=== PATIENT | male | born 1985 | race African-American/Black ===

== ENCOUNTER 2017-04-10 13:44 | Inpatient (IN) ==
[2017-04-10] MEDS ORDERED: amLODIPine 5 MG TABLET PO STA (15:01)
[2017-04-10] MEDS ORDERED: METOPROLOL TARTRATE 5 MG/5 ML VIAL IV ONE (15:12)
[2017-04-10] MEDS ORDERED: amLODIPine 5 MG TABLET ONE ×2 (15:13→15:31)
--- NOTE | 2017-04-10 15:15 | CT Report ---
Referring physician: Liban Pa Exam: CT brain without contrast Date: 04/10/2017 Comparison: None Reason: Right arm numbness Technique: Axial images of the head were obtained without the use of contrast. Total DLP was 1103.60 mGy*cm. Findings: No hydrocephalus or midline shift is present. There is no evidence of an acute infarction, recent intracranial hemorrhage or abnormal mass effect. The osseous structures appear intact. The mastoid air cells and visualized paranasal sinuses are clear. Impression: No acute intracranial abnormality is identified. The CT exam was performed using one or more of the following dose reduction techniques: Automated exposure control and adjustment of the mA and/or kV according to patient size. PROCEDURE INTERPRETED AT [facility] DEPARTMENT OF RADIOLOGY Final Report Signed by: Dr. Angeline Reid
--- NOTE | 2017-04-10 15:16 | Emergency Department Note ---
Roxana Abad Hilary, am scribing for, and in the presence of, Liban Pa MD 15: 08. Ember Abad James D, MD, personally performed the services described in this documentation, ascribed by Bita Schmidt in my presence, and it is both accurate and complete 516 . Arrival - Arrival Chief Complaint: Neuro Stated Complaint: thinks he had a stroke ED Nursing Triage Note: numbness in right arm since yesterday morning. denies injury. moves extremity without difficulty Mode of Arrival: Ambulatory Limitations: No Limitations Source: Patient, RN Notes Reviewed Time Seen by Provider: 04/10/17 14:56 - History of Present Illness HPI Narrative: Pt is 31 y/o black male presenting to the ED with c/o HTN and right arm numbness which onset this AM. Pt denies headache or injury to the arm. No other complaints or problems stated in the ED. Onset (ago): hour(s) Consistency: constant Severity: mild Severity scale (1-10): 1 Quality: other (numb) Allergies/Adverse Reactions: Allergies Allergy/AdvReac Type Severity Reaction Status Date / Time No Known Allergies Allergy Unverified 04/10/17 14:17 Home Medications: Home Medications Medication Instructions Recorded Confirmed Type Insulin NPH Hum/Reg Insulin Hm 32 unit SUBCUT QPM 04/10/17 04/10/17 History [NovoLIN 70/30] Insulin NPH Hum/Reg Insulin Hm 60 unit SUBCUT QAM 04/10/17 04/10/17 History [NovoLIN 70/30] Review of System - Review of System 12 point system: reviewed and no additional remarkable complaints except as stated - Review of System Constitutional: Present: other (high blood pressure). Absent: fever Musculoskeletal: Present: arm pain (right arm pain) Medical,Surgical,& Family Hx - Medical History Endocrine: History of: Diabetes Mellitus (NIDDM) - Social History Smoking Status: Never smoker Exam Physical Examination: GENERAL: This is a well-nourished, well-developed in no apparent distress. VITAL SIGNS: Temperature: 98.4 Pulse: 112L Respiratory: 18 Blood Pressure: 227/134 O2 Sat: 99 HEENT: Head is normocephalic and atraumatic. Pupils are equally round and reactive to light. Extraocular movement are intact. Oropharynx is benign with moist mucous membranes. NECK: Neck is soft and supple without tenderness. There are no masses. There is no lymphadenopathy. LUNGS: Lungs are clear to auscultation bilaterally. Chest rises symmetrically. There is no chest wall tenderness. CV: Heart is regular rate and rhythm without murmurs, rubs, or gallops. ABDOMEN: Abdomen is soft, non-tender to palpation. There are no abnormal masses palpated. There is no organomegaly. Bowel sounds are present and active. SKIN: Skin is warm and dry. No rash. EXTREMITIES: Patient has full range of motion without tenderness. There is no pedal edema. NEUROLOGIC: Awake, alert, and oriented x4. Cranial nerves II through XII are grossly intact. There are no motorsensory deficits. PSYCHIATRIC: Normal affect. Normal mood. Vital Signs: Vital Signs Temperature 98.4 F 04/10/17 14:13 Pulse Rate 112 H 04/10/17 14:13 Respiratory Rate 18 04/10/17 14:13 Blood Pressure 227/134 04/10/17 14:13 O2 Sat by Pulse Oximetry 99 04/10/17 14:13 Course Course Narrative: Patient started on Cardene infusion due to his hypertension. - Consultations Consultation #1: Discussed with hospitalist. Patient will be admitted to their service. Time: 16:58 Results - Labs CBC & BMP: 04/10/17 15:18 04/10/17 15:18 Lab Results: I have reviewed the patients labs Labs: Laboratory Tests 04/10/17 04/10/17 15:18 15:18 WBC 8.1 RBC 5.33 Hgb 16.8 Hct 48.5 Neut % (Auto) 75.3 H Lymph % (Auto) 15.7 L Lymph # (Auto) 1.3 L Urine Color Straw Urine Appearance Clear Urine Urobilinogen < 2.0 H - EKG EKG results: interpreted by ERMD - Impressions EKG: Normal sinus rhythm with a rate of 86, left axis deviation, nonspecific ST- T wave changes. - Diagnostic Findings Procedure: Chest x-ray: image reviewed by me (No acute cardiopulmonary pathology identified), CT Abdomen and Pelvis: image reviewed by me (CT head: No acute intracranial lesion or hemorrhage.) Disposition Clinical Impression: Right arm numbness, Essential hypertension, Diabetes mellitus Case discussed with: patient, patient's family Disposition: Still a Patient Time of Disposition: 16:58
[2017-04-10] MEDS: METOPROLOL TARTRATE 5 MG/5 ML VIAL IV SCH ×3 (15:27→15:40)
[2017-04-10] MEDS ORDERED: METOPROLOL TARTRATE 5 MG/5 ML VIAL IV SCH (15:30)
[2017-04-10 15:39] LABS: Basophils # 0.1 10*3/uL (0.0-0.2); Basophils % 0.6 % (0.0-0.8); Eosinophils # 0.1 10*3/uL (0.0-0.87); Eosinophils % 0.9 % (0.00-10.9); Hematocrit 48.5 VOL% (42.0-52.0); Hemoglobin 16.8 GM/DL (14.0-18.0); Immature Granulocytes % 0.4 %; Immature Granulocytes Absolute 0.03 #; Lymphocytes # 1.3 10*3/uL (1.4-4.0); Lymphocytes % 15.7 % (21.2-54.2); Mean Corpuscular HGB Conc 34.6 GM/DL (32-36); Mean Corpuscular Hemoglobin 32 PG (27-34); Mean Platelet Volume 10.9 FL (9.6-12.0); Monocytes # 0.6 10*3/uL (0.11-0.8); Monocytes % 7.1 % (1.7-12.7); Neutrophils # 6.1 10*3/uL (1.4-7.4); Neutrophils % 75.3 % (38.7-73.9); Platelet Count 303 T/CUMM (130-400); Red Blood Count 5.33 MC/CUMM (3.8-5.5); White Blood Count 8.1 T/CUMM (4-12)
[2017-04-10 15:46] LABS: Apearance,Urine CLEAR (Clear); Bilirubin,Urine Negative (Negative); Blood, Urine Small mg/dL (Negative); Glucose,Urine (UA) >=500 mg/dL (Negative); Ketones,Urine Negative (Negative); Nitrite,Urine Negative (Negative); Protein,Urine >=500 MG/DL; RBC,Urine 2 /HPF (0-4); Urine Color Straw (Yellow); Urine Specific Gravity 1.015 (1.001-1.035); Urine Urobilinogen < 2.0 EU/DL (0.2-1.0); WBC,Urine <1 /HPF (0-6)
[2017-04-10 16:02] LABS: Calcium 9.5 MG/DL (8.5-10.1); Osmolality,Calculated 291.8 MOS/KG (273-304); Potassium 4.6 MMOL/L (3.5-5.1)
[2017-04-10 16:15] LABS: Barbiturates Screen,Urine Negative (Negative); Benzodiazepines Screen,Urine Negative (Negative); Cannabinoid Screen,Urine Negative (Negative); Opiate Screen,Urine Negative (Negative); Phencyclidine Screen,Urine Negative (Negative)
[2017-04-10] MEDS ORDERED: niCARdipine 25 MG/10 ML VIAL IV ONE (16:23)
[2017-04-10] MEDS ORDERED: niCARdipine INJ 25 MG in SODIUM CHLORIDE 0.9% 240 ML IV SCH (16:30)
[2017-04-10] MEDS ORDERED: ASPIRIN 325 MG TABLET ONE (17:15)
[2017-04-10] MEDS ORDERED: ASPIRIN 325 MG TABLET PO STA (17:20)
--- NOTE | 2017-04-10 17:32 | Hospitalist History & Physical ---
<Yang Ambrosio - Last Filed: 04/10/17 17:43> History of Present Illness History of present illness: Mr. Yang is a 31 year old male with a past medical history significant for IDDM and HTN, however he sees no doctor, who presents to the ED with complaints of right arm numbness and elevated blood pressure. The patient reports he knows that he has DM and he buys his insulin at [facility] without a prescription. He noted that began to feel his mouth "slide" and have slurred speech at work over the past few days and, most recently, noticed that his right arm felt like " weight". On admission, the patient's blood pressure was noted to be 227/134. The patient admits that he has felt symptoms similar to this in the past, but has never had it checked out due to a lack of insurance. He states that he does snore at night and often wakes up feeling tired, but denies an associated headache. He further denies current headache, chest pain, SOB, nausea/vomiting, change in bowel habits, palpitations or syncopal episodes. Lab work on admission is remarkable for BUN 32, Creatinine 3.30, glucose 310 and Hgb A1c 8.5. Urinalysis is significant for protein and glucose. Case has been discussed with Dr. Preciado, admitting physician, and the patient will be admitted to the ICU for further evaluation and treatment. The patient is a full code. Medications have been reviewed and reconciled. Home Medications Medication Instructions Recorded Confirmed Type Insulin NPH Hum/Reg Insulin Hm 32 unit SUBCUT QPM 04/10/17 04/10/17 History [NovoLIN 70/30] Insulin NPH Hum/Reg Insulin Hm 60 unit SUBCUT QAM 04/10/17 04/10/17 History [NovoLIN 70/30] Allergies Allergy/AdvReac Type Severity Reaction Status Date / Time No Known Allergies Allergy Verified 04/10/17 18:31 - Constitutional Constitutional: Present: headache(s). Absent: fatigue, weakness - EENT Eyes: Absent: blurry vision, loss of vision Nose, mouth and throat: Absent: hoarseness, neck pain, sore throat, vertigo - Cardiovascular Cardiovascular: Absent: chest pain at rest, chest pain with activity, diaphoresis, dyspnea, edema, radiating jaw, neck or arm pain, lightheadedness, palpitations - Respiratory Respiratory: Present: snoring. Absent: cough, dyspnea, wheezing, pain on inspiration - Gastrointestinal Gastrointestinal: Absent: abdominal pain, constipation, diarrhea, nausea, vomiting - Genitourinary Genitourinary: Absent: difficulty urinating, dysuria - Musculoskeletal Musculoskeletal: Absent: back pain, limited range of motion, muscle weakness - Neurological Neurological: Present: abnormal speech (slurred speech), numbness (right arm numbness). Absent: abnormal gait, syncope - Psychiatric Psychiatric: Absent: anxiety, depression - Endocrine Endocrine: Absent: cold intolerance, fatigue, heat intolerance - Hematologic/Lymphatic Hematologic/Lymphatic: Absent: easy bleeding, easy bruising Exam - Constitutional Vitals: Period Temp Pulse Resp BP Sys/Mckeon Pulse Ox Last 24 Hr 98.4 F-98.4 F 84-112 18-18 158-227/109-140 97-100 Results - Labs CBC & BMP: 04/10/17 15:18 04/10/17 15:18 Lab Results: I have reviewed the past 24 hour labs <Maddie Preciado - Last Filed: 04/10/17 19:46> Assessment and Plan (1) Malignant hypertension Status: Acute Assessment and plan: cont cardene keep systolic 160 to 180, coreg 12.5 mg po bid norvasc given in er Current Visit: Yes (2) IDDM (insulin dependent diabetes mellitus) Status: Acute Assessment and plan: 70/30 twice a day, hgb a1c 8.5 Current Visit: Yes (3) Acute renal failure Status: Acute Assessment and plan: renal us and Dr. Tay consulted Current Visit: Yes (4) MERLY (obstructive sleep apnea) Status: Acute Assessment and plan: Dr. Altman to see Current Visit: Yes History of Present Illness Chief complaint: right arm numbness History of present illness: Mr. Yang is a 31 year old male with history IDDM who does not see a doctor but gets his insulin 70/30 without a prescription. Developed numbness, right arm numbness and came to Er for evaluation. Blood pressure on admission was 227/ 134. he was given norvasc 10 mg and placed on cardene drip Medical,Surgical,& Family Hx - Medical History Endocrine: History of: Diabetes Mellitus (NIDDM) - Surgical History Additional Surgical History: none - Family History Family History: Reports;: Family Diabetes, Family Hypertension Denies;: Family Heart Disease - Social History Smoking Status: Never smoker Frequency of Alcohol Use: None Type of Drug Use: None Marital Status: Single Lives With:: Significant Other Functional capacity: independent ambulation Exam - Constitutional Vitals: Period Temp Pulse Resp BP Sys/Mckeon Pulse Ox Last 24 Hr 98.4 F-98.4 F 84-112 18-18 158-227/109-140 97-100 General appearance: normal weight, no acute distress - Head Head exam: Present: normal inspection, normocephalic - Eye Eye exam: Present: EOMI. Absent: scleral icterus Pupils: Present: SIMONE, normal accommodation - ENT ENT exam: Present: normal exam, normal external ear exam - Neck Neck exam: Present: thyromegaly. Absent: lymphadenopathy - Respiratory Respiratory exam: Present: clear to auscultation bilaterally. Absent: rhonchi, wheezes - Cardiovascular Cardiovascular exam: Present: regular rate and rhythm. Absent: systolic murmur - GI/Abdominal GI/Abdominal exam: Present: normal bowel sounds, soft. Absent: tenderness - Extremities Exam Extremities exam: Present: normal inspection, normal capillary refill. Absent: edema - Neurological Exam Neurological exam: Present: alert, oriented X3, CN II-XII intact, reflexes normal. Absent: motor sensory deficit - Psychiatric Psychiatric exam: Present: normal affect, normal mood - Skin Skin exam: Present: normal color, warm Results - Labs CBC & BMP: 04/10/17 15:18 04/10/17 15:18 - EKG EKG shows: sinus rhythm - Diagnostic Findings Procedure: CT: report reviewed by me (head negative )
[2017-04-10] MEDS ORDERED: GLUCAGON 1 MG VIAL IM PRN (18:20)
[2017-04-10] MEDS ORDERED: ZALEPLON 5 MG CAPSULE PO PRN (18:20)
[2017-04-10] MEDS ORDERED: ACETAMINOPHEN 325 MG TABLET PO PRN (18:20)
[2017-04-10] MEDS ORDERED: DEXTROSE 50% 25 GM/50 ML VIAL IV PRN (18:20)
[2017-04-10] MEDS ORDERED: ONDANSETRON 4 MG/2 ML VIAL IV PRN (18:20)
[2017-04-10] MEDS: ENOXAPARIN 40 MG/0.4 ML SYRINGE SUBCUT SCH (18:51)
[2017-04-10] MEDS: CARVEDILOL 12.5 MG TABLET PO SCH ×2 (18:51→20:50)
[2017-04-10] MEDS: INSULIN NPH/REGULAR 70/30 100 UNIT/ML SUBCUT SCH (18:51)
[2017-04-10 19:22] LABS: Thyroid Stimulating Hormone 3.2 uIU/ml (0.358-3.74)
--- NOTE | 2017-04-10 20:13 | Nephrology Consult Note ---
History of Present Illness Chief complaint: Renal impairment, Hypertensive urgency History of present illness: Mr. Yang is a 31 year old male whom we are asked to see with a greater than 20 year history of diabetes mellitus and presentation to the emergency room because of neurologic symptoms of late with numbness in his arms and face and questionable slurred speech. He was found to be quite hypertensive at approximately 220/130. He says that hypertension is new. He does not see physicians regularly and buys his insulin at [facility]. He takes 7030 insulin and takes 60 units in the morning and 30 in the evening. He denies any swelling or shortness of breath. On physical exam he appears in no distress blood pressure currently is 140/106. Neck without jugular venous distention heart without rub or gallop chest is clear. Abdomen is soft nontender extremities are without peripheral edema. Impression hypertensive urgency #2 creatinine of 3 which may be chronic or may reflect vasospasm related to the hypertensive urgency. #3 proteinuria by urinalysis likely reflecting diabetic nephropathy. Plan: We will quantitate urine protein, control blood pressure and I agree with the Coreg and amlodipine is being used. He understands good blood pressure pressure and blood sugar control or crucial to slowing the progression of renal impairment. There may be worsening of his creatinine as blood pressure is controlled but we should continue to control it and he will settle back down to whatever his previous baseline was. Home Medications Medication Instructions Recorded Confirmed Type Insulin NPH Hum/Reg Insulin Hm 32 unit SUBCUT QPM 04/10/17 04/10/17 History [NovoLIN 70/30] Insulin NPH Hum/Reg Insulin Hm 60 unit SUBCUT QAM 04/10/17 04/10/17 History [NovoLIN 70/30] Allergies Allergy/AdvReac Type Severity Reaction Status Date / Time No Known Allergies Allergy Verified 04/10/17 18:31 Medical,Surgical,& Family Hx - Medical History Endocrine: History of: Diabetes Mellitus (NIDDM) - Family History Family History: Reports;: Family Diabetes, Family Hypertension, Family Stroke ( dad) Denies;: Family Heart Disease - Social History Smoking Status: Never smoker Frequency of Alcohol Use: None Type of Drug Use: None Review of Systems 12 point system: reviewed and no additional remarkable complaints except as stated Exam - Vital Signs Vital signs: Period Temp Pulse Resp BP Sys/Mckeon Pulse Ox Last 24 Hr 97.9 F-98.4 F 84-112 16-20 131-227/86-140 97-100 - General Appearance General appearance: well-developed, well-nourished, appears started age EENT: ATNC Neck: no JVD, no thyromegaly, no carotid bruit, supple Respiratory: no kyphosis, no scoliosis Cardiology: no murmurs, no rub, no gallops, no edema, regular rate, regular rhythm, normal S1, normal S2 Gastrointestinal: normoactive bowel sounds Integumentary: no rash, warm and dry Neurologic: no focal deficit, no asterixis, alert and oriented x3, reflexes 2+ and symmetric, gait normal, strength 5/5 Musculoskeletal: no deformities, no erythema, no cyanosis, no clubbing Psychiatric: mood/affect appropriate, cooperative Results - Labs CBC & BMP: 04/10/17 15:18 04/10/17 15:18 Assessment and Plan (1) Renal function impairment Status: Acute Assessment and plan: Control bp and glucose. Quantitate proteinuria. Current Visit: Yes (2) Hypertensive urgency Status: Acute Assessment and plan: BP control as is being done Current Visit: Yes
--- NOTE | 2017-04-10 20:46 | Ultrasound Report ---
US renal Bilateral Indication: Acute renal failure. RENAL ULTRASOUND: Grayscale and color Doppler imaging the kidneys performed. Right kidney measures 105 x 40 x 47 mm. Left kidney measures 97 x 47 x 51 mm. No hydronephrosis, mass, cyst or calcification identified on either side. Color Doppler flow at both renal arsalan documented. Impression: Negative ultrasound the kidneys. PROCEDURE INTERPRETED AT [facility] DEPARTMENT OF RADIOLOGY Final Report Signed by: Chuck Luis M.D.
[2017-04-10] MEDS: INSULIN LISPRO 100 UNIT/ML SUBCUT SCH (21:31)
[2017-04-11 05:24] LABS: Calcium 8.9 MG/DL (8.5-10.1); Potassium 4.7 MMOL/L (3.5-5.1)
[2017-04-11 05:25] LABS: Risk Ratio 9.33; VLDL CHOLESTEROL 38.8 MG/DL
--- NOTE | 2017-04-11 07:49 | EKG Report ---
Stationary ECG Study [facility] ER Test Date: 04/10/2017 3:45:38 PM Pat Name: SHONNA JOHNSTON Department: Room: 124 Gender: M Pharmacy Technician Assistant: : [id number] Requested by: Liban Segundo Order Number: [id number] Franklin MD: NELIA SILVA Intervals [place] Rate: 86 P: 28 MD: 154 QRS: -37 QRSD: 83 T: 21 QT: 351 QTc: 394 Interpretive Statements SINUS RHYTHM POOR R-WAVE PROGRESSION MARKED LEFT AXIS DEVIATION PATTERN CONSISTENT WITH PULMONARY DISEASE Electronically Signed On 04-12-17 16:06:36 CDT by NELIA SILVA [email or web address]
--- NOTE | 2017-04-11 08:33 | Nephrology Progress Note ---
Nephrology - PN: Subj Interval history: Mr. Yang is seen in follow-up of his chronic renal failure and hypertension. His blood pressure is much better controlled at 140/90 and creatinine is stable at 3.4. Potassium 4.7. We encouraged him regarding the necessity of taking good care of his diabetes and compliance with his hypertensive medicines. He understands that he will slow the progression of his renal impairment if he controls his blood pressure and blood sugar. Exam (PN)-Nephrology - Vital Signs Vital signs: Period Temp Pulse Resp BP Sys/Mckeon Pulse Ox Last 24 Hr 97.1 F-98.4 F 78-112 13-26 107-227/62-140 96-100 - Lab 04/10/17 15:18 04/11/17 04:14 Most recent lab results Calcium 8.9 MG/DL (8.5-10.1) 04/11/17 04:14 Magnesium 2.0 MG/DL (1.8-2.4) 04/10/17 18:37 Assessment and Plan (1) Renal function impairment Status: Acute Assessment and plan: Control bp and glucose. Quantitate proteinuria. Current Visit: Yes (2) Hypertensive urgency Status: Acute Assessment and plan: BP control as is being done Current Visit: Yes
[2017-04-11] MEDS: INSULIN NPH/REGULAR 70/30 100 UNIT/ML SUBCUT SCH ×3 (08:41→18:10)
[2017-04-11] MEDS: CARVEDILOL 12.5 MG TABLET PO SCH ×2 (08:42→21:28)
[2017-04-11] MEDS: amLODIPine 10 MG TABLET PO SCH (08:42)
[2017-04-11] MEDS: INSULIN LISPRO 100 UNIT/ML SUBCUT SCH ×4 (08:42→21:27)
[2017-04-11] MEDS: ASPIRIN 325 MG TABLET PO SCH (08:42)
--- NOTE | 2017-04-11 11:39 | ECHO Report ---
Steven Yang Exam Date: 04/11/2017 07:54 Referring Physician: Technologist: joe Caraballo ARDMS, RVT Age: 31 Ht (in): 65 Wt (lb): 225 Gender: M Exam Location: [facility] Echo Indications: Essential (primary) hypertension, Weakness, IDDM, Hypertensive crisis, SOB BP: 110 / 65 HR: 81 Rhythm: Sinus Technical Quality: good IMPRESSIONS The EF is 60% with no regional wall motion abnormalities. Diastolic parameters are normal and there is no RWMA. There is mild concentric left ventricular hypertrophy. MEASUREMENTS (Male / Female) Normal Values 2D ECHO LV Diastolic Diameter PLAX 3.8 cm 4.2 - 5.9 / 3.9 - 5.3 cm LV Systolic Diameter PLAX 2.3 cm LV Fractional Shortening PLAX 38.5 % IVS Diastolic Thickness 1.5 cm 0.6 - 1.0 / 0.6 - 0.9 cm LVPW Diastolic Thickness 1.3 cm 0.6 - 1.0 / 0.6 - 0.9 cm RV Internal Dim ED PLAX 2.0 cm Aortic Root Diameter 2.6 cm LA Systolic Diameter LX 3.3 cm 3.0 - 4.0 / 2.7 - 3.8 cm FINDINGS Left Ventricle The EF is 60% with no regional wall motion abnormalities. Diastolic parameters are normal and there is no RWMA. There is mild concentric left ventricular hypertrophy. Right Ventricle The right ventricle is normal in size and function. Right Atrium The right atrium is normal in size. Left Atrium The left atrium is normal in size. Mitral Valve Morphologically normal mitral valve without significant stenosis or prolapse. There is no mitral regurgitation. Aortic Valve Aortic valve sclerosis without stenosis or regurgitation. Tricuspid Valve Morphologically normal tricuspid valve without significant stenosis or regurgitation. Pulmonary artery systolic pressure is normal. Pulmonic Valve Morphologically normal pulmonic valve without significant stenosis. There is no pulmonic regurgitation. Pericardium Normal pericardium without effusion. Aorta Normal ascending aorta dimension. Nely Pham (Electronically Signed) Final Date: 11 April 2017 11:38
--- NOTE | 2017-04-11 12:02 | Sleep Medicine Consult ---
Assessment and Plan (1) MERLY (obstructive sleep apnea) Status: Acute Assessment and plan: This patient certainly does have clinical features that would be concerning for sleep apnea with this history of snoring, sleepiness, abnormal breathing during sleep, and medical comorbidities. We will proceed with home sleep testing evaluation tonight and follow-up on these results. Current Visit: Yes (2) Essential hypertension Status: Acute Assessment and plan: The prevalence for obstructive sleep apnea patients with hypertension is about 35%. In those to require up to 4 medications for blood pressure control, that prevalence can be as high as 80%. Current Visit: Yes (3) Diabetes mellitus Status: Acute Assessment and plan: Uncontrolled obstructive sleep apnea certainly can contribute to the exacerbation of diabetes. Type II diabetic patients who have moderate to severe sleep apnea are at greater risk for complications of renal failure and diabetic neuropathy. Current Visit: Yes History of Present Illness Chief complaint: Sleep apnea History of present illness: Mr. Yang is a 31 year old male admitted with right arm numbness and difficult to control hypertension. Sleep medicine was consulted for concern that sleep apnea is a factor. He does have a history of loud snoring and will awaken from sleep short of breath. He denies any history of being told that he stops breathing during his sleep. He does have symptoms of sleepiness during the day but no history of significant nocturia. He has never had previous sleep evaluation in the past. 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 He does not have a regular doctor but when he does go, he goes to the [facility]. He states that he gets his insulin from [employer]. He does have a stop bang score of 5 and a [place] sleepiness score of 14. Home Medications Medication Instructions Recorded Confirmed Type Insulin NPH Hum/Reg Insulin Hm 32 unit SUBCUT QPM 04/10/17 04/10/17 History [NovoLIN 70/30] Insulin NPH Hum/Reg Insulin Hm 60 unit SUBCUT QAM 04/10/17 04/10/17 History [NovoLIN 70/30] Allergies Allergy/AdvReac Type Severity Reaction Status Date / Time No Known Allergies Allergy Verified 04/10/17 18:31 Review of systems: Otherwise unremarkable from a sleep medicine standpoint. Exam (Pulmonay) H&P - Constitutional Vitals: Period Temp Pulse Resp BP Sys/Mckeon Pulse Ox Last 24 Hr 97.1 F-98.4 F 76-112 13-26 107-227/62-140 96-100 Exam: He is alert and responsive in no acute distress. Pupils equal round reactive to light and accommodation. Extraocular movements intact. Oropharynx with a class IV Mallampati exam. Neck supple without adenopathy or thyromegaly. No supraclavicular adenopathy is noted. Chest with symmetrical breath sounds without focal wheeze, rhonchi, or rales. Cardiac exam reveals a regular rhythm without murmur or gallop. Abdomen soft nontender extremities without increased edema. Neurologically, he is grossly intact. Medical,Surgical,& Family Hx - Medical History Endocrine: History of: Diabetes Mellitus (NIDDM) - Family History Family History: Reports;: Family Diabetes, Family Hypertension, Family Stroke ( dad) Denies;: Family Heart Disease - Social History Smoking Status: Never smoker Frequency of Alcohol Use: None Type of Drug Use: None Results - Labs CBC & BMP: 04/10/17 15:18 04/11/17 04:14 Lab Results: I have reviewed the past 24 hour labs Quality Measures - Stroke Onset of Symptoms Date: 04/09/17
--- NOTE | 2017-04-11 13:04 | Hospitalist Progress Note ---
Assessment and Plan (1) Malignant hypertension Status: Acute Assessment and plan: cont coreg 12.5 mg po bid, norvasc 10 mg, off cardene Current Visit: Yes (2) IDDM (insulin dependent diabetes mellitus) Status: Acute Assessment and plan: 70/30 twice a day, hgb a1c 8.5 Current Visit: Yes (3) Acute renal failure Status: Acute Assessment and plan: Thanks for help from Dr. Tay Current Visit: Yes (4) MERLY (obstructive sleep apnea) Status: Acute Assessment and plan: Dr. Altman thanks for help Current Visit: Yes Hospitalist: Subjective Interval history: blood pressure better today. Exam - Constitutional Vitals: Period Temp Pulse Resp BP Sys/Mckeon Pulse Ox Last 24 Hr 97.1 F-98.4 F 76-112 13-26 107-227/62-140 96-100 Exam: Heart Rate-[RRR] Lungs-[CTAB] GI-[+bs soft, NT] Ext-[no edema] Neuro [Motor 5/5], [alert and oriented times 3] psych [normal mood and affect] General [no acute distress] Results - Labs CBC & BMP: 04/10/17 15:18 04/11/17 04:14 Lab Results: I have reviewed the past 24 hour labs - Diagnostic Findings Procedure: Ultrasound: report reviewed by me (echo ef 60%) Quality Measures - Stroke Onset of Symptoms Date: 04/09/17
[2017-04-11] MEDS: ENOXAPARIN 40 MG/0.4 ML SYRINGE SUBCUT SCH (17:36)
[2017-04-12 07:12] LABS: Calcium 9.2 MG/DL (8.5-10.1); Osmolality,Calculated 287.1 MOS/KG (273-304); Potassium 4.2 MMOL/L (3.5-5.1)
[2017-04-12] MEDS: ASPIRIN 325 MG TABLET PO SCH (09:35)
[2017-04-12] MEDS: CARVEDILOL 12.5 MG TABLET PO SCH (09:35)
[2017-04-12] MEDS: amLODIPine 10 MG TABLET PO SCH (09:35)
[2017-04-12] MEDS: INSULIN LISPRO 100 UNIT/ML SUBCUT SCH ×4 (09:36→20:12)
[2017-04-12] MEDS: INSULIN NPH/REGULAR 70/30 100 UNIT/ML SUBCUT SCH (09:36)
--- NOTE | 2017-04-12 12:48 | Hospitalist Progress Note ---
Assessment and Plan (1) Malignant hypertension Status: Acute Assessment and plan: Will increase Coreg to 25mg bid, follow response, Echo-EF-60% with no regional wall motion abnormalities. Current Visit: Yes (2) IDDM (insulin dependent diabetes mellitus) Status: Acute Assessment and plan: A1c-8.5.Patient had some episodes of hypoglycemia requiring D50 so we will keep him on SSC for now and hold his routine Insulin. DM teaching Current Visit: Yes (3) Dyslipidemia Status: Acute Assessment and plan: will start Lipitor Current Visit: Yes (4) MERLY (obstructive sleep apnea) Status: Acute Assessment and plan: Follow sleep clinic's recommendations. Current Visit: Yes (5) Renal function impairment Status: Acute Assessment and plan: I suspect this has been ongoing for a while. Follow Nephrology's recommendations. Renal USS- unremarkable. Current Visit: Yes Hospitalist: Subjective Interval history: Patient was admitted initially to the unit for hypertensive crisis.He also has a history of DM and RF. He has not been seeing any PCP as outpt, he gets his insulin from [facility] and pretty much handles his own dose unsupervised. Exam - Constitutional Vitals: Period Temp Pulse Resp BP Sys/Mckeon Pulse Ox Last 24 Hr 97.3 F-98.6 F 18-83 16-20 130-158/73-96 95-98 General appearance: no acute distress - Head Head exam: Present: normal inspection - Respiratory Respiratory exam: Present: clear to auscultation bilaterally - Cardiovascular Cardiovascular exam: Present: regular rate and rhythm - Extremities Exam Extremities exam: Present: normal inspection - Neurological Exam Neurological exam: Present: alert, oriented X3 Results - Labs CBC & BMP: 04/10/17 15:18 04/12/17 05:16 Lab Results: I have reviewed the past 24 hour labs Quality Measures - Stroke Onset of Symptoms Date: 04/09/17
--- NOTE | 2017-04-12 14:14 | Nephrology Progress Note ---
Nephrology - PN: Subj Interval history: Mr. Yang is seen in follow-up of his chronic renal impairment. His creatinine stable at 3.2. His blood pressures improved and fairly stable. He has had an episode of hypoglycemia but he said he is eating far less in the hospital and he does as an outpatient and thinks that that is what led to his hypoglycemia. He said he rarely has that as an outpatient unless he misses a meal. He understands that he is going to need to continue blood pressure control and continue to try to keep a close eye on his blood sugars once he is discharged. Exam (PN)-Nephrology - Vital Signs Vital signs: Period Temp Pulse Resp BP Sys/Mckeon Pulse Ox Last 24 Hr 97.3 F-98.6 F 76-83 16-20 133-158/73-96 95-98 - Lab 04/10/17 15:18 04/12/17 05:16 Most recent lab results Calcium 9.2 MG/DL (8.5-10.1) 04/12/17 05:16 Magnesium 2.0 MG/DL (1.8-2.4) 04/10/17 18:37 Assessment and Plan (1) Renal function impairment Status: Acute Assessment and plan: Control bp and glucose. Quantitate proteinuria. Current Visit: Yes (2) Hypertensive urgency Status: Acute Assessment and plan: BP control as is being done Current Visit: Yes
[2017-04-12] MEDS: ENOXAPARIN 40 MG/0.4 ML SYRINGE SUBCUT SCH ×2 (16:57→18:33)
--- NOTE | 2017-04-12 17:36 | Sleep Medicine Progress Note ---
Assessment and Plan (1) MERLY (obstructive sleep apnea) Status: Acute Assessment and plan: Patient will be placed on auto titration CPAP tonight. We will follow-up results with downloaded. He does not have insurance and I have recommended that he see if he can get qualified for Medicaid. If not, we can contact [employer] companies to see if there is a used machine that would be available for him. He would likely have to pay for supplies with mask, tubing, and filters. Current Visit: Yes (2) Essential hypertension Status: Acute Current Visit: Yes (3) Diabetes mellitus Status: Acute Current Visit: Yes Sleep Medicine Subjective Interval history: Patient did undergo HST evaluation last night. He did have evidence of moderate obstructive sleep apnea with respiratory event index of 18.9 and O2 desaturation to lows of 75%. We will set him up on CPAP titration tonight with auto titration device and follow up his response. I reviewed his findings with him to his understanding. Exam (Progress Note) - Constitutional Vitals: Period Temp Pulse Resp BP Sys/Mckeon Pulse Ox Last 24 Hr 97.3 F-98.6 F 76-83 16-20 133-165/70-96 95-98 Exam: He is alert and oriented and in no acute distress. Oropharynx with class III Mallampati exam. Neck supple without adenopathy. Chest with good air movement and no focal wheeze or rhonchi. Cardiac exam reveals a regular rhythm without murmur or gallop. Abdomen soft nontender extremities without increased edema. Results - Labs CBC & BMP: 04/10/17 15:18 04/12/17 05:16 Lab Results: I have reviewed the past 24 hour labs
[2017-04-12] MEDS: ATORVASTATIN 40 MG TABLET PO SCH (20:10)
[2017-04-12] MEDS: CARVEDILOL 25 MG TABLET PO SCH (20:10)
[2017-04-13 07:09] LABS: Osmolality,Calculated 296.3 MOS/KG (273-304); Potassium 4.7 MMOL/L (3.5-5.1)
[2017-04-13] MEDS: INSULIN LISPRO 100 UNIT/ML SUBCUT SCH ×4 (08:19→21:07)
--- NOTE | 2017-04-13 08:37 | Nephrology Progress Note ---
Nephrology - PN: Subj Interval history: Ms. Yang is seen in follow-up of his renal impairment and hypertension. He is much improved overall with better blood pressure control and her creatinine now down to 2.9. I do not think he will ever return to a creatinine much below 2-1/ 2 but continued blood pressure control and blood sugar control have been emphasized as the best way to protect and preserve kidney function his chest is clear and he is without complaint. Exam (PN)-Nephrology - Vital Signs Vital signs: Period Temp Pulse Resp BP Sys/Mckeon Pulse Ox Last 24 Hr 96.9 F-98.6 F 71-85 15-22 133-198/67-104 96-100 - Lab 04/10/17 15:18 04/13/17 05:22 Most recent lab results Calcium 9.0 MG/DL (8.5-10.1) 04/13/17 05:22 Magnesium 2.0 MG/DL (1.8-2.4) 04/10/17 18:37 Assessment and Plan (1) Renal function impairment Status: Acute Assessment and plan: Control bp and glucose. Quantitate proteinuria. Current Visit: Yes (2) Hypertensive urgency Status: Acute Assessment and plan: BP control as is being done Current Visit: Yes
[2017-04-13] MEDS: CARVEDILOL 25 MG TABLET PO SCH ×2 (09:49→21:07)
[2017-04-13] MEDS: amLODIPine 10 MG TABLET PO SCH (09:49)
[2017-04-13] MEDS: ASPIRIN 325 MG TABLET PO SCH (09:49)
--- NOTE | 2017-04-13 12:08 | Magnetic Resonance Report ---
Exam: MR head/brain wo con Date: 04/13/2017 10:00 AM Comparison: CT brain 04/10/2017 Indication: Right side weakness, slurred speech Technique:[Multiple acquisitions were obtained including sagittal T1, coronal T2, and axial ADC, diffusion, FLAIR, T2, GRE, and T1 scans without contrast only. Scans were obtained on an open 1.2 Paige magnet.] Findings: The ventricles are normal in size with no midline displacement. The pituitary has a normal appearance and the cerebellar tonsils are normal in their location. 16 mm area of restricted diffusion in the left midbrain/cerebral peduncle. Minimal extension into the upper left patricia. No evidence of hemorrhage, mass, or extracerebral collection. No acute findings are identified in the paranasal sinuses, orbits, temporal bones, or la posta of Parikh. Impression: 16 mm acute ischemic infarction in the left midbrain/cerebral peduncle. There is minimal extension into the upper left patricia. This report to nurse, Naye Ramesh at 12:05 PM on 04/13/2017. Critical test results PROCEDURE INTERPRETED AT [facility] DEPARTMENT OF RADIOLOGY Final Report Signed by: Dr. Angeline Reid
--- NOTE | 2017-04-13 12:58 | Sleep Medicine Progress Note ---
Assessment and Plan (1) MERLY (obstructive sleep apnea) Status: Acute Assessment and plan: His obstructive sleep apnea seems well controlled with CPAP at 13 cm. CPAP will be prescribed at that level and follow-up will be scheduled in the sleep clinic. Current Visit: Yes (2) Essential hypertension Status: Acute Current Visit: Yes (3) Diabetes mellitus Status: Acute Current Visit: Yes Sleep Medicine Subjective Interval history: Patient did do well with CPAP last night. He was on auto titration CPAP and slept with it for over 9 hours. His best pressure was about 13 cm and he had good control with an AHI of 3. He felt better this morning and noted improvement. [facility] has committed to giving him a used machine. We will set him up for follow-up in the sleep clinic after discharge. Exam (Progress Note) - Constitutional Vitals: Period Temp Pulse Resp BP Sys/Mckeon Pulse Ox Last 24 Hr 96.9 F-98.6 F 71-86 15-22 120-198/67-104 96-100 Exam: He is alert and oriented and in no acute distress. Oropharynx with class III Mallampati exam. Neck supple without adenopathy. Chest with good air movement and no focal wheeze or rhonchi. Cardiac exam reveals a regular rhythm without murmur or gallop. Abdomen soft nontender extremities without increased edema. Results - Labs CBC & BMP: 04/10/17 15:18 04/13/17 05:22 Lab Results: I have reviewed the past 24 hour labs
--- NOTE | 2017-04-13 13:21 | Ultrasound Report ---
Exam: Carotid ultrasound Date: 04/13/2017 Comparison: None Technique: Duplex scans of the carotid and vertebral arteries using B-mode/Karimi scale imaging and Doppler spectral analysis and color flow. Reason: Acute infarct Findings: The right ICA measures 3.4 mm in diameter and the left ICA measures 5.3 mm in diameter. Color-flow documented in the visualized arteries. The peak systolic velocities are as follows: Right CCA: 63.3 cm/s Right ICA: 0.0 cm/s Right ECA: 97.1 cm/s Left CCA: 95.3 cm/s Left ICA: 70.1 cm/s Left ECA: 115.6 cm/s The peak systolic ICA/CCA velocity ratios are as follows: 0.0 on the right and 0.7 on the left. Antegrade flow is present in both vertebral arteries. Impression:[Occlusion of the right ICA with less than 50% stenosis in the left ICA. Antegrade flow in both vertebral arteries. CTA recommended for further evaluation as discussed with the patient's nurse, Yulissa at 1:15 PM on 04/13/2017. Critical test results The Society of Radiologists in Ultrasound consensus conference criteria was used. The Ultrasound images were captured and stored. PROCEDURE INTERPRETED AT [facility] DEPARTMENT OF RADIOLOGY Final Report Signed by: Dr. Angeline Reid
--- NOTE | 2017-04-13 14:19 | Neurology Consult Note ---
History of Present Illness History of present illness: Mr. Yang is a 31 year old -[place] gentleman with past medical history significant for diabetes, hypertension admitted to the hospital with acute onset of right and leg numbness and weakness. He is dragging his leg and is extremely weak. No speech difficulties or swallowing difficulties reported. No vision problems. He is able to get up and walk. MRI of the brain reveals acute left cerebral peduncle midbrain and upper pontine infarct. Carotid ultrasound reveals complete occlusion of the right ICA which is asymptomatic side. Echocardiogram is unremarkable. Cholesterol is 392 and triglycerides are 192. Home Medications Medication Instructions Recorded Confirmed Type Insulin NPH Hum/Reg Insulin Hm 32 unit SUBCUT QPM 04/10/17 04/10/17 History [NovoLIN 70/30] Insulin NPH Hum/Reg Insulin Hm 60 unit SUBCUT QAM 04/10/17 04/10/17 History [NovoLIN 70/30] Allergies Allergy/AdvReac Type Severity Reaction Status Date / Time No Known Allergies Allergy Verified 04/10/17 18:31 Medical,Surgical,& Family Hx - Medical History Endocrine: History of: Diabetes Mellitus (NIDDM) - Family History Family History: Reports;: Family Diabetes, Family Hypertension, Family Stroke ( dad) Denies;: Family Heart Disease - Social History Smoking Status: Never smoker Frequency of Alcohol Use: None Type of Drug Use: None Exam - Constitutional Vitals: Period Temp Pulse Resp BP Sys/Mckeon Pulse Ox Last 24 Hr 96.9 F-98.6 F 71-86 15-22 120-198/67-104 96-100 Exam: GENERAL: Patient is in no acute distress. NECK: Neck is supple. There is no JVD. No carotid bruits present. No thyroid masses. CVS: First and second heart sounds are normal. There is no S3 present. Regular rate and rhythm. RESPIRATORY: Lungs are clear to auscultation without any rales or rhonchi. ABDOMEN: Soft and non-tender. Bowel sounds are present. There is no hepatosplenomegaly. EXT: There is no palpable edema. Peripheral pulses are present. Skin: No rashes Central Nervous system: General: Alert, awake and Oriented x 3 Speech: Fluent Comprehension: Intact and normal Facial expressions: Normal Cranial Nerves: CN1/Olfactory: Normal CN II/ Optic: Normal, Visual Hendrickson unreliable CN III, and : SIMONE & EOMI CN V: Normal & intact CN VII: face is symmetric CNVIII: Normal CN XI/X/XI/XII: Intact and Normal Motor: Bulk and Tone is normal. Strength in the right 4/5 Strength in the left 5/5 Sensory: Decreased for all the modalities of PP, LT and temp sense in the right Reflexes: 1+ and symmetrical Cerebellar function: Normal finger to nose and heel to gross testing. Toes: Equivocal Gait: Able to get up and walk without assistance. Results - Labs CBC & BMP: 04/10/17 15:18 04/13/17 05:22 Assessment and Plan (1) Acute CVA (cerebrovascular accident) Status: Acute Assessment and plan: Continue aspirin a day Recommend outpatient PT and OT Current Visit: Yes (2) Carotid artery disease Status: Acute Assessment and plan: Agree with MR angiogram of carotid arteries Current Visit: Yes Specialty Discharge - Follow Up or Referrals Follow up with: Delfina Altman MD [Physician] - 05/15/17 1:15 pm
--- NOTE | 2017-04-13 16:00 | Hospitalist Progress Note ---
Assessment and Plan (1) Essential hypertension Status: Acute Assessment and plan: Blood pressure much better improved. Current Visit: Yes (2) IDDM (insulin dependent diabetes mellitus) Status: Acute Assessment and plan: Continue NPH/Reg SSI Current Visit: Yes (3) MERLY (obstructive sleep apnea) Status: Acute Assessment and plan: Sleep medicine following On cpap right now Current Visit: Yes (4) Renal function impairment Status: Acute Assessment and plan: Creatinine slightly improving Nephrology improving Current Visit: Yes (5) Hypertensive urgency Status: Acute Assessment and plan: Improved Current Visit: Yes (6) Dyslipidemia Status: Acute Assessment and plan: Started on statin Current Visit: Yes (7) Acute CVA (cerebrovascular accident) Status: Acute Assessment and plan: MRI brain with acute left cerebral midbrain and upper pontine infarct Carotid ultrasound with occlusion of right ICA echo without acute process Current Visit: Yes Hospitalist: Subjective Interval history: No acute events overnight. Patient's fiance reports that patient continues to have right sided weakness and gait difficulty. MRI brain ordered. Exam - Constitutional Vitals: Period Temp Pulse Resp BP Sys/Mckeon Pulse Ox Last 24 Hr 96.9 F-98.6 F 71-86 15-22 120-198/67-104 96-100 General appearance: over weight - Head Head exam: Present: normocephalic, atraumatic - Eye Eye exam: Present: EOMI Pupils: Present: SIMONE - ENT ENT exam: Present: normal exam - Neck Neck exam: Present: normal inspection - Respiratory Respiratory exam: Present: clear to auscultation bilaterally. Absent: rhonchi, wheezes - Cardiovascular Cardiovascular exam: Present: regular rate and rhythm - GI/Abdominal GI/Abdominal exam: Present: normal bowel sounds, soft. Absent: tenderness - Extremities Exam Extremities exam: Present: normal inspection - Back Exam Back exam: Present: normal inspection - Neurological Exam Neurological exam: Present: alert, oriented X3, motor sensory deficit - Psychiatric Psychiatric exam: Present: normal affect, normal mood - Skin Skin exam: Present: warm, intact Results - Labs CBC & BMP: 04/10/17 15:18 04/13/17 05:22 Quality Measures - Stroke Onset of Symptoms Date: 04/09/17 Specialty Discharge - Follow Up or Referrals Follow up with: Delfina Altman MD [Physician] - 05/15/17 1:15 pm
--- NOTE | 2017-04-13 16:06 | Magnetic Resonance Report ---
Exam: MR angio neck wo con Date: 04/13/2017 1:55 PM Comparison: Carotid ultrasound 04/13/2017 Indication: Carotid artery occlusion, CVA Technique:[Utilizing 3-D time of flight imaging, MR a carotids obtained without contrast. 3-D volume rendered scans were obtained. Degree of stenosis based on NASCET criteria.] Scans were obtained on a 1.2 Paige magnet. Findings: Occlusion of the right ICA just above the origin. In the upper carotid bulb location, the left ICA measures 5.4 mm. The vertebral arteries are symmetric in size. Impression: Occlusion of the proximal right ICA. MRA ambler of Parikh would be beneficial for further evaluation of the intracranial circulation as previously suggested. The patient has significantly elevated renal function tests and cannot have CTA. PROCEDURE INTERPRETED AT [facility] DEPARTMENT OF RADIOLOGY Final Report Signed by: Dr. Angeline Reid
[2017-04-13] MEDS: ENOXAPARIN 40 MG/0.4 ML SYRINGE SUBCUT SCH ×2 (16:18→18:50)
[2017-04-13] MEDS: ATORVASTATIN 40 MG TABLET PO SCH (21:06)
[2017-04-14 06:01] LABS: Calcium 9.1 MG/DL (8.5-10.1); Osmolality,Calculated 297.1 MOS/KG (273-304); Potassium 5.8 MMOL/L (3.5-5.1)
[2017-04-14] MEDS: amLODIPine 10 MG TABLET PO SCH (08:09)
[2017-04-14] MEDS: ASPIRIN 325 MG TABLET PO SCH (08:09)
[2017-04-14] MEDS: CARVEDILOL 25 MG TABLET PO SCH ×2 (08:09→20:10)
[2017-04-14] MEDS: INSULIN LISPRO 100 UNIT/ML SUBCUT SCH ×4 (08:09→20:10)
[2017-04-14] MEDS ORDERED: INSULIN NPH/REGULAR 70/30 100 UNIT/ML SUBCUT SCH ×2 (08:16→09:28)
--- NOTE | 2017-04-14 09:54 | Nephrology Progress Note ---
Nephrology - PN: Subj Interval history: Mr. Yang is seen in follow-up of his renal impairment and hypertension. He has well-controlled blood pressure and as glucoses have been poorly controlled so will resume his home insulin at about two thirds of its home dose and that can be increased as needed. He has had a stroke confirmed by MRI and has some weakness on the right side. He is working with physical therapy. And he is noticing significant improvement in his sleep using the CPAP. We will continue to follow and for now efforts are not controlling blood pressure and blood sugar to slow the deterioration in his chronic renal impairment. Today's creatinine is 3.2 which is essentially the level at which he was admitted. Exam (PN)-Nephrology - Vital Signs Vital signs: Period Temp Pulse Resp BP Sys/Mckeon Pulse Ox Last 24 Hr 96.8 F-98.2 F 73-86 16-20 122-156/68-100 96-100 - Lab 04/10/17 15:18 04/14/17 04:58 Most recent lab results Calcium 9.1 MG/DL (8.5-10.1) 04/14/17 04:58 Magnesium 2.0 MG/DL (1.8-2.4) 04/14/17 04:58 Assessment and Plan (1) Renal function impairment Status: Acute Assessment and plan: Control bp and glucose. Quantitate proteinuria. Current Visit: Yes (2) Hypertensive urgency Status: Acute Assessment and plan: BP control as is being done Current Visit: Yes Specialty Discharge - Follow Up or Referrals Follow up with: Delfina Altman MD [Physician] - 05/15/17 1:15 pm
--- NOTE | 2017-04-14 11:40 | Neurology Progress Note ---
Neurology - PN : Subjective Interval history: Patient seems to be doing and feeling much better. He is getting some physical therapy. MRA carotid arteries report noted. He has high ICA occlusion and I would recommend him to go to [facility] (Dr. Regina Martinez, neuro quality assurance intern) for further evaluation and intervention. Exam (Progress Note) - Constitutional Vitals: Period Temp Pulse Resp BP Sys/Mckeon Pulse Ox Last 24 Hr 96.8 F-98.2 F 73-86 16-20 122-156/68-100 96-100 Exam: GENERAL: Patient is in no acute distress. NECK: Neck is supple. There is no JVD. No carotid bruits present. No thyroid masses. CVS: First and second heart sounds are normal. There is no S3 present. Regular rate and rhythm. RESPIRATORY: Lungs are clear to auscultation without any rales or rhonchi. ABDOMEN: Soft and non-tender. Bowel sounds are present. There is no hepatosplenomegaly. EXT: There is no palpable edema. Peripheral pulses are present. Skin: No rashes Central Nervous system: General: Alert, awake and Oriented x 3 Speech: Fluent Comprehension: Intact and normal Facial expressions: Normal Cranial Nerves: CN1/Olfactory: Normal CN II/ Optic: Normal, Visual Hendrickson unreliable CN III, and : SIMONE & EOMI CN V: Normal & intact CN VII: face is symmetric CNVIII: Normal CN XI/X/XI/XII: Intact and Normal Motor: Bulk and Tone is normal. Strength in the right 4/5 Strength in the left 5/5 Sensory: Decreased for all the modalities of PP, LT and temp sense in the right Reflexes: 1+ and symmetrical Cerebellar function: Normal finger to nose and heel to gross testing. Toes: Equivocal Gait: Able to get up and walk without assistance. Results - Labs CBC & BMP: 04/10/17 15:18 04/14/17 04:58 Assessment and Plan (1) Acute CVA (cerebrovascular accident) Status: Acute Assessment and plan: Continue aspirin a day Recommend outpatient PT and OT Current Visit: Yes (2) Carotid artery disease Status: Acute Assessment and plan: Recommend evaluation at [facility] Sign off please call as needed Current Visit: Yes Quality Measures - Stroke Onset of Symptoms Date: 04/09/17 Specialty Discharge - Follow Up or Referrals Follow up with: Delfina Altman MD [Physician] - 05/15/17 1:15 pm
--- NOTE | 2017-04-14 16:24 | Hospitalist Progress Note ---
Assessment and Plan (1) Essential hypertension Status: Acute Assessment and plan: Blood pressure much better now Current Visit: Yes (2) IDDM (insulin dependent diabetes mellitus) Status: Acute Assessment and plan: NPH/Reg was apparently on hold, restarted today SSI Current Visit: Yes (3) MERLY (obstructive sleep apnea) Status: Acute Assessment and plan: Sleep medicine following On cpap right now Current Visit: Yes (4) Renal function impairment Status: Acute Assessment and plan: Creatinine back up today Nephrology following Current Visit: Yes (5) Hypertensive urgency Status: Acute Assessment and plan: Improved Current Visit: Yes (6) Dyslipidemia Status: Acute Assessment and plan: Started on statin Current Visit: Yes (7) Acute CVA (cerebrovascular accident) Status: Acute Assessment and plan: MRI brain with acute left cerebral midbrain and upper pontine infarct Carotid ultrasound with occlusion of right ICA, MRA with same echo without acute process Neurology consulted Current Visit: Yes Hospitalist: Subjective Interval history: No acute events overnight. FSG elevated. His insulin has actually been on hold. Exam - Constitutional Vitals: Period Temp Pulse Resp BP Sys/Mckeon Pulse Ox Last 24 Hr 96.8 F-97.8 F 73-89 16-20 113-156/55-86 96-100 General appearance: over weight - Head Head exam: Present: normocephalic, atraumatic - Eye Eye exam: Present: EOMI Pupils: Present: SIMONE - ENT ENT exam: Present: normal exam - Neck Neck exam: Present: normal inspection - Respiratory Respiratory exam: Present: clear to auscultation bilaterally. Absent: rhonchi, wheezes - Cardiovascular Cardiovascular exam: Present: regular rate and rhythm - GI/Abdominal GI/Abdominal exam: Present: normal bowel sounds, soft. Absent: tenderness, rebound - Extremities Exam Extremities exam: Present: normal inspection - Back Exam Back exam: Present: normal inspection - Neurological Exam Neurological exam: Present: alert, oriented X3 - Psychiatric Psychiatric exam: Present: normal affect, normal mood - Skin Skin exam: Present: warm, intact Results - Labs CBC & BMP: 04/10/17 15:18 04/14/17 04:58 Quality Measures - Stroke Onset of Symptoms Date: 04/09/17 Specialty Discharge - Follow Up or Referrals Follow up with: Delfina Altman MD [Physician] - 05/15/17 1:15 pm
[2017-04-14] MEDS: INSULIN NPH/REGULAR 70/30 100 UNIT/ML SUBCUT SCH (17:25)
[2017-04-14] MEDS: ENOXAPARIN 40 MG/0.4 ML SYRINGE SUBCUT SCH (18:14)
[2017-04-14] MEDS: ATORVASTATIN 40 MG TABLET PO SCH (20:10)
[2017-04-15 07:48] LABS: Calcium 8.7 MG/DL (8.5-10.1); Magnesium 1.9 MG/DL (1.8-2.4); Osmolality,Calculated 298.4 MOS/KG (273-304)
[2017-04-15 07:49] LABS: Potassium 6.4 MMOL/L (3.5-5.1)
[2017-04-15] MEDS ORDERED: SODIUM POLYSTYRENE SULFATE 15 GM/60 ML BOTTLE PO STA (07:52)
[2017-04-15] MEDS: amLODIPine 10 MG TABLET PO SCH (08:19)
[2017-04-15] MEDS: INSULIN NPH/REGULAR 70/30 100 UNIT/ML SUBCUT SCH ×2 (08:19→17:25)
[2017-04-15] MEDS: INSULIN LISPRO 100 UNIT/ML SUBCUT SCH ×4 (08:19→20:25)
[2017-04-15] MEDS: ASPIRIN 325 MG TABLET PO SCH (08:19)
[2017-04-15] MEDS: CARVEDILOL 25 MG TABLET PO SCH ×2 (08:19→20:26)
--- NOTE | 2017-04-15 11:02 | Hospitalist Progress Note ---
Assessment and Plan (1) Essential hypertension Status: Acute Assessment and plan: Blood pressure much better now Current Visit: Yes (2) IDDM (insulin dependent diabetes mellitus) Status: Acute Assessment and plan: NPH/Reg was apparently on hold, restarted today, refused his evening dose yesterday, encourage to take his insulin SSI Current Visit: Yes (3) MERLY (obstructive sleep apnea) Status: Acute Assessment and plan: Sleep medicine following On cpap right now Current Visit: Yes (4) Renal function impairment Status: Acute Assessment and plan: Creatinine a little better today Nephrology following Worsening hyperkalemia, giving dose of kayexelate, will recheck, renal to see Current Visit: Yes (5) Hypertensive urgency Status: Acute Assessment and plan: Improved Current Visit: Yes (6) Dyslipidemia Status: Acute Assessment and plan: Started on statin Current Visit: Yes (7) Acute CVA (cerebrovascular accident) Status: Acute Assessment and plan: MRI brain with acute left cerebral midbrain and upper pontine infarct Carotid ultrasound with occlusion of right ICA, MRA with same echo without acute process Neurology consulted Current Visit: Yes (8) Hyperkalemia Status: Acute Current Visit: Yes Hospitalist: Subjective Interval history: No acute events overnight. Patient refused his evening dose of insulin yesterday. He is very eager for discharge. Creatinine a little better today but potassium is more elevated today. Exam - Constitutional Vitals: Period Temp Pulse Resp BP Sys/Mckeon Pulse Ox Last 24 Hr 96.9 F-98.4 F 73-89 18-19 113-143/55-88 98-100 General appearance: over weight - Head Head exam: Present: normocephalic, atraumatic - Eye Eye exam: Present: EOMI Pupils: Present: SIMONE - ENT ENT exam: Present: normal exam - Neck Neck exam: Present: normal inspection - Respiratory Respiratory exam: Present: clear to auscultation bilaterally. Absent: rhonchi, wheezes - Cardiovascular Cardiovascular exam: Present: regular rate and rhythm - GI/Abdominal GI/Abdominal exam: Present: normal bowel sounds, soft. Absent: tenderness, rebound - Extremities Exam Extremities exam: Present: normal inspection - Back Exam Back exam: Present: normal inspection - Neurological Exam Neurological exam: Present: alert, oriented X3 - Psychiatric Psychiatric exam: Present: normal affect, normal mood - Skin Skin exam: Present: warm, intact Results - Labs CBC & BMP: 06/19/17 15:18 04/15/17 06:36 Quality Measures - Stroke Onset of Symptoms Date: 04/09/17 Specialty Discharge - Follow Up or Referrals Follow up with: Delfina Altman MD [Physician] - 05/15/17 1:15 pm
--- NOTE | 2017-04-15 12:22 | Nephrology Progress Note ---
Nephrology - PN: Subj Interval history: He is asymptomatic today Exam (PN)-Nephrology - Vital Signs Vital signs: Period Temp Pulse Resp BP Sys/Mckeon Pulse Ox Last 24 Hr 97 F-98.4 F 73-81 18-19 115-143/71-88 98-100 Exam: ENT: Normal Cardiovascular: Regular rate and rhythm. No murmur rub or gallop Lungs: Clear Extremities: No edema - Lab 04/10/17 15:18 04/15/17 06:36 Most recent lab results Calcium 8.7 MG/DL (8.5-10.1) 04/15/17 06:36 Magnesium 1.9 MG/DL (1.8-2.4) 04/15/17 06:36 Assessment and Plan (1) CRF (chronic renal failure) Status: Acute Assessment and plan: 31-year-old man with: * CRF. Late stage III * Hyperkalemia. Kayexalate has been given. Restrict potassium * Hypertension. Controlled * Diabetes mellitus Current Visit: Yes (2) Acute CVA (cerebrovascular accident) Status: Acute Current Visit: Yes (3) Diabetes mellitus Status: Acute Current Visit: Yes (4) Hypertensive urgency Status: Acute Current Visit: Yes Specialty Discharge - Follow Up or Referrals Follow up with: Delfina Altman MD [Physician] - 05/15/17 1:15 pm
[2017-04-15] MEDS ORDERED: SODIUM POLYSTYRENE SULFATE 15 GM/60 ML BOTTLE PO ONE (13:32)
[2017-04-15] MEDS: ENOXAPARIN 40 MG/0.4 ML SYRINGE SUBCUT SCH (17:41)
[2017-04-15] MEDS: ATORVASTATIN 40 MG TABLET PO SCH (20:26)
[2017-04-16 06:08] LABS: Calcium 8.7 MG/DL (8.5-10.1); Magnesium 1.8 MG/DL (1.8-2.4); Osmolality,Calculated 283.4 MOS/KG (273-304)
[2017-04-16 07:24] VITALS: BP 141/93
[2017-04-16] MEDS: ASPIRIN 325 MG TABLET PO SCH (08:26)
[2017-04-16] MEDS: CARVEDILOL 25 MG TABLET PO SCH (08:26)
[2017-04-16] MEDS: amLODIPine 10 MG TABLET PO SCH (08:26)
[2017-04-16] MEDS: INSULIN NPH/REGULAR 70/30 100 UNIT/ML SUBCUT SCH (08:26)
[2017-04-16] MEDS: INSULIN LISPRO 100 UNIT/ML SUBCUT SCH ×2 (08:26→11:57)
--- NOTE | 2017-04-16 10:26 | Discharge Summary ---
<Yang Ambrosio - Last Filed: 04/16/17 09:54> Hospital Course - Hospital Course Hospital Course: Mr. Yang is a 31-year-old -[place] male with a past medical history significant for insulin-dependent diabetes mellitus and hypertension (he sees no doctor) who was admitted through the [facility] on 04/10/2017 with complaints of right arm numbness and elevated blood pressure. On admission, the patient had a blood pressure documented to be 227/134 and admitted to having slurred speech and right arm weakness. He was admitted to the ICU with malignant hypertension and acute renal failure on Cardene drip and carvedilol 12.5 mg p.o. twice daily. Head CT on admission showed no evidence of acute hemorrhage or infarction. BUN/creatinine on admission were 32 and 3.30. Nephrology was consulted and counseled the patient on the importance of blood pressure and diabetic control for slowing the progression of renal impairment. Patient's blood pressure normalized to around 140/90 and he was transferred to the [facility] floor. Sleep medicine was consulted and the patient underwent a home sleep testing evaluation overnight which revealed evidence of moderate obstructive sleep apnea with respiratory event index of 18.9 and O2 desaturation to levels of 75% he was set up on CPAP titration with auto titration device. It is been noted that the patient does not have insurance and sleep medicine is recommending the patient attempt to get qualified for Medicaid so that his CPAP machine and supplies will be made available to him. The patient's MERLY screen is to be well controlled with CPAP at 13 cm. He will be prescribed at that level follow-up will be scheduled with sleep clinic upon discharge. On further evaluation with MRI of the brain, the patient was found to have sustained an acute left cerebral midbrain and upper pontine infarct. Carotid ultrasound revealed complete occlusion of the right ICA, however echo did not reveal any acute process. Neurology was consulted and recommended continue aspirin and physical therapy. Neurology recommends patient go to [facility] and see Dr. Regina Martinez, neurological lab support tech, for further evaluation and intervention. The remainder of this patient's hospitalization was highlighted by management of his diabetes. The patient often refused his insulin and would consume candy on a regular basis while here. Once the patient stopped eating the candy and starting taking his insulin as prescribed, his blood sugars stabilized. At the time of discharge, his POC glucose was 104 (down from 310 on admission). At this time the patient has reached maximum benefit from hospitalization and is stable for discharge. He has been counseled to follow up with the [facility] and establish care there for management of his hypertension and diabetes. He should follow up with neurology and sleep medicine as prescribed. We have provided the patient with a [employer] prescription discount card to assist in the cost of his medications and counseled the patient on the importance of continuing to take the medications as prescribed. Specialty Discharge - Follow Up or Referrals Follow up with: Delfina Altman MD [Physician] - 05/15/17 1:15 pm Say Nichols MD [Physician] - 1 Month Discharge Plan - Discharge Data Disposition: Disch To Home/Self Care - Discharge Medications New Aspirin Tab 325 mg PO DAILY #0 tablet Atorvastatin [Lipitor] 40 mg PO BEDTIME #30 tablet amLODIPine [Norvasc] 10 mg PO DAILY #30 tablet Carvedilol [Coreg] 25 mg PO BID #60 tablet Changed Insulin NPH Hum/Reg Insulin Hm [NovoLIN 70/30] 40 unit SUBCUT QAM #900 units Insulin NPH Hum/Reg Insulin Hm [NovoLIN 70/30] 20 unit SUBCUT QPM #600 unit - Follow Up or Referral Follow Up: Delfina Altman MD [Physician] - 05/15/17 1:15 pm Say Nichols MD [Physician] - 1 Month Regina Crowe MD [Physician] - 2 Weeks - Forms/Instructions Exam - Constitutional Vitals: Period Temp Pulse Resp BP Sys/Mckeon Pulse Ox Last 24 Hr 97.5 F-99.9 F 84-98 18-20 133-162/73-98 97-99 Discharge Results Labs on day of discharge: Labs from last 24 hours 04/16/17 04/16/17 04/15/17 06:58 05:12 19:45 Sodium 140 Potassium 4.0 Chloride 105 Carbon Dioxide 26 Anion Gap 13.0 BUN 33 H D Creatinine 2.80 H GFR Calculation 40 BUN/Creatinine Ratio 11.00 Glucose 60 L POC Glucose 78 95 Calculated Osmolality 283.4 Calcium 8.7 Magnesium 1.8 04/15/17 04/15/17 04/15/17 15:40 15:21 11:39 Sodium Potassium 3.9 Chloride Carbon Dioxide Anion Gap BUN Creatinine GFR Calculation BUN/Creatinine Ratio Glucose POC Glucose 105 272 H Calculated Osmolality Calcium Magnesium DS: Provider Date of admission: 04/10/17 17:02 Primary care physician: . No PCP Attending physician on admission: Maddie Preciado MD Consults: 04/10/17 18:20 Consult to Physician [CONS] Routine Comment: merly severe Consulting Provider: Delfina Altman Person Notified: Deepthi - Sleep Lab Date Notified: 04/11/17 Time Notified: 09:00 Consult to Physician [CONS] Routine Comment: renal failure Consulting Provider: Jose Manuel Tay Consulting Provider Notified: Yes Person Notified: Dr. Tay Date Notified: 04/10/17 Time Notified: 18:40 04/12/17 10:00 OT [Consult to Occupational Therapy] [CONS] Routine Reason for Occupational Therapy: Other Evaluate and Treat Consult Comment: hard time using right hand 04/12/17 10:13 Consult to [facility], Educator [CONS] Routine Reason for Office Chair Assembler: Re-education 04/13/17 09:52 Consult to Case Mgmt/Social Srvs [CONS] Routine Reason for Case Mgmt/Social Srvs: Discharge Planning Consult Comment: NEEDS HELP WITH GETTING CPAP AT HOME. 04/13/17 10:01 Consult to Occupational Therapy [CONS] Routine Reason for Occupational Therapy: Evaluate and Treat Consult to Physical Therapy [CONS] Routine Reason for Physical Therapy: Evaluate and Treat 04/13/17 12:06 Consult to Physician [CONS] Routine Comment: acute infarct Consulting Provider: Say Nichols Person Notified: Gisela Date Notified: 04/13/17 Time Notified: 12:18 Consult Notification Comment: Discharging clinician: Yang TOPETE Expected date of discharge: 04/16/17 <Robb Baldwin - Last Filed: 04/16/17 11:19> Hospital Course - Time spent with patient Time with patient DS: Greater than 30 minutes (45) Diagnosis - Discharge Diagnosis (1) Essential hypertension Status: Chronic (2) IDDM (insulin dependent diabetes mellitus) Status: Chronic (3) MERLY (obstructive sleep apnea) Status: Chronic (4) Renal function impairment Status: Chronic (5) Hypertensive urgency Status: Resolved (6) Dyslipidemia Status: Chronic (7) Acute CVA (cerebrovascular accident) Status: Chronic (8) Hyperkalemia Status: Resolved Discharge Plan - Discharge Data Condition at Discharge: Stable Discharge Diet: diabetic diet, low salt diet Activity: increase activity as tolerated Hygiene: no restrictions Weight Bearing at Discharge: weight bear as tolerated Contact your physician if you experience:: Shortness of breath Exam - Constitutional General appearance: over weight - Head Head exam: Present: normocephalic, atraumatic - Eye Eye exam: Present: EOMI Pupils: Present: SIMONE - ENT ENT exam: Present: normal exam - Neck Neck exam: Present: normal inspection - Respiratory Respiratory exam: Present: clear to auscultation bilaterally. Absent: wheezes - Cardiovascular Cardiovascular exam: Present: regular rate and rhythm - GI/Abdominal GI/Abdominal exam: Present: normal bowel sounds, soft. Absent: tenderness, rebound - Extremities Exam Extremities exam: Present: normal inspection - Back Exam Back exam: Present: normal inspection - Neurological Exam Neurological exam: Present: alert, oriented X3 - Psychiatric Psychiatric exam: Present: normal affect, normal mood - Skin Skin exam: Present: warm, intact
--- NOTE | 2017-04-16 13:44 | Nephrology Progress Note ---
Nephrology - PN: Subj Interval history: He is asymptomatic today Exam (PN)-Nephrology - Vital Signs Vital signs: Period Temp Pulse Resp BP Sys/Mckeon Pulse Ox Last 24 Hr 97.5 F-99.9 F 84-98 18-20 138-162/73-98 97-99 Exam: ENT: Normal Cardiovascular: Regular rate and rhythm. No murmur rub or gallop Lungs: Clear Extremities: No edema - Lab 04/10/17 15:18 04/16/17 05:12 Most recent lab results Calcium 8.7 MG/DL (8.5-10.1) 04/16/17 05:12 Magnesium 1.8 MG/DL (1.8-2.4) 04/16/17 05:12 Assessment and Plan (1) CRF (chronic renal failure) Status: Acute Assessment and plan: 31-year-old man with: * CRF. Late stage III * Hyperkalemia. Resolved * Hypertension. Controlled * Diabetes mellitus (2) Acute CVA (cerebrovascular accident) Status: Chronic (3) Diabetes mellitus Status: Acute Specialty Discharge - Follow Up or Referrals Follow up with: Say Nichols MD [Physician] - 1 Month Delfina Altman MD [Physician] - 05/15/17 1:15 pm Regina Crowe MD [Physician] - 2 Weeks
== END 2017-04-16 12:10 | disposition home or self-care (01) | DRG 65 ==
LOC: N.ED 13:44 → N.EDINP 17:02 → SUATTDRO 17:02 → N.CC 18:02 → N.5E 04-11 13:00
PROVIDERS: ADMIT Internal Medicine; ATTEND Internal Medicine

== ENCOUNTER 2019-07-21 22:08 | Inpatient (IN) ==
[2019-07-21] MEDS ORDERED: KETAMINE 500 MG/10 ML VIAL ONE (22:15)
[2019-07-21] MEDS ORDERED: hydrALAZINE 20 MG/1 ML VIAL ONE (22:20)
[2019-07-21] MEDS ORDERED: hydrALAZINE 20 MG/1 ML VIAL IV STA ×2 (22:27→22:42)
[2019-07-21] MEDS ORDERED: niCARdipine INJ 25 MG in SODIUM CHLORIDE 0.9% 240 ML IV PRN (22:27)
[2019-07-21] MEDS ORDERED: ROCURONIUM 100 MG/10 ML VIAL IV STA (22:27)
[2019-07-21] MEDS ORDERED: FUROSEMIDE 100 MG/10 ML VIAL IV STA (22:28)
[2019-07-21] MEDS ORDERED: ETOMIDATE 20 MG/10 ML VIAL IV STA (22:28)
[2019-07-21 22:35] LABS: Basophils # 0.1 10*3/uL (0.0-0.2); Basophils % 1.2 % (0.0-0.8); Eosinophils # 0.4 10*3/uL (0.0-0.87); Eosinophils % 3.3 % (0.00-10.9); Hematocrit 42.9 VOL% (42.0-52.0); Hemoglobin 13.3 GM/DL (14.0-18.0); Immature Granulocytes % 0.6 %; Immature Granulocytes Absolute 0.06 #; Lymphocytes # 4.1 10*3/uL (1.4-4.0); Lymphocytes % 39.2 % (21.2-54.2); Mean Corpuscular Volume 93.5 FL (87-102); Mean Platelet Volume 10.6 FL (9.6-12.0); Monocytes % 6.9 % (1.7-12.7); NRBC # 0.03 10*3/uL; Neutrophils % 48.8 % (38.7-73.9); Platelet Count 363 T/CUMM (130-400); Red Blood Count 4.59 MC/CUMM (3.8-5.5); Red Cell Distribution Width 13.6 % (9.3-17.3); White Blood Count 10.5 T/CUMM (4-12)
[2019-07-21] MEDS ORDERED: LABETALOL 20 MG/4 ML SYRINGE IV STA (22:42)
[2019-07-21 22:47] LABS: Albumin 2.8 G/DL (3.4-5.0); Bilirubin,Total 0.6 MG/DL (0.2-1.0); Calcium 8.8 MG/DL (8.5-10.1); Osmolality,Calculated 302.5 MOS/KG (273-304); Total Protein 7.5 G/DL (6.4-8.3)
[2019-07-21 23:24] LABS: Apearance,Urine CLEAR (Clear); Bacteria,Urine Occasional /HPF (Few); Bilirubin,Urine Negative (Negative); Blood, Urine Negative (Negative); Glucose,Urine (UA) 150 mg/dL (Negative); Ketones,Urine Negative (Negative); Nitrite,Urine Negative (Negative); Protein,Urine 100 MG/DL; RBC,Urine 2 /HPF (0-4); Urine Color Straw (Yellow); Urine Specific Gravity 1.011 (1.001-1.035); Urine Urobilinogen < 2.0 EU/DL (0.2-1.0); WBC,Urine 1 /HPF (0-6)
[2019-07-21 23:52] LABS: ABG Base Excess -9.1 MMOL/L (-2.5-2.5); ABG HCO3 17.2 MMOL/L (20-26); ABG Oxygen Saturation 97.1 % (95-100); ABG PCO2 56.4 MM HG (35-48); ABG TCO2 18.6 MMOL/L (23-27); Pt O2 Delivery Device Ventilator
[2019-07-21] MEDS ORDERED: FUROSEMIDE 40 MG/4 ML VIAL ONE (23:53)
[2019-07-21 23:57] LABS: ABG PH 7.168 (7.35-7.45)
[2019-07-21] MEDS ORDERED: FUROSEMIDE 40 MG/4 ML VIAL IV STA (23:58)
[2019-07-22] MEDS ORDERED: PROPOFOL 1,000 MG/100 ML BOTTLE IV ONE (00:12)
[2019-07-22] MEDS ORDERED: DEXTROSE 50% 25 GM/50 ML VIAL IV PRN ×2 (00:23→11:43)
[2019-07-22] MEDS ORDERED: GLUCAGON 1 MG VIAL IM PRN (00:23)
[2019-07-22] MEDS: PROPOFOL 1,000 MG/100 ML BOTTLE IV SCH ×6 (00:28→21:49)
[2019-07-22] MEDS ORDERED: ENOXAPARIN 30 MG/0.3 ML SYRINGE SUBCUT SCH (00:30)
[2019-07-22] MEDS ORDERED: INSULIN REGULAR 100 UNIT/ML SUBCUT SCH ×3 (00:30→14:00)
[2019-07-22] MEDS: SODIUM BICARB INJ 100 MEQ in SODIUM CHLORIDE 0.45% 1,000 ML IV SCH (01:41)
[2019-07-22 02:27] LABS: Basophils % 0.3 % (0.0-0.8); Eosinophils % 0.1 % (0.00-10.9); Hematocrit 38.3 VOL% (42.0-52.0); Hemoglobin 12.2 GM/DL (14.0-18.0); Immature Granulocytes % 0.7 %; Immature Granulocytes Absolute 0.11 #; Lymphocytes # 0.7 10*3/uL (1.4-4.0); Lymphocytes % 4.8 % (21.2-54.2); Mean Corpuscular HGB Conc 31.9 GM/DL (32-36); Mean Corpuscular Volume 91.6 FL (87-102); Mean Platelet Volume 10.7 FL (9.6-12.0); Monocytes % 7.2 % (1.7-12.7); NRBC # 0.04 10*3/uL; Neutrophils % 86.9 % (38.7-73.9); Platelet Count 381 T/CUMM (130-400); Red Blood Count 4.18 MC/CUMM (3.8-5.5); Red Cell Distribution Width 13.5 % (9.3-17.3); White Blood Count 14.9 T/CUMM (4-12)
[2019-07-22 03:00] LABS: Calcium 8.3 MG/DL (8.5-10.1); Osmolality,Calculated 299.1 MOS/KG (273-304)
[2019-07-22 03:06] LABS: Anisocytosis 1+; Eosinophils 3 % (0-10); Hypochromasia 1+; Lymphocytes 10 % (20-55); Platelet Estimate Adequate; Segmented Neutrophils 82 % (50-85); Total Cells Counted 100
[2019-07-22] MEDS ORDERED: CALCIUM GLUCONATE 1,000 MG in SODIUM CHLORIDE 0.9% 100 ML IV ONE (03:26)
[2019-07-22] MEDS ORDERED: SODIUM BICARBONATE 50 MEQ/50 ML VIAL IV ONE (03:30)
[2019-07-22] MEDS ORDERED: INSULIN REGULAR 100 UNIT/ML IV ONE (03:35)
[2019-07-22] MEDS: DEXTROSE 10% 250 ML BAG IV PRN (04:00)
[2019-07-22 04:07] LABS: ABG HCO3 15.1 MMOL/L (20-26); ABG PH 7.305 (7.35-7.45); ABG PO2 233.6 MM HG (80-95); Allen Test Positive; Pt O2 Delivery Device Ventilator
[2019-07-22 05:48] LABS: Apearance,Urine CLOUDY (Clear); Bilirubin,Urine Negative (Negative); Blood, Urine Small mg/dL (Negative); Glucose,Urine (UA) >=500 mg/dL (Negative); Ketones,Urine Negative (Negative); Mucus,Urine Occasional /LPF (Occasional); Nitrite,Urine Negative (Negative); Protein,Urine >=500 MG/DL; RBC,Urine 3 /HPF (0-4); Squamous Epithelial Cell,Urine Occasional /HPF (0-10); Urine Color Yellow (Yellow); Urine Specific Gravity 1.013 (1.001-1.035); Urine Urobilinogen < 2.0 EU/DL (0.2-1.0); WBC,Urine 13 /HPF (0-6)
[2019-07-22] MEDS: FUROSEMIDE 100 MG/10 ML VIAL IV SCH ×2 (08:25→17:40)
[2019-07-22] MEDS: INSULIN GLARGINE 100 UNIT/ML SUBCUT SCH (08:55)
[2019-07-22 10:14] LABS: Barbiturates Screen,Urine Negative (Negative); Benzodiazepines Screen,Urine Negative (Negative); Cannabinoid Screen,Urine Negative (Negative); Opiate Screen,Urine Negative (Negative); Phencyclidine Screen,Urine Negative (Negative)
[2019-07-22] MEDS ORDERED: INSULIN REGULAR 100 UNIT/ML ONE (12:00)
[2019-07-22] MEDS: INSULIN REGULAR 100 UNIT/ML SUBCUT SCH ×3 (12:05→20:12)
[2019-07-22] MEDS: carvediloL 6.25 MG TABLET PO SCH ×2 (12:05→20:18)
[2019-07-22] MEDS: amLODIPine 5 MG TABLET PO SCH (12:05)
[2019-07-22] MEDS: ASPIRIN CHEW 81 MG TABLET PO SCH (12:05)
[2019-07-22] MEDS ORDERED: INFLUENZA VIRUS VACCINE 0.5 ML SYRINGE IM ONE (12:49)
[2019-07-22 13:38] LABS: Albumin 2.3 G/DL (3.4-5.0); Bilirubin,Total 0.6 MG/DL (0.2-1.0); Calcium 8.3 MG/DL (8.5-10.1); Osmolality,Calculated 308.1 MOS/KG (273-304); Total Protein 6.1 G/DL (6.4-8.3)
[2019-07-22 14:18] LABS: Hepatitis B Core IgM Quant 0.13 Index; Hepatitis B Surface Ag Quant < 0.10 Index; Hepatitis B Surface Ag Result Negative (Negative); Hepatitis C Virus Ab Quant 0.04 Index; Hepatitis C Virus Ab Result Negative (Negative)
[2019-07-22] MEDS ORDERED: HEPARIN 10,000 UNIT/10 ML VIAL IV SCH (19:30)
[2019-07-22] MEDS: ATORVASTATIN 40 MG TABLET PO SCH (20:19)
[2019-07-23] MEDS: INSULIN REGULAR 100 UNIT/ML SUBCUT SCH ×4 (00:11→18:09)
[2019-07-23] MEDS: SODIUM BICARB INJ 100 MEQ in SODIUM CHLORIDE 0.45% 1,000 ML IV SCH (01:03)
[2019-07-23] MEDS: PROPOFOL 1,000 MG/100 ML BOTTLE IV SCH ×7 (01:04→18:25)
[2019-07-23] MEDS: ENOXAPARIN 100 MG/ML SYRINGE SUBCUT SCH (01:19)
[2019-07-23 04:13] LABS: ABG Base Excess 1.1 MMOL/L (-2.5-2.5); ABG HCO3 25.4 MMOL/L (20-26); ABG Oxygen Saturation 98.5 % (95-100); ABG PCO2 30.4 MM HG (35-48); ABG PH 7.498 (7.35-7.45); Allen Test Positive; Pt O2 Delivery Device Ventilator
[2019-07-23 05:25] LABS: Basophils # 0.1 10*3/uL (0.0-0.2); Basophils % 0.7 % (0.0-0.8); Eosinophils # 0.4 10*3/uL (0.0-0.87); Hematocrit 31.2 VOL% (42.0-52.0); Hemoglobin 10.4 GM/DL (14.0-18.0); Immature Granulocytes % 0.5 %; Immature Granulocytes Absolute 0.04 #; Lymphocytes # 1.5 10*3/uL (1.4-4.0); Lymphocytes % 17.6 % (21.2-54.2); Mean Corpuscular HGB Conc 33.3 GM/DL (32-36); Mean Corpuscular Volume 89.9 FL (87-102); Mean Platelet Volume 11.2 FL (9.6-12.0); Monocytes % 6.4 % (1.7-12.7); NRBC # 0.03 10*3/uL; Neutrophils % 70.8 % (38.7-73.9); Platelet Count 274 T/CUMM (130-400); Red Blood Count 3.47 MC/CUMM (3.8-5.5); Red Cell Distribution Width 13.7 % (9.3-17.3); White Blood Count 8.7 T/CUMM (4-12)
[2019-07-23 05:39] LABS: Calcium 8.4 MG/DL (8.5-10.1); Osmolality,Calculated 301.1 MOS/KG (273-304)
[2019-07-23] MEDS: FUROSEMIDE 100 MG/10 ML VIAL IV SCH ×2 (09:25→15:50)
[2019-07-23] MEDS: amLODIPine 5 MG TABLET PO SCH (09:30)
[2019-07-23] MEDS: INSULIN GLARGINE 100 UNIT/ML SUBCUT SCH (09:30)
[2019-07-23] MEDS: carvediloL 25 MG TABLET PO SCH ×2 (09:30→21:26)
[2019-07-23] MEDS: ASPIRIN CHEW 81 MG TABLET PO SCH (09:30)
[2019-07-23] MEDS: DEXTROSE 10% 250 ML BAG IV PRN (18:25)
[2019-07-23] MEDS: ATORVASTATIN 40 MG TABLET PO SCH (21:26)
[2019-07-24] MEDS: INSULIN REGULAR 100 UNIT/ML SUBCUT SCH ×4 (00:42→17:46)
[2019-07-24] MEDS: ENOXAPARIN 100 MG/ML SYRINGE SUBCUT SCH (00:47)
[2019-07-24] MEDS: PROPOFOL 1,000 MG/100 ML BOTTLE IV SCH (03:01)
[2019-07-24 03:40] LABS: ABG Base Excess 0.6 MMOL/L (-2.5-2.5); ABG Oxygen Saturation 98.1 % (95-100); ABG PCO2 25.8 MM HG (35-48); ABG PH 7.548 (7.35-7.45); ABG PO2 138.2 MM HG (80-95); ABG TCO2 22.8 MMOL/L (23-27); Allen Test Positive; Pt O2 Delivery Device Ventilator
[2019-07-24 05:22] LABS: Basophils % 0.2 % (0.0-0.8); Eosinophils # 0.2 10*3/uL (0.0-0.87); Eosinophils % 1.5 % (0.00-10.9); Hematocrit 33.9 VOL% (42.0-52.0); Immature Granulocytes % 0.5 %; Immature Granulocytes Absolute 0.07 #; Lymphocytes # 0.9 10*3/uL (1.4-4.0); Lymphocytes % 6.9 % (21.2-54.2); Mean Corpuscular HGB Conc 32.4 GM/DL (32-36); Mean Corpuscular Volume 91.6 FL (87-102); Mean Platelet Volume 11.2 FL (9.6-12.0); Monocytes % 9.2 % (1.7-12.7); NRBC # 0.03 10*3/uL; Neutrophils % 81.7 % (38.7-73.9); Platelet Count 275 T/CUMM (130-400); Red Cell Distribution Width 13.9 % (9.3-17.3); White Blood Count 13.4 T/CUMM (4-12)
[2019-07-24 05:48] LABS: Calcium 8.7 MG/DL (8.5-10.1); Osmolality,Calculated 293.3 MOS/KG (273-304)
[2019-07-24] MEDS: FUROSEMIDE 100 MG/10 ML VIAL IV SCH (08:54)
[2019-07-24] MEDS: INSULIN GLARGINE 100 UNIT/ML SUBCUT SCH (09:26)
[2019-07-24] MEDS: ASPIRIN CHEW 81 MG TABLET PO SCH (09:27)
[2019-07-24] MEDS: amLODIPine 10 MG TABLET PO SCH (09:27)
[2019-07-24] MEDS: carvediloL 25 MG TABLET PO SCH ×2 (09:27→20:00)
[2019-07-24] MEDS: amLODIPine 5 MG TABLET PO SCH (09:40)
[2019-07-24] MEDS ORDERED: FUROSEMIDE 40 MG/4 ML VIAL ONE (13:21)
[2019-07-24] MEDS ORDERED: LORazepam 2 MG/1 ML VIAL ONE (16:12)
[2019-07-24] MEDS: FUROSEMIDE 40 MG/4 ML VIAL IV SCH (17:02)
[2019-07-24] MEDS: hydrALAZINE 20 MG/1 ML VIAL IV PRN (18:06)
[2019-07-24] MEDS: ATORVASTATIN 40 MG TABLET PO SCH (20:00)
[2019-07-25] MEDS: INSULIN REGULAR 100 UNIT/ML SUBCUT SCH ×4 (00:13→17:22)
[2019-07-25] MEDS: ENOXAPARIN 100 MG/ML SYRINGE SUBCUT SCH (00:13)
[2019-07-25 05:13] LABS: Basophils # 0.1 10*3/uL (0.0-0.2); Basophils % 0.7 % (0.0-0.8); Eosinophils # 0.3 10*3/uL (0.0-0.87); Eosinophils % 2.7 % (0.00-10.9); Hematocrit 36.1 VOL% (42.0-52.0); Hemoglobin 11.2 GM/DL (14.0-18.0); Immature Granulocytes % 0.7 %; Immature Granulocytes Absolute 0.08 #; Lymphocytes # 1.1 10*3/uL (1.4-4.0); Mean Platelet Volume 11.3 FL (9.6-12.0); Monocytes % 11.3 % (1.7-12.7); NRBC # 0.02 10*3/uL; Neutrophils % 74.6 % (38.7-73.9); Platelet Count 248 T/CUMM (130-400); Red Blood Count 3.88 MC/CUMM (3.8-5.5); Red Cell Distribution Width 13.8 % (9.3-17.3); White Blood Count 11.1 T/CUMM (4-12)
[2019-07-25 05:53] LABS: Calcium 9.9 MG/DL (8.5-10.1); Osmolality,Calculated 295.4 MOS/KG (273-304)
[2019-07-25] MEDS: FUROSEMIDE 40 MG/4 ML VIAL IV SCH ×2 (07:40→16:34)
[2019-07-25] MEDS: carvediloL 25 MG TABLET PO SCH ×2 (08:44→21:43)
[2019-07-25] MEDS: amLODIPine 10 MG TABLET PO SCH (08:44)
[2019-07-25] MEDS: INSULIN GLARGINE 100 UNIT/ML SUBCUT SCH (08:44)
[2019-07-25] MEDS: ASPIRIN CHEW 81 MG TABLET PO SCH (08:44)
[2019-07-25] MEDS: PHENOL 1.4% THROAT SPRAY 177 ML BOTTLE PO PRN ×2 (08:45→12:14)
[2019-07-25] MEDS: PANTOPRAZOLE 40 MG TABLET PO SCH (12:12)
[2019-07-25] MEDS: hydrALAZINE 25 MG TABLET PO SCH ×3 (12:12→21:42)
[2019-07-25] MEDS ORDERED: POLYETHYLENE GLYCOL POWDER 17 GM PACK PO PRN (13:33)
[2019-07-25] MEDS: hydrALAZINE 20 MG/1 ML VIAL IV PRN (20:16)
[2019-07-25] MEDS: ONDANSETRON 4 MG/2 ML VIAL IV PRN (20:52)
[2019-07-25] MEDS: ATORVASTATIN 40 MG TABLET PO SCH (21:43)
[2019-07-26] MEDS: INSULIN REGULAR 100 UNIT/ML SUBCUT SCH ×5 (00:41→17:26)
[2019-07-26] MEDS: ENOXAPARIN 100 MG/ML SYRINGE SUBCUT SCH (00:41)
[2019-07-26 04:54] LABS: Basophils # 0.1 10*3/uL (0.0-0.2); Basophils % 0.6 % (0.0-0.8); Eosinophils # 0.3 10*3/uL (0.0-0.87); Eosinophils % 3.4 % (0.00-10.9); Hematocrit 36.7 VOL% (42.0-52.0); Hemoglobin 11.7 GM/DL (14.0-18.0); Immature Granulocytes % 0.8 %; Immature Granulocytes Absolute 0.08 #; Lymphocytes # 0.9 10*3/uL (1.4-4.0); Lymphocytes % 9.4 % (21.2-54.2); Mean Corpuscular HGB Conc 31.9 GM/DL (32-36); Mean Corpuscular Volume 91.8 FL (87-102); Mean Platelet Volume 10.8 FL (9.6-12.0); Monocytes % 11.4 % (1.7-12.7); Neutrophils % 74.4 % (38.7-73.9); Platelet Count 283 T/CUMM (130-400); Red Cell Distribution Width 13.3 % (9.3-17.3)
[2019-07-26 05:22] LABS: Calcium 9.6 MG/DL (8.5-10.1); Osmolality,Calculated 306.4 MOS/KG (273-304)
[2019-07-26] MEDS ORDERED: INSULIN REGULAR 100 UNIT/ML ONE (09:46)
[2019-07-26] MEDS: FUROSEMIDE 40 MG/4 ML VIAL IV SCH ×2 (09:48→16:53)
[2019-07-26] MEDS: hydrALAZINE 25 MG TABLET PO SCH (09:50)
[2019-07-26] MEDS: glipiZIDE 5 MG TABLET PO SCH (09:50)
[2019-07-26] MEDS: carvediloL 25 MG TABLET PO SCH ×2 (09:50→22:23)
[2019-07-26] MEDS: amLODIPine 10 MG TABLET PO SCH (09:50)
[2019-07-26] MEDS: ISOSORBIDE MONONITRATE 30 MG TABLET PO SCH (09:50)
[2019-07-26] MEDS: PANTOPRAZOLE 40 MG TABLET PO SCH (09:51)
[2019-07-26] MEDS: ASPIRIN CHEW 81 MG TABLET PO SCH (09:52)
[2019-07-26] MEDS: INSULIN GLARGINE 100 UNIT/ML SUBCUT SCH (09:52)
[2019-07-26] MEDS: ATORVASTATIN 40 MG TABLET PO SCH (22:23)
[2019-07-27] MEDS: INSULIN REGULAR 100 UNIT/ML SUBCUT SCH ×5 (00:36→21:13)
[2019-07-27 06:41] LABS: Basophils # 0.1 10*3/uL (0.0-0.2); Basophils % 0.8 % (0.0-0.8); Eosinophils # 0.4 10*3/uL (0.0-0.87); Eosinophils % 4.2 % (0.00-10.9); Hematocrit 36.4 VOL% (42.0-52.0); Hemoglobin 11.6 GM/DL (14.0-18.0); Immature Granulocytes % 0.6 %; Immature Granulocytes Absolute 0.06 #; Lymphocytes % 10.2 % (21.2-54.2); Mean Corpuscular HGB Conc 31.9 GM/DL (32-36); Mean Corpuscular Volume 90.8 FL (87-102); Mean Platelet Volume 10.7 FL (9.6-12.0); Neutrophils % 70.2 % (38.7-73.9); Platelet Count 297 T/CUMM (130-400); Red Blood Count 4.01 MC/CUMM (3.8-5.5); Red Cell Distribution Width 13.1 % (9.3-17.3); White Blood Count 9.5 T/CUMM (4-12)
[2019-07-27 07:02] LABS: Osmolality,Calculated 291.7 MOS/KG (273-304)
[2019-07-27] MEDS: ASPIRIN CHEW 81 MG TABLET PO SCH (09:35)
[2019-07-27] MEDS: amLODIPine 10 MG TABLET PO SCH (09:35)
[2019-07-27] MEDS: PANTOPRAZOLE 40 MG TABLET PO SCH (09:36)
[2019-07-27] MEDS: carvediloL 25 MG TABLET PO SCH ×2 (09:36→21:12)
[2019-07-27] MEDS: FUROSEMIDE 40 MG/4 ML VIAL IV SCH ×2 (09:36→16:40)
[2019-07-27] MEDS: ISOSORBIDE MONONITRATE 30 MG TABLET PO SCH (09:36)
[2019-07-27] MEDS: INSULIN GLARGINE 100 UNIT/ML SUBCUT SCH (09:37)
[2019-07-27] MEDS: glipiZIDE 5 MG TABLET PO SCH (12:19)
[2019-07-27] MEDS: ATORVASTATIN 40 MG TABLET PO SCH (21:13)
[2019-07-28 05:39] LABS: Basophils # 0.1 10*3/uL (0.0-0.2); Basophils % 0.7 % (0.0-0.8); Eosinophils # 0.4 10*3/uL (0.0-0.87); Eosinophils % 4.4 % (0.00-10.9); Hematocrit 35.4 VOL% (42.0-52.0); Hemoglobin 11.5 GM/DL (14.0-18.0); Immature Granulocytes % 1.1 %; Lymphocytes % 11.5 % (21.2-54.2); Mean Corpuscular HGB Conc 32.5 GM/DL (32-36); Mean Corpuscular Volume 89.8 FL (87-102); Mean Platelet Volume 10.6 FL (9.6-12.0); Monocytes % 14.6 % (1.7-12.7); Neutrophils % 67.7 % (38.7-73.9); Platelet Count 279 T/CUMM (130-400); Red Blood Count 3.94 MC/CUMM (3.8-5.5); Red Cell Distribution Width 12.9 % (9.3-17.3); White Blood Count 8.8 T/CUMM (4-12)
[2019-07-28 06:05] LABS: Calcium 8.8 MG/DL (8.5-10.1); Osmolality,Calculated 291.1 MOS/KG (273-304)
[2019-07-28] MEDS: INSULIN REGULAR 100 UNIT/ML SUBCUT SCH ×4 (07:58→21:56)
[2019-07-28] MEDS: glipiZIDE 5 MG TABLET PO SCH ×2 (08:00→09:42)
[2019-07-28] MEDS: carvediloL 25 MG TABLET PO SCH ×2 (09:41→20:54)
[2019-07-28] MEDS: PANTOPRAZOLE 40 MG TABLET PO SCH (09:41)
[2019-07-28] MEDS: amLODIPine 10 MG TABLET PO SCH (09:41)
[2019-07-28] MEDS: ISOSORBIDE MONONITRATE 30 MG TABLET PO SCH (09:42)
[2019-07-28] MEDS: ASPIRIN CHEW 81 MG TABLET PO SCH (09:42)
[2019-07-28] MEDS: INSULIN GLARGINE 100 UNIT/ML SUBCUT SCH (09:42)
[2019-07-28] MEDS: FUROSEMIDE 40 MG/4 ML VIAL IV SCH (09:43)
[2019-07-28] MEDS ORDERED: LIDOCAINE 2% VISCOUS 100 ML BOTTLE SWISH/SWAL ONE (11:20)
[2019-07-28] MEDS: ATORVASTATIN 40 MG TABLET PO SCH (20:54)
[2019-07-29 05:29] LABS: Basophils # 0.1 10*3/uL (0.0-0.2); Basophils % 0.6 % (0.0-0.8); Eosinophils # 0.3 10*3/uL (0.0-0.87); Eosinophils % 3.1 % (0.00-10.9); Hematocrit 35.9 VOL% (42.0-52.0); Hemoglobin 11.5 GM/DL (14.0-18.0); Immature Granulocytes % 1.2 %; Immature Granulocytes Absolute 0.13 #; Lymphocytes % 9.3 % (21.2-54.2); Mean Corpuscular Volume 90.2 FL (87-102); Mean Platelet Volume 11.2 FL (9.6-12.0); Monocytes % 14.5 % (1.7-12.7); Neutrophils % 71.3 % (38.7-73.9); Platelet Count 327 T/CUMM (130-400); Red Blood Count 3.98 MC/CUMM (3.8-5.5); White Blood Count 10.7 T/CUMM (4-12)
[2019-07-29 06:02] LABS: Calcium 9.4 MG/DL (8.5-10.1); Osmolality,Calculated 305.4 MOS/KG (273-304)
[2019-07-29] MEDS: DEXTROSE 10% 250 ML BAG IV PRN (07:12)
[2019-07-29] MEDS: INSULIN GLARGINE 100 UNIT/ML SUBCUT SCH (07:15)
[2019-07-29] MEDS: INSULIN REGULAR 100 UNIT/ML SUBCUT SCH ×4 (08:16→21:52)
[2019-07-29] MEDS ORDERED: MAGNESIUM SULF RIDER 2 GM in PREMIX 1 EACH IV PRN (12:05)
[2019-07-29] MEDS ORDERED: POTASSIUM CHLORIDE RIDER 10 MEQ in PREMIX 1 EACH IV PRN (12:05)
[2019-07-29] MEDS: carvediloL 25 MG TABLET PO SCH ×2 (12:24→21:52)
[2019-07-29] MEDS: ISOSORBIDE MONONITRATE 30 MG TABLET PO SCH (12:24)
[2019-07-29] MEDS: ASPIRIN CHEW 81 MG TABLET PO SCH (12:24)
[2019-07-29] MEDS: PANTOPRAZOLE 40 MG TABLET PO SCH (12:24)
[2019-07-29] MEDS: amLODIPine 10 MG TABLET PO SCH (12:24)
[2019-07-29] MEDS: ATORVASTATIN 40 MG TABLET PO SCH (21:52)
[2019-07-30 05:44] LABS: Basophils # 0.1 10*3/uL (0.0-0.2); Basophils % 0.7 % (0.0-0.8); Eosinophils # 0.2 10*3/uL (0.0-0.87); Hematocrit 32.8 VOL% (42.0-52.0); Hemoglobin 10.5 GM/DL (14.0-18.0); Immature Granulocytes % 0.9 %; Immature Granulocytes Absolute 0.09 #; Lymphocytes % 10.6 % (21.2-54.2); Mean Corpuscular Volume 90.9 FL (87-102); Mean Platelet Volume 10.6 FL (9.6-12.0); Monocytes % 16.2 % (1.7-12.7); Neutrophils % 69.6 % (38.7-73.9); Platelet Count 302 T/CUMM (130-400); Red Blood Count 3.61 MC/CUMM (3.8-5.5); White Blood Count 9.6 T/CUMM (4-12)
[2019-07-30 05:54] LABS: Calcium 8.8 MG/DL (8.5-10.1); Osmolality,Calculated 300.1 MOS/KG (273-304)
[2019-07-30 06:27] LABS: Atypical Lymphocytes Few; Eosinophils 4 % (0-10); Hypochromasia 1+; Lymphocytes 10 % (20-55); Microcytosis 1+; Segmented Neutrophils 67 % (50-85); Total Cells Counted 100
[2019-07-30 06:28] LABS: Platelet Estimate Normal
[2019-07-30] MEDS: INSULIN REGULAR 100 UNIT/ML SUBCUT SCH ×4 (09:12→22:15)
[2019-07-30] MEDS: amLODIPine 10 MG TABLET PO SCH (09:16)
[2019-07-30] MEDS: ISOSORBIDE MONONITRATE 30 MG TABLET PO SCH (09:16)
[2019-07-30] MEDS: carvediloL 25 MG TABLET PO SCH ×2 (09:16→22:14)
[2019-07-30] MEDS: PANTOPRAZOLE 40 MG TABLET PO SCH (09:16)
[2019-07-30] MEDS: ASPIRIN CHEW 81 MG TABLET PO SCH (09:17)
[2019-07-30] MEDS: INSULIN GLARGINE 100 UNIT/ML SUBCUT SCH (09:17)
[2019-07-30] MEDS ORDERED: diphenhydrAMINE CAP 25 MG CAPSULE PO ONE (09:30)
[2019-07-30] MEDS ORDERED: DIAZEPAM 5 MG TABLET PO ONE (09:30)
[2019-07-30] MEDS ORDERED: HEPARIN/NACL 0.9% 2 UNITS/ML 1,000 ML IV ONE (09:33)
[2019-07-30] MEDS ORDERED: LIDOCAINE 1%/EPI INJ 20 ML VIAL ONE (09:44)
[2019-07-30] MEDS ORDERED: MIDAZOLAM 2 MG/2 ML VIAL ONE (09:49)
[2019-07-30] MEDS ORDERED: fentaNYL 100 MCG/2 ML VIAL ONE (09:49)
[2019-07-30] MEDS: TICAGRELOR 90 MG TABLET PO SCH (22:14)
[2019-07-31 04:18] LABS: Basophils # 0.1 10*3/uL (0.0-0.2); Basophils % 0.5 % (0.0-0.8); Eosinophils # 0.2 10*3/uL (0.0-0.87); Eosinophils % 2.2 % (0.00-10.9); Hematocrit 32.4 VOL% (42.0-52.0); Hemoglobin 10.3 GM/DL (14.0-18.0); Immature Granulocytes % 0.5 %; Immature Granulocytes Absolute 0.05 #; Lymphocytes # 1.1 10*3/uL (1.4-4.0); Lymphocytes % 9.8 % (21.2-54.2); Mean Corpuscular HGB Conc 31.8 GM/DL (32-36); Mean Corpuscular Volume 89.5 FL (87-102); Mean Platelet Volume 10.9 FL (9.6-12.0); Monocytes % 10.5 % (1.7-12.7); Neutrophils % 76.5 % (38.7-73.9); Platelet Count 367 T/CUMM (130-400); Red Blood Count 3.62 MC/CUMM (3.8-5.5); Red Cell Distribution Width 13.2 % (9.3-17.3); White Blood Count 10.7 T/CUMM (4-12)
[2019-07-31 04:39] LABS: Calcium 8.7 MG/DL (8.5-10.1); Osmolality,Calculated 305.2 MOS/KG (273-304)
[2019-07-31 05:03] LABS: Calcium 8.4 MG/DL (8.5-10.1); Osmolality,Calculated 305.2 MOS/KG (273-304)
[2019-07-31] MEDS ORDERED: DIAZEPAM 5 MG TABLET PO ONE (07:53)
[2019-07-31] MEDS ORDERED: diphenhydrAMINE CAP 25 MG CAPSULE PO ONE (07:53)
[2019-07-31] MEDS ORDERED: LIDOCAINE 1% 20 ML VIAL ONE (12:30)
[2019-07-31] MEDS ORDERED: HEPARIN/NACL 0.9% 2 UNITS/ML 1,000 ML IV ONE (12:30)
[2019-07-31] MEDS ORDERED: MIDAZOLAM 2 MG/2 ML VIAL ONE (12:50)
[2019-07-31] MEDS ORDERED: fentaNYL 100 MCG/2 ML VIAL ONE (12:51)
[2019-07-31] MEDS ORDERED: LIDOCAINE 1%/EPI INJ 20 ML VIAL ONE (13:00)
[2019-07-31] MEDS ORDERED: TICAGRELOR 90 MG TABLET ONE (13:20)
[2019-07-31] MEDS ORDERED: LABETALOL 20 MG/4 ML SYRINGE IV ONE (13:32)
[2019-07-31] MEDS ORDERED: ENOXAPARIN 60 MG/0.6 ML SYRINGE ONE (13:37)
[2019-07-31] MEDS ORDERED: TIROFIBAN 5,000 MCG/100 ML PREMIX IV ONE (13:43)
[2019-07-31] MEDS ORDERED: HEPARIN/NACL 0.9% 2 UNITS/ML 500 ML IV ONE (13:57)
[2019-07-31] MEDS ORDERED: ceFAZolin 1,000 MG VIAL ONE (14:07)
[2019-07-31] MEDS: INSULIN REGULAR 100 UNIT/ML SUBCUT SCH ×3 (15:28→20:29)
[2019-07-31] MEDS: ASPIRIN CHEW 81 MG TABLET PO SCH (15:30)
[2019-07-31] MEDS: carvediloL 25 MG TABLET PO SCH ×2 (15:31→20:29)
[2019-07-31] MEDS: ATORVASTATIN 80 MG TABLET PO SCH (15:31)
[2019-07-31] MEDS: amLODIPine 10 MG TABLET PO SCH (15:31)
[2019-07-31] MEDS: TICAGRELOR 90 MG TABLET PO SCH ×2 (15:31→20:29)
[2019-07-31] MEDS: ISOSORBIDE MONONITRATE 30 MG TABLET PO SCH (15:31)
[2019-07-31] MEDS: PANTOPRAZOLE 40 MG TABLET PO SCH (15:32)
[2019-07-31] MEDS: cefTRIAXone 1,000 MG in SYRINGE 1 EACH IV SCH (16:04)
[2019-07-31] MEDS: INSULIN GLARGINE 100 UNIT/ML SUBCUT SCH (16:04)
[2019-07-31] MEDS: HYDROmorphone 2 MG/1 ML VIAL IV PRN (18:22)
[2019-07-31] MEDS ORDERED: INSULIN NPH/REGULAR 70/30 100 UNIT/ML SUBCUT SCH (19:00)
[2019-07-31] MEDS: PHENOL 1.4% THROAT SPRAY 177 ML BOTTLE PO PRN (19:36)
[2019-07-31] MEDS ORDERED: ALUM/MAG/SIMETH/LIDO VISC 1:1 30 ML BOTTLE PO ONE (19:48)
[2019-07-31] MEDS ORDERED: carvediloL 25 MG TABLET PO SCH (21:00)
[2019-08-01] MEDS: HYDROmorphone 2 MG/1 ML VIAL IV PRN (03:42)
[2019-08-01 04:12] LABS: Basophils # 0.1 10*3/uL (0.0-0.2); Basophils % 0.5 % (0.0-0.8); Eosinophils # 0.3 10*3/uL (0.0-0.87); Eosinophils % 2.4 % (0.00-10.9); Hematocrit 30.6 VOL% (42.0-52.0); Hemoglobin 9.9 GM/DL (14.0-18.0); Immature Granulocytes % 0.4 %; Immature Granulocytes Absolute 0.05 #; Lymphocytes # 0.8 10*3/uL (1.4-4.0); Lymphocytes % 7.3 % (21.2-54.2); Mean Corpuscular HGB Conc 32.4 GM/DL (32-36); Mean Corpuscular Volume 89.2 FL (87-102); Mean Platelet Volume 10.6 FL (9.6-12.0); Monocytes % 11.8 % (1.7-12.7); Neutrophils % 77.6 % (38.7-73.9); Platelet Count 386 T/CUMM (130-400); Red Blood Count 3.43 MC/CUMM (3.8-5.5); Red Cell Distribution Width 13.4 % (9.3-17.3); White Blood Count 11.3 T/CUMM (4-12)
[2019-08-01 04:22] LABS: Calcium 8.5 MG/DL (8.5-10.1); Osmolality,Calculated 284.7 MOS/KG (273-304)
[2019-08-01] MEDS: ONDANSETRON 4 MG/2 ML VIAL IV PRN (07:57)
[2019-08-01] MEDS ORDERED: amLODIPine 10 MG TABLET PO SCH (09:00)
[2019-08-01] MEDS ORDERED: INSULIN NPH/REGULAR 70/30 100 UNIT/ML SUBCUT SCH (09:00)
[2019-08-01] MEDS: INSULIN REGULAR 100 UNIT/ML SUBCUT SCH ×4 (09:06→20:03)
[2019-08-01] MEDS: carvediloL 25 MG TABLET PO SCH ×2 (09:23→20:47)
[2019-08-01] MEDS: TICAGRELOR 90 MG TABLET PO SCH ×2 (09:23→20:47)
[2019-08-01] MEDS: PANTOPRAZOLE 40 MG TABLET PO SCH (09:23)
[2019-08-01] MEDS: ATORVASTATIN 80 MG TABLET PO SCH (09:23)
[2019-08-01] MEDS: amLODIPine 10 MG TABLET PO SCH (09:23)
[2019-08-01] MEDS: ASPIRIN CHEW 81 MG TABLET PO SCH (09:24)
[2019-08-01] MEDS: ISOSORBIDE MONONITRATE 30 MG TABLET PO SCH (09:24)
[2019-08-01] MEDS: INSULIN GLARGINE 100 UNIT/ML SUBCUT SCH (09:30)
[2019-08-01] MEDS: cefTRIAXone 1,000 MG in SYRINGE 1 EACH IV SCH (15:56)
[2019-08-02 05:32] LABS: Basophils # 0.1 10*3/uL (0.0-0.2); Basophils % 0.4 % (0.0-0.8); Eosinophils # 0.2 10*3/uL (0.0-0.87); Eosinophils % 1.2 % (0.00-10.9); Hematocrit 29.8 VOL% (42.0-52.0); Hemoglobin 9.5 GM/DL (14.0-18.0); Immature Granulocytes % 0.7 %; Immature Granulocytes Absolute 0.09 #; Lymphocytes # 0.7 10*3/uL (1.4-4.0); Lymphocytes % 4.8 % (21.2-54.2); Mean Corpuscular HGB Conc 31.9 GM/DL (32-36); Mean Corpuscular Volume 91.7 FL (87-102); Mean Platelet Volume 10.3 FL (9.6-12.0); Monocytes % 6.9 % (1.7-12.7); Platelet Count 402 T/CUMM (130-400); Red Blood Count 3.25 MC/CUMM (3.8-5.5); Red Cell Distribution Width 13.3 % (9.3-17.3); White Blood Count 13.6 T/CUMM (4-12)
[2019-08-02 05:52] LABS: Eosinophils 1 % (0-10); Hypochromasia 1+; Lymphocytes 6 % (20-55); Platelet Estimate Adequate; Segmented Neutrophils 89 % (50-85); Total Cells Counted 100
[2019-08-02 06:05] LABS: Osmolality,Calculated 289.9 MOS/KG (273-304)
[2019-08-02] MEDS: INSULIN GLARGINE 100 UNIT/ML SUBCUT SCH (08:30)
[2019-08-02] MEDS: INSULIN REGULAR 100 UNIT/ML SUBCUT SCH ×4 (08:30→20:44)
[2019-08-02] MEDS: ATORVASTATIN 80 MG TABLET PO SCH (13:06)
[2019-08-02] MEDS: ASPIRIN CHEW 81 MG TABLET PO SCH (13:07)
[2019-08-02] MEDS: TICAGRELOR 90 MG TABLET PO SCH ×2 (13:07→20:43)
[2019-08-02] MEDS: carvediloL 25 MG TABLET PO SCH ×2 (13:07→20:43)
[2019-08-02] MEDS: ISOSORBIDE MONONITRATE 30 MG TABLET PO SCH (13:07)
[2019-08-02] MEDS: amLODIPine 10 MG TABLET PO SCH (13:07)
[2019-08-02] MEDS: PANTOPRAZOLE 40 MG TABLET PO SCH (13:07)
[2019-08-02] MEDS: cefTRIAXone 1,000 MG in SYRINGE 1 EACH IV SCH (13:35)
[2019-08-03 05:02] LABS: Basophils # 0.1 10*3/uL (0.0-0.2); Basophils % 0.7 % (0.0-0.8); Eosinophils # 0.4 10*3/uL (0.0-0.87); Eosinophils % 3.4 % (0.00-10.9); Hematocrit 29.4 VOL% (42.0-52.0); Hemoglobin 9.4 GM/DL (14.0-18.0); Immature Granulocytes % 0.8 %; Immature Granulocytes Absolute 0.09 #; Lymphocytes # 0.8 10*3/uL (1.4-4.0); Lymphocytes % 7.5 % (21.2-54.2); Mean Corpuscular Volume 91.3 FL (87-102); Mean Platelet Volume 10.2 FL (9.6-12.0); Monocytes % 12.1 % (1.7-12.7); Neutrophils % 75.5 % (38.7-73.9); Platelet Count 438 T/CUMM (130-400); Red Blood Count 3.22 MC/CUMM (3.8-5.5); Red Cell Distribution Width 13.4 % (9.3-17.3)
[2019-08-03 05:23] LABS: Calcium 8.6 MG/DL (8.5-10.1); Osmolality,Calculated 282.4 MOS/KG (273-304)
[2019-08-03] MEDS: INSULIN REGULAR 100 UNIT/ML SUBCUT SCH ×3 (07:55→16:42)
[2019-08-03] MEDS: carvediloL 25 MG TABLET PO SCH (09:40)
[2019-08-03] MEDS: amLODIPine 10 MG TABLET PO SCH (09:40)
[2019-08-03] MEDS: PANTOPRAZOLE 40 MG TABLET PO SCH (09:40)
[2019-08-03] MEDS: ISOSORBIDE MONONITRATE 30 MG TABLET PO SCH (09:40)
[2019-08-03] MEDS: INSULIN GLARGINE 100 UNIT/ML SUBCUT SCH (09:41)
[2019-08-03] MEDS ORDERED: CLINDAMYCIN INJ 900 MG in PREMIX 1 EACH IV ONE (09:46)
[2019-08-03] MEDS ORDERED: BUPIVACAINE MPF 0.25% 30 ML VIAL ONE (10:12)
[2019-08-03] MEDS ORDERED: HEPARIN 5,000 UNIT/1 ML VIAL ONE (10:12)
[2019-08-03] MEDS ORDERED: LIDOCAINE 1%/EPI INJ 20 ML VIAL ONE (10:12)
[2019-08-03] MEDS ORDERED: PROPOFOL 200 MG/20 ML VIAL IV ONE (11:47)
[2019-08-03] MEDS ORDERED: SEVOFLURANE 1 UNIT/15 MINUTE INH ONE (11:48)
[2019-08-03] MEDS ORDERED: PHENYLEPHRINE 1 MG/10 ML SYRINGE IV ONE (11:48)
[2019-08-03] MEDS ORDERED: SODIUM CHLORIDE 0.9% 250 ML IV ONE (11:48)
[2019-08-03] MEDS ORDERED: EPINEPHrine 1 MG/ML VIAL ONE (11:48)
[2019-08-03] MEDS ORDERED: fentaNYL 100 MCG/2 ML VIAL ONE (11:48)
[2019-08-03] MEDS ORDERED: ALBUMIN 5% 12.5 GM/250 ML VIAL IV ONE (11:48)
[2019-08-03] MEDS ORDERED: LIDOCAINE 2% 5 ML VIAL ONE (11:48)
[2019-08-03] MEDS ORDERED: ALBUTEROL/IPRATROPIUM 3 ML NEB RESP TX ONE ×2 (12:37→12:45)
[2019-08-03] MEDS: ASPIRIN CHEW 81 MG TABLET PO SCH (14:55)
[2019-08-03] MEDS: ATORVASTATIN 80 MG TABLET PO SCH (14:55)
[2019-08-03] MEDS: cefTRIAXone 1,000 MG in SYRINGE 1 EACH IV SCH (14:55)
[2019-08-03] MEDS: TICAGRELOR 90 MG TABLET PO SCH (14:55)
[2019-08-03 16:34] VITALS: BP 102/58
== END 2019-08-03 18:05 | disposition home or self-care (01) | DRG 981 ==
LOC: EDUNIT# → N.ED 22:08 → SUATTDRO 07-22 00:15 → N.EDINP 07-22 00:15 → N.ICU 07-22 00:48 → N.TELEN 07-26 12:33 → N.CC 07-31 14:49 → N.TELEN 08-01 18:56
PROVIDERS: ADMIT Internal Medicine; ATTEND Internal Medicine
PROC: CLCCHCL (ICD-10-PCS; 2019-07-30 10:45)

== ENCOUNTER 2019-08-09 12:54 | Inpatient (IN) ==
[2019-08-09 17:39] LABS: Basophils # 0.1 10*3/uL (0.0-0.2); Basophils % 0.6 % (0.0-0.8); Eosinophils # 0.1 10*3/uL (0.0-0.87); Eosinophils % 0.3 % (0.00-10.9); Hematocrit 29.5 VOL% (42.0-52.0); Immature Granulocytes % 1.7 %; Immature Granulocytes Absolute 0.28 #; Lymphocytes % 6.4 % (21.2-54.2); Mean Corpuscular HGB Conc 30.5 GM/DL (32-36); Mean Corpuscular Volume 93.9 FL (87-102); Mean Platelet Volume 10.1 FL (9.6-12.0); Monocytes % 11.4 % (1.7-12.7); NRBC # 0.02 10*3/uL; Neutrophils % 79.6 % (38.7-73.9); Platelet Count 685 T/CUMM (130-400); Red Blood Count 3.14 MC/CUMM (3.8-5.5); Red Cell Distribution Width 13.8 % (9.3-17.3); White Blood Count 16.1 T/CUMM (4-12)
[2019-08-09 19:18] LABS: Calcium 9.6 MG/DL (8.5-10.1); Osmolality,Calculated 277.9 MOS/KG (273-304)
[2019-08-09] MEDS ORDERED: ASPIRIN EC 325 MG TABLET PO STA (22:24)
[2019-08-09] MEDS ORDERED: SODIUM POLYSTYRENE SULFATE 15 GM/60 ML BOTTLE PO STA (22:25)
[2019-08-09] MEDS ORDERED: DEXTROSE 50% 25 GM/50 ML VIAL IV PRN (23:14)
[2019-08-10 01:12] LABS: Calcium 9.7 MG/DL (8.5-10.1); Osmolality,Calculated 287.8 MOS/KG (273-304)
[2019-08-10] MEDS: INSULIN REGULAR 100 UNIT/ML SUBCUT SCH ×4 (01:52→12:19)
[2019-08-10 05:27] LABS: Albumin 2.9 G/DL (3.4-5.0); Bilirubin,Total 0.5 MG/DL (0.2-1.0); Calcium 9.8 MG/DL (8.5-10.1); Osmolality,Calculated 290.7 MOS/KG (273-304); Total Protein 8.5 G/DL (6.4-8.3)
[2019-08-10] MEDS ORDERED: VANCOMYCIN INJ 500 MG in SODIUM CHLORIDE 0.9% 250 ML IV PRN (06:24)
[2019-08-10] MEDS ORDERED: SODIUM POLYSTYRENE SULFATE 15 GM/60 ML BOTTLE PO ONE (08:28)
[2019-08-10] MEDS: carvediloL 25 MG TABLET PO SCH ×2 (08:35→17:00)
[2019-08-10] MEDS: ASPIRIN CHEW 81 MG TABLET PO SCH (08:35)
[2019-08-10] MEDS: TICAGRELOR 90 MG TABLET PO SCH ×2 (08:35→22:39)
[2019-08-10] MEDS ORDERED: ISOSORBIDE MONONITRATE 30 MG TABLET PO SCH (09:00)
[2019-08-10] MEDS ORDERED: amLODIPine 10 MG TABLET PO SCH (09:00)
[2019-08-10] MEDS ORDERED: INSULIN NPH/REGULAR 70/30 100 UNIT/ML SUBCUT SCH ×2 (09:00→19:00)
[2019-08-10] MEDS ORDERED: VANCOMYCIN INJ 2,000 MG in SODIUM CHLORIDE 0.9% 500 ML IV ONE (09:00)
[2019-08-10] MEDS: DEXTROSE 10% 250 ML BAG IV PRN ×2 (11:46→12:18)
[2019-08-10] MEDS: GLUCAGON 1 MG VIAL IM PRN (11:49)
[2019-08-10 12:58] LABS: Basophils # 0.1 10*3/uL (0.0-0.2); Basophils % 1.2 % (0.0-0.8); Eosinophils # 0.3 10*3/uL (0.0-0.87); Eosinophils % 3.3 % (0.00-10.9); Hematocrit 24.1 VOL% (42.0-52.0); Hemoglobin 7.3 GM/DL (14.0-18.0); Immature Granulocytes % 1.6 %; Immature Granulocytes Absolute 0.13 #; Lymphocytes # 0.7 10*3/uL (1.4-4.0); Lymphocytes % 8.5 % (21.2-54.2); Mean Corpuscular HGB Conc 30.3 GM/DL (32-36); Mean Corpuscular Volume 94.1 FL (87-102); Mean Platelet Volume 10.2 FL (9.6-12.0); Monocytes % 15.4 % (1.7-12.7); NRBC # 0.02 10*3/uL; Platelet Count 554 T/CUMM (130-400); Red Blood Count 2.56 MC/CUMM (3.8-5.5); Red Cell Distribution Width 13.7 % (9.3-17.3); White Blood Count 8.1 T/CUMM (4-12)
[2019-08-10] MEDS ORDERED: DEXTROSE 5% NACL 0.9% 1,000 ML IV SCH (13:00)
[2019-08-10 13:12] LABS: Calcium 8.9 MG/DL (8.5-10.1); Osmolality,Calculated 294.2 MOS/KG (273-304)
[2019-08-10] MEDS ORDERED: HEPARIN 10,000 UNIT/10 ML VIAL IV SCH (14:00)
[2019-08-10 22:11] LABS: Apearance,Urine Slightly Hazy (Clear); Bilirubin,Urine Negative (Negative); Blood, Urine Small mg/dL (Negative); Glucose,Urine (UA) 150 mg/dL (Negative); Ketones,Urine Negative (Negative); Nitrite,Urine Negative (Negative); Protein,Urine >=500 MG/DL; RBC,Urine 1 /HPF (0-4); Urine Color Yellow (Yellow); Urine Specific Gravity 1.017 (1.001-1.035); Urine Urobilinogen < 2.0 EU/DL (0.2-1.0); WBC,Urine 3 /HPF (0-6)
[2019-08-10] MEDS: ATORVASTATIN 80 MG TABLET PO SCH (22:39)
[2019-08-11 00:40] LABS: Barbiturates Screen,Urine Negative (Negative); Benzodiazepines Screen,Urine Positive (Negative); Cannabinoid Screen,Urine Negative (Negative); Opiate Screen,Urine Negative (Negative); Phencyclidine Screen,Urine Negative (Negative)
[2019-08-11] MEDS ORDERED: DEXTROSE 50% 25 GM/50 ML VIAL IV PRN (07:57)
[2019-08-11] MEDS ORDERED: GLUCAGON 1 MG VIAL IM PRN (07:57)
[2019-08-11] MEDS ORDERED: INSULIN NPH/REGULAR 70/30 100 UNIT/ML SUBCUT SCH (08:00)
[2019-08-11] MEDS: amLODIPine 5 MG TABLET PO SCH (09:59)
[2019-08-11] MEDS: TICAGRELOR 90 MG TABLET PO SCH ×2 (10:02→22:22)
[2019-08-11] MEDS: carvediloL 25 MG TABLET PO SCH ×2 (10:03→17:05)
[2019-08-11] MEDS: ASPIRIN CHEW 81 MG TABLET PO SCH (10:03)
[2019-08-11] MEDS ORDERED: flumazeniL 0.5 MG/5 ML VIAL IV ONE ×2 (10:21→10:23)
[2019-08-11] MEDS: INSULIN REGULAR 100 UNIT/ML SUBCUT SCH ×3 (15:26→22:22)
[2019-08-11] MEDS: HEPARIN DRIP 25,000 UNITS/500 ML PREMIX IV SCH (16:05)
[2019-08-11] MEDS: INSULIN NPH/REGULAR 70/30 100 UNIT/ML SUBCUT SCH (17:03)
[2019-08-11] MEDS: ATORVASTATIN 80 MG TABLET PO SCH (22:22)
[2019-08-12] MEDS: INSULIN NPH/REGULAR 70/30 100 UNIT/ML SUBCUT SCH ×2 (09:50→17:17)
[2019-08-12] MEDS: amLODIPine 5 MG TABLET PO SCH (09:50)
[2019-08-12] MEDS: carvediloL 3.125 MG TABLET PO SCH ×2 (09:50→17:18)
[2019-08-12] MEDS: INSULIN REGULAR 100 UNIT/ML SUBCUT SCH ×4 (09:50→21:06)
[2019-08-12] MEDS: TICAGRELOR 90 MG TABLET PO SCH ×2 (09:50→21:24)
[2019-08-12] MEDS: carvediloL 25 MG TABLET PO SCH (11:19)
[2019-08-12 11:58] LABS: Basophils # 0.1 10*3/uL (0.0-0.2); Basophils % 1.3 % (0.0-0.8); Eosinophils # 0.5 10*3/uL (0.0-0.87); Eosinophils % 4.8 % (0.00-10.9); Hematocrit 24.9 VOL% (42.0-52.0); Hemoglobin 7.8 GM/DL (14.0-18.0); Immature Granulocytes % 1.2 %; Immature Granulocytes Absolute 0.12 #; Lymphocytes # 1.1 10*3/uL (1.4-4.0); Lymphocytes % 10.9 % (21.2-54.2); Mean Corpuscular HGB Conc 31.3 GM/DL (32-36); Mean Corpuscular Volume 93.3 FL (87-102); Mean Platelet Volume 10.8 FL (9.6-12.0); Monocytes % 13.2 % (1.7-12.7); Neutrophils % 68.6 % (38.7-73.9); Platelet Count 539 T/CUMM (130-400); Red Blood Count 2.67 MC/CUMM (3.8-5.5); Red Cell Distribution Width 13.6 % (9.3-17.3)
[2019-08-12] MEDS: HEPARIN DRIP 25,000 UNITS/500 ML PREMIX IV SCH ×2 (13:12→15:37)
[2019-08-12] MEDS: DEXTROSE 10% 250 ML BAG IV PRN (20:53)
[2019-08-12] MEDS: ATORVASTATIN 80 MG TABLET PO SCH (21:24)
[2019-08-13 04:37] LABS: Calcium 9.2 MG/DL (8.5-10.1); Osmolality,Calculated 294.7 MOS/KG (273-304)
[2019-08-13] MEDS: INSULIN NPH/REGULAR 70/30 100 UNIT/ML SUBCUT SCH (08:15)
[2019-08-13] MEDS: carvediloL 3.125 MG TABLET PO SCH ×2 (08:23→17:49)
[2019-08-13] MEDS: amLODIPine 5 MG TABLET PO SCH (08:23)
[2019-08-13] MEDS: TICAGRELOR 90 MG TABLET PO SCH ×2 (08:23→21:59)
[2019-08-13] MEDS: HEPARIN DRIP 25,000 UNITS/500 ML PREMIX IV SCH (09:30)
[2019-08-13] MEDS: INSULIN REGULAR 100 UNIT/ML SUBCUT SCH ×4 (11:00→21:58)
[2019-08-13 12:52] LABS: PT Patient Result 11.3 SECS (9.6-12.2)
[2019-08-13 13:03] LABS: Partial Thromboplastin Time 51.4 SECS (20.8-36.0)
[2019-08-13 18:50] LABS: INR 1.1; PT Patient Result 11.5 SECS (9.6-12.2)
[2019-08-13] MEDS: ATORVASTATIN 80 MG TABLET PO SCH (21:59)
[2019-08-14 00:54] LABS: Basophils # 0.1 10*3/uL (0.0-0.2); Basophils % 0.8 % (0.0-0.8); Eosinophils # 0.4 10*3/uL (0.0-0.87); Eosinophils % 3.6 % (0.00-10.9); Hematocrit 24.8 VOL% (42.0-52.0); Hemoglobin 7.8 GM/DL (14.0-18.0); Immature Granulocytes % 1.5 %; Immature Granulocytes Absolute 0.15 #; Lymphocytes # 1.5 10*3/uL (1.4-4.0); Lymphocytes % 14.9 % (21.2-54.2); Mean Corpuscular HGB Conc 31.5 GM/DL (32-36); Mean Corpuscular Volume 92.2 FL (87-102); Mean Platelet Volume 10.6 FL (9.6-12.0); Monocytes % 10.6 % (1.7-12.7); Neutrophils % 68.6 % (38.7-73.9); Platelet Count 520 T/CUMM (130-400); Red Blood Count 2.69 MC/CUMM (3.8-5.5); Red Cell Distribution Width 14.1 % (9.3-17.3); White Blood Count 9.7 T/CUMM (4-12)
[2019-08-14 01:08] LABS: Osmolality,Calculated 287.2 MOS/KG (273-304)
[2019-08-14] MEDS: HEPARIN DRIP 25,000 UNITS/500 ML PREMIX IV SCH ×2 (05:29→18:01)
[2019-08-14] MEDS: carvediloL 3.125 MG TABLET PO SCH ×2 (09:18→17:51)
[2019-08-14] MEDS: TICAGRELOR 90 MG TABLET PO SCH ×2 (09:18→21:23)
[2019-08-14] MEDS: PANTOPRAZOLE 40 MG TABLET PO SCH (09:18)
[2019-08-14] MEDS: INSULIN REGULAR 100 UNIT/ML SUBCUT SCH ×4 (09:18→21:23)
[2019-08-14] MEDS: amLODIPine 5 MG TABLET PO SCH (09:18)
[2019-08-14] MEDS: INSULIN NPH/REGULAR 70/30 100 UNIT/ML SUBCUT SCH (17:50)
[2019-08-14] MEDS: APIXABAN 2.5 MG TABLET PO SCH (21:23)
[2019-08-14] MEDS: ATORVASTATIN 80 MG TABLET PO SCH (21:23)
[2019-08-15] MEDS: INSULIN NPH/REGULAR 70/30 100 UNIT/ML SUBCUT SCH ×2 (08:32→16:46)
[2019-08-15] MEDS: INSULIN REGULAR 100 UNIT/ML SUBCUT SCH ×4 (08:32→22:28)
[2019-08-15] MEDS: APIXABAN 2.5 MG TABLET PO SCH ×2 (08:33→23:12)
[2019-08-15] MEDS: TICAGRELOR 90 MG TABLET PO SCH ×2 (08:33→23:12)
[2019-08-15] MEDS: PANTOPRAZOLE 40 MG TABLET PO SCH (08:33)
[2019-08-15] MEDS: amLODIPine 5 MG TABLET PO SCH (08:33)
[2019-08-15] MEDS: carvediloL 3.125 MG TABLET PO SCH ×2 (08:33→16:27)
[2019-08-15] MEDS: ACETAMINOPHEN 325 MG TABLET PO PRN (09:06)
[2019-08-15] MEDS ORDERED: BENZONATATE 100 MG CAPSULE PO PRN (09:39)
[2019-08-15] MEDS ORDERED: ALBUTEROL/IPRATROPIUM 3 ML NEB RESP TX PRN (09:39)
[2019-08-15 11:18] LABS: Basophils % 0.4 % (0.0-0.8); Eosinophils # 0.2 10*3/uL (0.0-0.87); Eosinophils % 1.8 % (0.00-10.9); Hematocrit 27.3 VOL% (42.0-52.0); Hemoglobin 8.5 GM/DL (14.0-18.0); Immature Granulocytes % 1.2 %; Immature Granulocytes Absolute 0.11 #; Lymphocytes # 0.4 10*3/uL (1.4-4.0); Lymphocytes % 4.3 % (21.2-54.2); Mean Corpuscular HGB Conc 31.1 GM/DL (32-36); Mean Corpuscular Volume 93.8 FL (87-102); Mean Platelet Volume 10.5 FL (9.6-12.0); Monocytes % 0.6 % (1.7-12.7); NRBC # 0.03 10*3/uL; Neutrophils % 91.7 % (38.7-73.9); Platelet Count 462 T/CUMM (130-400); Red Blood Count 2.91 MC/CUMM (3.8-5.5); White Blood Count 9.5 T/CUMM (4-12)
[2019-08-15 11:37] LABS: Anisocytosis 1+; Band Neutrophils 3 % (0-10); Eosinophils 1 % (0-10); Hypochromasia 1+; Lymphocytes 3 % (20-55); Microcytosis 1+; Segmented Neutrophils 92 % (50-85); Total Cells Counted 100
[2019-08-15 11:38] LABS: Ovalocytes Slight
[2019-08-15 11:46] LABS: Calcium 9.1 MG/DL (8.5-10.1); Osmolality,Calculated 291.1 MOS/KG (273-304)
[2019-08-15] MEDS: ATORVASTATIN 80 MG TABLET PO SCH (23:12)
[2019-08-15] MEDS ORDERED: HEPARIN DRIP 25,000 UNITS/500 ML PREMIX IV SCH (23:45)
[2019-08-16 04:03] LABS: Calcium 8.8 MG/DL (8.5-10.1); Osmolality,Calculated 285.2 MOS/KG (273-304)
[2019-08-16 04:12] LABS: Basophils # 0.1 10*3/uL (0.0-0.2); Basophils % 0.4 % (0.0-0.8); Eosinophils # 0.2 10*3/uL (0.0-0.87); Eosinophils % 1.1 % (0.00-10.9); Hematocrit 26.5 VOL% (42.0-52.0); Immature Granulocytes % 1.3 %; Immature Granulocytes Absolute 0.23 #; Lymphocytes # 0.6 10*3/uL (1.4-4.0); Lymphocytes % 3.5 % (21.2-54.2); Mean Corpuscular HGB Conc 30.2 GM/DL (32-36); Mean Corpuscular Volume 95.3 FL (87-102); Mean Platelet Volume 11.4 FL (9.6-12.0); Monocytes % 4.2 % (1.7-12.7); NRBC # 0.05 10*3/uL; Neutrophils % 89.5 % (38.7-73.9); Platelet Count 467 T/CUMM (130-400); Red Blood Count 2.78 MC/CUMM (3.8-5.5); Red Cell Distribution Width 14.4 % (9.3-17.3); White Blood Count 18.1 T/CUMM (4-12)
[2019-08-16 04:35] LABS: Anisocytosis Slight; Band Neutrophils 1 % (0-10); Eosinophils 1 % (0-10); Lymphocytes 3 % (20-55); Platelet Estimate Increased; Segmented Neutrophils 95 % (50-85); Total Cells Counted 100
[2019-08-16 04:36] LABS: Hypochromasia Slight; Microcytosis Slight
[2019-08-16 04:38] LABS: Polychromasia Few
[2019-08-16] MEDS ORDERED: ACETAMINOPHEN 650 MG SUPP RECTAL PRN (04:38)
[2019-08-16 05:31] LABS: Apearance,Urine Slightly Hazy (Clear); Bacteria,Urine Occasional /HPF (Few); Bilirubin,Urine Negative (Negative); Blood, Urine Small mg/dL (Negative); Glucose,Urine (UA) >=500 mg/dL (Negative); Ketones,Urine Negative (Negative); Mucus,Urine Occasional /LPF (Occasional); Nitrite,Urine Negative (Negative); Protein,Urine 100 MG/DL; RBC,Urine 6 /HPF (0-4); Squamous Epithelial Cell,Urine Occasional /HPF (0-10); Urine Color Yellow (Yellow); Urine Specific Gravity 1.008 (1.001-1.035); Urine Urobilinogen < 2.0 EU/DL (0.2-1.0); WBC,Urine 12 /HPF (0-6)
[2019-08-16] MEDS ORDERED: VANCOMYCIN INJ 750 MG in SODIUM CHLORIDE 0.9% 250 ML IV PRN (09:00)
[2019-08-16] MEDS: TICAGRELOR 90 MG TABLET PO SCH ×2 (09:53→20:01)
[2019-08-16] MEDS: INSULIN NPH/REGULAR 70/30 100 UNIT/ML SUBCUT SCH ×2 (09:53→17:32)
[2019-08-16] MEDS: PANTOPRAZOLE 40 MG TABLET PO SCH (09:53)
[2019-08-16] MEDS: INSULIN REGULAR 100 UNIT/ML SUBCUT SCH ×4 (09:53→20:47)
[2019-08-16] MEDS: carvediloL 3.125 MG TABLET PO SCH ×2 (09:53→17:33)
[2019-08-16] MEDS: PIPERACILLIN/TAZOBACTAM 3,375 MG in SODIUM CHLORIDE 0.9% 100 ML IV SCH ×2 (09:54→20:48)
[2019-08-16] MEDS: APIXABAN 2.5 MG TABLET PO SCH (11:54)
[2019-08-16] MEDS: HEPARIN DRIP 25,000 UNITS/500 ML PREMIX IV SCH (17:30)
[2019-08-16] MEDS: ATORVASTATIN 80 MG TABLET PO SCH (20:01)
[2019-08-16 23:42] LABS: CDT Result Negative (Negative); CDT Specimen Source STOOL
[2019-08-17 05:33] LABS: Basophils # 0.1 10*3/uL (0.0-0.2); Basophils % 0.6 % (0.0-0.8); Eosinophils # 0.5 10*3/uL (0.0-0.87); Hemoglobin 7.5 GM/DL (14.0-18.0); Immature Granulocytes Absolute 0.13 #; Lymphocytes # 1.3 10*3/uL (1.4-4.0); Lymphocytes % 10.2 % (21.2-54.2); Mean Corpuscular Volume 96.2 FL (87-102); Mean Platelet Volume 11.1 FL (9.6-12.0); Monocytes % 12.3 % (1.7-12.7); NRBC # 0.03 10*3/uL; Neutrophils % 71.9 % (38.7-73.9); Platelet Count 353 T/CUMM (130-400); Red Cell Distribution Width 14.5 % (9.3-17.3); White Blood Count 12.9 T/CUMM (4-12)
[2019-08-17] MEDS: HEPARIN DRIP 25,000 UNITS/500 ML PREMIX IV SCH ×2 (05:35→21:09)
[2019-08-17 05:54] LABS: Calcium 9.8 MG/DL (8.5-10.1)
[2019-08-17] MEDS: INSULIN NPH/REGULAR 70/30 100 UNIT/ML SUBCUT SCH ×2 (08:53→17:52)
[2019-08-17] MEDS: INSULIN REGULAR 100 UNIT/ML SUBCUT SCH ×4 (08:54→20:08)
[2019-08-17] MEDS: carvediloL 3.125 MG TABLET PO SCH ×2 (08:55→17:53)
[2019-08-17] MEDS: TICAGRELOR 90 MG TABLET PO SCH ×2 (09:10→20:08)
[2019-08-17] MEDS: PANTOPRAZOLE 40 MG TABLET PO SCH (09:11)
[2019-08-17] MEDS: PIPERACILLIN/TAZOBACTAM 3,375 MG in SODIUM CHLORIDE 0.9% 100 ML IV SCH ×2 (10:13→20:08)
[2019-08-17] MEDS ORDERED: VANCOMYCIN INJ 750 MG in SODIUM CHLORIDE 0.9% 250 ML IV ONE (17:00)
[2019-08-17] MEDS: ATORVASTATIN 80 MG TABLET PO SCH (20:08)
[2019-08-18 06:04] LABS: Basophils # 0.1 10*3/uL (0.0-0.2); Eosinophils # 0.4 10*3/uL (0.0-0.87); Eosinophils % 3.7 % (0.00-10.9); Hemoglobin 7.2 GM/DL (14.0-18.0); Immature Granulocytes % 1.1 %; Immature Granulocytes Absolute 0.12 #; Lymphocytes # 1.3 10*3/uL (1.4-4.0); Lymphocytes % 11.4 % (21.2-54.2); Mean Platelet Volume 11.6 FL (9.6-12.0); Monocytes % 16.6 % (1.7-12.7); NRBC # 0.04 10*3/uL; Neutrophils % 66.2 % (38.7-73.9); Platelet Count 319 T/CUMM (130-400); Red Blood Count 2.45 MC/CUMM (3.8-5.5); Red Cell Distribution Width 14.6 % (9.3-17.3); White Blood Count 11.3 T/CUMM (4-12)
[2019-08-18 06:33] LABS: Calcium 9.2 MG/DL (8.5-10.1); Osmolality,Calculated 297.2 MOS/KG (273-304)
[2019-08-18 06:38] LABS: Band Neutrophils 1 % (0-10); Eosinophils 5 % (0-10); Lymphocytes 8 % (20-55); Metamyelocytes 2 %; Segmented Neutrophils 68 % (50-85); Total Cells Counted 100
[2019-08-18 06:39] LABS: Anisocytosis 3+; Platelet Estimate Normal; Polychromasia Slight
[2019-08-18 06:40] LABS: Smudge Cells Few
[2019-08-18] MEDS ORDERED: EPOETIN ALFA 2,000 UNIT/1 ML VIAL IV PRN (07:53)
[2019-08-18] MEDS: INSULIN REGULAR 100 UNIT/ML SUBCUT SCH ×4 (08:48→20:18)
[2019-08-18] MEDS: INSULIN NPH/REGULAR 70/30 100 UNIT/ML SUBCUT SCH ×2 (08:48→16:54)
[2019-08-18] MEDS: PANTOPRAZOLE 40 MG TABLET PO SCH (08:50)
[2019-08-18] MEDS: carvediloL 3.125 MG TABLET PO SCH ×2 (08:50→16:42)
[2019-08-18] MEDS: PIPERACILLIN/TAZOBACTAM 3,375 MG in SODIUM CHLORIDE 0.9% 100 ML IV SCH (08:50)
[2019-08-18] MEDS: TICAGRELOR 90 MG TABLET PO SCH ×2 (08:50→20:18)
[2019-08-18] MEDS: PANTOPRAZOLE 40 MG VIAL IV SCH (09:58)
[2019-08-18] MEDS ORDERED: METOPROLOL TARTRATE 5 MG/5 ML VIAL IV ONE (11:05)
[2019-08-18] MEDS: METOPROLOL TARTRATE 5 MG/5 ML VIAL IV PRN (11:08)
[2019-08-18] MEDS: HEPARIN DRIP 25,000 UNITS/500 ML PREMIX IV SCH (15:48)
[2019-08-18] MEDS: MEROPENEM 500 MG in SODIUM CHLORIDE 0.9% 100 ML IV SCH (16:55)
[2019-08-18] MEDS: ATORVASTATIN 80 MG TABLET PO SCH (20:18)
[2019-08-19 01:07] LABS: Calcium 9.2 MG/DL (8.5-10.1); Osmolality,Calculated 299.4 MOS/KG (273-304)
[2019-08-19 01:29] LABS: Basophils # 0.1 10*3/uL (0.0-0.2); Basophils % 0.9 % (0.0-0.8); Eosinophils # 0.7 10*3/uL (0.0-0.87); Eosinophils % 5.2 % (0.00-10.9); Hematocrit 24.7 VOL% (42.0-52.0); Hemoglobin 7.6 GM/DL (14.0-18.0); Immature Granulocytes % 1.1 %; Immature Granulocytes Absolute 0.14 #; Lymphocytes # 1.8 10*3/uL (1.4-4.0); Lymphocytes % 14.3 % (21.2-54.2); Mean Corpuscular HGB Conc 30.8 GM/DL (32-36); Mean Corpuscular Volume 94.6 FL (87-102); Mean Platelet Volume 11.5 FL (9.6-12.0); Monocytes % 18.4 % (1.7-12.7); NRBC # 0.02 10*3/uL; Neutrophils % 60.1 % (38.7-73.9); Platelet Count 330 T/CUMM (130-400); Red Blood Count 2.61 MC/CUMM (3.8-5.5); Red Cell Distribution Width 14.3 % (9.3-17.3); White Blood Count 12.6 T/CUMM (4-12)
[2019-08-19 02:24] LABS: Anisocytosis 2+; Eosinophils 3 % (0-10); Hypochromasia 1+; Lymphocytes 10 % (20-55); Microcytosis 1+; Ovalocytes 1+; Platelet Estimate Adequate; Polychromasia 1+; Segmented Neutrophils 72 % (50-85); Total Cells Counted 100
[2019-08-19] MEDS: HEPARIN DRIP 25,000 UNITS/500 ML PREMIX IV SCH ×2 (07:05→23:20)
[2019-08-19] MEDS: INSULIN NPH/REGULAR 70/30 100 UNIT/ML SUBCUT SCH ×3 (07:42→17:24)
[2019-08-19] MEDS: INSULIN REGULAR 100 UNIT/ML SUBCUT SCH ×4 (07:44→20:58)
[2019-08-19] MEDS: PANTOPRAZOLE 40 MG VIAL IV SCH (09:36)
[2019-08-19] MEDS ORDERED: GENTAMICIN INJ 120 MG in PREMIX 1 EACH IV ONE (10:00)
[2019-08-19] MEDS: TICAGRELOR 90 MG TABLET PO SCH ×2 (10:43→20:57)
[2019-08-19] MEDS: carvediloL 3.125 MG TABLET PO SCH ×2 (10:43→17:02)
[2019-08-19] MEDS: MEROPENEM 500 MG in SODIUM CHLORIDE 0.9% 100 ML IV SCH (17:22)
[2019-08-19] MEDS: ATORVASTATIN 80 MG TABLET PO SCH (20:58)
[2019-08-20 01:30] LABS: Basophils # 0.1 10*3/uL (0.0-0.2); Eosinophils # 0.5 10*3/uL (0.0-0.87); Eosinophils % 4.9 % (0.00-10.9); Hematocrit 26.8 VOL% (42.0-52.0); Hemoglobin 8.3 GM/DL (14.0-18.0); Lymphocytes # 1.2 10*3/uL (1.4-4.0); Lymphocytes % 12.1 % (21.2-54.2); Mean Corpuscular Volume 94.4 FL (87-102); Mean Platelet Volume 10.9 FL (9.6-12.0); NRBC # 0.03 10*3/uL; Platelet Count 355 T/CUMM (130-400); Red Blood Count 2.84 MC/CUMM (3.8-5.5); Red Cell Distribution Width 14.2 % (9.3-17.3); White Blood Count 10.1 T/CUMM (4-12)
[2019-08-20 01:49] LABS: Calcium 9.7 MG/DL (8.5-10.1); Osmolality,Calculated 300.5 MOS/KG (273-304)
[2019-08-20] MEDS: METOPROLOL TARTRATE 5 MG/5 ML VIAL IV PRN (05:50)
[2019-08-20] MEDS: INSULIN REGULAR 100 UNIT/ML SUBCUT SCH ×4 (07:54→21:13)
[2019-08-20] MEDS: INSULIN NPH/REGULAR 70/30 100 UNIT/ML SUBCUT SCH ×2 (07:55→18:26)
[2019-08-20] MEDS: carvediloL 3.125 MG TABLET PO SCH ×2 (08:04→18:28)
[2019-08-20] MEDS: TICAGRELOR 90 MG TABLET PO SCH ×2 (08:04→21:13)
[2019-08-20] MEDS: cloNIDine 0.3 MG/24 HR PATCH TRANSDERM SCH (09:22)
[2019-08-20] MEDS: PANTOPRAZOLE 40 MG VIAL IV SCH (09:24)
[2019-08-20] MEDS: HEPARIN DRIP 25,000 UNITS/500 ML PREMIX IV SCH (13:31)
[2019-08-20] MEDS ORDERED: GENTAMICIN INJ 120 MG in PREMIX 1 EACH IV PRN (13:52)
[2019-08-20] MEDS ORDERED: GENTAMICIN INJ 180 MG in SODIUM CHLORIDE 0.9% 100 ML IV ONE (17:00)
[2019-08-20] MEDS: MEROPENEM 500 MG in SODIUM CHLORIDE 0.9% 100 ML IV SCH (18:30)
[2019-08-20] MEDS: ATORVASTATIN 80 MG TABLET PO SCH (21:13)
[2019-08-21 01:33] LABS: Basophils # 0.1 10*3/uL (0.0-0.2); Basophils % 1.1 % (0.0-0.8); Eosinophils # 0.3 10*3/uL (0.0-0.87); Eosinophils % 2.8 % (0.00-10.9); Hematocrit 28.4 VOL% (42.0-52.0); Hemoglobin 8.7 GM/DL (14.0-18.0); Immature Granulocytes % 1.9 %; Immature Granulocytes Absolute 0.19 #; Lymphocytes # 1.3 10*3/uL (1.4-4.0); Lymphocytes % 13.2 % (21.2-54.2); Mean Corpuscular HGB Conc 30.6 GM/DL (32-36); Mean Corpuscular Volume 94.7 FL (87-102); Mean Platelet Volume 10.8 FL (9.6-12.0); NRBC # 0.09 10*3/uL; Platelet Count 312 T/CUMM (130-400); Red Cell Distribution Width 14.6 % (9.3-17.3); White Blood Count 10.1 T/CUMM (4-12)
[2019-08-21 01:52] LABS: Calcium 9.4 MG/DL (8.5-10.1); Osmolality,Calculated 287.1 MOS/KG (273-304)
[2019-08-21] MEDS: HEPARIN DRIP 25,000 UNITS/500 ML PREMIX IV SCH ×2 (05:30→21:42)
[2019-08-21] MEDS ORDERED: INSULIN NPH/REGULAR 70/30 100 UNIT/ML SUBCUT SCH (08:23)
[2019-08-21] MEDS: INSULIN NPH/REGULAR 70/30 100 UNIT/ML SUBCUT SCH ×3 (08:35→17:01)
[2019-08-21] MEDS: TICAGRELOR 90 MG TABLET PO SCH ×2 (08:39→20:59)
[2019-08-21] MEDS: carvediloL 3.125 MG TABLET PO SCH ×2 (08:39→17:31)
[2019-08-21] MEDS: INSULIN REGULAR 100 UNIT/ML SUBCUT SCH ×4 (08:49→21:40)
[2019-08-21] MEDS: PANTOPRAZOLE 40 MG VIAL IV SCH (08:49)
[2019-08-21] MEDS: MEROPENEM 500 MG in SODIUM CHLORIDE 0.9% 100 ML IV SCH (17:31)
[2019-08-21] MEDS: ACETAMINOPHEN 325 MG TABLET PO PRN (20:58)
[2019-08-21] MEDS: ATORVASTATIN 80 MG TABLET PO SCH (20:59)
[2019-08-22 04:57] LABS: Basophils # 0.1 10*3/uL (0.0-0.2); Basophils % 0.8 % (0.0-0.8); Eosinophils # 0.5 10*3/uL (0.0-0.87); Eosinophils % 2.9 % (0.00-10.9); Hematocrit 25.3 VOL% (42.0-52.0); Hemoglobin 7.7 GM/DL (14.0-18.0); Immature Granulocytes % 2.3 %; Immature Granulocytes Absolute 0.36 #; Lymphocytes # 1.6 10*3/uL (1.4-4.0); Lymphocytes % 10.4 % (21.2-54.2); Mean Corpuscular HGB Conc 30.4 GM/DL (32-36); Mean Corpuscular Volume 95.8 FL (87-102); Mean Platelet Volume 11.7 FL (9.6-12.0); Monocytes % 14.6 % (1.7-12.7); NRBC # 0.13 10*3/uL; Platelet Count 313 T/CUMM (130-400); Red Blood Count 2.64 MC/CUMM (3.8-5.5); Red Cell Distribution Width 14.8 % (9.3-17.3); White Blood Count 15.6 T/CUMM (4-12)
[2019-08-22] MEDS: ACETAMINOPHEN 325 MG TABLET PO PRN ×3 (05:10→23:14)
[2019-08-22 05:14] LABS: Calcium 9.2 MG/DL (8.5-10.1); Osmolality,Calculated 292.5 MOS/KG (273-304)
[2019-08-22] MEDS: INSULIN NPH/REGULAR 70/30 100 UNIT/ML SUBCUT SCH ×2 (08:25→17:21)
[2019-08-22] MEDS: INSULIN REGULAR 100 UNIT/ML SUBCUT SCH ×6 (08:25→23:58)
[2019-08-22] MEDS: PANTOPRAZOLE 40 MG VIAL IV SCH (08:27)
[2019-08-22] MEDS: carvediloL 3.125 MG TABLET PO SCH ×2 (08:29→17:35)
[2019-08-22] MEDS: TICAGRELOR 90 MG TABLET PO SCH ×2 (08:29→20:56)
[2019-08-22 12:18] LABS: Hepatitis B Surface Ag Quant < 0.10 Index; Hepatitis B Surface Ag Result Negative (Negative); Hepatitis C Virus Ab Quant 0.63 Index; Hepatitis C Virus Ab Result Negative (Negative)
[2019-08-22] MEDS ORDERED: GENTAMICIN INJ 120 MG in PREMIX 1 EACH IV ONE (17:00)
[2019-08-22] MEDS: DEXTROSE 10% 250 ML BAG IV PRN (17:15)
[2019-08-22] MEDS: MEROPENEM 500 MG in SODIUM CHLORIDE 0.9% 100 ML IV SCH (17:35)
[2019-08-22] MEDS: ATORVASTATIN 80 MG TABLET PO SCH (20:56)
[2019-08-22] MEDS: APIXABAN 2.5 MG TABLET PO SCH (20:56)
[2019-08-23 04:30] LABS: Basophils # 0.1 10*3/uL (0.0-0.2); Basophils % 0.8 % (0.0-0.8); Eosinophils # 0.3 10*3/uL (0.0-0.87); Eosinophils % 4.5 % (0.00-10.9); Hematocrit 24.2 VOL% (42.0-52.0); Hemoglobin 7.5 GM/DL (14.0-18.0); Immature Granulocytes % 1.7 %; Immature Granulocytes Absolute 0.13 #; Lymphocytes # 1.6 10*3/uL (1.4-4.0); Lymphocytes % 21.2 % (21.2-54.2); Mean Corpuscular Volume 93.4 FL (87-102); Mean Platelet Volume 11.7 FL (9.6-12.0); Monocytes % 20.1 % (1.7-12.7); NRBC # 0.13 10*3/uL; Neutrophils % 51.7 % (38.7-73.9); Platelet Count 314 T/CUMM (130-400); Red Blood Count 2.59 MC/CUMM (3.8-5.5); Red Cell Distribution Width 14.8 % (9.3-17.3); White Blood Count 7.6 T/CUMM (4-12)
[2019-08-23 04:49] LABS: Calcium 8.7 MG/DL (8.5-10.1); Osmolality,Calculated 285.1 MOS/KG (273-304)
[2019-08-23 05:10] LABS: Eosinophils 5 % (0-10); Hypochromasia Slight; Lymphocytes 14 % (20-55); Nucleated Red Blood Cells 1 (0-5); Platelet Estimate Normal; Polychromasia Few; Segmented Neutrophils 64 % (50-85); Total Cells Counted 100
[2019-08-23 05:27] LABS: Prealbumin 15.1 MG/DL (20-40)
[2019-08-23] MEDS: INSULIN REGULAR 100 UNIT/ML SUBCUT SCH ×4 (06:12→23:46)
[2019-08-23] MEDS: INSULIN NPH/REGULAR 70/30 100 UNIT/ML SUBCUT SCH ×2 (08:05→16:33)
[2019-08-23] MEDS: TICAGRELOR 90 MG TABLET PO SCH ×2 (09:02→22:14)
[2019-08-23] MEDS: PANTOPRAZOLE 40 MG VIAL IV SCH (09:02)
[2019-08-23] MEDS: APIXABAN 2.5 MG TABLET PO SCH (09:02)
[2019-08-23] MEDS: carvediloL 3.125 MG TABLET PO SCH ×2 (09:03→16:36)
[2019-08-23 09:07] LABS: % Iron Saturation 20.8 % (18-50)
[2019-08-23] MEDS: CEFEPIME 1,000 MG in SODIUM CHLORIDE 0.9% 100 ML IV SCH (16:36)
[2019-08-23] MEDS: APIXABAN 5 MG TABLET PO SCH (22:14)
[2019-08-23] MEDS: ATORVASTATIN 80 MG TABLET PO SCH (22:14)
[2019-08-24 03:59] LABS: Basophils # 0.1 10*3/uL (0.0-0.2); Eosinophils # 0.4 10*3/uL (0.0-0.87); Eosinophils % 4.6 % (0.00-10.9); Hemoglobin 7.4 GM/DL (14.0-18.0); Immature Granulocytes Absolute 0.08 #; Lymphocytes # 1.3 10*3/uL (1.4-4.0); Lymphocytes % 15.4 % (21.2-54.2); Mean Corpuscular HGB Conc 30.8 GM/DL (32-36); Mean Corpuscular Volume 93.8 FL (87-102); Mean Platelet Volume 11.2 FL (9.6-12.0); Monocytes % 14.5 % (1.7-12.7); NRBC # 0.04 10*3/uL; Neutrophils % 63.5 % (38.7-73.9); Platelet Count 313 T/CUMM (130-400); Red Blood Count 2.56 MC/CUMM (3.8-5.5); Red Cell Distribution Width 14.9 % (9.3-17.3); White Blood Count 8.3 T/CUMM (4-12)
[2019-08-24 04:23] LABS: Calcium 8.8 MG/DL (8.5-10.1); Osmolality,Calculated 292.2 MOS/KG (273-304)
[2019-08-24] MEDS: INSULIN REGULAR 100 UNIT/ML SUBCUT SCH ×3 (05:43→18:02)
[2019-08-24] MEDS: INSULIN NPH/REGULAR 70/30 100 UNIT/ML SUBCUT SCH ×2 (07:53→17:21)
[2019-08-24] MEDS: PANTOPRAZOLE 40 MG VIAL IV SCH (08:20)
[2019-08-24] MEDS: TICAGRELOR 90 MG TABLET PO SCH ×2 (08:21→21:53)
[2019-08-24] MEDS: APIXABAN 5 MG TABLET PO SCH ×2 (08:21→21:52)
[2019-08-24] MEDS: carvediloL 3.125 MG TABLET PO SCH ×2 (08:21→18:05)
[2019-08-24] MEDS: CEFEPIME 1,000 MG in SODIUM CHLORIDE 0.9% 100 ML IV SCH (17:21)
[2019-08-24] MEDS: ACETAMINOPHEN 325 MG TABLET PO PRN (21:50)
[2019-08-24] MEDS: ATORVASTATIN 80 MG TABLET PO SCH (21:52)
[2019-08-25] MEDS: INSULIN REGULAR 100 UNIT/ML SUBCUT SCH ×4 (00:15→17:56)
[2019-08-25 03:56] LABS: Basophils # 0.1 10*3/uL (0.0-0.2); Basophils % 0.9 % (0.0-0.8); Eosinophils # 0.4 10*3/uL (0.0-0.87); Eosinophils % 4.5 % (0.00-10.9); Hematocrit 26.4 VOL% (42.0-52.0); Hemoglobin 8.1 GM/DL (14.0-18.0); Immature Granulocytes % 0.9 %; Immature Granulocytes Absolute 0.08 #; Lymphocytes # 1.4 10*3/uL (1.4-4.0); Lymphocytes % 16.3 % (21.2-54.2); Mean Corpuscular HGB Conc 30.7 GM/DL (32-36); Mean Platelet Volume 11.3 FL (9.6-12.0); Monocytes % 9.2 % (1.7-12.7); Neutrophils % 68.2 % (38.7-73.9); Platelet Count 376 T/CUMM (130-400); Red Blood Count 2.81 MC/CUMM (3.8-5.5); Red Cell Distribution Width 14.9 % (9.3-17.3); White Blood Count 8.6 T/CUMM (4-12)
[2019-08-25 04:07] LABS: Calcium 8.7 MG/DL (8.5-10.1); Osmolality,Calculated 287.4 MOS/KG (273-304)
[2019-08-25] MEDS: INSULIN NPH/REGULAR 70/30 100 UNIT/ML SUBCUT SCH ×2 (07:20→15:55)
[2019-08-25] MEDS: MICAFUNGIN 150 MG in SODIUM CHLORIDE 0.9% 100 ML IV SCH (09:17)
[2019-08-25] MEDS: PANTOPRAZOLE 40 MG VIAL IV SCH (09:17)
[2019-08-25] MEDS: APIXABAN 5 MG TABLET PO SCH ×2 (09:25→21:20)
[2019-08-25] MEDS: TICAGRELOR 90 MG TABLET PO SCH ×2 (09:25→21:20)
[2019-08-25] MEDS: carvediloL 3.125 MG TABLET PO SCH ×2 (09:25→17:56)
[2019-08-25] MEDS: CEFEPIME 1,000 MG in SODIUM CHLORIDE 0.9% 100 ML IV SCH (17:56)
[2019-08-25] MEDS: ACETAMINOPHEN 325 MG TABLET PO PRN (21:19)
[2019-08-25] MEDS: ATORVASTATIN 80 MG TABLET PO SCH (21:20)
[2019-08-26] MEDS: INSULIN REGULAR 100 UNIT/ML SUBCUT SCH ×4 (01:34→17:57)
[2019-08-26 04:19] LABS: Basophils # 0.1 10*3/uL (0.0-0.2); Basophils % 0.8 % (0.0-0.8); Eosinophils # 0.5 10*3/uL (0.0-0.87); Eosinophils % 5.2 % (0.00-10.9); Hematocrit 24.3 VOL% (42.0-52.0); Hemoglobin 7.5 GM/DL (14.0-18.0); Immature Granulocytes % 1.1 %; Lymphocytes # 1.5 10*3/uL (1.4-4.0); Lymphocytes % 16.6 % (21.2-54.2); Mean Corpuscular HGB Conc 30.9 GM/DL (32-36); Mean Corpuscular Volume 94.2 FL (87-102); Monocytes % 9.4 % (1.7-12.7); Neutrophils % 66.9 % (38.7-73.9); Platelet Count 336 T/CUMM (130-400); Red Blood Count 2.58 MC/CUMM (3.8-5.5); Red Cell Distribution Width 15.1 % (9.3-17.3); White Blood Count 9.3 T/CUMM (4-12)
[2019-08-26 04:40] LABS: Calcium 8.8 MG/DL (8.5-10.1); Osmolality,Calculated 293.1 MOS/KG (273-304)
[2019-08-26 04:45] LABS: Prealbumin 21.6 MG/DL (20-40)
[2019-08-26] MEDS: TICAGRELOR 90 MG TABLET PO SCH ×2 (09:03→21:13)
[2019-08-26] MEDS: APIXABAN 5 MG TABLET PO SCH ×2 (09:04→21:14)
[2019-08-26] MEDS: carvediloL 3.125 MG TABLET PO SCH ×2 (09:04→17:30)
[2019-08-26] MEDS: INSULIN NPH/REGULAR 70/30 100 UNIT/ML SUBCUT SCH ×2 (09:04→17:30)
[2019-08-26] MEDS: PANTOPRAZOLE 40 MG VIAL IV SCH (09:05)
[2019-08-26] MEDS: MICAFUNGIN 150 MG in SODIUM CHLORIDE 0.9% 100 ML IV SCH (10:01)
[2019-08-26] MEDS: FLUCONAZOLE INJ 200 MG in PREMIX 1 EACH IV SCH (17:30)
[2019-08-26] MEDS: ATORVASTATIN 80 MG TABLET PO SCH (21:13)
[2019-08-27] MEDS: INSULIN REGULAR 100 UNIT/ML SUBCUT SCH ×4 (00:47→17:57)
[2019-08-27 06:37] LABS: Basophils # 0.1 10*3/uL (0.0-0.2); Basophils % 0.9 % (0.0-0.8); Eosinophils # 0.5 10*3/uL (0.0-0.87); Eosinophils % 4.7 % (0.00-10.9); Hematocrit 24.2 VOL% (42.0-52.0); Hemoglobin 7.5 GM/DL (14.0-18.0); Immature Granulocytes % 0.7 %; Immature Granulocytes Absolute 0.07 #; Lymphocytes # 1.4 10*3/uL (1.4-4.0); Mean Corpuscular Volume 94.2 FL (87-102); Mean Platelet Volume 11.4 FL (9.6-12.0); Monocytes % 8.3 % (1.7-12.7); Neutrophils % 71.4 % (38.7-73.9); Platelet Count 370 T/CUMM (130-400); Red Blood Count 2.57 MC/CUMM (3.8-5.5); Red Cell Distribution Width 15.4 % (9.3-17.3); White Blood Count 10.2 T/CUMM (4-12)
[2019-08-27 06:57] LABS: Calcium 9.3 MG/DL (8.5-10.1); Osmolality,Calculated 300.7 MOS/KG (273-304)
[2019-08-27] MEDS: INSULIN NPH/REGULAR 70/30 100 UNIT/ML SUBCUT SCH ×2 (08:21→16:24)
[2019-08-27] MEDS: ACETAMINOPHEN 325 MG TABLET PO PRN ×2 (09:35→16:25)
[2019-08-27] MEDS: PANTOPRAZOLE 40 MG VIAL IV SCH (12:34)
[2019-08-27] MEDS: cloNIDine 0.3 MG/24 HR PATCH TRANSDERM SCH (12:35)
[2019-08-27] MEDS: carvediloL 3.125 MG TABLET PO SCH ×2 (12:35→17:57)
[2019-08-27] MEDS: TICAGRELOR 90 MG TABLET PO SCH ×2 (12:35→21:05)
[2019-08-27] MEDS: APIXABAN 5 MG TABLET PO SCH ×2 (12:35→21:05)
[2019-08-27] MEDS ORDERED: GENTAMICIN INJ 120 MG in PREMIX 1 EACH IV ONE (17:00)
[2019-08-27] MEDS: FLUCONAZOLE INJ 200 MG in PREMIX 1 EACH IV SCH (17:17)
[2019-08-27] MEDS: ATORVASTATIN 80 MG TABLET PO SCH (21:05)
[2019-08-28] MEDS: INSULIN REGULAR 100 UNIT/ML SUBCUT SCH ×4 (00:24→17:17)
[2019-08-28] MEDS: PANTOPRAZOLE 40 MG VIAL IV SCH (09:06)
[2019-08-28] MEDS: carvediloL 3.125 MG TABLET PO SCH ×2 (09:07→17:33)
[2019-08-28] MEDS: INSULIN NPH/REGULAR 70/30 100 UNIT/ML SUBCUT SCH ×2 (09:07→17:33)
[2019-08-28] MEDS: CLOPIDOGREL 75 MG TABLET PO SCH (09:07)
[2019-08-28] MEDS: APIXABAN 5 MG TABLET PO SCH ×2 (09:07→20:46)
[2019-08-28] MEDS: FLUCONAZOLE INJ 200 MG in PREMIX 1 EACH IV SCH (17:33)
[2019-08-28] MEDS: ATORVASTATIN 80 MG TABLET PO SCH (20:46)
[2019-08-29] MEDS: INSULIN REGULAR 100 UNIT/ML SUBCUT SCH ×4 (00:13→18:08)
[2019-08-29 06:08] LABS: Prealbumin 25.8 MG/DL (20-40)
[2019-08-29] MEDS: PANTOPRAZOLE 40 MG VIAL IV SCH (07:44)
[2019-08-29] MEDS: ACETAMINOPHEN 325 MG TABLET PO PRN (07:45)
[2019-08-29] MEDS: APIXABAN 5 MG TABLET PO SCH ×2 (07:45→22:54)
[2019-08-29] MEDS: carvediloL 3.125 MG TABLET PO SCH ×2 (07:45→16:36)
[2019-08-29] MEDS: CLOPIDOGREL 75 MG TABLET PO SCH (07:45)
[2019-08-29] MEDS: INSULIN NPH/REGULAR 70/30 100 UNIT/ML SUBCUT SCH (07:46)
[2019-08-29] MEDS: MORPHINE 4 MG/1 ML VIAL IV PRN (16:37)
[2019-08-29] MEDS: FLUCONAZOLE INJ 200 MG in PREMIX 1 EACH IV SCH (16:43)
[2019-08-29] MEDS ORDERED: INSULIN GLARGINE 100 UNIT/ML SUBCUT SCH (17:00)
[2019-08-29] MEDS ORDERED: GENTAMICIN INJ 120 MG in PREMIX 1 EACH IV ONE (17:00)
[2019-08-29] MEDS: ATORVASTATIN 80 MG TABLET PO SCH (22:54)
[2019-08-30] MEDS: INSULIN REGULAR 100 UNIT/ML SUBCUT SCH ×4 (00:43→18:16)
[2019-08-30 05:27] LABS: Basophils # 0.1 10*3/uL (0.0-0.2); Basophils % 0.7 % (0.0-0.8); Eosinophils # 0.3 10*3/uL (0.0-0.87); Eosinophils % 4.1 % (0.00-10.9); Hematocrit 25.2 VOL% (42.0-52.0); Hemoglobin 7.7 GM/DL (14.0-18.0); Immature Granulocytes % 0.5 %; Immature Granulocytes Absolute 0.04 #; Lymphocytes # 1.4 10*3/uL (1.4-4.0); Lymphocytes % 17.1 % (21.2-54.2); Mean Corpuscular HGB Conc 30.6 GM/DL (32-36); Mean Platelet Volume 11.2 FL (9.6-12.0); Monocytes % 8.7 % (1.7-12.7); Neutrophils % 68.9 % (38.7-73.9); Platelet Count 415 T/CUMM (130-400); Red Blood Count 2.68 MC/CUMM (3.8-5.5); Red Cell Distribution Width 15.3 % (9.3-17.3); White Blood Count 8.1 T/CUMM (4-12)
[2019-08-30 06:01] LABS: Calcium 9.4 MG/DL (8.5-10.1); Osmolality,Calculated 289.1 MOS/KG (273-304)
[2019-08-30] MEDS: CLOPIDOGREL 75 MG TABLET PO SCH (09:39)
[2019-08-30] MEDS: carvediloL 3.125 MG TABLET PO SCH ×2 (09:39→17:29)
[2019-08-30] MEDS: APIXABAN 5 MG TABLET PO SCH ×2 (09:40→20:18)
[2019-08-30] MEDS: PANTOPRAZOLE 40 MG VIAL IV SCH (09:45)
[2019-08-30] MEDS: INSULIN GLARGINE 100 UNIT/ML SUBCUT SCH ×2 (12:11→20:16)
[2019-08-30] MEDS: FLUCONAZOLE INJ 200 MG in PREMIX 1 EACH IV SCH (17:29)
[2019-08-30] MEDS: ACETAMINOPHEN 325 MG TABLET PO PRN (20:17)
[2019-08-30] MEDS: ATORVASTATIN 80 MG TABLET PO SCH (20:18)
[2019-08-31] MEDS: INSULIN REGULAR 100 UNIT/ML SUBCUT SCH ×4 (00:29→18:17)
[2019-08-31 09:02] LABS: Basophils # 0.1 10*3/uL (0.0-0.2); Basophils % 0.5 % (0.0-0.8); Eosinophils # 0.4 10*3/uL (0.0-0.87); Eosinophils % 3.7 % (0.00-10.9); Hematocrit 25.2 VOL% (42.0-52.0); Hemoglobin 7.7 GM/DL (14.0-18.0); Immature Granulocytes % 0.4 %; Immature Granulocytes Absolute 0.04 #; Mean Corpuscular HGB Conc 30.6 GM/DL (32-36); Mean Platelet Volume 10.7 FL (9.6-12.0); Monocytes % 6.2 % (1.7-12.7); Neutrophils % 79.2 % (38.7-73.9); Platelet Count 475 T/CUMM (130-400); Red Blood Count 2.71 MC/CUMM (3.8-5.5); Red Cell Distribution Width 15.2 % (9.3-17.3); White Blood Count 9.9 T/CUMM (4-12)
[2019-08-31 09:29] LABS: Calcium 9.5 MG/DL (8.5-10.1); Osmolality,Calculated 295.4 MOS/KG (273-304)
[2019-08-31] MEDS: APIXABAN 5 MG TABLET PO SCH ×2 (10:09→21:05)
[2019-08-31] MEDS: carvediloL 3.125 MG TABLET PO SCH ×2 (10:09→17:04)
[2019-08-31] MEDS: CLOPIDOGREL 75 MG TABLET PO SCH (10:10)
[2019-08-31] MEDS: PANTOPRAZOLE 40 MG VIAL IV SCH (10:10)
[2019-08-31] MEDS: INSULIN GLARGINE 100 UNIT/ML SUBCUT SCH ×2 (10:10→21:05)
[2019-08-31] MEDS: FLUCONAZOLE INJ 200 MG in PREMIX 1 EACH IV SCH (17:00)
[2019-08-31] MEDS: ONDANSETRON 4 MG/2 ML VIAL IV PRN (19:25)
[2019-08-31] MEDS: MORPHINE 4 MG/1 ML VIAL IV PRN (19:25)
[2019-08-31] MEDS: ATORVASTATIN 80 MG TABLET PO SCH (21:06)
[2019-09-01] MEDS: INSULIN REGULAR 100 UNIT/ML SUBCUT SCH ×4 (00:05→18:51)
[2019-09-01 06:02] LABS: Basophils # 0.1 10*3/uL (0.0-0.2); Eosinophils # 0.6 10*3/uL (0.0-0.87); Eosinophils % 5.3 % (0.00-10.9); Hematocrit 27.1 VOL% (42.0-52.0); Hemoglobin 8.4 GM/DL (14.0-18.0); Immature Granulocytes % 1.1 %; Immature Granulocytes Absolute 0.13 #; Lymphocytes # 1.3 10*3/uL (1.4-4.0); Mean Corpuscular Volume 93.1 FL (87-102); Neutrophils % 72.6 % (38.7-73.9); Platelet Count 519 T/CUMM (130-400); Red Blood Count 2.91 MC/CUMM (3.8-5.5); Red Cell Distribution Width 15.4 % (9.3-17.3)
[2019-09-01 06:14] LABS: Calcium 10.1 MG/DL (8.5-10.1); Osmolality,Calculated 296.5 MOS/KG (273-304)
[2019-09-01] MEDS: APIXABAN 5 MG TABLET PO SCH ×2 (08:52→20:15)
[2019-09-01] MEDS: CLOPIDOGREL 75 MG TABLET PO SCH (08:52)
[2019-09-01] MEDS: INSULIN GLARGINE 100 UNIT/ML SUBCUT SCH ×2 (08:52→20:15)
[2019-09-01] MEDS: carvediloL 3.125 MG TABLET PO SCH ×2 (08:52→17:10)
[2019-09-01] MEDS: PANTOPRAZOLE 40 MG VIAL IV SCH (08:57)
[2019-09-01] MEDS: MORPHINE 4 MG/1 ML VIAL IV PRN ×2 (15:42→20:16)
[2019-09-01] MEDS: FLUCONAZOLE INJ 200 MG in PREMIX 1 EACH IV SCH (17:12)
[2019-09-01] MEDS: ATORVASTATIN 80 MG TABLET PO SCH (20:15)
[2019-09-02] MEDS: INSULIN REGULAR 100 UNIT/ML SUBCUT SCH ×4 (00:25→17:41)
[2019-09-02] MEDS: MORPHINE 4 MG/1 ML VIAL IV PRN ×3 (01:58→18:49)
[2019-09-02 05:15] LABS: Basophils # 0.1 10*3/uL (0.0-0.2); Basophils % 1.2 % (0.0-0.8); Eosinophils # 0.7 10*3/uL (0.0-0.87); Eosinophils % 5.8 % (0.00-10.9); Hemoglobin 8.5 GM/DL (14.0-18.0); Immature Granulocytes % 0.6 %; Immature Granulocytes Absolute 0.07 #; Lymphocytes # 1.5 10*3/uL (1.4-4.0); Lymphocytes % 12.6 % (21.2-54.2); Mean Corpuscular HGB Conc 30.4 GM/DL (32-36); Mean Corpuscular Volume 93.6 FL (87-102); Mean Platelet Volume 10.7 FL (9.6-12.0); Monocytes % 10.1 % (1.7-12.7); Neutrophils % 69.7 % (38.7-73.9); Platelet Count 516 T/CUMM (130-400); Red Blood Count 2.99 MC/CUMM (3.8-5.5); Red Cell Distribution Width 15.3 % (9.3-17.3)
[2019-09-02 05:43] LABS: Calcium 10.1 MG/DL (8.5-10.1); Osmolality,Calculated 291.7 MOS/KG (273-304)
[2019-09-02] MEDS: CLOPIDOGREL 75 MG TABLET PO SCH (10:06)
[2019-09-02] MEDS: LANSOPRAZOLE ODT 30 MG TABLET PO SCH (10:07)
[2019-09-02] MEDS: carvediloL 3.125 MG TABLET PO SCH ×2 (10:07→17:17)
[2019-09-02] MEDS: APIXABAN 5 MG TABLET PO SCH ×2 (10:07→23:06)
[2019-09-02] MEDS: INSULIN GLARGINE 100 UNIT/ML SUBCUT SCH ×2 (10:07→23:05)
[2019-09-02] MEDS: FLUCONAZOLE INJ 200 MG in PREMIX 1 EACH IV SCH (17:18)
[2019-09-02] MEDS: ATORVASTATIN 80 MG TABLET PO SCH (23:06)
[2019-09-03] MEDS: INSULIN REGULAR 100 UNIT/ML SUBCUT SCH ×4 (00:54→17:46)
[2019-09-03 06:31] LABS: Calcium 10.1 MG/DL (8.5-10.1); Osmolality,Calculated 302.2 MOS/KG (273-304)
[2019-09-03] MEDS ORDERED: GENTAMICIN INJ 100 MG in PREMIX 1 EACH IV PRN (09:00)
[2019-09-03] MEDS: cloNIDine 0.3 MG/24 HR PATCH TRANSDERM SCH ×2 (11:41→16:01)
[2019-09-03] MEDS: carvediloL 3.125 MG TABLET PO SCH ×2 (12:39→17:46)
[2019-09-03] MEDS: LANSOPRAZOLE ODT 30 MG TABLET PO SCH (12:39)
[2019-09-03] MEDS: APIXABAN 5 MG TABLET PO SCH ×2 (12:39→20:03)
[2019-09-03] MEDS: CLOPIDOGREL 75 MG TABLET PO SCH (12:39)
[2019-09-03] MEDS: INSULIN GLARGINE 100 UNIT/ML SUBCUT SCH ×2 (12:40→21:23)
[2019-09-03] MEDS: MORPHINE 4 MG/1 ML VIAL IV PRN (13:57)
[2019-09-03] MEDS: LABETALOL 20 MG/4 ML SYRINGE IV PRN (15:52)
[2019-09-03] MEDS ORDERED: GENTAMICIN INJ 100 MG in SODIUM CHLORIDE 0.9% 100 ML IV ONE (17:00)
[2019-09-03] MEDS: ACETAMINOPHEN 325 MG TABLET PO PRN (20:03)
[2019-09-03] MEDS: ATORVASTATIN 80 MG TABLET PO SCH (20:03)
[2019-09-04] MEDS: INSULIN REGULAR 100 UNIT/ML SUBCUT SCH ×5 (01:23→19:25)
[2019-09-04 06:35] LABS: Calcium 9.7 MG/DL (8.5-10.1); Osmolality,Calculated 288.8 MOS/KG (273-304)
[2019-09-04] MEDS: ACETAMINOPHEN 325 MG TABLET PO PRN (07:09)
[2019-09-04] MEDS: carvediloL 3.125 MG TABLET PO SCH ×2 (10:03→19:25)
[2019-09-04] MEDS: APIXABAN 5 MG TABLET PO SCH ×2 (10:03→21:28)
[2019-09-04] MEDS: CLOPIDOGREL 75 MG TABLET PO SCH (10:04)
[2019-09-04] MEDS: INSULIN GLARGINE 100 UNIT/ML SUBCUT SCH ×2 (10:06→21:29)
[2019-09-04] MEDS: LANSOPRAZOLE ODT 30 MG TABLET PO SCH (10:27)
[2019-09-04] MEDS ORDERED: NITROGLYCERIN SL 0.4 MG TABLET SL ONE (12:12)
[2019-09-04] MEDS ORDERED: hydrALAZINE 20 MG/1 ML VIAL IV ONE (12:20)
[2019-09-04 13:02] LABS: Basophils # 0.1 10*3/uL (0.0-0.2); Basophils % 1.4 % (0.0-0.8); Eosinophils # 0.5 10*3/uL (0.0-0.87); Eosinophils % 5.2 % (0.00-10.9); Hematocrit 30.8 VOL% (42.0-52.0); Hemoglobin 9.4 GM/DL (14.0-18.0); Immature Granulocytes % 0.5 %; Immature Granulocytes Absolute 0.04 #; Lymphocytes # 1.8 10*3/uL (1.4-4.0); Lymphocytes % 20.3 % (21.2-54.2); Mean Corpuscular HGB Conc 30.5 GM/DL (32-36); Mean Corpuscular Volume 93.9 FL (87-102); Mean Platelet Volume 10.4 FL (9.6-12.0); Monocytes % 12.2 % (1.7-12.7); Neutrophils % 60.4 % (38.7-73.9); Platelet Count 568 T/CUMM (130-400); Red Blood Count 3.28 MC/CUMM (3.8-5.5); Red Cell Distribution Width 15.3 % (9.3-17.3); White Blood Count 8.7 T/CUMM (4-12)
[2019-09-04] MEDS ORDERED: NITROGLYCERIN SL 0.4 MG TABLET SL PRN (13:06)
[2019-09-04 13:19] LABS: Calcium 10.1 MG/DL (8.5-10.1); Osmolality,Calculated 291.9 MOS/KG (273-304)
[2019-09-04] MEDS: ALUMINUM/MAGNES/SIMETH MAX STR 30 ML UDCUP NG PRN (14:09)
[2019-09-04 15:51] LABS: Troponin I 0.048 NG/ML (0.00-0.045)
[2019-09-04] MEDS: FLUCONAZOLE INJ 200 MG in PREMIX 1 EACH IV SCH ×2 (17:06→17:23)
[2019-09-04] MEDS: ATORVASTATIN 80 MG TABLET PO SCH (21:28)
[2019-09-04] MEDS: MORPHINE 4 MG/1 ML VIAL IV PRN (21:29)
[2019-09-05] MEDS: INSULIN REGULAR 100 UNIT/ML SUBCUT SCH ×4 (03:27→18:39)
[2019-09-05] MEDS: APIXABAN 5 MG TABLET PO SCH ×2 (08:37→21:16)
[2019-09-05] MEDS: TICAGRELOR 90 MG TABLET PO SCH ×2 (08:37→21:17)
[2019-09-05] MEDS: INSULIN GLARGINE 100 UNIT/ML SUBCUT SCH ×2 (08:37→21:17)
[2019-09-05] MEDS: carvediloL 3.125 MG TABLET PO SCH ×2 (08:37→16:25)
[2019-09-05] MEDS: ACETAMINOPHEN 325 MG TABLET PO PRN ×2 (08:38→21:16)
[2019-09-05] MEDS: LANSOPRAZOLE ODT 30 MG TABLET PO SCH (08:38)
[2019-09-05] MEDS ORDERED: BISACODYL 10 MG SUPP RECTAL ONE (09:00)
[2019-09-05] MEDS ORDERED: MAGNESIUM HYDROXIDE SUSP 30 ML UDCUP PO ONE (09:00)
[2019-09-05 09:12] LABS: Basophils # 0.1 10*3/uL (0.0-0.2); Basophils % 1.3 % (0.0-0.8); Eosinophils # 0.5 10*3/uL (0.0-0.87); Eosinophils % 4.9 % (0.00-10.9); Hematocrit 27.6 VOL% (42.0-52.0); Hemoglobin 8.5 GM/DL (14.0-18.0); Immature Granulocytes % 0.5 %; Immature Granulocytes Absolute 0.05 #; Lymphocytes # 1.5 10*3/uL (1.4-4.0); Lymphocytes % 16.6 % (21.2-54.2); Mean Corpuscular HGB Conc 30.8 GM/DL (32-36); Mean Corpuscular Volume 92.9 FL (87-102); Mean Platelet Volume 10.1 FL (9.6-12.0); Neutrophils % 65.7 % (38.7-73.9); Platelet Count 487 T/CUMM (130-400); Red Blood Count 2.97 MC/CUMM (3.8-5.5); Red Cell Distribution Width 15.4 % (9.3-17.3); White Blood Count 9.3 T/CUMM (4-12)
[2019-09-05 09:26] LABS: Osmolality,Calculated 299.1 MOS/KG (273-304)
[2019-09-05 09:30] LABS: Prealbumin 32.4 MG/DL (20-40)
[2019-09-05] MEDS: FLUCONAZOLE INJ 200 MG in PREMIX 1 EACH IV SCH (16:25)
[2019-09-05] MEDS ORDERED: GENTAMICIN INJ 100 MG in SODIUM CHLORIDE 0.9% 100 ML IV ONE (17:00)
[2019-09-05] MEDS: ATORVASTATIN 80 MG TABLET PO SCH (21:16)
[2019-09-06] MEDS: INSULIN REGULAR 100 UNIT/ML SUBCUT SCH ×4 (00:49→17:32)
[2019-09-06] MEDS: LANSOPRAZOLE ODT 30 MG TABLET PO SCH (08:26)
[2019-09-06] MEDS: APIXABAN 5 MG TABLET PO SCH ×2 (08:26→20:37)
[2019-09-06] MEDS: TICAGRELOR 90 MG TABLET PO SCH ×2 (08:26→20:37)
[2019-09-06] MEDS: ACETAMINOPHEN 325 MG TABLET PO PRN ×2 (08:26→16:16)
[2019-09-06] MEDS: carvediloL 3.125 MG TABLET PO SCH ×2 (08:27→16:15)
[2019-09-06] MEDS: BISACODYL 10 MG SUPP RECTAL SCH (08:28)
[2019-09-06] MEDS: DOCUSATE SODIUM 100 MG/10 ML UDCUP PEG SCH (08:28)
[2019-09-06] MEDS: INSULIN GLARGINE 100 UNIT/ML SUBCUT SCH ×2 (08:45→20:39)
[2019-09-06] MEDS: LIDOCAINE 5% PATCH TRANSDERM SCH (12:38)
[2019-09-06] MEDS: HYDROcod/ACETAMIN 7.5-325 MG/15 ML UDCUP NG PRN ×2 (12:39→20:37)
[2019-09-06] MEDS: diphenhydrAMINE 25 MG/10 ML UDCUP PO PRN (16:15)
[2019-09-06] MEDS: FLUCONAZOLE INJ 200 MG in PREMIX 1 EACH IV SCH (16:16)
[2019-09-06] MEDS: AMITRIPTYLINE 10 MG TABLET NG SCH (20:37)
[2019-09-06] MEDS: ATORVASTATIN 80 MG TABLET PO SCH (20:37)
[2019-09-07] MEDS: INSULIN REGULAR 100 UNIT/ML SUBCUT SCH ×4 (00:30→18:18)
[2019-09-07] MEDS: HYDROcod/ACETAMIN 7.5-325 MG/15 ML UDCUP NG PRN ×2 (04:53→14:37)
[2019-09-07] MEDS: diphenhydrAMINE 25 MG/10 ML UDCUP PO PRN ×2 (06:26→13:45)
[2019-09-07] MEDS: ACETAMINOPHEN 325 MG TABLET PO PRN ×2 (08:14→18:32)
[2019-09-07] MEDS: carvediloL 3.125 MG TABLET PO SCH ×2 (08:15→16:46)
[2019-09-07] MEDS: LANSOPRAZOLE ODT 30 MG TABLET PO SCH (08:15)
[2019-09-07] MEDS: TICAGRELOR 90 MG TABLET PO SCH ×2 (08:15→22:11)
[2019-09-07] MEDS: APIXABAN 5 MG TABLET PO SCH ×2 (08:15→22:13)
[2019-09-07] MEDS: LIDOCAINE 5% PATCH TRANSDERM SCH (08:16)
[2019-09-07] MEDS: INSULIN GLARGINE 100 UNIT/ML SUBCUT SCH ×2 (08:16→22:12)
[2019-09-07] MEDS: DOCUSATE SODIUM 100 MG/10 ML UDCUP PEG SCH (08:16)
[2019-09-07] MEDS: ALUMINUM/MAGNES/SIMETH MAX STR 30 ML UDCUP NG PRN (10:44)
[2019-09-07] MEDS: FLUCONAZOLE INJ 200 MG in PREMIX 1 EACH IV SCH (16:46)
[2019-09-07] MEDS ORDERED: GENTAMICIN INJ 100 MG in PREMIX 1 EACH IV ONE (18:00)
[2019-09-07] MEDS: hydrOXYzine HCL 2 MG/ML 30 ML/BOTTLE PO PRN (18:24)
[2019-09-07] MEDS: AMITRIPTYLINE 10 MG TABLET NG SCH (22:11)
[2019-09-07] MEDS: ATORVASTATIN 80 MG TABLET PO SCH (22:11)
[2019-09-08] MEDS: INSULIN REGULAR 100 UNIT/ML SUBCUT SCH ×4 (00:13→18:23)
[2019-09-08] MEDS: HYDROcod/ACETAMIN 7.5-325 MG/15 ML UDCUP NG PRN ×3 (03:25→18:24)
[2019-09-08] MEDS: APIXABAN 5 MG TABLET PO SCH ×2 (08:36→21:52)
[2019-09-08] MEDS: DOCUSATE SODIUM 100 MG/10 ML UDCUP PEG SCH (08:36)
[2019-09-08] MEDS: diphenhydrAMINE 25 MG/10 ML UDCUP PO PRN (08:36)
[2019-09-08] MEDS: TICAGRELOR 90 MG TABLET PO SCH ×2 (08:36→21:51)
[2019-09-08] MEDS: LANSOPRAZOLE ODT 30 MG TABLET PO SCH (08:37)
[2019-09-08] MEDS: ACETAMINOPHEN 325 MG TABLET PO PRN (08:37)
[2019-09-08] MEDS: carvediloL 3.125 MG TABLET PO SCH ×2 (08:37→18:24)
[2019-09-08] MEDS: INSULIN GLARGINE 100 UNIT/ML SUBCUT SCH ×2 (08:37→21:55)
[2019-09-08] MEDS: LIDOCAINE 5% PATCH TRANSDERM SCH (08:38)
[2019-09-08] MEDS: ATORVASTATIN 80 MG TABLET PO SCH (21:51)
[2019-09-08] MEDS: AMITRIPTYLINE 10 MG TABLET NG SCH (21:51)
[2019-09-09] MEDS: HYDROcod/ACETAMIN 7.5-325 MG/15 ML UDCUP NG PRN ×2 (00:34→06:05)
[2019-09-09] MEDS: INSULIN REGULAR 100 UNIT/ML SUBCUT SCH ×5 (00:57→19:12)
[2019-09-09] MEDS: ACETAMINOPHEN 325 MG TABLET PO PRN ×2 (03:11→09:48)
[2019-09-09] MEDS: diphenhydrAMINE 25 MG/10 ML UDCUP PO PRN ×2 (04:31→14:08)
[2019-09-09 07:09] LABS: Calcium 9.8 MG/DL (8.5-10.1); Osmolality,Calculated 291.7 MOS/KG (273-304); Prealbumin 27.5 MG/DL (20-40)
[2019-09-09] MEDS: DOCUSATE SODIUM 100 MG/10 ML UDCUP PEG SCH (09:47)
[2019-09-09] MEDS: TICAGRELOR 90 MG TABLET PO SCH ×2 (09:47→21:52)
[2019-09-09] MEDS: BISACODYL 10 MG SUPP RECTAL SCH ×2 (09:47→10:11)
[2019-09-09] MEDS: carvediloL 3.125 MG TABLET PO SCH ×2 (09:48→16:31)
[2019-09-09] MEDS: LANSOPRAZOLE ODT 30 MG TABLET PO SCH (09:48)
[2019-09-09] MEDS: INSULIN GLARGINE 100 UNIT/ML SUBCUT SCH ×2 (09:49→21:47)
[2019-09-09] MEDS: LIDOCAINE 5% PATCH TRANSDERM SCH (09:50)
[2019-09-09] MEDS: APIXABAN 5 MG TABLET PO SCH ×2 (09:58→21:52)
[2019-09-09] MEDS: LABETALOL 20 MG/4 ML SYRINGE IV PRN (16:31)
[2019-09-09] MEDS: AMITRIPTYLINE 10 MG TABLET NG SCH (21:57)
[2019-09-10] MEDS: MORPHINE 4 MG/1 ML VIAL IV PRN ×3 (00:53→17:57)
[2019-09-10] MEDS: OXYMETAZOLINE 0.05% NASAL SPRAY 15 ML BOTTLE BOTH NARES PRN ×3 (00:54→18:02)
[2019-09-10] MEDS: ATORVASTATIN 80 MG TABLET PO SCH (01:08)
[2019-09-10] MEDS: INSULIN REGULAR 100 UNIT/ML SUBCUT SCH ×4 (01:08→22:00)
[2019-09-10] MEDS: DEXTROSE 5% NACL 0.9% 1,000 ML IV SCH ×2 (02:55→19:53)
[2019-09-10] MEDS: hydrALAZINE 20 MG/1 ML VIAL IV PRN (05:12)
[2019-09-10 07:51] LABS: Basophils # 0.1 10*3/uL (0.0-0.2); Basophils % 0.7 % (0.0-0.8); Eosinophils # 0.8 10*3/uL (0.0-0.87); Eosinophils % 9.3 % (0.00-10.9); Hematocrit 26.8 VOL% (42.0-52.0); Hemoglobin 8.3 GM/DL (14.0-18.0); Immature Granulocytes % 0.5 %; Immature Granulocytes Absolute 0.04 #; Lymphocytes # 1.2 10*3/uL (1.4-4.0); Lymphocytes % 13.9 % (21.2-54.2); Mean Corpuscular Volume 91.8 FL (87-102); Mean Platelet Volume 10.4 FL (9.6-12.0); Monocytes % 9.4 % (1.7-12.7); Neutrophils % 66.2 % (38.7-73.9); Platelet Count 476 T/CUMM (130-400); Red Blood Count 2.92 MC/CUMM (3.8-5.5); Red Cell Distribution Width 15.4 % (9.3-17.3); White Blood Count 8.7 T/CUMM (4-12)
[2019-09-10 08:08] LABS: Calcium 9.9 MG/DL (8.5-10.1); Osmolality,Calculated 288.7 MOS/KG (273-304)
[2019-09-10] MEDS: TICAGRELOR 90 MG TABLET PO SCH (10:26)
[2019-09-10] MEDS: carvediloL 3.125 MG TABLET PO SCH (10:26)
[2019-09-10] MEDS: INSULIN GLARGINE 100 UNIT/ML SUBCUT SCH (10:27)
[2019-09-10] MEDS: DOCUSATE SODIUM 100 MG/10 ML UDCUP PEG SCH (10:27)
[2019-09-10] MEDS: APIXABAN 5 MG TABLET PO SCH (10:27)
[2019-09-10] MEDS: LANSOPRAZOLE ODT 30 MG TABLET PO SCH (10:29)
[2019-09-10] MEDS ORDERED: HEPARIN 5,000 UNIT/1 ML VIAL IV ONE (13:00)
[2019-09-10] MEDS: cloNIDine 0.3 MG/24 HR PATCH TRANSDERM SCH (14:26)
[2019-09-10] MEDS: LIDOCAINE 5% PATCH TRANSDERM SCH (14:27)
[2019-09-10] MEDS: HEPARIN DRIP 25,000 UNITS/500 ML PREMIX IV SCH (14:44)
[2019-09-10] MEDS: CLOPIDOGREL 75 MG TABLET PO SCH (15:25)
[2019-09-10] MEDS: METOPROLOL TARTRATE 5 MG/5 ML VIAL IV SCH ×2 (17:08→22:01)
[2019-09-10] MEDS: ASPIRIN 300 MG SUPP RECTAL SCH (17:08)
[2019-09-11] MEDS: MORPHINE 4 MG/1 ML VIAL IV PRN (00:05)
[2019-09-11] MEDS: INSULIN REGULAR 100 UNIT/ML SUBCUT SCH ×4 (00:36→17:37)
[2019-09-11] MEDS ORDERED: MORPHINE 4 MG/1 ML VIAL IM ONE (02:20)
[2019-09-11] MEDS ORDERED: ENOXAPARIN 80 MG/0.8 ML SYRINGE SUBCUT SCH (05:00)
[2019-09-11 06:50] LABS: Basophils # 0.1 10*3/uL (0.0-0.2); Basophils % 0.9 % (0.0-0.8); Eosinophils # 0.5 10*3/uL (0.0-0.87); Eosinophils % 6.2 % (0.00-10.9); Hematocrit 24.6 VOL% (42.0-52.0); Hemoglobin 7.5 GM/DL (14.0-18.0); Immature Granulocytes % 0.6 %; Immature Granulocytes Absolute 0.05 #; Lymphocytes # 1.8 10*3/uL (1.4-4.0); Lymphocytes % 20.4 % (21.2-54.2); Mean Corpuscular HGB Conc 30.5 GM/DL (32-36); Mean Corpuscular Volume 92.5 FL (87-102); Mean Platelet Volume 10.1 FL (9.6-12.0); Monocytes % 14.4 % (1.7-12.7); NRBC # 0.02 10*3/uL; Neutrophils % 57.5 % (38.7-73.9); Platelet Count 446 T/CUMM (130-400); Red Blood Count 2.66 MC/CUMM (3.8-5.5); Red Cell Distribution Width 15.9 % (9.3-17.3); White Blood Count 8.6 T/CUMM (4-12)
[2019-09-11] MEDS: METOPROLOL TARTRATE 5 MG/5 ML VIAL IV SCH ×4 (07:59→21:33)
[2019-09-11] MEDS ORDERED: LIDOCAINE 2% 20 ML VIAL ONE (09:35)
[2019-09-11] MEDS: CLOPIDOGREL 75 MG TABLET PO SCH (10:56)
[2019-09-11] MEDS: LIDOCAINE 5% PATCH TRANSDERM SCH (11:04)
[2019-09-11] MEDS: ASPIRIN 300 MG SUPP RECTAL SCH (11:04)
[2019-09-11] MEDS: BISACODYL 10 MG SUPP RECTAL SCH (11:04)
[2019-09-11] MEDS: HEPARIN DRIP 25,000 UNITS/500 ML PREMIX IV SCH (18:56)
[2019-09-11] MEDS: diphenhydrAMINE 2% CREAM 28 GM TUBE TOP PRN (22:05)
[2019-09-12] MEDS: INSULIN REGULAR 100 UNIT/ML SUBCUT SCH ×4 (01:17→18:52)
[2019-09-12] MEDS: METOPROLOL TARTRATE 5 MG/5 ML VIAL IV SCH ×4 (03:17→21:22)
[2019-09-12 04:05] LABS: Basophils # 0.1 10*3/uL (0.0-0.2); Eosinophils # 0.6 10*3/uL (0.0-0.87); Eosinophils % 7.6 % (0.00-10.9); Hematocrit 24.5 VOL% (42.0-52.0); Hemoglobin 7.5 GM/DL (14.0-18.0); Immature Granulocytes % 0.3 %; Immature Granulocytes Absolute 0.02 #; Lymphocytes # 1.9 10*3/uL (1.4-4.0); Lymphocytes % 24.3 % (21.2-54.2); Mean Corpuscular HGB Conc 30.6 GM/DL (32-36); Mean Corpuscular Volume 93.2 FL (87-102); Mean Platelet Volume 10.3 FL (9.6-12.0); Monocytes % 14.1 % (1.7-12.7); Neutrophils % 52.7 % (38.7-73.9); Platelet Count 457 T/CUMM (130-400); Red Blood Count 2.63 MC/CUMM (3.8-5.5); Red Cell Distribution Width 15.9 % (9.3-17.3); White Blood Count 7.9 T/CUMM (4-12)
[2019-09-12 04:13] LABS: INR 1.1; PT Patient Result 11.6 SECS (9.6-12.2)
[2019-09-12 04:19] LABS: Calcium 9.4 MG/DL (8.5-10.1); Osmolality,Calculated 286.5 MOS/KG (273-304)
[2019-09-12 04:27] LABS: Partial Thromboplastin Time 64.3 SECS (20.8-36.0)
[2019-09-12] MEDS: MORPHINE 4 MG/1 ML VIAL IV PRN (04:52)
[2019-09-12] MEDS: CLOPIDOGREL 75 MG TABLET PO SCH (09:10)
[2019-09-12] MEDS: ASPIRIN 300 MG SUPP RECTAL SCH (09:14)
[2019-09-12] MEDS: LIDOCAINE 5% PATCH TRANSDERM SCH (09:14)
[2019-09-12] MEDS ORDERED: cefOXitin 2,000 MG in SYRINGE 1 EACH IV ONE (13:59)
[2019-09-12] MEDS ORDERED: SODIUM CHLORIDE 0.9% 1,000 ML IV PRN (18:58)
[2019-09-12] MEDS: HEPARIN DRIP 25,000 UNITS/500 ML PREMIX IV SCH (19:33)
[2019-09-13] MEDS: INSULIN REGULAR 100 UNIT/ML SUBCUT SCH ×4 (01:41→18:11)
[2019-09-13] MEDS: MORPHINE 4 MG/1 ML VIAL IV PRN ×2 (03:12→19:43)
[2019-09-13 03:39] LABS: Basophils # 0.1 10*3/uL (0.0-0.2); Basophils % 1.2 % (0.0-0.8); Eosinophils # 0.3 10*3/uL (0.0-0.87); Eosinophils % 4.5 % (0.00-10.9); Hemoglobin 9.1 GM/DL (14.0-18.0); Immature Granulocytes % 0.3 %; Immature Granulocytes Absolute 0.02 #; Lymphocytes # 1.5 10*3/uL (1.4-4.0); Lymphocytes % 20.2 % (21.2-54.2); Mean Corpuscular HGB Conc 28.4 GM/DL (32-36); Mean Corpuscular Volume 99.7 FL (87-102); Mean Platelet Volume 10.1 FL (9.6-12.0); Monocytes % 10.3 % (1.7-12.7); NRBC # 0.06 10*3/uL; Neutrophils % 63.5 % (38.7-73.9); Platelet Count 370 T/CUMM (130-400); Red Blood Count 3.21 MC/CUMM (3.8-5.5); White Blood Count 7.4 T/CUMM (4-12)
[2019-09-13 03:42] LABS: Hematocrit 31.6 VOL% (42.0-52.0)
[2019-09-13 04:18] LABS: Calcium 9.3 MG/DL (8.5-10.1); Osmolality,Calculated 280.4 MOS/KG (273-304)
[2019-09-13] MEDS: METOPROLOL TARTRATE 5 MG/5 ML VIAL IV SCH ×4 (04:30→21:15)
[2019-09-13] MEDS ORDERED: TICAGRELOR 90 MG TABLET PO ONE (10:37)
[2019-09-13] MEDS: BISACODYL 10 MG SUPP RECTAL SCH (11:06)
[2019-09-13] MEDS: LIDOCAINE 5% PATCH TRANSDERM SCH (11:10)
[2019-09-13] MEDS: CLOPIDOGREL 75 MG TABLET PO SCH (11:16)
[2019-09-13] MEDS: HEPARIN DRIP 25,000 UNITS/500 ML PREMIX IV SCH (13:24)
[2019-09-13] MEDS ORDERED: BUPIVACAINE 0.5% 50 ML VIAL ONE (14:10)
[2019-09-13] MEDS ORDERED: LIDOCAINE 1%/EPI INJ 20 ML VIAL ONE (14:10)
[2019-09-13] MEDS ORDERED: fentaNYL 100 MCG/2 ML VIAL ONE (16:59)
[2019-09-13] MEDS ORDERED: propofoL 200 MG/20 ML VIAL IV ONE (16:59)
[2019-09-13] MEDS ORDERED: LIDOCAINE 2% 5 ML VIAL ONE (16:59)
[2019-09-13] MEDS ORDERED: SEVOFLURANE 1 UNIT/15 MINUTE INH ONE (16:59)
[2019-09-13] MEDS ORDERED: NEOSTIGMINE 10 MG/10 ML VIAL ONE (17:00)
[2019-09-13] MEDS ORDERED: ROCURONIUM 100 MG/10 ML VIAL IV ONE (17:00)
[2019-09-13] MEDS ORDERED: GLYCOPYRROLATE 0.4 MG/2 ML VIAL ONE (17:00)
[2019-09-13] MEDS ORDERED: ETOMIDATE 40 MG/20 ML VIAL IV ONE (17:00)
[2019-09-13] MEDS ORDERED: TICAGRELOR 90 MG TABLET PO SCH (21:00)
[2019-09-13] MEDS ORDERED: TICAGRELOR 90 MG TABLET PER TUBE ONE (21:00)
[2019-09-13] MEDS: ATORVASTATIN 80 MG TABLET PO SCH (21:14)
[2019-09-13] MEDS: APIXABAN 5 MG TABLET PO SCH (21:14)
[2019-09-13] MEDS: INSULIN GLARGINE 100 UNIT/ML SUBCUT SCH (21:14)
[2019-09-13] MEDS: AMITRIPTYLINE 10 MG TABLET NG SCH (21:16)
[2019-09-14] MEDS: INSULIN REGULAR 100 UNIT/ML SUBCUT SCH ×4 (00:37→18:34)
[2019-09-14] MEDS ORDERED: SODIUM CHLORIDE 0.9% 1,000 ML IV SCH (01:30)
[2019-09-14] MEDS: MORPHINE 4 MG/1 ML VIAL IV PRN ×3 (02:28→11:02)
[2019-09-14 06:46] LABS: Basophils % 0.4 % (0.0-0.8); Eosinophils # 0.5 10*3/uL (0.0-0.87); Eosinophils % 4.7 % (0.00-10.9); Hematocrit 28.5 VOL% (42.0-52.0); Hemoglobin 8.7 GM/DL (14.0-18.0); Immature Granulocytes % 0.6 %; Immature Granulocytes Absolute 0.06 #; Lymphocytes # 0.9 10*3/uL (1.4-4.0); Lymphocytes % 8.7 % (21.2-54.2); Mean Corpuscular HGB Conc 30.5 GM/DL (32-36); Mean Corpuscular Volume 94.4 FL (87-102); Mean Platelet Volume 9.6 FL (9.6-12.0); Monocytes % 10.3 % (1.7-12.7); NRBC # 0.02 10*3/uL; Neutrophils % 75.3 % (38.7-73.9); Platelet Count 394 T/CUMM (130-400); Red Blood Count 3.02 MC/CUMM (3.8-5.5); Red Cell Distribution Width 16.4 % (9.3-17.3); White Blood Count 10.2 T/CUMM (4-12)
[2019-09-14] MEDS: ASPIRIN CHEW 81 MG TABLET PO SCH (10:44)
[2019-09-14] MEDS: LANSOPRAZOLE ODT 30 MG TABLET PO SCH (10:44)
[2019-09-14] MEDS: carvediloL 3.125 MG TABLET PO SCH ×2 (10:44→16:44)
[2019-09-14] MEDS: TICAGRELOR 90 MG TABLET PER TUBE SCH ×2 (10:44→21:35)
[2019-09-14] MEDS: APIXABAN 5 MG TABLET PO SCH ×2 (10:44→21:35)
[2019-09-14] MEDS: DOCUSATE SODIUM 100 MG/10 ML UDCUP PEG SCH (10:45)
[2019-09-14] MEDS: LIDOCAINE 5% PATCH TRANSDERM SCH (10:45)
[2019-09-14] MEDS: hydrALAZINE 20 MG/1 ML VIAL IV PRN (10:54)
[2019-09-14] MEDS: INSULIN GLARGINE 100 UNIT/ML SUBCUT SCH ×2 (11:03→21:34)
[2019-09-14] MEDS: HYDROcod/ACETAMIN 7.5-325 MG/15 ML UDCUP NG PRN (21:29)
[2019-09-14] MEDS: ATORVASTATIN 80 MG TABLET PO SCH (21:35)
[2019-09-14] MEDS: AMITRIPTYLINE 10 MG TABLET NG SCH (21:35)
[2019-09-15] MEDS: INSULIN REGULAR 100 UNIT/ML SUBCUT SCH ×4 (01:17→17:49)
[2019-09-15] MEDS: DOCUSATE SODIUM 100 MG/10 ML UDCUP PEG SCH (10:25)
[2019-09-15] MEDS: POLYETHYLENE GLYCOL POWDER 17 GM PACK PO SCH ×2 (10:25→21:45)
[2019-09-15] MEDS: INSULIN GLARGINE 100 UNIT/ML SUBCUT SCH ×2 (10:25→21:45)
[2019-09-15] MEDS: TICAGRELOR 90 MG TABLET PER TUBE SCH ×2 (10:26→21:46)
[2019-09-15] MEDS: ASPIRIN CHEW 81 MG TABLET PO SCH (10:26)
[2019-09-15] MEDS: carvediloL 3.125 MG TABLET PO SCH ×2 (10:26→17:49)
[2019-09-15] MEDS: APIXABAN 5 MG TABLET PO SCH ×2 (10:28→21:46)
[2019-09-15] MEDS: LANSOPRAZOLE ODT 30 MG TABLET PO SCH (10:28)
[2019-09-15] MEDS: LIDOCAINE 5% PATCH TRANSDERM SCH (10:28)
[2019-09-15 10:58] LABS: Basophils # 0.1 10*3/uL (0.0-0.2); Basophils % 0.7 % (0.0-0.8); Eosinophils # 0.5 10*3/uL (0.0-0.87); Eosinophils % 5.6 % (0.00-10.9); Hematocrit 30.2 VOL% (42.0-52.0); Hemoglobin 9.1 GM/DL (14.0-18.0); Immature Granulocytes % 0.6 %; Immature Granulocytes Absolute 0.05 #; Lymphocytes % 11.4 % (21.2-54.2); Mean Corpuscular HGB Conc 30.1 GM/DL (32-36); Mean Corpuscular Volume 94.1 FL (87-102); Mean Platelet Volume 9.7 FL (9.6-12.0); Monocytes % 12.5 % (1.7-12.7); NRBC # 0.02 10*3/uL; Neutrophils % 69.2 % (38.7-73.9); Platelet Count 413 T/CUMM (130-400); Red Blood Count 3.21 MC/CUMM (3.8-5.5); Red Cell Distribution Width 16.2 % (9.3-17.3)
[2019-09-15 11:32] LABS: Albumin 2.8 G/DL (3.4-5.0); Bilirubin,Total 0.4 MG/DL (0.2-1.0); Calcium 9.7 MG/DL (8.5-10.1); Osmolality,Calculated 282.2 MOS/KG (273-304); Total Protein 7.9 G/DL (6.4-8.3)
[2019-09-15] MEDS: HYDROcod/ACETAMIN 7.5-325 MG/15 ML UDCUP NG PRN ×2 (13:40→18:40)
[2019-09-15] MEDS ORDERED: POLYETHYLENE GLYCOL POWDER 17 GM PACK PO SCH (17:00)
[2019-09-15] MEDS: AMITRIPTYLINE 10 MG TABLET NG SCH (21:46)
[2019-09-15] MEDS: ATORVASTATIN 80 MG TABLET PO SCH (21:46)
[2019-09-16] MEDS: INSULIN REGULAR 100 UNIT/ML SUBCUT SCH ×4 (02:14→18:01)
[2019-09-16 05:53] LABS: Basophils # 0.1 10*3/uL (0.0-0.2); Basophils % 0.5 % (0.0-0.8); Eosinophils # 0.5 10*3/uL (0.0-0.87); Eosinophils % 5.4 % (0.00-10.9); Hemoglobin 9.1 GM/DL (14.0-18.0); Immature Granulocytes % 0.4 %; Immature Granulocytes Absolute 0.04 #; Lymphocytes % 9.9 % (21.2-54.2); Mean Corpuscular HGB Conc 30.3 GM/DL (32-36); Mean Corpuscular Volume 94.3 FL (87-102); Mean Platelet Volume 10.3 FL (9.6-12.0); Monocytes % 11.3 % (1.7-12.7); Neutrophils % 72.5 % (38.7-73.9); Platelet Count 426 T/CUMM (130-400); Red Blood Count 3.18 MC/CUMM (3.8-5.5); White Blood Count 9.8 T/CUMM (4-12)
[2019-09-16 06:25] LABS: Calcium 9.8 MG/DL (8.5-10.1)
[2019-09-16 06:29] LABS: Prealbumin 21.5 MG/DL (20-40)
[2019-09-16] MEDS: LANSOPRAZOLE ODT 30 MG TABLET PO SCH (08:53)
[2019-09-16] MEDS: LIDOCAINE 5% PATCH TRANSDERM SCH (08:53)
[2019-09-16] MEDS: POLYETHYLENE GLYCOL POWDER 17 GM PACK PO SCH ×2 (08:53→21:20)
[2019-09-16] MEDS: BISACODYL 10 MG SUPP RECTAL SCH (08:53)
[2019-09-16] MEDS: APIXABAN 5 MG TABLET PO SCH ×2 (08:53→21:19)
[2019-09-16] MEDS: TICAGRELOR 90 MG TABLET PER TUBE SCH ×2 (08:53→21:19)
[2019-09-16] MEDS: DOCUSATE SODIUM 100 MG/10 ML UDCUP PEG SCH (08:53)
[2019-09-16] MEDS: ASPIRIN CHEW 81 MG TABLET PO SCH (08:53)
[2019-09-16] MEDS: carvediloL 3.125 MG TABLET PO SCH ×2 (08:53→16:59)
[2019-09-16] MEDS: INSULIN GLARGINE 100 UNIT/ML SUBCUT SCH ×2 (09:02→21:20)
[2019-09-16] MEDS: HYDROcod/ACETAMIN 7.5-325 MG/15 ML UDCUP NG PRN (12:14)
[2019-09-16] MEDS: ALUMINUM/MAGNES/SIMETH MAX STR 30 ML UDCUP NG PRN (12:15)
[2019-09-16] MEDS: AMITRIPTYLINE 10 MG TABLET NG SCH (21:19)
[2019-09-16] MEDS: ATORVASTATIN 80 MG TABLET PO SCH (21:19)
[2019-09-17] MEDS: INSULIN REGULAR 100 UNIT/ML SUBCUT SCH ×4 (00:26→18:42)
[2019-09-17] MEDS: INSULIN GLARGINE 100 UNIT/ML SUBCUT SCH ×2 (08:52→22:11)
[2019-09-17] MEDS: MORPHINE 4 MG/1 ML VIAL IV PRN (09:10)
[2019-09-17 09:15] LABS: Alanine Aminotransferase 50 U/L (16-61); Albumin 2.8 G/DL (3.4-5.0); Alkaline Phosphatase 241 U/L (45-117); Aspartate Amino Transferase 42 U/L (0-37); Bilirubin,Total < 0.39 MG/DL (0.2-1.0); Blood Urea Nitrogen 62 MG/DL (7-18); Calcium 9.2 MG/DL (8.5-10.1); Estimated Glom Filtration Rate 5 ML/MIN; Glucose 202 MG/DL (74-106); Osmolality,Calculated 291.2 MOS/KG (273-304); Total Protein 8.1 G/DL (6.4-8.3)
[2019-09-17] MEDS ORDERED: MAGNESIUM CITRATE 300 ML BOTTLE PEG ONE (10:00)
[2019-09-17 12:10] LABS: Basophils % 0.3 % (0.0-0.8); Eosinophils # 0.6 10*3/uL (0.0-0.87); Eosinophils % 4.4 % (0.00-10.9); Hematocrit 30.6 VOL% (42.0-52.0); Hemoglobin 9.3 GM/DL (14.0-18.0); Immature Granulocytes % 0.4 %; Immature Granulocytes Absolute 0.05 #; Lymphocytes # 0.8 10*3/uL (1.4-4.0); Mean Corpuscular HGB Conc 30.4 GM/DL (32-36); Mean Corpuscular Volume 93.6 FL (87-102); Mean Platelet Volume 10.3 FL (9.6-12.0); Monocytes % 10.5 % (1.7-12.7); Neutrophils % 78.4 % (38.7-73.9); Platelet Count 445 T/CUMM (130-400); Red Blood Count 3.27 MC/CUMM (3.8-5.5); Red Cell Distribution Width 15.9 % (9.3-17.3); White Blood Count 12.6 T/CUMM (4-12)
[2019-09-17] MEDS: DOCUSATE SODIUM 100 MG/10 ML UDCUP PEG SCH (16:20)
[2019-09-17] MEDS: LIDOCAINE 5% PATCH TRANSDERM SCH (16:20)
[2019-09-17] MEDS: LANSOPRAZOLE ODT 30 MG TABLET PO SCH (16:20)
[2019-09-17] MEDS: POLYETHYLENE GLYCOL POWDER 17 GM PACK PO SCH ×2 (16:22→22:07)
[2019-09-17] MEDS: ASPIRIN CHEW 81 MG TABLET PO SCH (16:22)
[2019-09-17] MEDS: carvediloL 3.125 MG TABLET PO SCH ×2 (16:22→17:40)
[2019-09-17] MEDS: cloNIDine 0.3 MG/24 HR PATCH TRANSDERM SCH (16:24)
[2019-09-17] MEDS: TICAGRELOR 90 MG TABLET PER TUBE SCH ×2 (16:28→22:07)
[2019-09-17] MEDS: APIXABAN 5 MG TABLET PO SCH ×2 (16:28→22:07)
[2019-09-17] MEDS: HYDROcod/ACETAMIN 7.5-325 MG/15 ML UDCUP NG PRN (18:00)
[2019-09-17] MEDS: ATORVASTATIN 80 MG TABLET PO SCH (22:07)
[2019-09-17] MEDS: AMITRIPTYLINE 10 MG TABLET NG SCH (22:07)
[2019-09-18] MEDS: INSULIN REGULAR 100 UNIT/ML SUBCUT SCH ×4 (00:53→18:26)
[2019-09-18 05:55] LABS: Basophils # 0.1 10*3/uL (0.0-0.2); Basophils % 0.7 % (0.0-0.8); Eosinophils # 0.4 10*3/uL (0.0-0.87); Eosinophils % 3.2 % (0.00-10.9); Hematocrit 30.4 VOL% (42.0-52.0); Hemoglobin 9.2 GM/DL (14.0-18.0); Immature Granulocytes % 1.5 %; Immature Granulocytes Absolute 0.18 #; Lymphocytes # 1.1 10*3/uL (1.4-4.0); Lymphocytes % 9.8 % (21.2-54.2); Mean Corpuscular HGB Conc 30.3 GM/DL (32-36); Mean Corpuscular Volume 93.3 FL (87-102); Mean Platelet Volume 10.5 FL (9.6-12.0); Monocytes % 10.2 % (1.7-12.7); NRBC # 0.02 10*3/uL; Neutrophils % 74.6 % (38.7-73.9); Platelet Count 449 T/CUMM (130-400); Red Blood Count 3.26 MC/CUMM (3.8-5.5); Red Cell Distribution Width 15.7 % (9.3-17.3); White Blood Count 11.7 T/CUMM (4-12)
[2019-09-18] MEDS: BISACODYL 10 MG SUPP RECTAL SCH (09:35)
[2019-09-18] MEDS: LANSOPRAZOLE ODT 30 MG TABLET PO SCH (09:37)
[2019-09-18] MEDS: POLYETHYLENE GLYCOL POWDER 17 GM PACK PO SCH ×2 (09:37→20:45)
[2019-09-18] MEDS: APIXABAN 5 MG TABLET PO SCH ×2 (09:37→20:44)
[2019-09-18] MEDS: TICAGRELOR 90 MG TABLET PER TUBE SCH ×2 (09:37→20:45)
[2019-09-18] MEDS: DOCUSATE SODIUM 100 MG/10 ML UDCUP PEG SCH (09:38)
[2019-09-18] MEDS: ASPIRIN CHEW 81 MG TABLET PO SCH (09:38)
[2019-09-18] MEDS: LIDOCAINE 5% PATCH TRANSDERM SCH (09:38)
[2019-09-18] MEDS: carvediloL 3.125 MG TABLET PO SCH (09:38)
[2019-09-18] MEDS ORDERED: SODIUM CHLORIDE 0.9% 250 ML IV ONE (11:22)
[2019-09-18] MEDS: INSULIN GLARGINE 100 UNIT/ML SUBCUT SCH ×2 (11:31→20:43)
[2019-09-18 13:30] LABS: Basophils # 0.1 10*3/uL (0.0-0.2); Basophils % 0.6 % (0.0-0.8); Eosinophils # 0.5 10*3/uL (0.0-0.87); Eosinophils % 3.7 % (0.00-10.9); Hematocrit 30.7 VOL% (42.0-52.0); Hemoglobin 9.1 GM/DL (14.0-18.0); Immature Granulocytes % 0.4 %; Immature Granulocytes Absolute 0.05 #; Lymphocytes # 1.4 10*3/uL (1.4-4.0); Lymphocytes % 11.4 % (21.2-54.2); Mean Corpuscular HGB Conc 29.6 GM/DL (32-36); Mean Corpuscular Volume 94.8 FL (87-102); Mean Platelet Volume 9.9 FL (9.6-12.0); Monocytes % 14.4 % (1.7-12.7); NRBC # 0.02 10*3/uL; Neutrophils % 69.5 % (38.7-73.9); Platelet Count 388 T/CUMM (130-400); Red Blood Count 3.24 MC/CUMM (3.8-5.5); Red Cell Distribution Width 15.9 % (9.3-17.3); White Blood Count 12.6 T/CUMM (4-12)
[2019-09-18 13:47] LABS: ABG Base Excess 1.5 MMOL/L (-2.5-2.5); ABG HCO3 25.8 MMOL/L (20-26); ABG PCO2 37.3 MM HG (35-48); ABG PH 7.443 (7.35-7.45); ABG PO2 92.6 MM HG (80-95); ABG TCO2 23.4 MMOL/L (23-27)
[2019-09-18 13:53] LABS: Albumin 2.7 G/DL (3.4-5.0); Bilirubin,Total 0.4 MG/DL (0.2-1.0); Calcium 9.1 MG/DL (8.5-10.1); Osmolality,Calculated 282.2 MOS/KG (273-304); Total Protein 8.3 G/DL (6.4-8.3)
[2019-09-18] MEDS: ATORVASTATIN 80 MG TABLET PO SCH (20:44)
[2019-09-18] MEDS: AMITRIPTYLINE 10 MG TABLET NG SCH (20:44)
[2019-09-18] MEDS: ACETAMINOPHEN 325 MG TABLET PO PRN (20:48)
[2019-09-19] MEDS: INSULIN REGULAR 100 UNIT/ML SUBCUT SCH ×2 (01:37→06:55)
[2019-09-19 05:44] LABS: Basophils # 0.1 10*3/uL (0.0-0.2); Basophils % 0.5 % (0.0-0.8); Eosinophils # 0.3 10*3/uL (0.0-0.87); Eosinophils % 2.7 % (0.00-10.9); Hematocrit 28.7 VOL% (42.0-52.0); Hemoglobin 8.6 GM/DL (14.0-18.0); Immature Granulocytes % 0.5 %; Immature Granulocytes Absolute 0.06 #; Lymphocytes # 1.1 10*3/uL (1.4-4.0); Lymphocytes % 10.1 % (21.2-54.2); Mean Corpuscular Volume 93.8 FL (87-102); Mean Platelet Volume 10.4 FL (9.6-12.0); Monocytes % 12.9 % (1.7-12.7); Neutrophils % 73.3 % (38.7-73.9); Platelet Count 402 T/CUMM (130-400); Red Blood Count 3.06 MC/CUMM (3.8-5.5); Red Cell Distribution Width 15.6 % (9.3-17.3); White Blood Count 11.1 T/CUMM (4-12)
[2019-09-19 06:20] LABS: Calcium 8.9 MG/DL (8.5-10.1); Osmolality,Calculated 283.8 MOS/KG (273-304)
[2019-09-19] MEDS: INSULIN GLARGINE 100 UNIT/ML SUBCUT SCH ×2 (08:46→22:01)
[2019-09-19] MEDS: POLYETHYLENE GLYCOL POWDER 17 GM PACK PO SCH ×2 (08:46→22:00)
[2019-09-19] MEDS: ASPIRIN CHEW 81 MG TABLET PO SCH (08:46)
[2019-09-19] MEDS: APIXABAN 5 MG TABLET PO SCH ×2 (08:46→22:00)
[2019-09-19] MEDS: LIDOCAINE 5% PATCH TRANSDERM SCH (08:46)
[2019-09-19] MEDS: TICAGRELOR 90 MG TABLET PER TUBE SCH ×2 (08:46→22:00)
[2019-09-19] MEDS: DOCUSATE SODIUM 100 MG/10 ML UDCUP PEG SCH (08:46)
[2019-09-19] MEDS: LANSOPRAZOLE ODT 30 MG TABLET PO SCH (08:50)
[2019-09-19] MEDS ORDERED: INSULIN GLARGINE 100 UNIT/ML SUBCUT SCH (11:39)
[2019-09-19] MEDS: INSULIN LISPRO 100 UNIT/ML SUBCUT SCH ×2 (17:49→22:01)
[2019-09-19] MEDS: ATORVASTATIN 80 MG TABLET PO SCH (22:00)
[2019-09-19] MEDS: AMITRIPTYLINE 10 MG TABLET NG SCH (22:00)
[2019-09-20 06:04] LABS: Basophils # 0.1 10*3/uL (0.0-0.2); Basophils % 0.6 % (0.0-0.8); Eosinophils # 0.4 10*3/uL (0.0-0.87); Hematocrit 27.1 VOL% (42.0-52.0); Hemoglobin 8.3 GM/DL (14.0-18.0); Immature Granulocytes % 0.4 %; Immature Granulocytes Absolute 0.05 #; Lymphocytes # 1.2 10*3/uL (1.4-4.0); Lymphocytes % 9.8 % (21.2-54.2); Mean Corpuscular HGB Conc 30.6 GM/DL (32-36); Mean Corpuscular Volume 92.5 FL (87-102); Mean Platelet Volume 10.7 FL (9.6-12.0); Monocytes % 14.2 % (1.7-12.7); NRBC # 0.02 10*3/uL; Platelet Count 440 T/CUMM (130-400); Red Blood Count 2.93 MC/CUMM (3.8-5.5); Red Cell Distribution Width 15.8 % (9.3-17.3); White Blood Count 12.2 T/CUMM (4-12)
[2019-09-20] MEDS: INSULIN LISPRO 100 UNIT/ML SUBCUT SCH ×4 (09:32→20:30)
[2019-09-20] MEDS: DOCUSATE SODIUM 100 MG/10 ML UDCUP PEG SCH (09:33)
[2019-09-20] MEDS: LANSOPRAZOLE ODT 30 MG TABLET PO SCH (09:33)
[2019-09-20] MEDS: POLYETHYLENE GLYCOL POWDER 17 GM PACK PO SCH ×2 (09:33→21:29)
[2019-09-20] MEDS: BISACODYL 10 MG SUPP RECTAL SCH (09:34)
[2019-09-20] MEDS: ASPIRIN CHEW 81 MG TABLET PO SCH (09:34)
[2019-09-20] MEDS: CYCLOBENZAPRINE 10 MG TABLET PO PRN ×2 (09:34→21:32)
[2019-09-20] MEDS: LIDOCAINE 5% PATCH TRANSDERM SCH (09:34)
[2019-09-20] MEDS: APIXABAN 5 MG TABLET PO SCH ×2 (09:34→21:29)
[2019-09-20] MEDS: TICAGRELOR 90 MG TABLET PER TUBE SCH ×2 (09:35→21:29)
[2019-09-20] MEDS: METOPROLOL TARTRATE 25 MG TABLET PO SCH ×2 (12:21→21:29)
[2019-09-20] MEDS: DEXTROSE 10% 250 ML BAG IV PRN (18:40)
[2019-09-20] MEDS ORDERED: INSULIN GLARGINE 100 UNIT/ML SUBCUT SCH (21:00)
[2019-09-20] MEDS: ATORVASTATIN 80 MG TABLET PO SCH (21:29)
[2019-09-20] MEDS: AMITRIPTYLINE 10 MG TABLET NG SCH (21:29)
[2019-09-20] MEDS: ACETAMINOPHEN 325 MG TABLET PO PRN (21:32)
[2019-09-21] MEDS: ACETAMINOPHEN 325 MG TABLET PO PRN (02:56)
[2019-09-21] MEDS: diphenhydrAMINE 25 MG/10 ML UDCUP PO PRN (03:50)
[2019-09-21 05:48] LABS: Basophils # 0.1 10*3/uL (0.0-0.2); Basophils % 0.6 % (0.0-0.8); Eosinophils # 0.5 10*3/uL (0.0-0.87); Eosinophils % 4.5 % (0.00-10.9); Hemoglobin 8.3 GM/DL (14.0-18.0); Immature Granulocytes % 0.4 %; Immature Granulocytes Absolute 0.04 #; Lymphocytes # 1.3 10*3/uL (1.4-4.0); Lymphocytes % 12.6 % (21.2-54.2); Mean Corpuscular HGB Conc 30.7 GM/DL (32-36); Mean Corpuscular Volume 91.8 FL (87-102); Mean Platelet Volume 10.9 FL (9.6-12.0); Monocytes % 15.3 % (1.7-12.7); Neutrophils % 66.6 % (38.7-73.9); Platelet Count 489 T/CUMM (130-400); Red Blood Count 2.94 MC/CUMM (3.8-5.5); Red Cell Distribution Width 15.6 % (9.3-17.3); White Blood Count 10.2 T/CUMM (4-12)
[2019-09-21] MEDS ORDERED: INSULIN GLARGINE 100 UNIT/ML SUBCUT SCH ×3 (09:00→09:30)
[2019-09-21] MEDS: INSULIN LISPRO 100 UNIT/ML SUBCUT SCH ×4 (10:20→22:44)
[2019-09-21] MEDS: APIXABAN 5 MG TABLET PO SCH ×2 (10:22→22:53)
[2019-09-21] MEDS: LANSOPRAZOLE ODT 30 MG TABLET PO SCH (10:22)
[2019-09-21] MEDS: POLYETHYLENE GLYCOL POWDER 17 GM PACK PO SCH ×2 (10:22→22:48)
[2019-09-21] MEDS: DOCUSATE SODIUM 100 MG/10 ML UDCUP PEG SCH (10:22)
[2019-09-21] MEDS: ASPIRIN CHEW 81 MG TABLET PO SCH (10:22)
[2019-09-21] MEDS: TICAGRELOR 90 MG TABLET PER TUBE SCH ×2 (10:22→22:53)
[2019-09-21] MEDS: LIDOCAINE 5% PATCH TRANSDERM SCH (10:23)
[2019-09-21] MEDS: METOPROLOL TARTRATE 25 MG TABLET PO SCH ×2 (10:23→22:53)
[2019-09-21] MEDS: HYDROcod/ACETAMIN 7.5-325 MG/15 ML UDCUP PO PRN (10:32)
[2019-09-21] MEDS: HYDROmorphone 2 MG/1 ML VIAL IV PRN ×2 (14:02→18:08)
[2019-09-21] MEDS: ATORVASTATIN 80 MG TABLET PO SCH (22:53)
[2019-09-21] MEDS: AMITRIPTYLINE 10 MG TABLET NG SCH (22:53)
[2019-09-22] MEDS: HYDROcod/ACETAMIN 7.5-325 MG/15 ML UDCUP PO PRN (00:54)
[2019-09-22] MEDS: CYCLOBENZAPRINE 10 MG TABLET PO PRN ×2 (05:06→22:54)
[2019-09-22 06:05] LABS: Basophils # 0.1 10*3/uL (0.0-0.2); Basophils % 1.3 % (0.0-0.8); Eosinophils # 0.3 10*3/uL (0.0-0.87); Eosinophils % 4.4 % (0.00-10.9); Hematocrit 29.2 VOL% (42.0-52.0); Hemoglobin 8.9 GM/DL (14.0-18.0); Immature Granulocytes % 0.5 %; Immature Granulocytes Absolute 0.04 #; Lymphocytes # 1.2 10*3/uL (1.4-4.0); Lymphocytes % 15.6 % (21.2-54.2); Mean Corpuscular HGB Conc 30.5 GM/DL (32-36); Mean Corpuscular Volume 90.7 FL (87-102); Mean Platelet Volume 10.5 FL (9.6-12.0); Monocytes % 15.6 % (1.7-12.7); Neutrophils % 62.6 % (38.7-73.9); Platelet Count 555 T/CUMM (130-400); Red Blood Count 3.22 MC/CUMM (3.8-5.5); Red Cell Distribution Width 15.6 % (9.3-17.3); White Blood Count 7.8 T/CUMM (4-12)
[2019-09-22 06:55] LABS: Eosinophils 7 % (0-10); Lymphocytes 15 % (20-55); Segmented Neutrophils 76 % (50-85); Total Cells Counted 100
[2019-09-22] MEDS ORDERED: INSULIN LISPRO 100 UNIT/ML SUBCUT ONE ×2 (06:55→12:15)
[2019-09-22 06:56] LABS: Hypochromasia Slight; Platelet Estimate Increased
[2019-09-22] MEDS: INSULIN GLARGINE 100 UNIT/ML SUBCUT SCH ×2 (07:11→08:50)
[2019-09-22] MEDS: ASPIRIN CHEW 81 MG TABLET PO SCH (08:49)
[2019-09-22] MEDS: DOCUSATE SODIUM 100 MG/10 ML UDCUP PEG SCH (08:50)
[2019-09-22] MEDS: APIXABAN 5 MG TABLET PO SCH ×2 (08:50→22:54)
[2019-09-22] MEDS: LIDOCAINE 5% PATCH TRANSDERM SCH (08:50)
[2019-09-22] MEDS: METOPROLOL TARTRATE 25 MG TABLET PO SCH (08:50)
[2019-09-22] MEDS: LANSOPRAZOLE ODT 30 MG TABLET PO SCH (08:50)
[2019-09-22] MEDS: TICAGRELOR 90 MG TABLET PER TUBE SCH ×2 (08:50→22:54)
[2019-09-22] MEDS: POLYETHYLENE GLYCOL POWDER 17 GM PACK PO SCH ×2 (08:55→22:54)
[2019-09-22] MEDS ORDERED: INSULIN REGULAR 100 UNIT/ML SUBCUT SCH (12:00)
[2019-09-22] MEDS: METOPROLOL TARTRATE 50 MG TABLET PO SCH (22:53)
[2019-09-22] MEDS: tiZANidine 4 MG TABLET PO PRN (22:54)
[2019-09-22] MEDS: ATORVASTATIN 80 MG TABLET PO SCH (22:54)
[2019-09-22] MEDS: AMITRIPTYLINE 10 MG TABLET NG SCH (22:54)
[2019-09-22] MEDS: INSULIN REGULAR 100 UNIT/ML SUBCUT SCH (23:03)
[2019-09-23] MEDS: INSULIN REGULAR 100 UNIT/ML SUBCUT SCH ×6 (02:44→22:39)
[2019-09-23] MEDS: DOCUSATE SODIUM 100 MG/10 ML UDCUP PEG SCH (08:16)
[2019-09-23] MEDS: CYCLOBENZAPRINE 10 MG TABLET PO PRN ×2 (08:16→22:38)
[2019-09-23] MEDS: LIDOCAINE 5% PATCH TRANSDERM SCH (08:16)
[2019-09-23] MEDS: APIXABAN 5 MG TABLET PO SCH ×2 (08:16→22:38)
[2019-09-23] MEDS: LANSOPRAZOLE ODT 30 MG TABLET PO SCH (08:16)
[2019-09-23] MEDS: TICAGRELOR 90 MG TABLET PER TUBE SCH ×2 (08:16→22:38)
[2019-09-23] MEDS: METOPROLOL TARTRATE 50 MG TABLET PO SCH ×2 (08:16→22:38)
[2019-09-23] MEDS: BISACODYL 10 MG SUPP RECTAL SCH (08:21)
[2019-09-23] MEDS: POLYETHYLENE GLYCOL POWDER 17 GM PACK PO SCH ×2 (08:21→22:39)
[2019-09-23] MEDS: INSULIN GLARGINE 100 UNIT/ML SUBCUT SCH (08:21)
[2019-09-23 08:35] LABS: Calcium 9.3 MG/DL (8.5-10.1); Osmolality,Calculated 296.2 MOS/KG (273-304)
[2019-09-23] MEDS: ATORVASTATIN 80 MG TABLET PO SCH (22:38)
[2019-09-23] MEDS: AMITRIPTYLINE 10 MG TABLET NG SCH (22:38)
[2019-09-24] MEDS: INSULIN REGULAR 100 UNIT/ML SUBCUT SCH ×5 (00:59→22:58)
[2019-09-24] MEDS: DOCUSATE SODIUM 100 MG/10 ML UDCUP PEG SCH (09:45)
[2019-09-24] MEDS: POLYETHYLENE GLYCOL POWDER 17 GM PACK PO SCH ×2 (09:45→22:32)
[2019-09-24] MEDS: TICAGRELOR 90 MG TABLET PER TUBE SCH ×2 (09:45→22:32)
[2019-09-24] MEDS: LIDOCAINE 5% PATCH TRANSDERM SCH (09:46)
[2019-09-24] MEDS: METOPROLOL TARTRATE 50 MG TABLET PO SCH ×2 (09:46→22:32)
[2019-09-24] MEDS: APIXABAN 5 MG TABLET PO SCH ×2 (09:46→22:32)
[2019-09-24] MEDS: INSULIN GLARGINE 100 UNIT/ML SUBCUT SCH (09:46)
[2019-09-24] MEDS: LANSOPRAZOLE ODT 30 MG TABLET PO SCH (09:46)
[2019-09-24] MEDS: HYDROmorphone 2 MG/1 ML VIAL IV PRN (16:12)
[2019-09-24] MEDS: ONDANSETRON 4 MG/2 ML VIAL IV PRN (16:19)
[2019-09-24 18:08] LABS: Hepatitis B Surface Ag Quant 0.25 Index; Hepatitis B Surface Ag Result Negative (Negative)
[2019-09-24] MEDS: AMITRIPTYLINE 10 MG TABLET NG SCH (22:32)
[2019-09-24] MEDS: HYDROcod/ACETAMIN 7.5-325 MG/15 ML UDCUP PO PRN (22:32)
[2019-09-24] MEDS: ATORVASTATIN 80 MG TABLET PO SCH (22:32)
[2019-09-25] MEDS: TICAGRELOR 90 MG TABLET PER TUBE SCH ×3 (00:08→20:50)
[2019-09-25] MEDS: tiZANidine 4 MG TABLET PO PRN (03:21)
[2019-09-25] MEDS: INSULIN REGULAR 100 UNIT/ML SUBCUT SCH ×6 (04:39→20:49)
[2019-09-25] MEDS: HYDROmorphone 2 MG/1 ML VIAL IV PRN (07:14)
[2019-09-25] MEDS: INSULIN GLARGINE 100 UNIT/ML SUBCUT SCH (09:23)
[2019-09-25] MEDS: DOCUSATE SODIUM 100 MG/10 ML UDCUP PEG SCH (09:23)
[2019-09-25] MEDS: BISACODYL 10 MG SUPP RECTAL SCH (09:23)
[2019-09-25] MEDS: LIDOCAINE 5% PATCH TRANSDERM SCH (09:23)
[2019-09-25] MEDS: POLYETHYLENE GLYCOL POWDER 17 GM PACK PO SCH ×2 (09:24→20:50)
[2019-09-25] MEDS: LANSOPRAZOLE ODT 30 MG TABLET PO SCH (09:24)
[2019-09-25] MEDS: APIXABAN 5 MG TABLET PO SCH ×2 (09:24→20:50)
[2019-09-25] MEDS: METOPROLOL TARTRATE 50 MG TABLET PO SCH ×2 (09:24→20:50)
[2019-09-25] MEDS: amLODIPine 5 MG TABLET PO SCH (12:29)
[2019-09-25] MEDS: AMITRIPTYLINE 10 MG TABLET NG SCH (20:50)
[2019-09-25] MEDS: ATORVASTATIN 80 MG TABLET PO SCH (20:50)
[2019-09-26] MEDS: INSULIN REGULAR 100 UNIT/ML SUBCUT SCH ×6 (00:08→23:18)
[2019-09-26] MEDS: diphenhydrAMINE 25 MG/10 ML UDCUP PO PRN (08:19)
[2019-09-26] MEDS: INSULIN GLARGINE 100 UNIT/ML SUBCUT SCH (08:20)
[2019-09-26] MEDS: DOCUSATE SODIUM 100 MG/10 ML UDCUP PEG SCH (08:20)
[2019-09-26] MEDS: POLYETHYLENE GLYCOL POWDER 17 GM PACK PO SCH ×2 (08:20→23:19)
[2019-09-26] MEDS: TICAGRELOR 90 MG TABLET PER TUBE SCH ×2 (08:21→23:18)
[2019-09-26] MEDS: LIDOCAINE 5% PATCH TRANSDERM SCH (08:22)
[2019-09-26] MEDS: APIXABAN 5 MG TABLET PO SCH ×2 (08:22→23:19)
[2019-09-26] MEDS: amLODIPine 5 MG TABLET PO SCH (08:22)
[2019-09-26] MEDS: LANSOPRAZOLE ODT 30 MG TABLET PO SCH (08:23)
[2019-09-26] MEDS: ACETAMINOPHEN 325 MG TABLET PO PRN (08:26)
[2019-09-26] MEDS: METOPROLOL TARTRATE 50 MG TABLET PO SCH ×2 (08:27→23:17)
[2019-09-26] MEDS: HYDROmorphone 2 MG/1 ML VIAL IV PRN (11:57)
[2019-09-26] MEDS: ONDANSETRON 4 MG/2 ML VIAL IV PRN (19:35)
[2019-09-26] MEDS: HYDROcod/ACETAMIN 7.5-325 MG/15 ML UDCUP PO PRN (23:16)
[2019-09-26] MEDS: tiZANidine 4 MG TABLET PO PRN (23:16)
[2019-09-26] MEDS: AMITRIPTYLINE 10 MG TABLET NG SCH (23:17)
[2019-09-26] MEDS: ATORVASTATIN 80 MG TABLET PO SCH (23:19)
[2019-09-27] MEDS: INSULIN REGULAR 100 UNIT/ML SUBCUT SCH ×6 (02:19→21:22)
[2019-09-27 05:21] LABS: Basophils # 0.1 10*3/uL (0.0-0.2); Basophils % 1.1 % (0.0-0.8); Eosinophils # 0.4 10*3/uL (0.0-0.87); Eosinophils % 4.4 % (0.00-10.9); Hematocrit 32.3 VOL% (42.0-52.0); Immature Granulocytes % 0.9 %; Immature Granulocytes Absolute 0.09 #; Lymphocytes # 1.9 10*3/uL (1.4-4.0); Lymphocytes % 19.5 % (21.2-54.2); Mean Corpuscular Volume 90.2 FL (87-102); Mean Platelet Volume 10.2 FL (9.6-12.0); Monocytes % 11.5 % (1.7-12.7); NRBC # 0.03 10*3/uL; Neutrophils % 62.6 % (38.7-73.9); Platelet Count 676 T/CUMM (130-400); Red Blood Count 3.58 MC/CUMM (3.8-5.5); Red Cell Distribution Width 15.8 % (9.3-17.3); White Blood Count 9.9 T/CUMM (4-12)
[2019-09-27 05:45] LABS: Calcium 10.1 MG/DL (8.5-10.1); Osmolality,Calculated 282.7 MOS/KG (273-304)
[2019-09-27] MEDS: INSULIN GLARGINE 100 UNIT/ML SUBCUT SCH (09:29)
[2019-09-27] MEDS: POLYETHYLENE GLYCOL POWDER 17 GM PACK PO SCH ×2 (09:30→22:58)
[2019-09-27] MEDS: DOCUSATE SODIUM 100 MG/10 ML UDCUP PEG SCH (09:30)
[2019-09-27] MEDS: TICAGRELOR 90 MG TABLET PER TUBE SCH ×2 (09:31→21:24)
[2019-09-27] MEDS: METOPROLOL TARTRATE 50 MG TABLET PO SCH ×2 (09:31→21:24)
[2019-09-27] MEDS: APIXABAN 5 MG TABLET PO SCH ×2 (09:32→21:24)
[2019-09-27] MEDS: LANSOPRAZOLE ODT 30 MG TABLET PO SCH (09:32)
[2019-09-27] MEDS: amLODIPine 5 MG TABLET PO SCH (09:32)
[2019-09-27] MEDS: LIDOCAINE 5% PATCH TRANSDERM SCH (09:32)
[2019-09-27] MEDS: BISACODYL 10 MG SUPP RECTAL SCH (09:32)
[2019-09-27] MEDS: ATORVASTATIN 80 MG TABLET PO SCH (21:24)
[2019-09-27] MEDS: AMITRIPTYLINE 10 MG TABLET NG SCH (21:24)
[2019-09-27] MEDS: ACETAMINOPHEN 325 MG TABLET PO PRN (21:55)
[2019-09-28] MEDS: INSULIN REGULAR 100 UNIT/ML SUBCUT SCH ×7 (01:34→23:02)
[2019-09-28] MEDS: HYDROcod/ACETAMIN 7.5-325 MG/15 ML UDCUP PO PRN (08:59)
[2019-09-28] MEDS: DOCUSATE SODIUM 100 MG/10 ML UDCUP PEG SCH (10:37)
[2019-09-28] MEDS: TICAGRELOR 90 MG TABLET PER TUBE SCH ×2 (10:37→21:55)
[2019-09-28] MEDS: APIXABAN 5 MG TABLET PO SCH ×2 (10:37→21:54)
[2019-09-28] MEDS: amLODIPine 5 MG TABLET PO SCH (10:38)
[2019-09-28] MEDS: METOPROLOL TARTRATE 50 MG TABLET PO SCH ×2 (10:38→21:55)
[2019-09-28] MEDS: INSULIN GLARGINE 100 UNIT/ML SUBCUT SCH (10:38)
[2019-09-28] MEDS: POLYETHYLENE GLYCOL POWDER 17 GM PACK PO SCH ×2 (10:38→22:39)
[2019-09-28] MEDS: LANSOPRAZOLE ODT 30 MG TABLET PO SCH (10:39)
[2019-09-28] MEDS: LIDOCAINE 5% PATCH TRANSDERM SCH (11:08)
[2019-09-28] MEDS: ATORVASTATIN 80 MG TABLET PO SCH (21:55)
[2019-09-28] MEDS: AMITRIPTYLINE 10 MG TABLET NG SCH (21:55)
[2019-09-29] MEDS: INSULIN REGULAR 100 UNIT/ML SUBCUT SCH ×5 (03:59→20:31)
[2019-09-29] MEDS: INSULIN GLARGINE 100 UNIT/ML SUBCUT SCH (10:00)
[2019-09-29] MEDS: APIXABAN 5 MG TABLET PO SCH ×2 (10:20→21:26)
[2019-09-29] MEDS: DOCUSATE SODIUM 100 MG/10 ML UDCUP PEG SCH (10:20)
[2019-09-29] MEDS: METOPROLOL TARTRATE 50 MG TABLET PO SCH ×2 (10:20→21:25)
[2019-09-29] MEDS: LANSOPRAZOLE ODT 30 MG TABLET PO SCH (10:20)
[2019-09-29] MEDS: TICAGRELOR 90 MG TABLET PER TUBE SCH ×2 (10:20→21:26)
[2019-09-29] MEDS: LIDOCAINE 5% PATCH TRANSDERM SCH (10:21)
[2019-09-29] MEDS: POLYETHYLENE GLYCOL POWDER 17 GM PACK PO SCH ×2 (10:24→21:59)
[2019-09-29] MEDS: amLODIPine 5 MG TABLET PO SCH (10:24)
[2019-09-29] MEDS: SKIN HEALING OINT (AQUAPHOR) 50 GM TUBE TOP PRN (10:58)
[2019-09-29] MEDS: AMITRIPTYLINE 10 MG TABLET NG SCH (21:25)
[2019-09-29] MEDS: ATORVASTATIN 80 MG TABLET PO SCH (21:26)
[2019-09-30] MEDS: INSULIN REGULAR 100 UNIT/ML SUBCUT SCH ×6 (00:24→21:35)
[2019-09-30] MEDS: diphenhydrAMINE 25 MG/10 ML UDCUP PO PRN (01:20)
[2019-09-30 06:16] LABS: Basophils # 0.1 10*3/uL (0.0-0.2); Basophils % 0.9 % (0.0-0.8); Eosinophils # 0.7 10*3/uL (0.0-0.87); Eosinophils % 6.4 % (0.00-10.9); Hematocrit 30.3 VOL% (42.0-52.0); Hemoglobin 9.4 GM/DL (14.0-18.0); Immature Granulocytes % 0.6 %; Immature Granulocytes Absolute 0.07 #; Lymphocytes # 1.7 10*3/uL (1.4-4.0); Lymphocytes % 15.3 % (21.2-54.2); Mean Corpuscular Volume 88.1 FL (87-102); Mean Platelet Volume 9.8 FL (9.6-12.0); Neutrophils % 66.8 % (38.7-73.9); Platelet Count 632 T/CUMM (130-400); Red Blood Count 3.44 MC/CUMM (3.8-5.5); Red Cell Distribution Width 15.8 % (9.3-17.3); White Blood Count 10.9 T/CUMM (4-12)
[2019-09-30 06:51] LABS: Calcium 9.7 MG/DL (8.5-10.1); Osmolality,Calculated 284.2 MOS/KG (273-304); Prealbumin 31.3 MG/DL (20-40)
[2019-09-30] MEDS: METOPROLOL TARTRATE 50 MG TABLET PO SCH ×2 (10:35→21:35)
[2019-09-30] MEDS: amLODIPine 5 MG TABLET PO SCH (10:35)
[2019-09-30] MEDS: SODIUM CHLORIDE 1 GM TABLET PO SCH (10:35)
[2019-09-30] MEDS: APIXABAN 5 MG TABLET PO SCH ×2 (10:35→21:36)
[2019-09-30] MEDS: LIDOCAINE 5% PATCH TRANSDERM SCH (10:36)
[2019-09-30] MEDS: TICAGRELOR 90 MG TABLET PER TUBE SCH ×2 (10:36→21:36)
[2019-09-30] MEDS: LANSOPRAZOLE ODT 30 MG TABLET PO SCH (10:36)
[2019-09-30] MEDS: DOCUSATE SODIUM 100 MG/10 ML UDCUP PEG SCH (10:36)
[2019-09-30] MEDS: POLYETHYLENE GLYCOL POWDER 17 GM PACK PO SCH ×2 (10:36→21:37)
[2019-09-30] MEDS: BISACODYL 10 MG SUPP RECTAL SCH (10:37)
[2019-09-30] MEDS: INSULIN GLARGINE 100 UNIT/ML SUBCUT SCH (10:50)
[2019-09-30] MEDS: ATORVASTATIN 80 MG TABLET PO SCH (21:36)
[2019-09-30] MEDS: AMITRIPTYLINE 10 MG TABLET NG SCH (21:36)
[2019-10-01] MEDS: INSULIN REGULAR 100 UNIT/ML SUBCUT SCH ×6 (00:10→21:04)
[2019-10-01] MEDS: diphenhydrAMINE 25 MG/10 ML UDCUP PO PRN ×2 (00:25→11:37)
[2019-10-01] MEDS: tiZANidine 4 MG TABLET PO PRN ×3 (00:25→19:15)
[2019-10-01] MEDS: LIDOCAINE 5% PATCH TRANSDERM SCH (08:40)
[2019-10-01] MEDS: LANSOPRAZOLE ODT 30 MG TABLET PO SCH (08:41)
[2019-10-01] MEDS: TICAGRELOR 90 MG TABLET PER TUBE SCH ×2 (08:41→21:21)
[2019-10-01] MEDS: METOPROLOL TARTRATE 50 MG TABLET PO SCH ×2 (08:41→21:21)
[2019-10-01] MEDS: SODIUM CHLORIDE 1 GM TABLET PO SCH (08:42)
[2019-10-01] MEDS: ACETAMINOPHEN 325 MG TABLET PO PRN ×2 (08:42→19:13)
[2019-10-01] MEDS: amLODIPine 5 MG TABLET PO SCH (08:42)
[2019-10-01] MEDS: INSULIN GLARGINE 100 UNIT/ML SUBCUT SCH (08:43)
[2019-10-01] MEDS: APIXABAN 5 MG TABLET PO SCH ×2 (08:43→21:21)
[2019-10-01] MEDS: POLYETHYLENE GLYCOL POWDER 17 GM PACK PO SCH ×2 (08:43→21:20)
[2019-10-01] MEDS: DOCUSATE SODIUM 100 MG/10 ML UDCUP PEG SCH (08:44)
[2019-10-01] MEDS ORDERED: DEXTROSE 5% 1,000 ML IV SCH (20:00)
[2019-10-01] MEDS: AMITRIPTYLINE 10 MG TABLET NG SCH (21:20)
[2019-10-01] MEDS: ONDANSETRON 4 MG/2 ML VIAL IV PRN (21:20)
[2019-10-01] MEDS: ATORVASTATIN 80 MG TABLET PO SCH (21:21)
[2019-10-02] MEDS: INSULIN REGULAR 100 UNIT/ML SUBCUT SCH ×6 (01:44→21:39)
[2019-10-02] MEDS: TICAGRELOR 90 MG TABLET PER TUBE SCH ×2 (09:26→20:15)
[2019-10-02] MEDS: INSULIN GLARGINE 100 UNIT/ML SUBCUT SCH (09:26)
[2019-10-02] MEDS: APIXABAN 5 MG TABLET PO SCH ×2 (09:26→20:15)
[2019-10-02] MEDS: amLODIPine 5 MG TABLET PO SCH (09:26)
[2019-10-02] MEDS: LANSOPRAZOLE ODT 30 MG TABLET PO SCH (09:26)
[2019-10-02] MEDS: METOPROLOL TARTRATE 50 MG TABLET PO SCH ×2 (09:26→20:15)
[2019-10-02] MEDS: SODIUM CHLORIDE 1 GM TABLET PO SCH (09:26)
[2019-10-02] MEDS: DOCUSATE SODIUM 100 MG/10 ML UDCUP PEG SCH (09:26)
[2019-10-02] MEDS: BISACODYL 10 MG SUPP RECTAL SCH (09:27)
[2019-10-02] MEDS: LIDOCAINE 5% PATCH TRANSDERM SCH (09:27)
[2019-10-02] MEDS: POLYETHYLENE GLYCOL POWDER 17 GM PACK PO SCH ×2 (09:27→20:14)
[2019-10-02] MEDS: AMITRIPTYLINE 10 MG TABLET NG SCH (20:14)
[2019-10-02] MEDS: ATORVASTATIN 80 MG TABLET PO SCH (20:15)
[2019-10-02] MEDS: ACETAMINOPHEN 325 MG TABLET PO PRN (20:15)
[2019-10-02] MEDS: diphenhydrAMINE 25 MG/10 ML UDCUP PO PRN (21:58)
[2019-10-03] MEDS: INSULIN REGULAR 100 UNIT/ML SUBCUT SCH ×6 (00:07→20:28)
[2019-10-03 07:52] LABS: Calcium 9.2 MG/DL (8.5-10.1); Osmolality,Calculated 283.8 MOS/KG (273-304)
[2019-10-03 08:51] LABS: Basophils # 0.1 10*3/uL (0.0-0.2); Eosinophils # 0.4 10*3/uL (0.0-0.87); Eosinophils % 4.8 % (0.00-10.9); Hematocrit 33.7 VOL% (42.0-52.0); Hemoglobin 10.7 GM/DL (14.0-18.0); Immature Granulocytes % 0.5 %; Immature Granulocytes Absolute 0.04 #; Lymphocytes # 0.8 10*3/uL (1.4-4.0); Lymphocytes % 9.8 % (21.2-54.2); Mean Corpuscular HGB Conc 31.8 GM/DL (32-36); Mean Platelet Volume 9.9 FL (9.6-12.0); Monocytes % 9.7 % (1.7-12.7); Neutrophils % 74.2 % (38.7-73.9); Platelet Count 621 T/CUMM (130-400); Red Blood Count 3.92 MC/CUMM (3.8-5.5); Red Cell Distribution Width 15.9 % (9.3-17.3); White Blood Count 8.3 T/CUMM (4-12)
[2019-10-03] MEDS: amLODIPine 5 MG TABLET PO SCH (08:54)
[2019-10-03] MEDS: SODIUM CHLORIDE 1 GM TABLET PO SCH ×2 (08:54→20:29)
[2019-10-03] MEDS: METOPROLOL TARTRATE 50 MG TABLET PO SCH ×2 (08:54→20:30)
[2019-10-03] MEDS: LANSOPRAZOLE ODT 30 MG TABLET PO SCH (08:54)
[2019-10-03] MEDS: LIDOCAINE 5% PATCH TRANSDERM SCH (08:54)
[2019-10-03] MEDS: TICAGRELOR 90 MG TABLET PER TUBE SCH ×2 (08:54→20:30)
[2019-10-03] MEDS: POLYETHYLENE GLYCOL POWDER 17 GM PACK PO SCH ×2 (08:54→20:28)
[2019-10-03] MEDS: APIXABAN 5 MG TABLET PO SCH ×2 (08:54→20:29)
[2019-10-03] MEDS: INSULIN GLARGINE 100 UNIT/ML SUBCUT SCH (08:55)
[2019-10-03] MEDS: DOCUSATE SODIUM 100 MG/10 ML UDCUP PEG SCH (08:55)
[2019-10-03] MEDS: diphenhydrAMINE 25 MG/10 ML UDCUP PO PRN (08:59)
[2019-10-03] MEDS: ACETAMINOPHEN 325 MG TABLET PO PRN ×2 (09:15→16:56)
[2019-10-03] MEDS: AMITRIPTYLINE 10 MG TABLET NG SCH (20:29)
[2019-10-03] MEDS: ATORVASTATIN 80 MG TABLET PO SCH (20:29)
[2019-10-04] MEDS: INSULIN REGULAR 100 UNIT/ML SUBCUT SCH ×6 (00:09→20:28)
[2019-10-04] MEDS: ACETAMINOPHEN 325 MG TABLET PO PRN ×2 (01:37→09:05)
[2019-10-04] MEDS: diphenhydrAMINE 25 MG/10 ML UDCUP PO PRN (01:37)
[2019-10-04] MEDS: LIDOCAINE 5% PATCH TRANSDERM SCH (09:04)
[2019-10-04] MEDS: tiZANidine 4 MG TABLET PO PRN (09:05)
[2019-10-04] MEDS: amLODIPine 5 MG TABLET PO SCH (09:06)
[2019-10-04] MEDS: LANSOPRAZOLE ODT 30 MG TABLET PO SCH (09:06)
[2019-10-04] MEDS: SODIUM CHLORIDE 1 GM TABLET PO SCH ×2 (09:06→20:29)
[2019-10-04] MEDS: APIXABAN 5 MG TABLET PO SCH ×2 (09:07→20:28)
[2019-10-04] MEDS: BISACODYL 10 MG SUPP RECTAL SCH (09:07)
[2019-10-04] MEDS: TICAGRELOR 90 MG TABLET PER TUBE SCH ×2 (09:07→20:29)
[2019-10-04] MEDS: METOPROLOL TARTRATE 50 MG TABLET PO SCH ×2 (09:07→20:29)
[2019-10-04] MEDS: POLYETHYLENE GLYCOL POWDER 17 GM PACK PO SCH ×2 (09:07→20:30)
[2019-10-04] MEDS: INSULIN GLARGINE 100 UNIT/ML SUBCUT SCH (09:07)
[2019-10-04] MEDS: DOCUSATE SODIUM 100 MG/10 ML UDCUP PEG SCH (09:07)
[2019-10-04] MEDS: AMITRIPTYLINE 10 MG TABLET NG SCH (20:29)
[2019-10-04] MEDS: ATORVASTATIN 80 MG TABLET PO SCH (20:29)
[2019-10-05] MEDS: INSULIN REGULAR 100 UNIT/ML SUBCUT SCH ×6 (00:31→21:18)
[2019-10-05] MEDS: INSULIN GLARGINE 100 UNIT/ML SUBCUT SCH (09:53)
[2019-10-05] MEDS: LANSOPRAZOLE ODT 30 MG TABLET PO SCH (11:18)
[2019-10-05] MEDS: TICAGRELOR 90 MG TABLET PER TUBE SCH ×2 (11:18→21:19)
[2019-10-05] MEDS: APIXABAN 5 MG TABLET PO SCH ×2 (11:18→21:19)
[2019-10-05] MEDS: ACETAMINOPHEN 325 MG TABLET PO PRN (11:18)
[2019-10-05] MEDS: SODIUM CHLORIDE 1 GM TABLET PO SCH ×2 (11:18→21:19)
[2019-10-05] MEDS: amLODIPine 5 MG TABLET PO SCH (11:18)
[2019-10-05] MEDS: METOPROLOL TARTRATE 50 MG TABLET PO SCH ×2 (11:18→21:19)
[2019-10-05] MEDS: tiZANidine 4 MG TABLET PO PRN (11:19)
[2019-10-05] MEDS: LIDOCAINE 5% PATCH TRANSDERM SCH (11:20)
[2019-10-05] MEDS: DOCUSATE SODIUM 100 MG/10 ML UDCUP PEG SCH (11:20)
[2019-10-05] MEDS: POLYETHYLENE GLYCOL POWDER 17 GM PACK PO SCH ×2 (11:21→21:20)
[2019-10-05] MEDS: AMITRIPTYLINE 10 MG TABLET NG SCH (21:19)
[2019-10-05] MEDS: ATORVASTATIN 80 MG TABLET PO SCH (21:19)
[2019-10-05] MEDS: CYCLOBENZAPRINE 10 MG TABLET PO PRN (23:46)
[2019-10-06] MEDS: INSULIN REGULAR 100 UNIT/ML SUBCUT SCH ×6 (00:06→22:00)
[2019-10-06 08:18] LABS: Basophils # 0.1 10*3/uL (0.0-0.2); Eosinophils # 0.4 10*3/uL (0.0-0.87); Eosinophils % 4.1 % (0.00-10.9); Hematocrit 34.9 VOL% (42.0-52.0); Hemoglobin 10.8 GM/DL (14.0-18.0); Immature Granulocytes % 0.2 %; Immature Granulocytes Absolute 0.02 #; Lymphocytes # 1.3 10*3/uL (1.4-4.0); Lymphocytes % 13.1 % (21.2-54.2); Mean Corpuscular HGB Conc 30.9 GM/DL (32-36); Mean Corpuscular Volume 87.5 FL (87-102); Mean Platelet Volume 10.1 FL (9.6-12.0); Monocytes % 12.2 % (1.7-12.7); Neutrophils % 69.4 % (38.7-73.9); Platelet Count 668 T/CUMM (130-400); Red Blood Count 3.99 MC/CUMM (3.8-5.5); Red Cell Distribution Width 16.3 % (9.3-17.3)
[2019-10-06 08:41] LABS: Calcium 9.7 MG/DL (8.5-10.1); Osmolality,Calculated 282.2 MOS/KG (273-304)
[2019-10-06] MEDS: DOCUSATE SODIUM 100 MG/10 ML UDCUP PEG SCH (09:45)
[2019-10-06] MEDS: POLYETHYLENE GLYCOL POWDER 17 GM PACK PO SCH ×2 (09:45→22:48)
[2019-10-06] MEDS: INSULIN GLARGINE 100 UNIT/ML SUBCUT SCH (09:45)
[2019-10-06] MEDS: TICAGRELOR 90 MG TABLET PER TUBE SCH ×2 (09:46→22:49)
[2019-10-06] MEDS: LANSOPRAZOLE ODT 30 MG TABLET PO SCH (09:46)
[2019-10-06] MEDS: amLODIPine 5 MG TABLET PO SCH (09:46)
[2019-10-06] MEDS: LIDOCAINE 5% PATCH TRANSDERM SCH (09:46)
[2019-10-06] MEDS: SODIUM CHLORIDE 1 GM TABLET PO SCH ×2 (09:46→22:49)
[2019-10-06] MEDS: APIXABAN 5 MG TABLET PO SCH ×2 (09:46→22:49)
[2019-10-06] MEDS: METOPROLOL TARTRATE 50 MG TABLET PO SCH ×2 (09:46→22:49)
[2019-10-06] MEDS: AMITRIPTYLINE 10 MG TABLET NG SCH (22:49)
[2019-10-06] MEDS: ATORVASTATIN 80 MG TABLET PO SCH (22:49)
[2019-10-07] MEDS: INSULIN REGULAR 100 UNIT/ML SUBCUT SCH ×6 (01:49→21:04)
[2019-10-07] MEDS: INSULIN GLARGINE 100 UNIT/ML SUBCUT SCH (08:30)
[2019-10-07] MEDS: POLYETHYLENE GLYCOL POWDER 17 GM PACK PO SCH ×2 (08:31→21:05)
[2019-10-07] MEDS: amLODIPine 5 MG TABLET PO SCH (08:31)
[2019-10-07] MEDS: METOPROLOL TARTRATE 50 MG TABLET PO SCH ×2 (08:31→21:04)
[2019-10-07] MEDS: APIXABAN 5 MG TABLET PO SCH ×2 (08:31→21:05)
[2019-10-07] MEDS: TICAGRELOR 90 MG TABLET PER TUBE SCH ×2 (08:31→21:04)
[2019-10-07] MEDS: SODIUM CHLORIDE 1 GM TABLET PO SCH ×2 (08:31→21:05)
[2019-10-07] MEDS: DOCUSATE SODIUM 100 MG/10 ML UDCUP PEG SCH (08:31)
[2019-10-07] MEDS: LIDOCAINE 5% PATCH TRANSDERM SCH (08:32)
[2019-10-07] MEDS: LANSOPRAZOLE ODT 30 MG TABLET PO SCH (08:40)
[2019-10-07] MEDS: BISACODYL 10 MG SUPP RECTAL SCH (08:40)
[2019-10-07] MEDS: AMITRIPTYLINE 10 MG TABLET NG SCH (21:04)
[2019-10-07] MEDS: ACETAMINOPHEN 325 MG TABLET PO PRN (21:04)
[2019-10-07] MEDS: ATORVASTATIN 80 MG TABLET PO SCH (21:05)
[2019-10-07] MEDS: diphenhydrAMINE 25 MG/10 ML UDCUP PO PRN (21:10)
[2019-10-08] MEDS: diphenhydrAMINE 2% CREAM 28 GM TUBE TOP PRN ×2 (00:13→20:48)
[2019-10-08] MEDS: INSULIN REGULAR 100 UNIT/ML SUBCUT SCH ×6 (00:13→20:20)
[2019-10-08] MEDS: INSULIN GLARGINE 100 UNIT/ML SUBCUT SCH (08:52)
[2019-10-08] MEDS: POLYETHYLENE GLYCOL POWDER 17 GM PACK PO SCH ×2 (08:53→20:20)
[2019-10-08] MEDS: TICAGRELOR 90 MG TABLET PER TUBE SCH ×2 (08:53→20:18)
[2019-10-08] MEDS: DOCUSATE SODIUM 100 MG/10 ML UDCUP PEG SCH (08:53)
[2019-10-08] MEDS: LANSOPRAZOLE ODT 30 MG TABLET PO SCH (08:53)
[2019-10-08] MEDS: LIDOCAINE 5% PATCH TRANSDERM SCH (08:53)
[2019-10-08] MEDS: SODIUM CHLORIDE 1 GM TABLET PO SCH ×2 (08:53→20:18)
[2019-10-08] MEDS: APIXABAN 5 MG TABLET PO SCH ×2 (08:54→20:18)
[2019-10-08] MEDS: METOPROLOL TARTRATE 50 MG TABLET PO SCH ×2 (08:54→20:18)
[2019-10-08] MEDS: amLODIPine 5 MG TABLET PO SCH (08:55)
[2019-10-08] MEDS: ACETAMINOPHEN 325 MG TABLET PO PRN ×2 (09:30→22:26)
[2019-10-08] MEDS: diphenhydrAMINE 25 MG/10 ML UDCUP PO PRN (11:55)
[2019-10-08] MEDS: AMITRIPTYLINE 10 MG TABLET NG SCH (20:18)
[2019-10-08] MEDS: ATORVASTATIN 80 MG TABLET PO SCH (20:19)
[2019-10-09] MEDS: INSULIN REGULAR 100 UNIT/ML SUBCUT SCH ×6 (00:38→22:08)
[2019-10-09] MEDS: DOCUSATE SODIUM 100 MG/10 ML UDCUP PEG SCH (09:35)
[2019-10-09] MEDS: amLODIPine 5 MG TABLET PO SCH (09:35)
[2019-10-09] MEDS: INSULIN GLARGINE 100 UNIT/ML SUBCUT SCH (09:35)
[2019-10-09] MEDS: METOPROLOL TARTRATE 50 MG TABLET PO SCH ×2 (09:35→21:06)
[2019-10-09] MEDS: BISACODYL 10 MG SUPP RECTAL SCH (09:35)
[2019-10-09] MEDS: APIXABAN 5 MG TABLET PO SCH ×2 (09:35→21:06)
[2019-10-09] MEDS: LIDOCAINE 5% PATCH TRANSDERM SCH (09:35)
[2019-10-09] MEDS: LANSOPRAZOLE ODT 30 MG TABLET PO SCH (09:35)
[2019-10-09] MEDS: SODIUM CHLORIDE 1 GM TABLET PO SCH ×2 (09:35→21:06)
[2019-10-09] MEDS: TICAGRELOR 90 MG TABLET PER TUBE SCH ×2 (09:35→21:06)
[2019-10-09] MEDS: POLYETHYLENE GLYCOL POWDER 17 GM PACK PO SCH ×2 (09:38→21:07)
[2019-10-09] MEDS: diphenhydrAMINE 2% CREAM 28 GM TUBE TOP PRN (21:04)
[2019-10-09] MEDS: ATORVASTATIN 80 MG TABLET PO SCH (21:06)
[2019-10-09] MEDS: diphenhydrAMINE 25 MG/10 ML UDCUP PO PRN (21:06)
[2019-10-09] MEDS: AMITRIPTYLINE 10 MG TABLET NG SCH (21:07)
[2019-10-10] MEDS: INSULIN REGULAR 100 UNIT/ML SUBCUT SCH ×6 (00:11→20:46)
[2019-10-10] MEDS: amLODIPine 5 MG TABLET PO SCH (08:00)
[2019-10-10] MEDS: POLYETHYLENE GLYCOL POWDER 17 GM PACK PO SCH ×2 (08:00→20:31)
[2019-10-10] MEDS: LIDOCAINE 5% PATCH TRANSDERM SCH (08:00)
[2019-10-10] MEDS: SODIUM CHLORIDE 1 GM TABLET PO SCH ×2 (08:01→20:30)
[2019-10-10] MEDS: APIXABAN 5 MG TABLET PO SCH ×2 (08:01→20:30)
[2019-10-10] MEDS: LANSOPRAZOLE ODT 30 MG TABLET PO SCH (08:01)
[2019-10-10] MEDS: INSULIN GLARGINE 100 UNIT/ML SUBCUT SCH (08:01)
[2019-10-10] MEDS: METOPROLOL TARTRATE 50 MG TABLET PO SCH ×2 (08:01→20:30)
[2019-10-10] MEDS: TICAGRELOR 90 MG TABLET PER TUBE SCH ×2 (08:01→20:30)
[2019-10-10] MEDS: ACETAMINOPHEN 325 MG TABLET PO PRN ×2 (11:08→22:11)
[2019-10-10] MEDS: AMITRIPTYLINE 10 MG TABLET NG SCH (20:30)
[2019-10-10] MEDS: CYCLOBENZAPRINE 10 MG TABLET PO PRN (20:30)
[2019-10-10] MEDS: ATORVASTATIN 80 MG TABLET PO SCH (20:30)
[2019-10-11] MEDS: INSULIN REGULAR 100 UNIT/ML SUBCUT SCH ×6 (00:42→21:26)
[2019-10-11] MEDS: CYCLOBENZAPRINE 10 MG TABLET PO PRN (06:12)
[2019-10-11] MEDS: INSULIN GLARGINE 100 UNIT/ML SUBCUT SCH (08:54)
[2019-10-11] MEDS: LIDOCAINE 5% PATCH TRANSDERM SCH (08:55)
[2019-10-11] MEDS: METOPROLOL TARTRATE 50 MG TABLET PO SCH ×2 (08:55→21:27)
[2019-10-11] MEDS: LANSOPRAZOLE ODT 30 MG TABLET PO SCH (08:55)
[2019-10-11] MEDS: tiZANidine 4 MG TABLET PO PRN (08:55)
[2019-10-11] MEDS: SODIUM CHLORIDE 1 GM TABLET PO SCH ×2 (08:55→21:27)
[2019-10-11] MEDS: POLYETHYLENE GLYCOL POWDER 17 GM PACK PO SCH ×2 (08:55→21:29)
[2019-10-11] MEDS: TICAGRELOR 90 MG TABLET PER TUBE SCH ×2 (08:57→21:27)
[2019-10-11] MEDS: APIXABAN 5 MG TABLET PO SCH ×2 (08:57→21:27)
[2019-10-11] MEDS: amLODIPine 5 MG TABLET PO SCH (08:59)
[2019-10-11] MEDS: ATORVASTATIN 80 MG TABLET PO SCH (21:27)
[2019-10-11] MEDS: AMITRIPTYLINE 10 MG TABLET NG SCH (21:27)
[2019-10-11] MEDS: diphenhydrAMINE 25 MG/10 ML UDCUP PO PRN (21:27)
[2019-10-11] MEDS: ACETAMINOPHEN 325 MG TABLET PO PRN (22:33)
[2019-10-12] MEDS: INSULIN REGULAR 100 UNIT/ML SUBCUT SCH ×7 (00:11→23:56)
[2019-10-12 05:07] LABS: Basophils # 0.1 10*3/uL (0.0-0.2); Basophils % 0.5 % (0.0-0.8); Eosinophils # 0.5 10*3/uL (0.0-0.87); Eosinophils % 5.1 % (0.00-10.9); Hematocrit 34.1 VOL% (42.0-52.0); Hemoglobin 10.4 GM/DL (14.0-18.0); Immature Granulocytes % 0.3 %; Immature Granulocytes Absolute 0.03 #; Lymphocytes # 1.2 10*3/uL (1.4-4.0); Lymphocytes % 12.1 % (21.2-54.2); Mean Corpuscular HGB Conc 30.5 GM/DL (32-36); Mean Corpuscular Volume 87.9 FL (87-102); Monocytes % 11.3 % (1.7-12.7); Neutrophils % 70.7 % (38.7-73.9); Platelet Count 416 T/CUMM (130-400); Red Blood Count 3.88 MC/CUMM (3.8-5.5); Red Cell Distribution Width 16.3 % (9.3-17.3); White Blood Count 9.7 T/CUMM (4-12)
[2019-10-12 05:24] LABS: Calcium 9.1 MG/DL (8.5-10.1)
[2019-10-12] MEDS: METOPROLOL TARTRATE 50 MG TABLET PO SCH ×2 (08:32→21:05)
[2019-10-12] MEDS: amLODIPine 5 MG TABLET PO SCH (08:32)
[2019-10-12] MEDS: SODIUM CHLORIDE 1 GM TABLET PO SCH ×2 (08:32→21:05)
[2019-10-12] MEDS: TICAGRELOR 90 MG TABLET PER TUBE SCH ×2 (08:32→21:05)
[2019-10-12] MEDS: LIDOCAINE 5% PATCH TRANSDERM SCH (08:32)
[2019-10-12] MEDS: APIXABAN 5 MG TABLET PO SCH ×2 (08:32→21:05)
[2019-10-12] MEDS: LANSOPRAZOLE ODT 30 MG TABLET PO SCH (08:33)
[2019-10-12] MEDS: POLYETHYLENE GLYCOL POWDER 17 GM PACK PO SCH ×2 (08:33→21:22)
[2019-10-12] MEDS: ACETAMINOPHEN 325 MG TABLET PO PRN ×2 (08:39→21:16)
[2019-10-12] MEDS: INSULIN GLARGINE 100 UNIT/ML SUBCUT SCH (08:41)
[2019-10-12] MEDS: ATORVASTATIN 80 MG TABLET PO SCH (21:05)
[2019-10-12] MEDS: AMITRIPTYLINE 10 MG TABLET NG SCH (21:09)
[2019-10-12] MEDS: CYCLOBENZAPRINE 10 MG TABLET PO PRN (21:17)
[2019-10-12] MEDS: diphenhydrAMINE 25 MG/10 ML UDCUP PO PRN (22:43)
[2019-10-12] MEDS: diphenhydrAMINE 2% CREAM 28 GM TUBE TOP PRN (23:51)
[2019-10-13] MEDS: hydrOXYzine HCL 2 MG/ML 30 ML/BOTTLE PO PRN (01:02)
[2019-10-13] MEDS: INSULIN REGULAR 100 UNIT/ML SUBCUT SCH ×5 (03:41→21:07)
[2019-10-13 06:05] LABS: Basophils % 0.5 % (0.0-0.8); Eosinophils # 0.4 10*3/uL (0.0-0.87); Eosinophils % 4.7 % (0.00-10.9); Hematocrit 34.7 VOL% (42.0-52.0); Hemoglobin 10.7 GM/DL (14.0-18.0); Immature Granulocytes % 0.4 %; Immature Granulocytes Absolute 0.03 #; Lymphocytes # 1.3 10*3/uL (1.4-4.0); Lymphocytes % 17.8 % (21.2-54.2); Mean Corpuscular HGB Conc 30.8 GM/DL (32-36); Mean Corpuscular Volume 88.7 FL (87-102); Mean Platelet Volume 9.8 FL (9.6-12.0); Monocytes % 15.9 % (1.7-12.7); Neutrophils % 60.7 % (38.7-73.9); Platelet Count 369 T/CUMM (130-400); Red Blood Count 3.91 MC/CUMM (3.8-5.5); Red Cell Distribution Width 16.4 % (9.3-17.3); White Blood Count 7.4 T/CUMM (4-12)
[2019-10-13 06:25] LABS: Calcium 9.2 MG/DL (8.5-10.1); Osmolality,Calculated 279.1 MOS/KG (273-304)
[2019-10-13 06:36] LABS: Anisocytosis 2+; Eosinophils 6 % (0-10); Lymphocytes 17 % (20-55); Macrocytosis 1+; Platelet Estimate Normal; Segmented Neutrophils 64 % (50-85); Total Cells Counted 100
[2019-10-13 06:37] LABS: Poikilocytosis Slight
[2019-10-13] MEDS: TICAGRELOR 90 MG TABLET PER TUBE SCH ×2 (08:59→20:51)
[2019-10-13] MEDS: amLODIPine 5 MG TABLET PO SCH (08:59)
[2019-10-13] MEDS: METOPROLOL TARTRATE 50 MG TABLET PO SCH ×2 (08:59→20:51)
[2019-10-13] MEDS: APIXABAN 5 MG TABLET PO SCH ×2 (08:59→20:51)
[2019-10-13] MEDS: LANSOPRAZOLE ODT 30 MG TABLET PO SCH (08:59)
[2019-10-13] MEDS: LIDOCAINE 5% PATCH TRANSDERM SCH (08:59)
[2019-10-13] MEDS: SODIUM CHLORIDE 1 GM TABLET PO SCH ×2 (08:59→20:51)
[2019-10-13] MEDS: INSULIN GLARGINE 100 UNIT/ML SUBCUT SCH (09:00)
[2019-10-13] MEDS: POLYETHYLENE GLYCOL POWDER 17 GM PACK PO SCH ×2 (09:00→20:51)
[2019-10-13] MEDS: ATORVASTATIN 80 MG TABLET PO SCH (20:51)
[2019-10-13] MEDS: AMITRIPTYLINE 10 MG TABLET NG SCH (20:51)
[2019-10-13] MEDS: tiZANidine 4 MG TABLET PO PRN (20:52)
[2019-10-14] MEDS: INSULIN REGULAR 100 UNIT/ML SUBCUT SCH ×6 (01:47→21:17)
[2019-10-14] MEDS: INSULIN GLARGINE 100 UNIT/ML SUBCUT SCH (10:07)
[2019-10-14] MEDS: APIXABAN 5 MG TABLET PO SCH ×2 (10:08→21:18)
[2019-10-14] MEDS: LIDOCAINE 5% PATCH TRANSDERM SCH (10:08)
[2019-10-14] MEDS: TICAGRELOR 90 MG TABLET PER TUBE SCH ×2 (10:08→21:18)
[2019-10-14] MEDS: METOPROLOL TARTRATE 50 MG TABLET PO SCH ×2 (10:08→21:18)
[2019-10-14] MEDS: SODIUM CHLORIDE 1 GM TABLET PO SCH ×2 (10:08→21:18)
[2019-10-14] MEDS: LANSOPRAZOLE ODT 30 MG TABLET PO SCH (10:08)
[2019-10-14] MEDS: amLODIPine 5 MG TABLET PO SCH (10:08)
[2019-10-14] MEDS: POLYETHYLENE GLYCOL POWDER 17 GM PACK PO SCH ×2 (10:09→21:18)
[2019-10-14] MEDS: ATORVASTATIN 80 MG TABLET PO SCH (21:18)
[2019-10-14] MEDS: AMITRIPTYLINE 10 MG TABLET NG SCH (21:18)
[2019-10-15] MEDS: INSULIN REGULAR 100 UNIT/ML SUBCUT SCH ×6 (00:45→23:18)
[2019-10-15] MEDS: diphenhydrAMINE 2% CREAM 28 GM TUBE TOP PRN (06:46)
[2019-10-15] MEDS: diphenhydrAMINE 25 MG/10 ML UDCUP PO PRN ×2 (06:46→21:15)
[2019-10-15] MEDS: METOPROLOL TARTRATE 50 MG TABLET PO SCH ×3 (09:03→21:14)
[2019-10-15] MEDS: INSULIN GLARGINE 100 UNIT/ML SUBCUT SCH (09:03)
[2019-10-15] MEDS: amLODIPine 5 MG TABLET PO SCH ×2 (09:03→09:42)
[2019-10-15] MEDS: LIDOCAINE 5% PATCH TRANSDERM SCH (09:03)
[2019-10-15] MEDS: SODIUM CHLORIDE 1 GM TABLET PO SCH ×3 (09:03→21:14)
[2019-10-15] MEDS: LANSOPRAZOLE ODT 30 MG TABLET PO SCH ×2 (09:03→09:42)
[2019-10-15] MEDS: APIXABAN 5 MG TABLET PO SCH ×3 (09:03→21:15)
[2019-10-15] MEDS: TICAGRELOR 90 MG TABLET PER TUBE SCH ×3 (09:03→21:14)
[2019-10-15] MEDS: POLYETHYLENE GLYCOL POWDER 17 GM PACK PO SCH ×2 (09:03→21:14)
[2019-10-15] MEDS: COENZYME Q10 100 MG CAPSULE PO SCH (09:41)
[2019-10-15] MEDS: CYCLOBENZAPRINE 10 MG TABLET PO PRN ×2 (09:42→21:14)
[2019-10-15] MEDS: tiZANidine 4 MG TABLET PO PRN (18:56)
[2019-10-15] MEDS: ACETAMINOPHEN 325 MG TABLET PO PRN (18:56)
[2019-10-15] MEDS: OMEGA 3 ACID ETHYL ESTERS 1 GM CAPSULE PO SCH (21:13)
[2019-10-15] MEDS: ATORVASTATIN 80 MG TABLET PO SCH (21:14)
[2019-10-15] MEDS: AMITRIPTYLINE 10 MG TABLET NG SCH (21:14)
[2019-10-16] MEDS: INSULIN REGULAR 100 UNIT/ML SUBCUT SCH ×6 (01:52→19:46)
[2019-10-16] MEDS: POLYETHYLENE GLYCOL POWDER 17 GM PACK PO SCH ×2 (09:26→21:05)
[2019-10-16] MEDS: INSULIN GLARGINE 100 UNIT/ML SUBCUT SCH (09:26)
[2019-10-16] MEDS: APIXABAN 5 MG TABLET PO SCH ×2 (09:27→21:05)
[2019-10-16] MEDS: COENZYME Q10 100 MG CAPSULE PO SCH (09:27)
[2019-10-16] MEDS: LANSOPRAZOLE ODT 30 MG TABLET PO SCH (09:27)
[2019-10-16] MEDS: CYCLOBENZAPRINE 10 MG TABLET PO PRN (09:27)
[2019-10-16] MEDS: LIDOCAINE 5% PATCH TRANSDERM SCH (09:27)
[2019-10-16] MEDS: TICAGRELOR 90 MG TABLET PER TUBE SCH ×2 (09:27→21:05)
[2019-10-16] MEDS: amLODIPine 5 MG TABLET PO SCH (09:27)
[2019-10-16] MEDS: SODIUM CHLORIDE 1 GM TABLET PO SCH ×2 (09:27→21:05)
[2019-10-16] MEDS: METOPROLOL TARTRATE 50 MG TABLET PO SCH ×2 (09:27→21:05)
[2019-10-16] MEDS: ATORVASTATIN 80 MG TABLET PO SCH (21:04)
[2019-10-16] MEDS: ACETAMINOPHEN 325 MG TABLET PO PRN (21:04)
[2019-10-16] MEDS: OMEGA 3 ACID ETHYL ESTERS 1 GM CAPSULE PO SCH (21:04)
[2019-10-16] MEDS: AMITRIPTYLINE 10 MG TABLET NG SCH (21:05)
[2019-10-17] MEDS: GLUCAGON 1 MG VIAL IM PRN (00:48)
[2019-10-17] MEDS: INSULIN REGULAR 100 UNIT/ML SUBCUT SCH ×6 (01:17→20:51)
[2019-10-17 05:27] LABS: Basophils # 0.1 10*3/uL (0.0-0.2); Basophils % 0.4 % (0.0-0.8); Eosinophils # 0.5 10*3/uL (0.0-0.87); Eosinophils % 3.9 % (0.00-10.9); Hematocrit 35.5 VOL% (42.0-52.0); Hemoglobin 10.9 GM/DL (14.0-18.0); Immature Granulocytes % 0.3 %; Immature Granulocytes Absolute 0.04 #; Lymphocytes # 1.4 10*3/uL (1.4-4.0); Lymphocytes % 10.8 % (21.2-54.2); Mean Corpuscular HGB Conc 30.7 GM/DL (32-36); Mean Corpuscular Volume 87.2 FL (87-102); Mean Platelet Volume 10.6 FL (9.6-12.0); Monocytes % 8.9 % (1.7-12.7); Neutrophils % 75.7 % (38.7-73.9); Platelet Count 408 T/CUMM (130-400); Red Blood Count 4.07 MC/CUMM (3.8-5.5); Red Cell Distribution Width 16.4 % (9.3-17.3); White Blood Count 12.7 T/CUMM (4-12)
[2019-10-17 05:52] LABS: Calcium 9.5 MG/DL (8.5-10.1); Osmolality,Calculated 293.7 MOS/KG (273-304)
[2019-10-17] MEDS: SODIUM CHLORIDE 1 GM TABLET PO SCH ×2 (08:34→21:08)
[2019-10-17] MEDS: APIXABAN 5 MG TABLET PO SCH ×2 (08:34→21:08)
[2019-10-17] MEDS: COENZYME Q10 100 MG CAPSULE PO SCH ×2 (08:35→10:19)
[2019-10-17] MEDS: METOPROLOL TARTRATE 50 MG TABLET PO SCH ×3 (08:35→21:08)
[2019-10-17] MEDS: INSULIN GLARGINE 100 UNIT/ML SUBCUT SCH (08:35)
[2019-10-17] MEDS: LIDOCAINE 5% PATCH TRANSDERM SCH (08:35)
[2019-10-17] MEDS: TICAGRELOR 90 MG TABLET PER TUBE SCH ×2 (08:35→21:08)
[2019-10-17] MEDS: POLYETHYLENE GLYCOL POWDER 17 GM PACK PO SCH ×2 (08:35→21:09)
[2019-10-17] MEDS: amLODIPine 5 MG TABLET PO SCH ×2 (08:35→08:40)
[2019-10-17] MEDS: LANSOPRAZOLE ODT 30 MG TABLET PO SCH (08:35)
[2019-10-17] MEDS: AMITRIPTYLINE 10 MG TABLET NG SCH (21:08)
[2019-10-17] MEDS: ATORVASTATIN 80 MG TABLET PO SCH (21:08)
[2019-10-17] MEDS: OMEGA 3 ACID ETHYL ESTERS 1 GM CAPSULE PO SCH (21:08)
[2019-10-18] MEDS: INSULIN REGULAR 100 UNIT/ML SUBCUT SCH ×6 (01:59→21:58)
[2019-10-18 05:06] LABS: Basophils # 0.1 10*3/uL (0.0-0.2); Basophils % 0.5 % (0.0-0.8); Eosinophils # 0.4 10*3/uL (0.0-0.87); Hematocrit 36.4 VOL% (42.0-52.0); Hemoglobin 11.2 GM/DL (14.0-18.0); Immature Granulocytes % 0.3 %; Immature Granulocytes Absolute 0.03 #; Lymphocytes # 1.3 10*3/uL (1.4-4.0); Lymphocytes % 13.1 % (21.2-54.2); Mean Corpuscular HGB Conc 30.8 GM/DL (32-36); Mean Corpuscular Volume 87.7 FL (87-102); Monocytes % 14.4 % (1.7-12.7); NRBC # 0.02 10*3/uL; Neutrophils % 67.7 % (38.7-73.9); Platelet Count 403 T/CUMM (130-400); Red Blood Count 4.15 MC/CUMM (3.8-5.5); Red Cell Distribution Width 16.9 % (9.3-17.3); White Blood Count 10.1 T/CUMM (4-12)
[2019-10-18 05:36] LABS: Calcium 9.9 MG/DL (8.5-10.1); Osmolality,Calculated 284.8 MOS/KG (273-304)
[2019-10-18] MEDS: LIDOCAINE 5% PATCH TRANSDERM SCH (08:29)
[2019-10-18] MEDS: INSULIN GLARGINE 100 UNIT/ML SUBCUT SCH (08:30)
[2019-10-18] MEDS: diphenhydrAMINE 25 MG/10 ML UDCUP PO PRN (08:31)
[2019-10-18] MEDS: CYCLOBENZAPRINE 10 MG TABLET PO PRN ×2 (08:31→21:59)
[2019-10-18] MEDS: POLYETHYLENE GLYCOL POWDER 17 GM PACK PO SCH ×2 (08:31→21:58)
[2019-10-18] MEDS: COENZYME Q10 100 MG CAPSULE PO SCH (08:31)
[2019-10-18] MEDS: TICAGRELOR 90 MG TABLET PER TUBE SCH ×2 (08:32→21:59)
[2019-10-18] MEDS: METOPROLOL TARTRATE 50 MG TABLET PO SCH ×2 (08:32→21:59)
[2019-10-18] MEDS: amLODIPine 5 MG TABLET PO SCH (08:32)
[2019-10-18] MEDS: APIXABAN 5 MG TABLET PO SCH ×2 (08:32→21:59)
[2019-10-18] MEDS: SODIUM CHLORIDE 1 GM TABLET PO SCH ×2 (08:32→21:59)
[2019-10-18] MEDS: LANSOPRAZOLE ODT 30 MG TABLET PO SCH (08:33)
[2019-10-18] MEDS: OMEGA 3 ACID ETHYL ESTERS 1 GM CAPSULE PO SCH (21:58)
[2019-10-18] MEDS: AMITRIPTYLINE 10 MG TABLET NG SCH (21:59)
[2019-10-18] MEDS: ATORVASTATIN 80 MG TABLET PO SCH (21:59)
[2019-10-19] MEDS: INSULIN REGULAR 100 UNIT/ML SUBCUT SCH ×6 (00:59→21:38)
[2019-10-19] MEDS: APIXABAN 5 MG TABLET PO SCH ×2 (09:05→22:11)
[2019-10-19] MEDS: INSULIN GLARGINE 100 UNIT/ML SUBCUT SCH (09:05)
[2019-10-19] MEDS: COENZYME Q10 100 MG CAPSULE PO SCH (09:05)
[2019-10-19] MEDS: TICAGRELOR 90 MG TABLET PER TUBE SCH ×2 (09:05→22:12)
[2019-10-19] MEDS: LANSOPRAZOLE ODT 30 MG TABLET PO SCH (09:06)
[2019-10-19] MEDS: METOPROLOL TARTRATE 50 MG TABLET PO SCH ×2 (09:06→22:12)
[2019-10-19] MEDS: amLODIPine 5 MG TABLET PO SCH (09:06)
[2019-10-19] MEDS: POLYETHYLENE GLYCOL POWDER 17 GM PACK PO SCH ×2 (09:06→22:12)
[2019-10-19] MEDS: LIDOCAINE 5% PATCH TRANSDERM SCH (09:06)
[2019-10-19] MEDS: SODIUM CHLORIDE 1 GM TABLET PO SCH ×2 (09:06→22:11)
[2019-10-19] MEDS: CYCLOBENZAPRINE 10 MG TABLET PO PRN ×2 (09:29→17:47)
[2019-10-19] MEDS: PROMETHAZINE 25 MG TABLET PO PRN ×2 (11:02→22:12)
[2019-10-19] MEDS: ACETAMINOPHEN 325 MG TABLET PO PRN (18:11)
[2019-10-19] MEDS: AMITRIPTYLINE 10 MG TABLET NG SCH (22:11)
[2019-10-19] MEDS: ATORVASTATIN 80 MG TABLET PO SCH (22:11)
[2019-10-19] MEDS: OMEGA 3 ACID ETHYL ESTERS 1 GM CAPSULE PO SCH (22:11)
[2019-10-19] MEDS: diphenhydrAMINE 25 MG/10 ML UDCUP PO PRN (22:11)
[2019-10-19] MEDS: tiZANidine 4 MG TABLET PO PRN (22:12)
[2019-10-20] MEDS: INSULIN REGULAR 100 UNIT/ML SUBCUT SCH ×6 (00:13→21:00)
[2019-10-20] MEDS ORDERED: INSULIN REGULAR 100 UNIT/ML SUBCUT ONE (06:46)
[2019-10-20] MEDS: COENZYME Q10 100 MG CAPSULE PO SCH (08:05)
[2019-10-20] MEDS: METOPROLOL TARTRATE 50 MG TABLET PO SCH (08:05)
[2019-10-20] MEDS: LIDOCAINE 5% PATCH TRANSDERM SCH (08:05)
[2019-10-20] MEDS: TICAGRELOR 90 MG TABLET PER TUBE SCH ×2 (08:05→22:02)
[2019-10-20] MEDS: INSULIN GLARGINE 100 UNIT/ML SUBCUT SCH (08:05)
[2019-10-20] MEDS: APIXABAN 5 MG TABLET PO SCH ×2 (08:05→22:02)
[2019-10-20] MEDS: SODIUM CHLORIDE 1 GM TABLET PO SCH ×2 (08:06→22:02)
[2019-10-20] MEDS: amLODIPine 5 MG TABLET PO SCH (08:06)
[2019-10-20] MEDS: POLYETHYLENE GLYCOL POWDER 17 GM PACK PO SCH ×2 (08:06→22:00)
[2019-10-20] MEDS: LANSOPRAZOLE ODT 30 MG TABLET PO SCH (08:06)
[2019-10-20] MEDS: OMEGA 3 ACID ETHYL ESTERS 1 GM CAPSULE PO SCH (22:00)
[2019-10-20] MEDS: diphenhydrAMINE 25 MG/10 ML UDCUP PO PRN (22:00)
[2019-10-20] MEDS: ATORVASTATIN 80 MG TABLET PO SCH (22:02)
[2019-10-20] MEDS: METOPROLOL TARTRATE 100 MG TABLET PO SCH (22:02)
[2019-10-20] MEDS: PROMETHAZINE 25 MG TABLET PO PRN (22:03)
[2019-10-20] MEDS: tiZANidine 4 MG TABLET PO PRN (22:03)
[2019-10-20] MEDS: AMITRIPTYLINE 10 MG TABLET NG SCH (22:03)
[2019-10-20] MEDS: CYCLOBENZAPRINE 10 MG TABLET PO PRN (22:03)
[2019-10-21] MEDS: INSULIN REGULAR 100 UNIT/ML SUBCUT SCH ×6 (00:20→21:02)
[2019-10-21 05:18] LABS: Calcium 9.4 MG/DL (8.5-10.1); Osmolality,Calculated 289.8 MOS/KG (273-304)
[2019-10-21] MEDS: TICAGRELOR 90 MG TABLET PER TUBE SCH ×2 (10:13→20:59)
[2019-10-21] MEDS: amLODIPine 5 MG TABLET PO SCH (10:13)
[2019-10-21] MEDS: COENZYME Q10 100 MG CAPSULE PO SCH (10:13)
[2019-10-21] MEDS: APIXABAN 5 MG TABLET PO SCH ×2 (10:14→20:59)
[2019-10-21] MEDS: LIDOCAINE 5% PATCH TRANSDERM SCH (10:14)
[2019-10-21] MEDS: METOPROLOL TARTRATE 100 MG TABLET PO SCH ×2 (10:14→20:59)
[2019-10-21] MEDS: LANSOPRAZOLE ODT 30 MG TABLET PO SCH (10:14)
[2019-10-21] MEDS: SODIUM CHLORIDE 1 GM TABLET PO SCH ×2 (10:14→20:59)
[2019-10-21] MEDS: POLYETHYLENE GLYCOL POWDER 17 GM PACK PO SCH ×2 (10:15→21:00)
[2019-10-21] MEDS: INSULIN GLARGINE 100 UNIT/ML SUBCUT SCH (10:15)
[2019-10-21] MEDS: AMITRIPTYLINE 10 MG TABLET NG SCH (20:59)
[2019-10-21] MEDS: ATORVASTATIN 80 MG TABLET PO SCH (20:59)
[2019-10-21] MEDS: OMEGA 3 ACID ETHYL ESTERS 1 GM CAPSULE PO SCH (20:59)
[2019-10-21] MEDS: ACETAMINOPHEN 325 MG TABLET PO PRN (22:59)
[2019-10-21] MEDS: PROMETHAZINE 25 MG TABLET PO PRN (23:05)
[2019-10-22] MEDS: INSULIN REGULAR 100 UNIT/ML SUBCUT SCH ×6 (05:00→22:30)
[2019-10-22] MEDS: LIDOCAINE 5% PATCH TRANSDERM SCH (11:41)
[2019-10-22] MEDS: POLYETHYLENE GLYCOL POWDER 17 GM PACK PO SCH ×2 (11:42→20:57)
[2019-10-22] MEDS: amLODIPine 5 MG TABLET PO SCH (11:42)
[2019-10-22] MEDS: TICAGRELOR 90 MG TABLET PER TUBE SCH ×2 (11:42→20:56)
[2019-10-22] MEDS: APIXABAN 5 MG TABLET PO SCH ×2 (11:42→20:56)
[2019-10-22] MEDS: COENZYME Q10 100 MG CAPSULE PO SCH (11:42)
[2019-10-22] MEDS: SODIUM CHLORIDE 1 GM TABLET PO SCH ×2 (11:42→20:56)
[2019-10-22] MEDS: METOPROLOL TARTRATE 100 MG TABLET PO SCH ×2 (11:42→20:56)
[2019-10-22] MEDS: INSULIN GLARGINE 100 UNIT/ML SUBCUT SCH (11:49)
[2019-10-22] MEDS: LANSOPRAZOLE ODT 30 MG TABLET PO SCH (12:03)
[2019-10-22] MEDS: LANSOPRAZOLE 3 MG/ML 90 ML/BOTTLE PO SCH (12:10)
[2019-10-22] MEDS: ACETAMINOPHEN 325 MG TABLET PO PRN (12:10)
[2019-10-22] MEDS: OMEGA 3 ACID ETHYL ESTERS 1 GM CAPSULE PO SCH (20:56)
[2019-10-22] MEDS: ATORVASTATIN 80 MG TABLET PO SCH (20:56)
[2019-10-22] MEDS: AMITRIPTYLINE 10 MG TABLET NG SCH (20:56)
[2019-10-22] MEDS: diphenhydrAMINE 25 MG/10 ML UDCUP PO PRN (20:57)
[2019-10-23] MEDS: INSULIN REGULAR 100 UNIT/ML SUBCUT SCH ×6 (00:55→21:20)
[2019-10-23] MEDS: LIDOCAINE 5% PATCH TRANSDERM SCH (10:39)
[2019-10-23] MEDS: amLODIPine 5 MG TABLET PO SCH (10:40)
[2019-10-23] MEDS: INSULIN GLARGINE 100 UNIT/ML SUBCUT SCH (10:40)
[2019-10-23] MEDS: METOPROLOL TARTRATE 100 MG TABLET PO SCH ×2 (10:41→21:14)
[2019-10-23] MEDS: APIXABAN 5 MG TABLET PO SCH ×2 (10:41→21:15)
[2019-10-23] MEDS: TICAGRELOR 90 MG TABLET PER TUBE SCH ×2 (10:41→21:14)
[2019-10-23] MEDS: POLYETHYLENE GLYCOL POWDER 17 GM PACK PO SCH ×2 (10:41→21:15)
[2019-10-23] MEDS: SODIUM CHLORIDE 1 GM TABLET PO SCH ×2 (10:41→21:14)
[2019-10-23] MEDS: tiZANidine 4 MG TABLET PO PRN (10:41)
[2019-10-23] MEDS: COENZYME Q10 100 MG CAPSULE PO SCH (10:41)
[2019-10-23] MEDS: LANSOPRAZOLE 3 MG/ML 90 ML/BOTTLE PO SCH (10:42)
[2019-10-23] MEDS: OMEGA 3 ACID ETHYL ESTERS 1 GM CAPSULE PO SCH (21:14)
[2019-10-23] MEDS: AMITRIPTYLINE 10 MG TABLET NG SCH (21:15)
[2019-10-23] MEDS: ATORVASTATIN 80 MG TABLET PO SCH (21:15)
[2019-10-24] MEDS: INSULIN REGULAR 100 UNIT/ML SUBCUT SCH ×6 (01:09→21:01)
[2019-10-24 08:22] LABS: Calcium 9.6 MG/DL (8.5-10.1); Osmolality,Calculated 284.7 MOS/KG (273-304)
[2019-10-24] MEDS: INSULIN GLARGINE 100 UNIT/ML SUBCUT SCH (08:54)
[2019-10-24 10:44] LABS: Hepatitis B Core IgM Quant < 0.05 Index; Hepatitis B Surface Ag Quant < 0.10 Index; Hepatitis B Surface Ag Result Negative (Negative); Hepatitis C Virus Ab Quant 0.43 Index; Hepatitis C Virus Ab Result Negative (Negative)
[2019-10-24] MEDS: COENZYME Q10 100 MG CAPSULE PO SCH (14:22)
[2019-10-24] MEDS: SODIUM CHLORIDE 1 GM TABLET PO SCH ×2 (14:22→20:59)
[2019-10-24] MEDS: amLODIPine 5 MG TABLET PO SCH (14:22)
[2019-10-24] MEDS: APIXABAN 5 MG TABLET PO SCH ×2 (14:23→20:59)
[2019-10-24] MEDS: LANSOPRAZOLE 3 MG/ML 90 ML/BOTTLE PO SCH (14:23)
[2019-10-24] MEDS: TICAGRELOR 90 MG TABLET PER TUBE SCH ×2 (14:23→21:00)
[2019-10-24] MEDS: LIDOCAINE 5% PATCH TRANSDERM SCH (14:23)
[2019-10-24] MEDS: POLYETHYLENE GLYCOL POWDER 17 GM PACK PO SCH ×2 (14:23→20:59)
[2019-10-24] MEDS: METOPROLOL TARTRATE 100 MG TABLET PO SCH ×2 (14:23→21:00)
[2019-10-24] MEDS: diphenhydrAMINE 25 MG/10 ML UDCUP PO PRN (20:59)
[2019-10-24] MEDS: AMITRIPTYLINE 10 MG TABLET NG SCH (20:59)
[2019-10-24] MEDS: ATORVASTATIN 80 MG TABLET PO SCH (20:59)
[2019-10-24] MEDS: OMEGA 3 ACID ETHYL ESTERS 1 GM CAPSULE PO SCH (20:59)
[2019-10-24] MEDS: PROMETHAZINE 25 MG TABLET PO PRN (21:00)
[2019-10-24] MEDS: CYCLOBENZAPRINE 10 MG TABLET PO PRN (21:01)
[2019-10-24] MEDS: tiZANidine 4 MG TABLET PO PRN (21:01)
[2019-10-25] MEDS: INSULIN REGULAR 100 UNIT/ML SUBCUT SCH ×6 (01:04→21:30)
[2019-10-25] MEDS: amLODIPine 5 MG TABLET PO SCH (08:59)
[2019-10-25] MEDS: INSULIN GLARGINE 100 UNIT/ML SUBCUT SCH (08:59)
[2019-10-25] MEDS: SODIUM CHLORIDE 1 GM TABLET PO SCH ×2 (08:59→22:45)
[2019-10-25] MEDS: LANSOPRAZOLE 3 MG/ML 90 ML/BOTTLE PO SCH (08:59)
[2019-10-25] MEDS: POLYETHYLENE GLYCOL POWDER 17 GM PACK PO SCH ×2 (08:59→22:44)
[2019-10-25] MEDS: TICAGRELOR 90 MG TABLET PER TUBE SCH ×2 (08:59→22:44)
[2019-10-25] MEDS: METOPROLOL TARTRATE 100 MG TABLET PO SCH ×2 (08:59→22:45)
[2019-10-25] MEDS: COENZYME Q10 100 MG CAPSULE PO SCH (08:59)
[2019-10-25] MEDS: LIDOCAINE 5% PATCH TRANSDERM SCH (08:59)
[2019-10-25] MEDS: APIXABAN 5 MG TABLET PO SCH ×2 (08:59→22:45)
[2019-10-25] MEDS: AMITRIPTYLINE 10 MG TABLET NG SCH (22:44)
[2019-10-25] MEDS: diphenhydrAMINE 25 MG/10 ML UDCUP PO PRN (22:44)
[2019-10-25] MEDS: OMEGA 3 ACID ETHYL ESTERS 1 GM CAPSULE PO SCH (22:44)
[2019-10-25] MEDS: CYCLOBENZAPRINE 10 MG TABLET PO PRN (22:45)
[2019-10-25] MEDS: ATORVASTATIN 80 MG TABLET PO SCH (22:45)
[2019-10-25] MEDS: tiZANidine 4 MG TABLET PO PRN (22:46)
[2019-10-25] MEDS: PROMETHAZINE 25 MG TABLET PO PRN (22:46)
[2019-10-26] MEDS: INSULIN REGULAR 100 UNIT/ML SUBCUT SCH ×6 (01:04→21:25)
[2019-10-26] MEDS: tiZANidine 4 MG TABLET PO PRN (07:19)
[2019-10-26] MEDS: diphenhydrAMINE 25 MG/10 ML UDCUP PO PRN ×2 (07:19→21:25)
[2019-10-26] MEDS: ACETAMINOPHEN 325 MG TABLET PO PRN (12:54)
[2019-10-26] MEDS: PROMETHAZINE 25 MG TABLET PO PRN (12:55)
[2019-10-26] MEDS: LIDOCAINE 5% PATCH TRANSDERM SCH (13:41)
[2019-10-26] MEDS: INSULIN GLARGINE 100 UNIT/ML SUBCUT SCH (13:42)
[2019-10-26] MEDS: POLYETHYLENE GLYCOL POWDER 17 GM PACK PO SCH ×2 (13:43→21:25)
[2019-10-26] MEDS: METOPROLOL TARTRATE 100 MG TABLET PO SCH ×2 (13:43→21:25)
[2019-10-26] MEDS: amLODIPine 5 MG TABLET PO SCH (13:43)
[2019-10-26] MEDS: TICAGRELOR 90 MG TABLET PER TUBE SCH ×2 (13:43→21:25)
[2019-10-26] MEDS: APIXABAN 5 MG TABLET PO SCH ×2 (13:43→21:25)
[2019-10-26] MEDS: COENZYME Q10 100 MG CAPSULE PO SCH (13:43)
[2019-10-26] MEDS: SODIUM CHLORIDE 1 GM TABLET PO SCH ×2 (13:43→21:25)
[2019-10-26] MEDS: LANSOPRAZOLE 3 MG/ML 90 ML/BOTTLE PO SCH (13:44)
[2019-10-26 15:35] LABS: Basophils % 0.4 % (0.0-0.8); Eosinophils # 0.2 10*3/uL (0.0-0.87); Eosinophils % 1.6 % (0.00-10.9); Hematocrit 38.6 VOL% (42.0-52.0); Hemoglobin 11.6 GM/DL (14.0-18.0); Immature Granulocytes % 0.4 %; Immature Granulocytes Absolute 0.04 #; Lymphocytes # 0.9 10*3/uL (1.4-4.0); Mean Corpuscular HGB Conc 30.1 GM/DL (32-36); Mean Corpuscular Volume 87.1 FL (87-102); Mean Platelet Volume 10.2 FL (9.6-12.0); Neutrophils % 74.6 % (38.7-73.9); Platelet Count 361 T/CUMM (130-400); Red Blood Count 4.43 MC/CUMM (3.8-5.5); Red Cell Distribution Width 16.7 % (9.3-17.3); White Blood Count 9.1 T/CUMM (4-12)
[2019-10-26] MEDS: ATORVASTATIN 80 MG TABLET PO SCH (21:25)
[2019-10-26] MEDS: CYCLOBENZAPRINE 10 MG TABLET PO PRN (21:25)
[2019-10-26] MEDS: AMITRIPTYLINE 10 MG TABLET NG SCH (21:25)
[2019-10-26] MEDS: OMEGA 3 ACID ETHYL ESTERS 1 GM CAPSULE PO SCH (21:25)
[2019-10-27] MEDS: INSULIN REGULAR 100 UNIT/ML SUBCUT SCH ×6 (04:24→21:16)
[2019-10-27] MEDS: INSULIN GLARGINE 100 UNIT/ML SUBCUT SCH (09:18)
[2019-10-27] MEDS: SODIUM CHLORIDE 1 GM TABLET PO SCH ×2 (09:19→21:48)
[2019-10-27] MEDS: POLYETHYLENE GLYCOL POWDER 17 GM PACK PO SCH ×2 (09:19→21:48)
[2019-10-27] MEDS: TICAGRELOR 90 MG TABLET PER TUBE SCH ×2 (09:19→21:48)
[2019-10-27] MEDS: LANSOPRAZOLE 3 MG/ML 90 ML/BOTTLE PO SCH (09:19)
[2019-10-27] MEDS: METOPROLOL TARTRATE 100 MG TABLET PO SCH ×2 (09:19→21:48)
[2019-10-27] MEDS: APIXABAN 5 MG TABLET PO SCH ×2 (09:19→21:48)
[2019-10-27] MEDS: LIDOCAINE 5% PATCH TRANSDERM SCH (09:19)
[2019-10-27] MEDS: amLODIPine 5 MG TABLET PO SCH (09:19)
[2019-10-27] MEDS: COENZYME Q10 100 MG CAPSULE PO SCH (09:19)
[2019-10-27] MEDS: ATORVASTATIN 80 MG TABLET PO SCH (21:48)
[2019-10-27] MEDS: OMEGA 3 ACID ETHYL ESTERS 1 GM CAPSULE PO SCH (21:48)
[2019-10-27] MEDS: AMITRIPTYLINE 10 MG TABLET NG SCH (21:48)
[2019-10-28] MEDS: INSULIN REGULAR 100 UNIT/ML SUBCUT SCH ×6 (01:14→21:10)
[2019-10-28 05:10] LABS: Calcium 9.7 MG/DL (8.5-10.1); Osmolality,Calculated 285.1 MOS/KG (273-304)
[2019-10-28] MEDS: TICAGRELOR 90 MG TABLET PER TUBE SCH ×2 (08:56→23:11)
[2019-10-28] MEDS: LIDOCAINE 5% PATCH TRANSDERM SCH (08:56)
[2019-10-28] MEDS: INSULIN GLARGINE 100 UNIT/ML SUBCUT SCH (08:56)
[2019-10-28] MEDS: COENZYME Q10 100 MG CAPSULE PO SCH (08:56)
[2019-10-28] MEDS: APIXABAN 5 MG TABLET PO SCH ×2 (08:56→23:11)
[2019-10-28] MEDS: METOPROLOL TARTRATE 100 MG TABLET PO SCH ×2 (08:57→23:11)
[2019-10-28] MEDS: SODIUM CHLORIDE 1 GM TABLET PO SCH ×2 (08:57→23:10)
[2019-10-28] MEDS: POLYETHYLENE GLYCOL POWDER 17 GM PACK PO SCH ×2 (08:57→23:13)
[2019-10-28] MEDS: amLODIPine 5 MG TABLET PO SCH (08:57)
[2019-10-28] MEDS: LANSOPRAZOLE 3 MG/ML 90 ML/BOTTLE PO SCH (08:57)
[2019-10-28] MEDS: diphenhydrAMINE 25 MG/10 ML UDCUP PO PRN (23:10)
[2019-10-28] MEDS: AMITRIPTYLINE 10 MG TABLET NG SCH (23:11)
[2019-10-28] MEDS: CYCLOBENZAPRINE 10 MG TABLET PO PRN (23:11)
[2019-10-28] MEDS: ATORVASTATIN 80 MG TABLET PO SCH (23:11)
[2019-10-28] MEDS: OMEGA 3 ACID ETHYL ESTERS 1 GM CAPSULE PO SCH (23:11)
[2019-10-28] MEDS: tiZANidine 4 MG TABLET PO PRN (23:12)
[2019-10-28] MEDS: PROMETHAZINE 25 MG TABLET PO PRN (23:12)
[2019-10-29] MEDS: INSULIN REGULAR 100 UNIT/ML SUBCUT SCH ×7 (01:46→20:41)
[2019-10-29] MEDS: COENZYME Q10 100 MG CAPSULE PO SCH (08:33)
[2019-10-29] MEDS: APIXABAN 5 MG TABLET PO SCH ×2 (08:33→20:45)
[2019-10-29] MEDS: INSULIN GLARGINE 100 UNIT/ML SUBCUT SCH (08:33)
[2019-10-29] MEDS: TICAGRELOR 90 MG TABLET PER TUBE SCH ×2 (08:33→20:46)
[2019-10-29] MEDS: LIDOCAINE 5% PATCH TRANSDERM SCH (08:34)
[2019-10-29] MEDS: LANSOPRAZOLE 3 MG/ML 90 ML/BOTTLE PO SCH (08:34)
[2019-10-29] MEDS: POLYETHYLENE GLYCOL POWDER 17 GM PACK PO SCH ×2 (08:34→20:46)
[2019-10-29] MEDS: SODIUM CHLORIDE 1 GM TABLET PO SCH ×2 (08:34→20:45)
[2019-10-29] MEDS: METOPROLOL TARTRATE 100 MG TABLET PO SCH ×2 (08:34→20:46)
[2019-10-29] MEDS: amLODIPine 5 MG TABLET PO SCH (08:34)
[2019-10-29] MEDS: OMEGA 3 ACID ETHYL ESTERS 1 GM CAPSULE PO SCH (20:45)
[2019-10-29] MEDS: ATORVASTATIN 80 MG TABLET PO SCH (20:45)
[2019-10-29] MEDS: diphenhydrAMINE 25 MG/10 ML UDCUP PO PRN (20:45)
[2019-10-29] MEDS: tiZANidine 4 MG TABLET PO PRN (20:46)
[2019-10-29] MEDS: CYCLOBENZAPRINE 10 MG TABLET PO PRN (20:46)
[2019-10-29] MEDS: PROMETHAZINE 25 MG TABLET PO PRN (20:46)
[2019-10-29] MEDS: AMITRIPTYLINE 10 MG TABLET NG SCH (20:46)
[2019-10-30] MEDS: INSULIN REGULAR 100 UNIT/ML SUBCUT SCH ×3 (00:18→09:01)
[2019-10-30] MEDS: GLUCAGON 1 MG VIAL IM PRN (05:35)
[2019-10-30] MEDS: SKIN HEALING OINT (AQUAPHOR) 50 GM TUBE TOP PRN (08:56)
[2019-10-30] MEDS: LIDOCAINE 5% PATCH TRANSDERM SCH (08:56)
[2019-10-30] MEDS: TICAGRELOR 90 MG TABLET PER TUBE SCH ×2 (08:59→22:05)
[2019-10-30] MEDS: COENZYME Q10 100 MG CAPSULE PO SCH (08:59)
[2019-10-30] MEDS: POLYETHYLENE GLYCOL POWDER 17 GM PACK PO SCH ×2 (08:59→22:03)
[2019-10-30] MEDS: SODIUM CHLORIDE 1 GM TABLET PO SCH ×2 (08:59→22:05)
[2019-10-30] MEDS: METOPROLOL TARTRATE 100 MG TABLET PO SCH ×2 (09:00→22:08)
[2019-10-30] MEDS ORDERED: INSULIN GLARGINE 100 UNIT/ML SUBCUT SCH ×2 (09:00)
[2019-10-30] MEDS: LANSOPRAZOLE 3 MG/ML 90 ML/BOTTLE PO SCH (09:00)
[2019-10-30] MEDS: APIXABAN 5 MG TABLET PO SCH ×2 (09:00→22:05)
[2019-10-30] MEDS: amLODIPine 5 MG TABLET PO SCH (09:00)
[2019-10-30] MEDS: INSULIN NPH 100 UNIT/ML SUBCUT SCH ×2 (09:02→16:28)
[2019-10-30] MEDS ORDERED: GLUCAGON 1 MG VIAL IM PRN (10:38)
[2019-10-30] MEDS ORDERED: DEXTROSE 50% 25 GM/50 ML VIAL IV PRN (10:38)
[2019-10-30] MEDS ORDERED: INSULIN REGULAR 100 UNIT/ML SUBCUT SCH (12:00)
[2019-10-30] MEDS: INSULIN LISPRO 100 UNIT/ML SUBCUT SCH ×3 (12:22→23:42)
[2019-10-30] MEDS ORDERED: TUBERCULIN SKIN TEST 0.1 ML SYRINGE INTRADERM ONE (15:26)
[2019-10-30] MEDS: diphenhydrAMINE 25 MG/10 ML UDCUP PO PRN (22:03)
[2019-10-30] MEDS: PROMETHAZINE 25 MG TABLET PO PRN (22:04)
[2019-10-30] MEDS: CYCLOBENZAPRINE 10 MG TABLET PO PRN (22:04)
[2019-10-30] MEDS: OMEGA 3 ACID ETHYL ESTERS 1 GM CAPSULE PO SCH (22:04)
[2019-10-30] MEDS: AMITRIPTYLINE 10 MG TABLET NG SCH (22:05)
[2019-10-30] MEDS: ATORVASTATIN 80 MG TABLET PO SCH (22:06)
[2019-10-31] MEDS: INSULIN LISPRO 100 UNIT/ML SUBCUT SCH ×7 (05:23→21:51)
[2019-10-31] MEDS: INSULIN NPH 100 UNIT/ML SUBCUT SCH ×2 (09:40→16:02)
[2019-10-31] MEDS: diphenhydrAMINE 25 MG/10 ML UDCUP PO PRN ×2 (10:45→21:32)
[2019-10-31] MEDS: LIDOCAINE 5% PATCH TRANSDERM SCH (14:00)
[2019-10-31] MEDS: APIXABAN 5 MG TABLET PO SCH ×2 (14:01→21:33)
[2019-10-31] MEDS: SODIUM CHLORIDE 1 GM TABLET PO SCH ×2 (14:01→21:31)
[2019-10-31] MEDS: METOPROLOL TARTRATE 100 MG TABLET PO SCH ×2 (14:01→21:33)
[2019-10-31] MEDS: amLODIPine 5 MG TABLET PO SCH (14:01)
[2019-10-31] MEDS: COENZYME Q10 100 MG CAPSULE PO SCH (14:01)
[2019-10-31] MEDS: TICAGRELOR 90 MG TABLET PER TUBE SCH ×2 (14:01→21:31)
[2019-10-31] MEDS: tiZANidine 4 MG TABLET PO PRN (14:01)
[2019-10-31] MEDS: LANSOPRAZOLE 3 MG/ML 90 ML/BOTTLE PO SCH (14:02)
[2019-10-31] MEDS: POLYETHYLENE GLYCOL POWDER 17 GM PACK PO SCH ×2 (14:02→21:31)
[2019-10-31] MEDS: PROMETHAZINE 25 MG TABLET PO PRN (21:31)
[2019-10-31] MEDS: AMITRIPTYLINE 10 MG TABLET NG SCH (21:31)
[2019-10-31] MEDS: OMEGA 3 ACID ETHYL ESTERS 1 GM CAPSULE PO SCH (21:32)
[2019-10-31] MEDS: CYCLOBENZAPRINE 10 MG TABLET PO PRN (21:32)
[2019-10-31] MEDS: ATORVASTATIN 80 MG TABLET PO SCH (21:33)
[2019-11-01] MEDS: tiZANidine 4 MG TABLET PO PRN (02:06)
[2019-11-01] MEDS ORDERED: INSULIN LISPRO 100 UNIT/ML SUBCUT ONE (06:05)
[2019-11-01 07:30] LABS: Calcium 9.1 MG/DL (8.5-10.1); Osmolality,Calculated 287.6 MOS/KG (273-304)
[2019-11-01] MEDS ORDERED: SODIUM POLYSTYRENE SULFATE 15 GM/60 ML BOTTLE PO ONE (08:00)
[2019-11-01] MEDS ORDERED: INSULIN REGULAR 100 UNIT/ML IV ONE (09:30)
[2019-11-01] MEDS: TICAGRELOR 90 MG TABLET PER TUBE SCH ×2 (09:43→21:08)
[2019-11-01] MEDS: SODIUM CHLORIDE 1 GM TABLET PO SCH ×2 (09:43→21:08)
[2019-11-01] MEDS: amLODIPine 5 MG TABLET PO SCH (09:43)
[2019-11-01] MEDS: COENZYME Q10 100 MG CAPSULE PO SCH (09:43)
[2019-11-01] MEDS: POLYETHYLENE GLYCOL POWDER 17 GM PACK PO SCH ×2 (09:43→21:08)
[2019-11-01] MEDS: METOPROLOL TARTRATE 100 MG TABLET PO SCH ×2 (09:43→21:08)
[2019-11-01] MEDS: APIXABAN 5 MG TABLET PO SCH ×2 (09:43→21:08)
[2019-11-01] MEDS: LIDOCAINE 5% PATCH TRANSDERM SCH (09:44)
[2019-11-01] MEDS: INSULIN LISPRO 100 UNIT/ML SUBCUT SCH ×8 (09:45→21:52)
[2019-11-01] MEDS: LANSOPRAZOLE 3 MG/ML 90 ML/BOTTLE PO SCH (09:45)
[2019-11-01] MEDS: INSULIN NPH 100 UNIT/ML SUBCUT SCH ×2 (09:46→17:33)
[2019-11-01] MEDS: OMEGA 3 ACID ETHYL ESTERS 1 GM CAPSULE PO SCH (21:07)
[2019-11-01] MEDS: AMITRIPTYLINE 10 MG TABLET NG SCH (21:07)
[2019-11-01] MEDS: ATORVASTATIN 80 MG TABLET PO SCH (21:08)
[2019-11-02] MEDS ORDERED: INSULIN REGULAR 100 UNIT/ML ONE (04:41)
[2019-11-02] MEDS ORDERED: INSULIN REGULAR 100 UNIT/ML IV ONE (04:42)
[2019-11-02] MEDS ORDERED: INSULIN LISPRO 100 UNIT/ML SUBCUT ONE (04:43)
[2019-11-02 05:55] LABS: Osmolality,Calculated 300.1 MOS/KG (273-304)
[2019-11-02 06:06] LABS: Calcium 9.7 MG/DL (8.5-10.1)
[2019-11-02] MEDS: INSULIN NPH 100 UNIT/ML SUBCUT SCH ×2 (08:05→17:51)
[2019-11-02] MEDS: LIDOCAINE 5% PATCH TRANSDERM SCH (08:06)
[2019-11-02] MEDS: APIXABAN 5 MG TABLET PO SCH ×2 (08:06→21:38)
[2019-11-02] MEDS: TICAGRELOR 90 MG TABLET PER TUBE SCH ×2 (08:06→21:37)
[2019-11-02] MEDS: INSULIN LISPRO 100 UNIT/ML SUBCUT SCH ×4 (08:06→21:33)
[2019-11-02] MEDS: COENZYME Q10 100 MG CAPSULE PO SCH (08:06)
[2019-11-02] MEDS: SODIUM CHLORIDE 1 GM TABLET PO SCH ×2 (08:07→21:37)
[2019-11-02] MEDS: LANSOPRAZOLE 3 MG/ML 90 ML/BOTTLE PO SCH (08:07)
[2019-11-02] MEDS: METOPROLOL TARTRATE 100 MG TABLET PO SCH ×2 (08:07→21:38)
[2019-11-02] MEDS: amLODIPine 5 MG TABLET PO SCH (08:07)
[2019-11-02] MEDS: POLYETHYLENE GLYCOL POWDER 17 GM PACK PO SCH ×2 (08:07→21:39)
[2019-11-02] MEDS: CYCLOBENZAPRINE 10 MG TABLET PO PRN ×2 (08:15→21:37)
[2019-11-02] MEDS ORDERED: DEXTROSE 50% 25 GM/50 ML VIAL IV PRN (11:02)
[2019-11-02] MEDS: ACETAMINOPHEN 325 MG TABLET PO PRN (11:37)
[2019-11-02] MEDS: INSULIN GLARGINE 100 UNIT/ML SUBCUT SCH (12:38)
[2019-11-02] MEDS: diphenhydrAMINE 25 MG/10 ML UDCUP PO PRN (21:37)
[2019-11-02] MEDS: PROMETHAZINE 25 MG TABLET PO PRN (21:37)
[2019-11-02] MEDS: tiZANidine 4 MG TABLET PO PRN (21:38)
[2019-11-02] MEDS: ATORVASTATIN 80 MG TABLET PO SCH (21:38)
[2019-11-02] MEDS: AMITRIPTYLINE 10 MG TABLET NG SCH (21:38)
[2019-11-02] MEDS: OMEGA 3 ACID ETHYL ESTERS 1 GM CAPSULE PO SCH (21:38)
[2019-11-02] MEDS ORDERED: INSULIN REGULAR 100 UNIT/ML SUBCUT STA (22:33)
[2019-11-03] MEDS ORDERED: SODIUM CHLORIDE 0.9% 500 ML IV ONE (00:31)
[2019-11-03] MEDS ORDERED: GLUCAGON 1 MG VIAL IM PRN (02:25)
[2019-11-03] MEDS ORDERED: DEXTROSE 50% 25 GM/50 ML VIAL IV PRN (02:25)
[2019-11-03] MEDS: INSULIN LISPRO 100 UNIT/ML SUBCUT SCH ×9 (02:47→22:21)
[2019-11-03 07:08] LABS: Calcium 9.7 MG/DL (8.5-10.1); Osmolality,Calculated 279.1 MOS/KG (273-304)
[2019-11-03] MEDS ORDERED: INSULIN NPH 100 UNIT/ML SUBCUT SCH ×2 (08:19)
[2019-11-03] MEDS: INSULIN NPH 100 UNIT/ML SUBCUT SCH (09:48)
[2019-11-03] MEDS: INSULIN GLARGINE 100 UNIT/ML SUBCUT SCH (09:48)
[2019-11-03] MEDS: POLYETHYLENE GLYCOL POWDER 17 GM PACK PO SCH ×2 (09:48→23:26)
[2019-11-03] MEDS: COENZYME Q10 100 MG CAPSULE PO SCH (09:49)
[2019-11-03] MEDS: amLODIPine 10 MG TABLET PO SCH (09:49)
[2019-11-03] MEDS: METOPROLOL TARTRATE 100 MG TABLET PO SCH ×2 (09:49→22:20)
[2019-11-03] MEDS: LANSOPRAZOLE 3 MG/ML 90 ML/BOTTLE PO SCH (09:49)
[2019-11-03] MEDS: SODIUM CHLORIDE 1 GM TABLET PO SCH ×2 (09:49→22:20)
[2019-11-03] MEDS: APIXABAN 5 MG TABLET PO SCH ×2 (09:49→22:19)
[2019-11-03] MEDS: TICAGRELOR 90 MG TABLET PER TUBE SCH ×2 (09:49→22:20)
[2019-11-03] MEDS: LIDOCAINE 5% PATCH TRANSDERM SCH (09:51)
[2019-11-03] MEDS: hydrALAZINE 25 MG TABLET PO SCH ×2 (12:27→22:20)
[2019-11-03] MEDS: OMEGA 3 ACID ETHYL ESTERS 1 GM CAPSULE PO SCH (22:19)
[2019-11-03] MEDS: ATORVASTATIN 80 MG TABLET PO SCH (22:19)
[2019-11-03] MEDS: tiZANidine 4 MG TABLET PO PRN (22:20)
[2019-11-03] MEDS: diphenhydrAMINE 25 MG/10 ML UDCUP PO PRN (22:20)
[2019-11-03] MEDS: CYCLOBENZAPRINE 10 MG TABLET PO PRN (22:20)
[2019-11-03] MEDS: AMITRIPTYLINE 10 MG TABLET NG SCH (22:20)
[2019-11-03] MEDS: PROMETHAZINE 25 MG TABLET PO PRN (22:21)
[2019-11-04] MEDS: INSULIN LISPRO 100 UNIT/ML SUBCUT SCH ×10 (01:40→21:53)
[2019-11-04 04:57] LABS: Basophils # 0.1 10*3/uL (0.0-0.2); Basophils % 0.7 % (0.0-0.8); Eosinophils # 0.3 10*3/uL (0.0-0.87); Eosinophils % 3.9 % (0.00-10.9); Hematocrit 36.3 VOL% (42.0-52.0); Immature Granulocytes % 0.4 %; Immature Granulocytes Absolute 0.03 #; Lymphocytes # 1.5 10*3/uL (1.4-4.0); Lymphocytes % 20.5 % (21.2-54.2); Mean Corpuscular HGB Conc 30.3 GM/DL (32-36); Mean Corpuscular Volume 85.6 FL (87-102); Mean Platelet Volume 10.2 FL (9.6-12.0); Monocytes % 14.5 % (1.7-12.7); Platelet Count 432 T/CUMM (130-400); Red Blood Count 4.24 MC/CUMM (3.8-5.5); Red Cell Distribution Width 16.2 % (9.3-17.3); White Blood Count 7.5 T/CUMM (4-12)
[2019-11-04 05:24] LABS: Calcium 9.7 MG/DL (8.5-10.1)
[2019-11-04] MEDS: INSULIN GLARGINE 100 UNIT/ML SUBCUT SCH (08:33)
[2019-11-04] MEDS: POLYETHYLENE GLYCOL POWDER 17 GM PACK PO SCH ×2 (08:34→21:55)
[2019-11-04] MEDS: LIDOCAINE 5% PATCH TRANSDERM SCH (08:34)
[2019-11-04] MEDS: LANSOPRAZOLE 3 MG/ML 90 ML/BOTTLE PO SCH (08:35)
[2019-11-04] MEDS: TICAGRELOR 90 MG TABLET PER TUBE SCH ×2 (08:35→21:54)
[2019-11-04] MEDS: APIXABAN 5 MG TABLET PO SCH ×2 (08:35→21:54)
[2019-11-04] MEDS: hydrALAZINE 25 MG TABLET PO SCH ×2 (08:35→21:54)
[2019-11-04] MEDS: amLODIPine 10 MG TABLET PO SCH (08:35)
[2019-11-04] MEDS: METOPROLOL TARTRATE 100 MG TABLET PO SCH ×2 (08:35→21:54)
[2019-11-04] MEDS: SODIUM CHLORIDE 1 GM TABLET PO SCH ×2 (08:35→21:54)
[2019-11-04] MEDS: COENZYME Q10 100 MG CAPSULE PO SCH (08:35)
[2019-11-04] MEDS: OMEGA 3 ACID ETHYL ESTERS 1 GM CAPSULE PO SCH (21:54)
[2019-11-04] MEDS: AMITRIPTYLINE 10 MG TABLET NG SCH (21:54)
[2019-11-04] MEDS: ATORVASTATIN 80 MG TABLET PO SCH (21:54)
[2019-11-05] MEDS: INSULIN LISPRO 100 UNIT/ML SUBCUT SCH ×9 (00:24→22:25)
[2019-11-05 06:17] LABS: Calcium 9.7 MG/DL (8.5-10.1); Osmolality,Calculated 294.5 MOS/KG (273-304)
[2019-11-05] MEDS: TICAGRELOR 90 MG TABLET PER TUBE SCH ×2 (09:26→22:24)
[2019-11-05] MEDS: amLODIPine 10 MG TABLET PO SCH (09:26)
[2019-11-05] MEDS: SODIUM CHLORIDE 1 GM TABLET PO SCH ×2 (09:27→22:23)
[2019-11-05] MEDS: APIXABAN 5 MG TABLET PO SCH ×2 (09:27→22:28)
[2019-11-05] MEDS: COENZYME Q10 100 MG CAPSULE PO SCH (09:27)
[2019-11-05] MEDS: METOPROLOL TARTRATE 100 MG TABLET PO SCH ×2 (09:27→22:22)
[2019-11-05] MEDS: hydrALAZINE 25 MG TABLET PO SCH ×3 (09:27→22:26)
[2019-11-05] MEDS: INSULIN GLARGINE 100 UNIT/ML SUBCUT SCH (09:35)
[2019-11-05] MEDS: LIDOCAINE 5% PATCH TRANSDERM SCH (09:36)
[2019-11-05] MEDS: LANSOPRAZOLE 3 MG/ML 90 ML/BOTTLE PO SCH (09:38)
[2019-11-05] MEDS: POLYETHYLENE GLYCOL POWDER 17 GM PACK PO SCH ×2 (09:42→22:21)
[2019-11-05] MEDS: OMEGA 3 ACID ETHYL ESTERS 1 GM CAPSULE PO SCH (22:22)
[2019-11-05] MEDS: CYCLOBENZAPRINE 10 MG TABLET PO PRN (22:23)
[2019-11-05] MEDS: ATORVASTATIN 80 MG TABLET PO SCH (22:23)
[2019-11-05] MEDS: AMITRIPTYLINE 10 MG TABLET NG SCH (22:23)
[2019-11-05] MEDS: PROMETHAZINE 25 MG TABLET PO PRN (22:23)
[2019-11-06] MEDS: INSULIN GLARGINE 100 UNIT/ML SUBCUT SCH (08:54)
[2019-11-06] MEDS: INSULIN LISPRO 100 UNIT/ML SUBCUT SCH ×4 (08:55→13:01)
[2019-11-06] MEDS: amLODIPine 10 MG TABLET PO SCH (08:56)
[2019-11-06] MEDS: hydrALAZINE 25 MG TABLET PO SCH (08:56)
[2019-11-06] MEDS: COENZYME Q10 100 MG CAPSULE PO SCH (08:56)
[2019-11-06] MEDS: APIXABAN 5 MG TABLET PO SCH (08:57)
[2019-11-06] MEDS: LIDOCAINE 5% PATCH TRANSDERM SCH (08:57)
[2019-11-06] MEDS: SODIUM CHLORIDE 1 GM TABLET PO SCH (08:57)
[2019-11-06] MEDS: TICAGRELOR 90 MG TABLET PER TUBE SCH (08:57)
[2019-11-06] MEDS: POLYETHYLENE GLYCOL POWDER 17 GM PACK PO SCH (08:57)
[2019-11-06] MEDS: LANSOPRAZOLE 3 MG/ML 90 ML/BOTTLE PO SCH (08:57)
[2019-11-06] MEDS: METOPROLOL TARTRATE 100 MG TABLET PO SCH (08:58)
[2019-11-06 13:36] VITALS: BP 148/95
== END 2019-11-06 15:25 | DRG 45 ==
LOC: N.EDINP 12:54 → N.ED 12:54 → N.5E 08-10 00:06 → N.CC 08-10 13:00 → SUATTDRO 08-11 08:21 → N.TELES 08-13 17:20 → N.CC 08-15 16:04 → N.2E 08-26 14:21 → N.5E 09-14 23:35 → N.CC 09-18 14:24 → N.5E 09-19 10:56
PROVIDERS: ADMIT Internal Medicine; ATTEND Internal Medicine

== ENCOUNTER 2019-12-01 14:16 | Inpatient (IN) ==
[2019-12-01] MEDS ORDERED: ALBUTEROL 2.5 MG/3 ML NEB RESP TX PRN (16:45)
[2019-12-01] MEDS ORDERED: ACETAMINOPHEN 325 MG TABLET PO PRN (16:45)
[2019-12-01] MEDS ORDERED: DEXTROSE 50% 25 GM/50 ML VIAL IV PRN ×2 (16:52)
[2019-12-01] MEDS ORDERED: SODIUM BICARB INJ 100 MEQ in STERILE WATER INJ 400 ML IV PRN (16:52)
[2019-12-01] MEDS ORDERED: SODIUM CHLORIDE 0.9% 1,000 ML IV ONE (16:52)
[2019-12-01] MEDS ORDERED: MAGNESIUM SULF RIDER 2 GM in PREMIX 1 EACH IV PRN (16:57)
[2019-12-01] MEDS ORDERED: MAGNESIUM SULF RIDER 4 GM in PREMIX 1 EACH IV PRN (16:57)
[2019-12-01] MEDS ORDERED: INSULIN REGULAR DRIP 100 ML IV SCH (17:00)
[2019-12-01 17:09] LABS: Allen Test Positive
[2019-12-01 17:10] LABS: ABG Base Excess -9.6 MMOL/L (-2.5-2.5); ABG HCO3 16.8 MMOL/L (20-26); ABG PCO2 25.1 MM HG (35-48); ABG PH 7.371 (7.35-7.45); ABG TCO2 13.4 MMOL/L (23-27)
[2019-12-01 17:53] LABS: Basophils % 0.3 % (0.0-0.8); Eosinophils % 0.4 % (0.00-10.9); Hematocrit 29.4 VOL% (42.0-52.0); Hemoglobin 8.7 GM/DL (14.0-18.0); Immature Granulocytes % 0.5 %; Immature Granulocytes Absolute 0.05 #; Lymphocytes # 1.2 10*3/uL (1.4-4.0); Lymphocytes % 12.9 % (21.2-54.2); Mean Corpuscular HGB Conc 29.6 GM/DL (32-36); Monocytes % 9.8 % (1.7-12.7); Neutrophils % 76.1 % (38.7-73.9); Platelet Count 224 T/CUMM (130-400); Red Blood Count 3.34 MC/CUMM (3.8-5.5); Red Cell Distribution Width 18.2 % (9.3-17.3); White Blood Count 9.1 T/CUMM (4-12)
[2019-12-01 18:12] LABS: Alanine Aminotransferase 30 U/L (16-61); Albumin 2.7 G/DL (3.4-5.0); Alkaline Phosphatase 144 U/L (45-117); Aspartate Amino Transferase 389 U/L (0-37); Blood Urea Nitrogen 39 MG/DL (7-18); Calcium 8.6 MG/DL (8.5-10.1); Estimated Glom Filtration Rate 14 ML/MIN; Osmolality,Calculated 313.7 MOS/KG (273-304); Total Protein 6.3 G/DL (6.4-8.3)
[2019-12-01 18:15] LABS: Glucose 636 MG/DL (74-106)
[2019-12-01 18:20] LABS: Albumin 2.8 G/DL (3.4-5.0); Bilirubin,Direct 0.13 MG/DL (0.0-0.20); Bilirubin,Indirect 0.3 MG/DL (0.0-1.0); Bilirubin,Total 0.4 MG/DL (0.2-1.0)
[2019-12-01] MEDS ORDERED: BICILLIN CR 1,200,000 UNIT/2 ML SYRINGE IM ONE (20:00)
[2019-12-01] MEDS ORDERED: POTASSIUM PHOSPHATE 30 MMOL in SODIUM CHLORIDE 0.9% 250 ML IV ONE (20:00)
[2019-12-01] MEDS: SODIUM CHLORIDE 0.9% 1,000 ML IV SCH (20:26)
[2019-12-01] MEDS: ALBUTEROL/IPRATROPIUM 3 ML NEB RESP TX SCH (20:28)
[2019-12-01 20:39] LABS: Apearance,Urine Slightly Hazy (Clear); Bilirubin,Urine Negative (Negative); Blood, Urine Moderate mg/dL (Negative); Glucose,Urine (UA) >=500 mg/dL (Negative); Ketones,Urine 20 mg/dL (Negative); Nitrite,Urine Negative (Negative); Protein,Urine 100 MG/DL; RBC,Urine 27 /HPF (0-4); Squamous Epithelial Cell,Urine Occasional /HPF (0-10); Urine Color Yellow (Yellow); Urine Specific Gravity 1.015 (1.001-1.035); Urine Urobilinogen < 2.0 EU/DL (0.2-1.0); WBC,Urine 326 /HPF (0-6)
[2019-12-01] MEDS: FAMOTIDINE 20 MG/2 ML VIAL IV SCH (20:55)
[2019-12-01] MEDS: POTASSIUM CHLORIDE RIDER 10 MEQ in PREMIX 1 EACH IV PRN ×2 (20:56→22:00)
[2019-12-01] MEDS ORDERED: ENOXAPARIN 30 MG/0.3 ML SYRINGE SUBCUT SCH (21:00)
[2019-12-01 21:45] LABS: Calcium 8.7 MG/DL (8.5-10.1); Osmolality,Calculated 307.3 MOS/KG (273-304)
[2019-12-01] MEDS ORDERED: SODIUM CHLORIDE 0.9% 1,000 ML IV SCH (21:52)
[2019-12-01] MEDS: ONDANSETRON 4 MG/2 ML VIAL IV PRN (22:25)
[2019-12-01] MEDS ORDERED: NITROGLYCERIN SL 0.4 MG TABLET SL ONE (22:36)
[2019-12-01] MEDS ORDERED: NITROGLYCERIN SL 0.4 MG TABLET SL PRN (22:46)
[2019-12-01] MEDS ORDERED: ENOXAPARIN 40 MG/0.4 ML SYRINGE SUBCUT ONE (23:00)
[2019-12-01] MEDS ORDERED: ENOXAPARIN 60 MG/0.6 ML SYRINGE SUBCUT ONE (23:00)
[2019-12-02] MEDS: POTASSIUM CHLORIDE RIDER 10 MEQ in PREMIX 1 EACH IV PRN (01:12)
[2019-12-02 01:39] LABS: Calcium 8.5 MG/DL (8.5-10.1); Osmolality,Calculated 306.8 MOS/KG (273-304)
[2019-12-02] MEDS: ALBUTEROL/IPRATROPIUM 3 ML NEB RESP TX SCH ×4 (01:43→19:29)
[2019-12-02 04:42] LABS: Basophils # 0.1 10*3/uL (0.0-0.2); Basophils % 0.6 % (0.0-0.8); Eosinophils # 0.1 10*3/uL (0.0-0.87); Eosinophils % 1.2 % (0.00-10.9); Hematocrit 28.9 VOL% (42.0-52.0); Hemoglobin 8.8 GM/DL (14.0-18.0); Immature Granulocytes % 0.3 %; Immature Granulocytes Absolute 0.03 #; Lymphocytes # 1.1 10*3/uL (1.4-4.0); Lymphocytes % 10.8 % (21.2-54.2); Mean Corpuscular HGB Conc 30.4 GM/DL (32-36); Mean Platelet Volume 11.1 FL (9.6-12.0); Monocytes % 15.6 % (1.7-12.7); Neutrophils % 71.5 % (38.7-73.9); Platelet Count 234 T/CUMM (130-400); Red Blood Count 3.36 MC/CUMM (3.8-5.5); Red Cell Distribution Width 18.4 % (9.3-17.3); White Blood Count 10.5 T/CUMM (4-12)
[2019-12-02 05:08] LABS: Band Neutrophils 5 % (0-10); Eosinophils 2 % (0-10); Hypochromasia 1+; Lymphocytes 5 % (20-55); Platelet Estimate Adequate; Segmented Neutrophils 76 % (50-85); Total Cells Counted 100
[2019-12-02 05:10] LABS: Calcium 8.5 MG/DL (8.5-10.1); Osmolality,Calculated 305.7 MOS/KG (273-304)
[2019-12-02 05:11] LABS: Albumin 2.6 G/DL (3.4-5.0); Bilirubin,Direct 0.1 MG/DL (0.0-0.20); Bilirubin,Total 1.1 MG/DL (0.2-1.0); Calcium 8.4 MG/DL (8.5-10.1); Osmolality,Calculated 306.7 MOS/KG (273-304); Total Protein 6.3 G/DL (6.4-8.3)
[2019-12-02] MEDS ORDERED: DEXTROSE 10% 250 ML BAG IV PRN (08:03)
[2019-12-02] MEDS ORDERED: GLUCAGON 1 MG VIAL IM PRN (08:03)
[2019-12-02] MEDS: INSULIN REGULAR 100 UNIT/ML SUBCUT SCH ×5 (09:15→23:02)
[2019-12-02] MEDS ORDERED: diphenhydrAMINE 2% CREAM 28 GM TUBE TOP PRN (09:52)
[2019-12-02] MEDS ORDERED: SODIUM CHLORIDE 0.45% 1,000 ML IV SCH (09:52)
[2019-12-02] MEDS: METOPROLOL TARTRATE 100 MG TABLET PO SCH ×2 (10:15→23:19)
[2019-12-02] MEDS: ASPIRIN CHEW 81 MG TABLET PO SCH (10:16)
[2019-12-02] MEDS: TICAGRELOR 90 MG TABLET PO SCH ×2 (10:16→23:22)
[2019-12-02] MEDS: ONDANSETRON 4 MG/2 ML VIAL IV PRN (10:27)
[2019-12-02] MEDS: INSULIN GLARGINE 100 UNIT/ML SUBCUT SCH (10:43)
[2019-12-02] MEDS ORDERED: HEPARIN 10,000 UNIT/10 ML VIAL IV SCH (15:00)
[2019-12-02 15:24] LABS: Calcium 8.6 MG/DL (8.5-10.1); Osmolality,Calculated 301.8 MOS/KG (273-304)
[2019-12-02] MEDS ORDERED: ENOXAPARIN 80 MG/0.8 ML SYRINGE SUBCUT SCH (23:00)
[2019-12-02] MEDS: AMITRIPTYLINE 10 MG TABLET NG SCH (23:19)
[2019-12-02] MEDS: APIXABAN 5 MG TABLET PO SCH (23:22)
[2019-12-02] MEDS: OMEGA 3 ACID ETHYL ESTERS 1 GM CAPSULE PO SCH (23:29)
[2019-12-02] MEDS: FAMOTIDINE 20 MG/2 ML VIAL IV SCH (23:32)
[2019-12-03] MEDS: ALBUTEROL/IPRATROPIUM 3 ML NEB RESP TX SCH ×4 (01:21→21:09)
[2019-12-03] MEDS: INSULIN REGULAR 100 UNIT/ML SUBCUT SCH ×6 (02:04→20:52)
[2019-12-03 08:10] LABS: Basophils % 0.7 % (0.0-0.8); Eosinophils # 0.1 10*3/uL (0.0-0.87); Eosinophils % 1.6 % (0.00-10.9); Hematocrit 29.2 VOL% (42.0-52.0); Hemoglobin 8.9 GM/DL (14.0-18.0); Immature Granulocytes % 0.2 %; Immature Granulocytes Absolute 0.01 #; Lymphocytes % 17.2 % (21.2-54.2); Mean Corpuscular HGB Conc 30.5 GM/DL (32-36); Mean Corpuscular Volume 83.9 FL (87-102); Mean Platelet Volume 10.9 FL (9.6-12.0); Monocytes % 13.3 % (1.7-12.7); Red Blood Count 3.48 MC/CUMM (3.8-5.5); Red Cell Distribution Width 18.6 % (9.3-17.3)
[2019-12-03 08:18] LABS: Platelet Count 186 T/CUMM (130-400); White Blood Count 5.7 T/CUMM (4-12)
[2019-12-03 08:41] LABS: Albumin 2.4 G/DL (3.4-5.0); Bilirubin,Total 0.9 MG/DL (0.2-1.0); Calcium 8.7 MG/DL (8.5-10.1); Osmolality,Calculated 285.5 MOS/KG (273-304); Total Protein 6.5 G/DL (6.4-8.3)
[2019-12-03] MEDS: ASPIRIN CHEW 81 MG TABLET PO SCH (10:29)
[2019-12-03] MEDS: POLYETHYLENE GLYCOL POWDER 17 GM PACK PO SCH (10:29)
[2019-12-03] MEDS: CITALOPRAM 20 MG TABLET PO SCH (10:30)
[2019-12-03] MEDS: TICAGRELOR 90 MG TABLET PO SCH ×2 (10:30→22:31)
[2019-12-03] MEDS: APIXABAN 5 MG TABLET PO SCH ×2 (10:30→22:32)
[2019-12-03] MEDS: COENZYME Q10 100 MG CAPSULE PO SCH (10:30)
[2019-12-03] MEDS: METOPROLOL TARTRATE 100 MG TABLET PO SCH ×2 (10:30→22:31)
[2019-12-03] MEDS: INSULIN GLARGINE 100 UNIT/ML SUBCUT SCH (10:31)
[2019-12-03 15:13] LABS: Albumin 2.4 G/DL (3.4-5.0); Bilirubin,Direct 0.13 MG/DL (0.0-0.20); Bilirubin,Indirect 0.3 MG/DL (0.0-1.0); Bilirubin,Total 0.4 MG/DL (0.2-1.0); Total Protein 6.5 G/DL (6.4-8.3)
[2019-12-03 15:22] LABS: CKMB % 3.3 %
[2019-12-03 15:26] LABS: Troponin I 47.9 NG/ML (0.00-0.045)
[2019-12-03] MEDS: FAMOTIDINE 20 MG/2 ML VIAL IV SCH (22:28)
[2019-12-03] MEDS: AMITRIPTYLINE 10 MG TABLET NG SCH (22:31)
[2019-12-03] MEDS: OMEGA 3 ACID ETHYL ESTERS 1 GM CAPSULE PO SCH (23:00)
[2019-12-04] MEDS: INSULIN REGULAR 100 UNIT/ML SUBCUT SCH ×6 (00:02→21:04)
[2019-12-04] MEDS: ALBUTEROL/IPRATROPIUM 3 ML NEB RESP TX SCH ×4 (01:07→19:39)
[2019-12-04 09:12] LABS: Basophils % 0.5 % (0.0-0.8); Eosinophils # 0.2 10*3/uL (0.0-0.87); Hematocrit 28.4 VOL% (42.0-52.0); Hemoglobin 8.7 GM/DL (14.0-18.0); Immature Granulocytes % 0.3 %; Immature Granulocytes Absolute 0.02 #; Lymphocytes % 18.2 % (21.2-54.2); Mean Corpuscular HGB Conc 30.6 GM/DL (32-36); Mean Corpuscular Volume 83.5 FL (87-102); Mean Platelet Volume 11.7 FL (9.6-12.0); Monocytes % 16.6 % (1.7-12.7); Neutrophils % 61.4 % (38.7-73.9); Platelet Count 212 T/CUMM (130-400); Red Cell Distribution Width 18.6 % (9.3-17.3); White Blood Count 5.7 T/CUMM (4-12)
[2019-12-04 09:46] LABS: Albumin 2.5 G/DL (3.4-5.0); Calcium 8.7 MG/DL (8.5-10.1); Osmolality,Calculated 289.3 MOS/KG (273-304); Total Protein 6.6 G/DL (6.4-8.3)
[2019-12-04] MEDS: TICAGRELOR 90 MG TABLET PO SCH ×2 (09:50→21:04)
[2019-12-04] MEDS: COENZYME Q10 100 MG CAPSULE PO SCH (09:50)
[2019-12-04] MEDS: CITALOPRAM 20 MG TABLET PO SCH (09:50)
[2019-12-04] MEDS: ASPIRIN CHEW 81 MG TABLET PO SCH (09:50)
[2019-12-04] MEDS: APIXABAN 5 MG TABLET PO SCH ×2 (09:50→21:04)
[2019-12-04] MEDS: POLYETHYLENE GLYCOL POWDER 17 GM PACK PO SCH (09:50)
[2019-12-04] MEDS: ATORVASTATIN 80 MG TABLET PO SCH (09:50)
[2019-12-04 10:12] LABS: Anisocytosis 1+; Band Neutrophils 3 % (0-10); Eosinophils 5 % (0-10); Hypochromasia Slight; Lymphocytes 23 % (20-55); Platelet Estimate Normal; Poikilocytosis Slight; Segmented Neutrophils 61 % (50-85); Total Cells Counted 100
[2019-12-04] MEDS: METOPROLOL TARTRATE 100 MG TABLET PO SCH ×2 (10:45→21:04)
[2019-12-04] MEDS: POTASSIUM CHLORIDE 20 MEQ TABLET PO PRN (10:45)
[2019-12-04] MEDS: INSULIN GLARGINE 100 UNIT/ML SUBCUT SCH (10:45)
[2019-12-04] MEDS ORDERED: OXYMETAZOLINE 0.05% NASAL SPRAY 15 ML BOTTLE BOTH NARES PRN (12:48)
[2019-12-04] MEDS ORDERED: POTASSIUM CHLORIDE 20 MEQ/15 ML UDCUP PO ONE (12:49)
[2019-12-04] MEDS: hydrALAZINE 25 MG TABLET PO SCH ×2 (16:48→21:04)
[2019-12-04] MEDS: AMITRIPTYLINE 10 MG TABLET NG SCH (21:04)
[2019-12-04] MEDS: OMEGA 3 ACID ETHYL ESTERS 1 GM CAPSULE PO SCH (21:04)
[2019-12-04] MEDS: FAMOTIDINE 20 MG/2 ML VIAL IV SCH (21:04)
[2019-12-05] MEDS: ALBUTEROL/IPRATROPIUM 3 ML NEB RESP TX SCH ×3 (00:37→21:44)
[2019-12-05] MEDS: INSULIN REGULAR 100 UNIT/ML SUBCUT SCH ×5 (01:06→22:06)
[2019-12-05 01:45] LABS: Basophils % 0.7 % (0.0-0.8); Eosinophils # 0.2 10*3/uL (0.0-0.87); Eosinophils % 4.2 % (0.00-10.9); Hematocrit 29.8 VOL% (42.0-52.0); Hemoglobin 9.2 GM/DL (14.0-18.0); Immature Granulocytes % 0.4 %; Immature Granulocytes Absolute 0.02 #; Lymphocytes # 1.1 10*3/uL (1.4-4.0); Lymphocytes % 18.7 % (21.2-54.2); Mean Corpuscular HGB Conc 30.9 GM/DL (32-36); Mean Platelet Volume 10.8 FL (9.6-12.0); Monocytes % 12.9 % (1.7-12.7); Neutrophils % 63.1 % (38.7-73.9); Platelet Count 213 T/CUMM (130-400); Red Blood Count 3.59 MC/CUMM (3.8-5.5); Red Cell Distribution Width 18.6 % (9.3-17.3); White Blood Count 5.7 T/CUMM (4-12)
[2019-12-05 03:52] LABS: Calcium 8.5 MG/DL (8.5-10.1); Osmolality,Calculated 273.2 MOS/KG (273-304)
[2019-12-05] MEDS: METOPROLOL TARTRATE 100 MG TABLET PO SCH ×2 (09:32→22:09)
[2019-12-05] MEDS: APIXABAN 5 MG TABLET PO SCH ×2 (09:32→22:08)
[2019-12-05] MEDS: CITALOPRAM 20 MG TABLET PO SCH (09:32)
[2019-12-05] MEDS: hydrALAZINE 25 MG TABLET PO SCH ×3 (09:32→22:08)
[2019-12-05] MEDS: ASPIRIN CHEW 81 MG TABLET PO SCH (09:32)
[2019-12-05] MEDS: COENZYME Q10 100 MG CAPSULE PO SCH (09:32)
[2019-12-05] MEDS: TICAGRELOR 90 MG TABLET PO SCH ×2 (09:32→22:09)
[2019-12-05] MEDS: ATORVASTATIN 80 MG TABLET PO SCH (09:32)
[2019-12-05] MEDS: INSULIN GLARGINE 100 UNIT/ML SUBCUT SCH (09:33)
[2019-12-05] MEDS: POLYETHYLENE GLYCOL POWDER 17 GM PACK PO SCH (09:33)
[2019-12-05] MEDS: POTASSIUM CHLORIDE 20 MEQ TABLET PO PRN ×2 (12:17→14:05)
[2019-12-05] MEDS: AMITRIPTYLINE 10 MG TABLET NG SCH (22:08)
[2019-12-05] MEDS: OMEGA 3 ACID ETHYL ESTERS 1 GM CAPSULE PO SCH (22:08)
[2019-12-05] MEDS: FAMOTIDINE 20 MG/2 ML VIAL IV SCH (23:11)
[2019-12-06] MEDS: ALBUTEROL/IPRATROPIUM 3 ML NEB RESP TX SCH ×3 (00:30→07:10)
[2019-12-06] MEDS: INSULIN REGULAR 100 UNIT/ML SUBCUT SCH ×3 (04:09→09:06)
[2019-12-06 08:07] VITALS: BP 142/100
[2019-12-06] MEDS: INSULIN GLARGINE 100 UNIT/ML SUBCUT SCH (09:05)
[2019-12-06] MEDS: ATORVASTATIN 80 MG TABLET PO SCH (09:06)
[2019-12-06] MEDS: CITALOPRAM 20 MG TABLET PO SCH (09:06)
[2019-12-06] MEDS: METOPROLOL TARTRATE 100 MG TABLET PO SCH (09:06)
[2019-12-06] MEDS: ASPIRIN CHEW 81 MG TABLET PO SCH (09:06)
[2019-12-06] MEDS: hydrALAZINE 25 MG TABLET PO SCH (09:07)
[2019-12-06] MEDS: APIXABAN 5 MG TABLET PO SCH (09:07)
[2019-12-06] MEDS: TICAGRELOR 90 MG TABLET PO SCH (09:07)
[2019-12-06] MEDS: COENZYME Q10 100 MG CAPSULE PO SCH (09:33)
[2019-12-06] MEDS: POLYETHYLENE GLYCOL POWDER 17 GM PACK PO SCH (09:33)
== END 2019-12-06 10:50 | DRG 190 ==
LOC: N.CC 16:01 → SUATTDRO 16:01 → N.TELEN 12-02 18:48 → UNDODISIN 12-05 15:50
PROVIDERS: ADMIT Internal Medicine; ATTEND Family Medicine

== ENCOUNTER 2019-12-12 15:54 | Observation (INO) ==
[2019-12-12] MEDS ORDERED: ASPIRIN 325 MG TABLET PO STA (16:41)
[2019-12-12] MEDS ORDERED: MORPHINE 4 MG/1 ML VIAL IV STA (16:41)
[2019-12-12] MEDS ORDERED: NITROGLYCERIN 2% OINT 1 INCH/GM PACK TOP STA (16:41)
[2019-12-12] MEDS ORDERED: ONDANSETRON 4 MG/2 ML VIAL IV STA (16:41)
[2019-12-12 16:49] LABS: Basophils # 0.1 10*3/uL (0.0-0.2); Basophils % 0.8 % (0.0-0.8); Eosinophils # 0.2 10*3/uL (0.0-0.87); Hematocrit 30.2 VOL% (42.0-52.0); Hemoglobin 8.9 GM/DL (14.0-18.0); Immature Granulocytes % 0.6 %; Immature Granulocytes Absolute 0.04 #; Lymphocytes # 1.7 10*3/uL (1.4-4.0); Lymphocytes % 26.9 % (21.2-54.2); Mean Corpuscular HGB Conc 29.5 GM/DL (32-36); Mean Corpuscular Volume 87.5 FL (87-102); Mean Platelet Volume 10.4 FL (9.6-12.0); Monocytes % 9.5 % (1.7-12.7); Neutrophils % 59.2 % (38.7-73.9); Platelet Count 453 T/CUMM (130-400); Red Blood Count 3.45 MC/CUMM (3.8-5.5); Red Cell Distribution Width 19.9 % (9.3-17.3); White Blood Count 6.4 T/CUMM (4-12)
[2019-12-12 16:56] LABS: INR 1.2
[2019-12-12 17:02] LABS: Albumin 2.8 G/DL (3.4-5.0); Bilirubin,Total 0.6 MG/DL (0.2-1.0); Calcium 8.9 MG/DL (8.5-10.1); Osmolality,Calculated 286.8 MOS/KG (273-304); Total Protein 7.1 G/DL (6.4-8.3)
[2019-12-12] MEDS ORDERED: NITROGLYCERIN SL 0.4 MG TABLET SL PRN (17:45)
[2019-12-12] MEDS ORDERED: ALBUTEROL/IPRATROPIUM 3 ML NEB RESP TX PRN (17:45)
[2019-12-12] MEDS ORDERED: ALUMINUM/MAGNES/SIMETH MAX STR 30 ML UDCUP NG PRN (17:45)
[2019-12-12] MEDS ORDERED: SKIN HEALING OINT (AQUAPHOR) 50 GM TUBE TOP PRN (17:45)
[2019-12-12] MEDS ORDERED: diphenhydrAMINE 2% CREAM 28 GM TUBE TOP PRN (17:45)
[2019-12-12] MEDS ORDERED: traMADol 50 MG TABLET PO PRN (17:48)
[2019-12-12] MEDS ORDERED: MORPHINE 4 MG/1 ML VIAL IV PRN (17:48)
[2019-12-12] MEDS ORDERED: traMADol 50 MG TABLET PEG PRN (18:24)
[2019-12-12] MEDS ORDERED: hydrALAZINE 25 MG TABLET PO SCH (21:00)
[2019-12-12] MEDS ORDERED: TICAGRELOR 90 MG TABLET PO SCH (21:00)
[2019-12-12] MEDS ORDERED: AMITRIPTYLINE 10 MG TABLET NG SCH (21:00)
[2019-12-12] MEDS ORDERED: APIXABAN 5 MG TABLET PO SCH (21:00)
[2019-12-12] MEDS ORDERED: OMEGA 3 ACID ETHYL ESTERS 1 GM CAPSULE PO SCH (21:00)
[2019-12-12] MEDS ORDERED: AMITRIPTYLINE 10 MG TABLET PEG SCH (21:00)
[2019-12-12] MEDS ORDERED: METOPROLOL TARTRATE 100 MG TABLET PO SCH (21:00)
[2019-12-12] MEDS: INSULIN LISPRO 100 UNIT/ML SUBCUT SCH (21:15)
[2019-12-12] MEDS: METOPROLOL TARTRATE 100 MG TABLET PEG SCH (21:17)
[2019-12-12] MEDS: hydrALAZINE 25 MG TABLET PEG SCH (21:17)
[2019-12-12] MEDS: APIXABAN 5 MG TABLET PEG SCH (21:17)
[2019-12-12] MEDS: TICAGRELOR 90 MG TABLET PEG SCH (21:17)
[2019-12-12] MEDS: FAMOTIDINE 8 MG/ML 50 ML/BOTTLE PEG SCH (21:52)
[2019-12-12] MEDS: SODIUM CHLORIDE 1 GM TABLET PO SCH (21:52)
[2019-12-13] MEDS: NITROGLYCERIN 2% OINT 1 INCH/GM PACK TOP SCH ×3 (00:09→12:09)
[2019-12-13 03:06] LABS: Basophils # 0.1 10*3/uL (0.0-0.2); Basophils % 0.8 % (0.0-0.8); Eosinophils # 0.2 10*3/uL (0.0-0.87); Eosinophils % 3.9 % (0.00-10.9); Hematocrit 30.2 VOL% (42.0-52.0); Hemoglobin 8.8 GM/DL (14.0-18.0); Immature Granulocytes % 0.3 %; Immature Granulocytes Absolute 0.02 #; Lymphocytes % 31.7 % (21.2-54.2); Mean Corpuscular HGB Conc 29.1 GM/DL (32-36); Mean Corpuscular Volume 89.1 FL (87-102); Monocytes % 8.4 % (1.7-12.7); Neutrophils % 54.9 % (38.7-73.9); Platelet Count 466 T/CUMM (130-400); Red Blood Count 3.39 MC/CUMM (3.8-5.5); Red Cell Distribution Width 21.8 % (9.3-17.3); White Blood Count 6.2 T/CUMM (4-12)
[2019-12-13 03:25] LABS: Albumin 2.9 G/DL (3.4-5.0); Bilirubin,Total 0.7 MG/DL (0.2-1.0); Calcium 9.1 MG/DL (8.5-10.1); Osmolality,Calculated 281.7 MOS/KG (273-304); Total Protein 7.8 G/DL (6.4-8.3)
[2019-12-13] MEDS ORDERED: CITALOPRAM 20 MG TABLET PEG SCH (09:00)
[2019-12-13] MEDS ORDERED: INSULIN GLARGINE 100 UNIT/ML SUBCUT SCH (09:00)
[2019-12-13] MEDS ORDERED: ATORVASTATIN 80 MG TABLET PER TUBE SCH (09:00)
[2019-12-13] MEDS ORDERED: COENZYME Q10 100 MG CAPSULE PEG SCH (09:00)
[2019-12-13] MEDS ORDERED: COENZYME Q10 100 MG CAPSULE PO SCH (09:00)
[2019-12-13] MEDS ORDERED: PANTOPRAZOLE 40 MG TABLET PO SCH (09:00)
[2019-12-13] MEDS ORDERED: ASPIRIN CHEW 81 MG TABLET PO SCH ×2 (09:00)
[2019-12-13] MEDS ORDERED: amLODIPine 10 MG TABLET PO SCH (09:00)
[2019-12-13] MEDS ORDERED: ISOSORBIDE MONONITRATE 30 MG TABLET PO SCH ×2 (09:00)
[2019-12-13] MEDS ORDERED: amLODIPine 10 MG TABLET PEG SCH (09:00)
[2019-12-13] MEDS ORDERED: ATORVASTATIN 80 MG TABLET PO SCH (09:00)
[2019-12-13] MEDS ORDERED: CITALOPRAM 20 MG TABLET PO SCH (09:00)
[2019-12-13] MEDS: SODIUM CHLORIDE 1 GM TABLET PO SCH (10:40)
[2019-12-13] MEDS: METOPROLOL TARTRATE 100 MG TABLET PEG SCH (10:41)
[2019-12-13] MEDS: APIXABAN 5 MG TABLET PEG SCH (10:41)
[2019-12-13] MEDS: TICAGRELOR 90 MG TABLET PEG SCH (10:41)
[2019-12-13] MEDS: hydrALAZINE 25 MG TABLET PEG SCH (10:41)
[2019-12-13] MEDS: FAMOTIDINE 8 MG/ML 50 ML/BOTTLE PEG SCH (10:42)
[2019-12-13 12:00] VITALS: BP 106/65
[2019-12-13] MEDS: INSULIN LISPRO 100 UNIT/ML SUBCUT SCH ×2 (12:08→12:09)
== END 2019-12-13 14:29 ==
LOC: EDBD → EDUNIT# → N.EDINP 15:54 → N.ED 15:54 → N.2E 20:33
PROVIDERS: ADMIT Internal Medicine; ATTEND Internal Medicine

== ENCOUNTER 2020-01-28 18:09 | Inpatient (IN) ==
[2020-01-28] MEDS ORDERED: MAGNESIUM SULF RIDER 2 GM in PREMIX 1 EACH IV PRN (21:26)
[2020-01-28] MEDS ORDERED: MAGNESIUM SULF RIDER 4 GM in PREMIX 1 EACH IV PRN (21:26)
[2020-01-28] MEDS ORDERED: DEXTROSE 50% 25 GM/50 ML SYRINGE IV PRN ×2 (21:26)
[2020-01-28] MEDS ORDERED: SODIUM CHLORIDE 0.9% IV PRN (21:26)
[2020-01-28] MEDS ORDERED: SODIUM PHOSPHATE IV PRN (21:26)
[2020-01-28] MEDS ORDERED: SODIUM BICARB INJ 100 MEQ in STERILE WATER INJ 400 ML IV PRN (21:26)
[2020-01-28] MEDS ORDERED: INSULIN REGULAR DRIP 100 ML IV SCH (21:30)
[2020-01-28] MEDS ORDERED: ENOXAPARIN 30 MG/0.3 ML SYRINGE SUBCUT SCH (21:30)
[2020-01-28 21:43] LABS: Calcium 9.3 MG/DL (8.5-10.1); Osmolality,Calculated 290.1 MOS/KG (273-304)
[2020-01-28 21:53] LABS: Hematocrit 32.4 VOL% (42.0-52.0); Hemoglobin 10.1 GM/DL (14.0-18.0); Immature Granulocytes % 0.3 %; Immature Granulocytes Absolute 0.02 #; Lymphocytes # 0.2 10*3/uL (1.4-4.0); Lymphocytes % 4.1 % (21.2-54.2); Mean Corpuscular HGB Conc 31.2 GM/DL (32-36); Mean Corpuscular Volume 97.6 FL (87-102); Mean Platelet Volume 10.9 FL (9.6-12.0); Monocytes % 10.8 % (1.7-12.7); NRBC # 0.06 10*3/uL; Neutrophils % 84.8 % (38.7-73.9); Platelet Count 336 T/CUMM (130-400); Red Blood Count 3.32 MC/CUMM (3.8-5.5); Red Cell Distribution Width 20.1 % (9.3-17.3); White Blood Count 5.8 T/CUMM (4-12)
[2020-01-28] MEDS ORDERED: VANCOMYCIN INJ 500 MG in SODIUM CHLORIDE 0.9% 100 ML IV PRN (22:41)
[2020-01-28] MEDS: INSULIN REGULAR 100 UNIT/ML SUBCUT SCH (23:30)
[2020-01-28] MEDS: ENOXAPARIN 60 MG/0.6 ML SYRINGE SUBCUT SCH (23:30)
[2020-01-28] MEDS: POTASSIUM CHLORIDE RIDER 10 MEQ in PREMIX 1 EACH IV PRN (23:31)
[2020-01-28] MEDS: PIPERACILLIN/TAZOBACTAM 3,375 MG in SODIUM CHLORIDE 0.9% 100 ML IV SCH (23:31)
[2020-01-28 23:50] LABS: Allen Test Positive
[2020-01-28 23:52] LABS: ABG Base Excess -10.5 MMOL/L (-2.5-2.5); ABG Oxygen Saturation 99.5 % (95-100); ABG PCO2 26.2 MM HG (35-48); ABG PH 7.342 (7.35-7.45); ABG TCO2 13.4 MMOL/L (23-27)
[2020-01-29] MEDS ORDERED: VANCOMYCIN INJ 1,500 MG in SODIUM CHLORIDE 0.9% 500 ML IV ONE
[2020-01-29] MEDS ORDERED: DEXTROSE 5% NACL 0.45% 1,000 ML IV SCH (00:30)
[2020-01-29] MEDS: POTASSIUM CHLORIDE RIDER 10 MEQ in PREMIX 1 EACH IV PRN ×4 (00:45→23:12)
[2020-01-29 01:35] LABS: Eosinophils 1 % (0-10); Lymphocytes 4 % (20-55); Metamyelocytes 1 %; Platelet Estimate Normal; Segmented Neutrophils 87 % (50-85); Total Cells Counted 100
[2020-01-29 01:36] LABS: Polychromasia Slight
[2020-01-29] MEDS: SODIUM BICARB INJ 50 MEQ in DEXTROSE 5% NACL 0.45% 1,000 ML IV SCH ×2 (02:48→15:44)
[2020-01-29] MEDS ORDERED: SODIUM CHLORIDE 0.9% 250 ML IV ONE ×2 (02:52→07:39)
[2020-01-29 02:57] LABS: Basophils % 0.1 % (0.0-0.8); Hematocrit 25.6 VOL% (42.0-52.0); Hemoglobin 8.1 GM/DL (14.0-18.0); Immature Granulocytes % 0.9 %; Immature Granulocytes Absolute 0.06 #; Lymphocytes # 0.4 10*3/uL (1.4-4.0); Lymphocytes % 5.6 % (21.2-54.2); Mean Corpuscular HGB Conc 31.6 GM/DL (32-36); Mean Corpuscular Volume 97.3 FL (87-102); Mean Platelet Volume 11.2 FL (9.6-12.0); Monocytes % 10.4 % (1.7-12.7); NRBC # 0.06 10*3/uL; Platelet Count 245 T/CUMM (130-400); Red Blood Count 2.63 MC/CUMM (3.8-5.5); Red Cell Distribution Width 20.7 % (9.3-17.3); White Blood Count 6.8 T/CUMM (4-12)
[2020-01-29 03:02] LABS: Calcium 8.6 MG/DL (8.5-10.1); Osmolality,Calculated 296.4 MOS/KG (273-304)
[2020-01-29] MEDS: INSULIN REGULAR 100 UNIT/ML SUBCUT SCH (04:15)
[2020-01-29] MEDS: INSULIN REGULAR DRIP 100 ML IV SCH (06:48)
[2020-01-29 08:19] LABS: Calcium 8.3 MG/DL (8.5-10.1); Osmolality,Calculated 298.3 MOS/KG (273-304)
[2020-01-29 08:41] LABS: Hemoglobin 7.7 GM/DL (14.0-18.0)
[2020-01-29] MEDS ORDERED: ASPIRIN 325 MG TABLET PO SCH (10:30)
[2020-01-29] MEDS: PIPERACILLIN/TAZOBACTAM 3,375 MG in SODIUM CHLORIDE 0.9% 100 ML IV SCH ×2 (10:51→22:07)
[2020-01-29] MEDS: ONDANSETRON 4 MG/2 ML VIAL IV PRN (13:28)
[2020-01-29] MEDS ORDERED: SODIUM CHLORIDE 0.45% 1,000 ML IV SCH (14:26)
[2020-01-29 15:28] LABS: Hematocrit 21.5 VOL% (42.0-52.0); Hemoglobin 7.1 GM/DL (14.0-18.0)
[2020-01-29 15:48] LABS: Calcium 8.1 MG/DL (8.5-10.1); Osmolality,Calculated 299.8 MOS/KG (273-304)
[2020-01-29] MEDS: METOPROLOL TARTRATE 25 MG TABLET PO SCH ×2 (16:01→21:34)
[2020-01-29] MEDS: ASPIRIN EC 81 MG TABLET PO SCH (16:01)
[2020-01-29 20:57] LABS: Hematocrit 22.8 VOL% (42.0-52.0); Hemoglobin 7.3 GM/DL (14.0-18.0)
[2020-01-29] MEDS ORDERED: ATORVASTATIN 80 MG TABLET PEG SCH (21:00)
[2020-01-29 21:03] LABS: Calcium 8.2 MG/DL (8.5-10.1); Osmolality,Calculated 292.8 MOS/KG (273-304)
[2020-01-29] MEDS ORDERED: DEXTROSE 10% 250 ML BAG IV ONE (21:15)
[2020-01-29] MEDS: TICAGRELOR 90 MG TABLET PO SCH (21:34)
[2020-01-29] MEDS: ATORVASTATIN 80 MG TABLET PO SCH (21:34)
[2020-01-29] MEDS: ENOXAPARIN 60 MG/0.6 ML SYRINGE SUBCUT SCH (22:06)
[2020-01-30] MEDS: POTASSIUM CHLORIDE RIDER 10 MEQ in PREMIX 1 EACH IV PRN ×5 (00:18→06:25)
[2020-01-30] MEDS ORDERED: DEXTROSE 10% 250 ML BAG IV ONE (03:20)
[2020-01-30 03:50] LABS: Basophils % 0.4 % (0.0-0.8); Eosinophils % 0.2 % (0.00-10.9); Hematocrit 21.7 VOL% (42.0-52.0); Immature Granulocytes % 1.3 %; Immature Granulocytes Absolute 0.07 #; Lymphocytes # 0.6 10*3/uL (1.4-4.0); Lymphocytes % 11.7 % (21.2-54.2); Mean Corpuscular HGB Conc 32.3 GM/DL (32-36); Mean Corpuscular Volume 94.8 FL (87-102); Mean Platelet Volume 10.8 FL (9.6-12.0); Monocytes % 10.6 % (1.7-12.7); NRBC # 0.04 10*3/uL; Neutrophils % 75.8 % (38.7-73.9); Platelet Count 218 T/CUMM (130-400); Red Blood Count 2.29 MC/CUMM (3.8-5.5); Red Cell Distribution Width 20.7 % (9.3-17.3); White Blood Count 5.3 T/CUMM (4-12)
[2020-01-30 04:20] LABS: ABG Base Excess -2.1 MMOL/L (-2.5-2.5); ABG HCO3 22.7 MMOL/L (20-26); ABG Oxygen Saturation 99.6 % (95-100); ABG PH 7.384 (7.35-7.45); ABG TCO2 21.4 MMOL/L (23-27); Allen Test Positive
[2020-01-30 04:40] LABS: Calcium 7.9 MG/DL (8.5-10.1); Osmolality,Calculated 292.7 MOS/KG (273-304)
[2020-01-30] MEDS: SODIUM BICARB INJ 50 MEQ in DEXTROSE 5% NACL 0.45% 1,000 ML IV SCH (05:10)
[2020-01-30] MEDS: ONDANSETRON 4 MG/2 ML VIAL IV PRN (06:30)
[2020-01-30] MEDS: INSULIN REGULAR DRIP 100 ML IV SCH (06:32)
[2020-01-30] MEDS: ASPIRIN EC 81 MG TABLET PO SCH (09:21)
[2020-01-30] MEDS: METOPROLOL TARTRATE 25 MG TABLET PO SCH ×2 (09:22→21:24)
[2020-01-30] MEDS ORDERED: HEPARIN 10,000 UNIT/10 ML VIAL IV PRN (11:45)
[2020-01-30 11:54] LABS: Hepatitis B Core IgM Quant < 0.05 Index; Hepatitis B Surface Ag Quant < 0.10 Index; Hepatitis B Surface Ag Result Negative (Negative); Hepatitis C Virus Ab Quant 0.15 Index; Hepatitis C Virus Ab Result Negative (Negative)
[2020-01-30] MEDS: PIPERACILLIN/TAZOBACTAM 3,375 MG in SODIUM CHLORIDE 0.9% 100 ML IV SCH (12:54)
[2020-01-30] MEDS: HEPARIN 5,000 UNIT/1 ML VIAL SUBCUT SCH (14:26)
[2020-01-30] MEDS: INSULIN GLARGINE 100 UNIT/ML SUBCUT SCH (14:26)
[2020-01-30] MEDS: INSULIN REGULAR 100 UNIT/ML SUBCUT SCH ×2 (17:32→21:29)
[2020-01-30] MEDS: ATORVASTATIN 80 MG TABLET PO SCH (21:23)
[2020-01-30] MEDS: TICAGRELOR 90 MG TABLET PO SCH (21:24)
[2020-01-31] MEDS: HEPARIN 5,000 UNIT/1 ML VIAL SUBCUT SCH ×2 (00:56→13:26)
[2020-01-31] MEDS: INSULIN REGULAR 100 UNIT/ML SUBCUT SCH ×6 (01:15→21:49)
[2020-01-31] MEDS: TICAGRELOR 90 MG TABLET PO SCH ×4 (01:41→22:13)
[2020-01-31] MEDS: METOPROLOL TARTRATE 25 MG TABLET PO SCH ×4 (01:42→22:12)
[2020-01-31] MEDS: ATORVASTATIN 80 MG TABLET PO SCH ×2 (01:43→22:12)
[2020-01-31] MEDS: ONDANSETRON 4 MG/2 ML VIAL IV PRN ×4 (02:31→22:09)
[2020-01-31] MEDS ORDERED: EPOETIN ALFA-EPBX 2,000 UNIT/ML VIAL IV PRN (08:55)
[2020-01-31] MEDS: INSULIN GLARGINE 100 UNIT/ML SUBCUT SCH (09:13)
[2020-01-31] MEDS: ASPIRIN EC 81 MG TABLET PO SCH ×2 (09:15→10:25)
[2020-01-31 11:00] LABS: Basophils # 0.1 10*3/uL (0.0-0.2); Basophils % 1.2 % (0.0-0.8); Eosinophils % 0.5 % (0.00-10.9); NRBC # 0.09 10*3/uL; Red Cell Distribution Width 20.5 % (9.3-17.3)
[2020-01-31 11:07] LABS: Hematocrit 30.6 VOL% (42.0-52.0); Immature Granulocytes % 1.4 %; Immature Granulocytes Absolute 0.06 #; Lymphocytes # 0.7 10*3/uL (1.4-4.0); Lymphocytes % 16.3 % (21.2-54.2); Mean Corpuscular Volume 90.8 FL (87-102); Mean Platelet Volume 10.8 FL (9.6-12.0); Monocytes % 8.9 % (1.7-12.7); Neutrophils % 71.7 % (38.7-73.9); Platelet Count 217 T/CUMM (130-400); White Blood Count 4.2 T/CUMM (4-12)
[2020-01-31 11:08] LABS: Red Blood Count 3.37 MC/CUMM (3.8-5.5)
[2020-01-31 11:09] LABS: Hemoglobin 10.1 GM/DL (14.0-18.0)
[2020-01-31 11:24] LABS: Calcium 8.8 MG/DL (8.5-10.1); Osmolality,Calculated 279.8 MOS/KG (273-304)
[2020-01-31] MEDS: POTASSIUM CHLORIDE RIDER 10 MEQ in PREMIX 1 EACH IV PRN ×6 (13:27→23:40)
[2020-01-31] MEDS: hydrALAZINE 20 MG/1 ML VIAL IV PRN ×2 (15:51→22:11)
[2020-02-01] MEDS: INSULIN REGULAR 100 UNIT/ML SUBCUT SCH ×6 (00:26→22:24)
[2020-02-01] MEDS: HEPARIN 5,000 UNIT/1 ML VIAL SUBCUT SCH ×2 (00:35→16:50)
[2020-02-01] MEDS: ONDANSETRON 4 MG/2 ML VIAL IV PRN ×2 (02:44→21:59)
[2020-02-01] MEDS: hydrALAZINE 20 MG/1 ML VIAL IV PRN ×2 (04:56→16:50)
[2020-02-01] MEDS: ASPIRIN EC 81 MG TABLET PO SCH (08:47)
[2020-02-01] MEDS: TICAGRELOR 90 MG TABLET PO SCH ×2 (08:47→22:24)
[2020-02-01] MEDS: METOPROLOL TARTRATE 25 MG TABLET PO SCH ×2 (08:48→22:25)
[2020-02-01] MEDS: INSULIN GLARGINE 100 UNIT/ML SUBCUT SCH (08:55)
[2020-02-01] MEDS ORDERED: HEPARIN 10,000 UNIT/10 ML VIAL IV SCH (18:30)
[2020-02-01] MEDS: ATORVASTATIN 80 MG TABLET PO SCH (22:25)
[2020-02-02] MEDS: INSULIN REGULAR 100 UNIT/ML SUBCUT SCH ×6 (00:55→20:40)
[2020-02-02] MEDS: ONDANSETRON 4 MG/2 ML VIAL IV PRN ×2 (02:45→23:41)
[2020-02-02] MEDS: HEPARIN 5,000 UNIT/1 ML VIAL SUBCUT SCH ×2 (02:48→12:46)
[2020-02-02 05:25] LABS: Basophils % 0.7 % (0.0-0.8); Eosinophils # 0.1 10*3/uL (0.0-0.87); Eosinophils % 1.6 % (0.00-10.9); Hematocrit 36.3 VOL% (42.0-52.0); Hemoglobin 11.8 GM/DL (14.0-18.0); Immature Granulocytes % 0.7 %; Immature Granulocytes Absolute 0.03 #; Lymphocytes # 0.8 10*3/uL (1.4-4.0); Lymphocytes % 16.7 % (21.2-54.2); Mean Corpuscular HGB Conc 32.5 GM/DL (32-36); Mean Platelet Volume 11.5 FL (9.6-12.0); Monocytes % 18.9 % (1.7-12.7); NRBC # 0.19 10*3/uL; Neutrophils % 61.4 % (38.7-73.9); Platelet Count 223 T/CUMM (130-400); Red Blood Count 3.99 MC/CUMM (3.8-5.5); Red Cell Distribution Width 20.3 % (9.3-17.3); White Blood Count 4.5 T/CUMM (4-12)
[2020-02-02 05:49] LABS: Calcium 8.8 MG/DL (8.5-10.1); Osmolality,Calculated 278.7 MOS/KG (273-304)
[2020-02-02 06:12] LABS: Anisocytosis 1+; Band Neutrophils 2 % (0-10); Lymphocytes 20 % (20-55); Myelocytes 1 %; Nucleated Red Blood Cells 5 (0-5); Platelet Estimate Normal; Segmented Neutrophils 66 % (50-85); Target Cells 1+; Total Cells Counted 100
[2020-02-02] MEDS: INSULIN GLARGINE 100 UNIT/ML SUBCUT SCH (09:18)
[2020-02-02] MEDS: CIPROFLOXACIN INJ 400 MG in PREMIX 1 EACH IV SCH (09:37)
[2020-02-02] MEDS: TICAGRELOR 90 MG TABLET PO SCH ×2 (09:50→20:41)
[2020-02-02] MEDS: ASPIRIN EC 81 MG TABLET PO SCH (09:50)
[2020-02-02] MEDS: METOPROLOL TARTRATE 25 MG TABLET PO SCH ×2 (09:51→20:41)
[2020-02-02] MEDS: ATORVASTATIN 80 MG TABLET PO SCH (20:41)
[2020-02-03] MEDS: INSULIN REGULAR 100 UNIT/ML SUBCUT SCH ×5 (01:41→17:57)
[2020-02-03] MEDS: CIPROFLOXACIN INJ 400 MG in PREMIX 1 EACH IV SCH (01:42)
[2020-02-03] MEDS: HEPARIN 5,000 UNIT/1 ML VIAL SUBCUT SCH ×2 (05:15→17:59)
[2020-02-03] MEDS: INSULIN GLARGINE 100 UNIT/ML SUBCUT SCH (10:02)
[2020-02-03] MEDS: ASPIRIN EC 81 MG TABLET PO SCH (10:03)
[2020-02-03] MEDS: METOPROLOL TARTRATE 25 MG TABLET PO SCH (10:03)
[2020-02-03] MEDS: TICAGRELOR 90 MG TABLET PO SCH (10:04)
[2020-02-03] MEDS: GLUCAGON 1 MG VIAL IM PRN (17:23)
[2020-02-04] MEDS: INSULIN REGULAR 100 UNIT/ML SUBCUT SCH ×7 (00:29→20:14)
[2020-02-04] MEDS: ATORVASTATIN 80 MG TABLET PO SCH ×2 (00:29→20:14)
[2020-02-04] MEDS: TICAGRELOR 90 MG TABLET PO SCH ×2 (00:29→08:45)
[2020-02-04] MEDS: METOPROLOL TARTRATE 25 MG TABLET PO SCH ×3 (00:30→20:14)
[2020-02-04] MEDS: HEPARIN 5,000 UNIT/1 ML VIAL SUBCUT SCH ×2 (04:51→17:24)
[2020-02-04] MEDS: ASPIRIN EC 81 MG TABLET PO SCH (08:44)
[2020-02-04] MEDS: ONDANSETRON 4 MG/2 ML VIAL IV PRN ×2 (09:27→17:16)
[2020-02-04] MEDS: INSULIN GLARGINE 100 UNIT/ML SUBCUT SCH (10:11)
[2020-02-04 10:38] LABS: Basophils # 0.1 10*3/uL (0.0-0.2); Basophils % 1.4 % (0.0-0.8); Eosinophils # 0.1 10*3/uL (0.0-0.87); Hematocrit 39.3 VOL% (42.0-52.0); Hemoglobin 12.3 GM/DL (14.0-18.0); Immature Granulocytes % 1.1 %; Immature Granulocytes Absolute 0.04 #; Lymphocytes # 0.7 10*3/uL (1.4-4.0); Lymphocytes % 19.4 % (21.2-54.2); Mean Corpuscular HGB Conc 31.3 GM/DL (32-36); Mean Corpuscular Volume 95.9 FL (87-102); Mean Platelet Volume 10.1 FL (9.6-12.0); Monocytes % 15.4 % (1.7-12.7); NRBC # 0.33 10*3/uL; Neutrophils % 60.7 % (38.7-73.9); Platelet Count 243 T/CUMM (130-400); Red Cell Distribution Width 20.7 % (9.3-17.3); White Blood Count 3.5 T/CUMM (4-12)
[2020-02-04 10:52] LABS: Calcium 8.8 MG/DL (8.5-10.1); Osmolality,Calculated 281.8 MOS/KG (273-304)
[2020-02-05] MEDS: INSULIN REGULAR 100 UNIT/ML SUBCUT SCH ×6 (00:09→21:31)
[2020-02-05] MEDS: HEPARIN 5,000 UNIT/1 ML VIAL SUBCUT SCH ×2 (04:57→16:48)
[2020-02-05] MEDS: INSULIN GLARGINE 100 UNIT/ML SUBCUT SCH (09:54)
[2020-02-05] MEDS: METOPROLOL TARTRATE 25 MG TABLET PO SCH ×2 (09:54→22:58)
[2020-02-05] MEDS: ASPIRIN EC 81 MG TABLET PO SCH (09:54)
[2020-02-05] MEDS: POTASSIUM CHLORIDE RIDER 10 MEQ in PREMIX 1 EACH IV PRN (09:55)
[2020-02-05] MEDS: ONDANSETRON 4 MG/2 ML VIAL IV PRN (13:45)
[2020-02-05] MEDS ORDERED: DEXTROSE 10% 250 ML IV ONE (20:32)
[2020-02-05] MEDS: GLUCAGON 1 MG VIAL IM PRN (20:42)
[2020-02-05] MEDS: ATORVASTATIN 80 MG TABLET PO SCH (22:59)
[2020-02-06] MEDS: INSULIN REGULAR 100 UNIT/ML SUBCUT SCH ×6 (01:03→20:36)
[2020-02-06 02:50] LABS: Apearance,Urine CLEAR (Clear); Bilirubin,Urine Negative (Negative); Blood, Urine Small mg/dL (Negative); Glucose,Urine (UA) >=500 mg/dL (Negative); Ketones,Urine 5 mg/dL (Negative); Nitrite,Urine Negative (Negative); Protein,Urine 100 MG/DL; RBC,Urine <1 /HPF (0-4); Squamous Epithelial Cell,Urine Occasional /HPF (0-10); Urine Color Yellow (Yellow); Urine Specific Gravity 1.018 (1.001-1.035); Urine Urobilinogen < 2.0 EU/DL (0.2-1.0); WBC,Urine <1 /HPF (0-6)
[2020-02-06 08:18] LABS: PT Patient Result 10.7 SECS (9.8-11.9)
[2020-02-06 08:36] LABS: Calcium 9.3 MG/DL (8.5-10.1); Osmolality,Calculated 283.7 MOS/KG (273-304)
[2020-02-06] MEDS: ceFAZolin 1,000 MG in SYRINGE 1 EACH IV ONE ×2 (13:04→13:30)
[2020-02-06] MEDS: SODIUM CHLORIDE 0.9% 1,000 ML IV SCH ×2 (13:04→14:05)
[2020-02-06] MEDS: METOPROLOL TARTRATE 25 MG TABLET PO SCH ×2 (13:05→20:34)
[2020-02-06] MEDS: ASPIRIN EC 81 MG TABLET PO SCH (13:05)
[2020-02-06] MEDS: INSULIN GLARGINE 100 UNIT/ML SUBCUT SCH (13:05)
[2020-02-06] MEDS: ATORVASTATIN 80 MG TABLET PO SCH (20:35)
[2020-02-06] MEDS: ONDANSETRON 4 MG/2 ML VIAL IV PRN (21:23)
[2020-02-07] MEDS: INSULIN REGULAR 100 UNIT/ML SUBCUT SCH ×3 (00:45→09:09)
[2020-02-07 08:21] LABS: Calcium 8.9 MG/DL (8.5-10.1); Osmolality,Calculated 275.8 MOS/KG (273-304); Prealbumin 15.1 MG/DL (20-40)
[2020-02-07] MEDS ORDERED: LIDOCAINE 2% 5 ML VIAL ONE (09:00)
[2020-02-07] MEDS ORDERED: ETOMIDATE 20 MG/10 ML VIAL IV ONE (09:00)
[2020-02-07] MEDS: INSULIN GLARGINE 100 UNIT/ML SUBCUT SCH (09:07)
[2020-02-07] MEDS: ASPIRIN EC 81 MG TABLET PO SCH (09:08)
[2020-02-07] MEDS: METOPROLOL TARTRATE 25 MG TABLET PO SCH (09:08)
[2020-02-07 12:03] VITALS: BP 99/70
== END 2020-02-07 12:00 | disposition home or self-care (01) | DRG 280 ==
LOC: N.ICU 20:26 → SUATTDRO 20:26 → N.3E 01-30 13:40
PROVIDERS: ADMIT Internal Medicine; ATTEND Internal Medicine
PROC: EGDWPEG (ICD-10-PCS; 2020-02-06 08:35)

== ENCOUNTER 2020-11-11 13:20 | Inpatient (IN) ==
[2020-11-11] MEDS ORDERED: SODIUM CHLORIDE 0.9% 500 ML IV STA ×2 (13:45→21:10)
[2020-11-11] MEDS ORDERED: VANCOMYCIN INJ 1,000 MG in SODIUM CHLORIDE 0.9% 250 ML IV STA (13:45)
[2020-11-11 14:10] LABS: ABG Base Excess 2.3 MMOL/L (-2.5-2.5); ABG HCO3 26.3 MMOL/L (20-26); ABG Oxygen Saturation 88.4 % (95-100); ABG PCO2 32.6 MM HG (35-48); ABG PH 7.495 (7.35-7.45); ABG PO2 53.5 MM HG (80-95); ABG TCO2 22.7 MMOL/L (23-27)
[2020-11-11] MEDS ORDERED: LEVOFLOXACIN INJ 500 MG in PREMIX 1 EACH IV STA (14:12)
[2020-11-11 14:36] LABS: Basophils % 0.5 % (0.0-0.8); Hematocrit 31.1 VOL% (42.0-52.0); Hemoglobin 9.4 GM/DL (14.0-18.0); Immature Granulocytes % 0.8 %; Immature Granulocytes Absolute 0.07 #; Lymphocytes # 0.4 10*3/uL (1.4-4.0); Lymphocytes % 5.2 % (21.2-54.2); Mean Corpuscular HGB Conc 30.2 GM/DL (32-36); Mean Corpuscular Volume 105.1 FL (87-102); Mean Platelet Volume 9.7 FL (9.6-12.0); Monocytes % 6.6 % (1.7-12.7); Neutrophils % 86.9 % (38.7-73.9); Platelet Count 510 T/CUMM (130-400); Red Blood Count 2.96 MC/CUMM (3.8-5.5); Red Cell Distribution Width 17.3 % (9.3-17.3); White Blood Count 8.4 T/CUMM (4-12)
[2020-11-11 14:56] LABS: INR 1.2; PT Patient Result 13.1 SECS (9.8-11.9)
[2020-11-11 14:57] LABS: Partial Thromboplastin Time 41.6 SECS (23.9-33.8)
[2020-11-11 15:00] LABS: Albumin 2.5 G/DL (3.4-5.0); Bilirubin,Total 0.9 MG/DL (0.2-1.0); Calcium 10.2 MG/DL (8.5-10.1); Osmolality,Calculated 276.2 MOS/KG (273-304); Potassium 3.7 MMOL/L (3.5-5.1); Total Protein 8.6 G/DL (6.4-8.3)
[2020-11-11] MEDS ORDERED: ALBUTEROL 2.5 MG/3 ML NEB RESP TX PRN (15:48)
[2020-11-11] MEDS ORDERED: guaiFENesin/DM ER 600-30 MG TABLET PO PRN (15:48)
[2020-11-11] MEDS ORDERED: ONDANSETRON 4 MG/2 ML VIAL IV PRN (15:48)
[2020-11-11] MEDS ORDERED: SODIUM CHLORIDE 0.9% 1,000 ML IV ONE (15:52)
[2020-11-11] MEDS ORDERED: VANCOMYCIN INJ 1,500 MG in SODIUM CHLORIDE 0.9% 500 ML IV SCH (16:00)
[2020-11-11 16:08] LABS: Anisocytosis 3+; Eosinophils 1 % (0-10); Lymphocytes 8 % (20-55); Segmented Neutrophils 86 % (50-85)
[2020-11-11 16:09] LABS: Elliptocytes 1+; Hypochromasia 2+; Microcytosis 2+; Platelet Estimate Normal; Poikilocytosis 2+; Total Cells Counted 100
[2020-11-11] MEDS: PANTOPRAZOLE 40 MG VIAL IV SCH (16:13)
[2020-11-11 16:14] LABS: Risk Ratio 2.35
[2020-11-11] MEDS: methylPREDNISolone SOD SUC 40 MG/1 ML VIAL IV SCH (16:16)
[2020-11-11] MEDS: LEVOFLOXACIN INJ 750 MG in PREMIX 1 EACH IV SCH ×2 (16:16→17:46)
[2020-11-11] MEDS ORDERED: ENOXAPARIN 30 MG/0.3 ML SYRINGE SUBCUT SCH (18:00)
[2020-11-11] MEDS: INSULIN LISPRO 100 UNIT/ML SUBCUT SCH (18:10)
[2020-11-11] MEDS: SODIUM CHLORIDE 0.9% 1,000 ML IV SCH (19:22)
[2020-11-11] MEDS: ALBUTEROL/IPRATROPIUM 3 ML NEB RESP TX SCH (19:33)
[2020-11-11] MEDS ORDERED: INSULIN GLARGINE 100 UNIT/ML SUBCUT SCH (21:00)
[2020-11-12] MEDS: ALBUTEROL/IPRATROPIUM 3 ML NEB RESP TX SCH ×4 (00:29→19:42)
[2020-11-12] MEDS: methylPREDNISolone SOD SUC 40 MG/1 ML VIAL IV SCH ×3 (00:34→17:16)
[2020-11-12 04:10] LABS: ABG Base Excess -5.3 MMOL/L (-2.5-2.5); ABG HCO3 20.5 MMOL/L (20-26); ABG Oxygen Saturation 79.6 % (95-100); ABG PH 7.317 (7.35-7.45); ABG PO2 50.1 MM HG (80-95); ABG TCO2 21.8 MMOL/L (23-27); Allen Test Positive
[2020-11-12 04:52] LABS: Basophils # 0.1 10*3/uL (0.0-0.2); Basophils % 0.3 % (0.0-0.8); Hematocrit 30.7 VOL% (42.0-52.0); Immature Granulocytes % 0.5 %; Immature Granulocytes Absolute 0.07 #; Lymphocytes # 0.3 10*3/uL (1.4-4.0); Lymphocytes % 1.9 % (21.2-54.2); Mean Corpuscular HGB Conc 29.3 GM/DL (32-36); Mean Corpuscular Volume 106.2 FL (87-102); Mean Platelet Volume 9.9 FL (9.6-12.0); Monocytes % 2.8 % (1.7-12.7); NRBC # 0.03 10*3/uL; Neutrophils % 94.5 % (38.7-73.9); Platelet Count 426 T/CUMM (130-400); Red Blood Count 2.89 MC/CUMM (3.8-5.5); Red Cell Distribution Width 17.3 % (9.3-17.3); White Blood Count 15.1 T/CUMM (4-12)
[2020-11-12 05:11] LABS: Bilirubin,Total 0.7 MG/DL (0.2-1.0); Calcium 9.6 MG/DL (8.5-10.1); Osmolality,Calculated 293.8 MOS/KG (273-304); Potassium 4.5 MMOL/L (3.5-5.1); Total Protein 7.3 G/DL (6.4-8.3)
[2020-11-12 05:18] LABS: Band Neutrophils 10 % (0-10); Burr Cells Slight; Hypochromasia 1+; Lymphocytes 4 % (20-55); Microcytosis 1+; Platelet Estimate Adequate; Segmented Neutrophils 85 % (50-85); Total Cells Counted 100
[2020-11-12] MEDS: INSULIN LISPRO 100 UNIT/ML SUBCUT SCH ×4 (06:06→17:16)
[2020-11-12] MEDS: SODIUM CHLORIDE 0.9% 1,000 ML IV SCH ×3 (08:17→22:55)
[2020-11-12] MEDS: INSULIN GLARGINE 100 UNIT/ML SUBCUT SCH (15:00)
[2020-11-12 15:48] LABS: Bilirubin,Urine Negative (Negative); Blood, Urine Moderate mg/dL (Negative); Glucose,Urine (UA) >=500 mg/dL (Negative); Ketones,Urine 5 mg/dL (Negative); Nitrite,Urine Negative (Negative); Protein,Urine 100 MG/DL; RBC,Urine 137 /HPF (0-4); Urine Appearance CLOUDY (Clear); Urine Color Amber (Yellow); Urine Urobilinogen < 2.0 EU/DL (0.2-1.0); WBC,Urine 368 /HPF (0-6)
[2020-11-12] MEDS ORDERED: GLUCAGON 1 MG VIAL IM PRN (16:58)
[2020-11-12] MEDS: PANTOPRAZOLE 40 MG VIAL IV SCH (17:16)
[2020-11-12] MEDS ORDERED: EPOETIN ALFA-EPBX 2,000 UNIT/ML VIAL IV SCH (18:30)
[2020-11-12] MEDS: OMEGA 3 ACID ETHYL ESTERS 1 GM CAPSULE PO SCH (20:51)
[2020-11-12] MEDS: APIXABAN 5 MG TABLET PEG SCH (20:52)
[2020-11-12] MEDS: CITALOPRAM 20 MG TABLET PEG SCH (20:52)
[2020-11-13] MEDS: ALBUTEROL/IPRATROPIUM 3 ML NEB RESP TX SCH ×4 (00:27→18:49)
[2020-11-13] MEDS: INSULIN LISPRO 100 UNIT/ML SUBCUT SCH ×4 (00:50→21:59)
[2020-11-13] MEDS: methylPREDNISolone SOD SUC 40 MG/1 ML VIAL IV SCH ×3 (00:51→22:00)
[2020-11-13 04:18] LABS: Basophils % 0.2 % (0.0-0.8); Eosinophils % 0.1 % (0.00-10.9); Hematocrit 28.1 VOL% (42.0-52.0); Hemoglobin 8.2 GM/DL (14.0-18.0); Immature Granulocytes % 1.4 %; Immature Granulocytes Absolute 0.27 #; Lymphocytes # 0.4 10*3/uL (1.4-4.0); Lymphocytes % 1.8 % (21.2-54.2); Mean Corpuscular HGB Conc 29.2 GM/DL (32-36); Mean Corpuscular Volume 105.6 FL (87-102); Mean Platelet Volume 10.1 FL (9.6-12.0); NRBC # 0.04 10*3/uL; Neutrophils % 91.5 % (38.7-73.9); Platelet Count 455 T/CUMM (130-400); Red Blood Count 2.66 MC/CUMM (3.8-5.5); Red Cell Distribution Width 17.5 % (9.3-17.3); White Blood Count 19.7 T/CUMM (4-12)
[2020-11-13 04:44] LABS: Calcium 9.5 MG/DL (8.5-10.1); Osmolality,Calculated 305.3 MOS/KG (273-304); Potassium 3.1 MMOL/L (3.5-5.1)
[2020-11-13 05:00] LABS: Band Neutrophils 4 % (0-10); Hypochromasia 1+; Lymphocytes 3 % (20-55); Microcytosis 1+; Platelet Estimate Adequate; Segmented Neutrophils 89 % (50-85); Total Cells Counted 100
[2020-11-13 05:12] LABS: Allen Test Positive
[2020-11-13 05:14] LABS: ABG Base Excess -2.8 MMOL/L (-2.5-2.5); ABG HCO3 22.2 MMOL/L (20-26); ABG PCO2 39.5 MM HG (35-48); ABG PH 7.368 (7.35-7.45); ABG PO2 91.9 MM HG (80-95); ABG TCO2 23.4 MMOL/L (23-27)
[2020-11-13 05:15] LABS: ABG Oxygen Saturation 96.8 % (95-100)
[2020-11-13] MEDS: INSULIN GLARGINE 100 UNIT/ML SUBCUT SCH (08:17)
[2020-11-13] MEDS: APIXABAN 5 MG TABLET PEG SCH ×2 (08:18→22:01)
[2020-11-13] MEDS: ASPIRIN CHEW 81 MG TABLET PO SCH (08:18)
[2020-11-13] MEDS: CLOPIDOGREL 75 MG TABLET PEG SCH (08:18)
[2020-11-13] MEDS: ATORVASTATIN 80 MG TABLET PEG SCH (08:18)
[2020-11-13] MEDS ORDERED: HEPARIN 10,000 UNIT/10 ML VIAL IV PRN (10:56)
[2020-11-13] MEDS: SODIUM CHLORIDE 0.9% 1,000 ML IV SCH (13:42)
[2020-11-13] MEDS: SODIUM HYPOCHLORITE 0.25% IRRIG 473 ML BOTTLE TOP SCH (14:51)
[2020-11-13] MEDS: LEVOFLOXACIN INJ 500 MG in PREMIX 1 EACH IV SCH (14:51)
[2020-11-13] MEDS: PANTOPRAZOLE 40 MG VIAL IV SCH (15:01)
[2020-11-13] MEDS: CITALOPRAM 20 MG TABLET PEG SCH (22:01)
[2020-11-13] MEDS: OMEGA 3 ACID ETHYL ESTERS 1 GM CAPSULE PO SCH (22:02)
[2020-11-14] MEDS: INSULIN LISPRO 100 UNIT/ML SUBCUT SCH ×4 (00:37→17:47)
[2020-11-14] MEDS: ALBUTEROL/IPRATROPIUM 3 ML NEB RESP TX SCH ×4 (00:41→19:44)
[2020-11-14 05:21] LABS: Basophils % 0.2 % (0.0-0.8); Hematocrit 27.3 VOL% (42.0-52.0); Hemoglobin 8.5 GM/DL (14.0-18.0); Immature Granulocytes % 0.9 %; Immature Granulocytes Absolute 0.14 #; Lymphocytes # 0.3 10*3/uL (1.4-4.0); Mean Corpuscular HGB Conc 31.1 GM/DL (32-36); Mean Platelet Volume 9.9 FL (9.6-12.0); Monocytes % 4.6 % (1.7-12.7); NRBC # 0.02 10*3/uL; Neutrophils % 92.3 % (38.7-73.9); Platelet Count 404 T/CUMM (130-400); Red Blood Count 2.73 MC/CUMM (3.8-5.5); Red Cell Distribution Width 17.3 % (9.3-17.3); White Blood Count 16.1 T/CUMM (4-12)
[2020-11-14 05:36] LABS: Calcium 9.9 MG/DL (8.5-10.1); Osmolality,Calculated 294.3 MOS/KG (273-304); Potassium 3.2 MMOL/L (3.5-5.1)
[2020-11-14 06:20] LABS: Band Neutrophils 1 % (0-10); Hypochromasia 1+; Lymphocytes 4 % (20-55); Segmented Neutrophils 92 % (50-85); Total Cells Counted 100
[2020-11-14 06:21] LABS: Microcytosis 1+
[2020-11-14] MEDS: SODIUM CHLORIDE 0.9% 1,000 ML IV SCH ×3 (06:43→15:47)
[2020-11-14] MEDS: CLOPIDOGREL 75 MG TABLET PEG SCH (11:44)
[2020-11-14] MEDS: ASPIRIN CHEW 81 MG TABLET PO SCH (11:44)
[2020-11-14] MEDS: APIXABAN 5 MG TABLET PEG SCH ×2 (11:44→21:45)
[2020-11-14] MEDS: ATORVASTATIN 80 MG TABLET PEG SCH (11:44)
[2020-11-14] MEDS: methylPREDNISolone SOD SUC 40 MG/1 ML VIAL IV SCH (12:14)
[2020-11-14] MEDS: INSULIN GLARGINE 100 UNIT/ML SUBCUT SCH (12:15)
[2020-11-14] MEDS: SODIUM HYPOCHLORITE 0.25% IRRIG 473 ML BOTTLE TOP SCH (15:10)
[2020-11-14] MEDS: PANTOPRAZOLE 40 MG VIAL IV SCH (15:49)
[2020-11-14] MEDS: METOPROLOL TARTRATE 100 MG TABLET PEG SCH (21:45)
[2020-11-14] MEDS: OMEGA 3 ACID ETHYL ESTERS 1 GM CAPSULE PO SCH (21:45)
[2020-11-14] MEDS: CITALOPRAM 20 MG TABLET PEG SCH (21:45)
[2020-11-14] MEDS: hydrALAZINE 25 MG TABLET PEG SCH (21:45)
[2020-11-15] MEDS: ALBUTEROL/IPRATROPIUM 3 ML NEB RESP TX SCH ×4 (01:00→19:17)
[2020-11-15] MEDS: INSULIN LISPRO 100 UNIT/ML SUBCUT SCH ×4 (01:42→19:48)
[2020-11-15] MEDS: methylPREDNISolone SOD SUC 40 MG/1 ML VIAL IV SCH ×3 (01:43→21:30)
[2020-11-15 06:35] LABS: Calcium 10.2 MG/DL (8.5-10.1); Osmolality,Calculated 299.1 MOS/KG (273-304); Potassium 2.9 MMOL/L (3.5-5.1)
[2020-11-15 06:43] LABS: Basophils % 0.2 % (0.0-0.8); Eosinophils % 0.1 % (0.00-10.9); Hematocrit 32.9 VOL% (42.0-52.0); Immature Granulocytes % 1.7 %; Immature Granulocytes Absolute 0.31 #; Lymphocytes # 0.6 10*3/uL (1.4-4.0); Lymphocytes % 3.3 % (21.2-54.2); Mean Corpuscular Volume 102.5 FL (87-102); Mean Platelet Volume 10.6 FL (9.6-12.0); Monocytes % 6.7 % (1.7-12.7); NRBC # 0.02 10*3/uL; Platelet Count 451 T/CUMM (130-400); Red Blood Count 3.21 MC/CUMM (3.8-5.5); Red Cell Distribution Width 17.3 % (9.3-17.3)
[2020-11-15 06:47] LABS: Hemoglobin 10.2 GM/DL (14.0-18.0)
[2020-11-15 07:04] LABS: Hypochromasia Slight; Lymphocytes 9 % (20-55); Macrocytosis Slight; Nucleated Red Blood Cells 1 (0-5); Platelet Estimate Normal; Segmented Neutrophils 87 % (50-85); Total Cells Counted 100
[2020-11-15] MEDS: SODIUM CHLORIDE 0.9% 1,000 ML IV SCH ×2 (07:40→19:30)
[2020-11-15] MEDS: hydrALAZINE 25 MG TABLET PEG SCH ×4 (07:48→21:28)
[2020-11-15] MEDS ORDERED: POTASSIUM CHLORIDE 20 MEQ/15 ML UDCUP PER TUBE ONE (09:27)
[2020-11-15] MEDS: ATORVASTATIN 80 MG TABLET PEG SCH (11:18)
[2020-11-15] MEDS: APIXABAN 5 MG TABLET PEG SCH ×2 (11:18→21:36)
[2020-11-15] MEDS: ASPIRIN CHEW 81 MG TABLET PO SCH (11:18)
[2020-11-15] MEDS: amLODIPine 10 MG TABLET PEG SCH (11:19)
[2020-11-15] MEDS: METOPROLOL TARTRATE 100 MG TABLET PEG SCH ×2 (11:19→21:36)
[2020-11-15] MEDS: INSULIN GLARGINE 100 UNIT/ML SUBCUT SCH (12:48)
[2020-11-15] MEDS: CLOPIDOGREL 75 MG TABLET PEG SCH (12:49)
[2020-11-15] MEDS: LEVOFLOXACIN INJ 500 MG in PREMIX 1 EACH IV SCH (19:30)
[2020-11-15] MEDS: SODIUM HYPOCHLORITE 0.25% IRRIG 473 ML BOTTLE TOP SCH (19:30)
[2020-11-15] MEDS: PANTOPRAZOLE 40 MG VIAL IV SCH (19:31)
[2020-11-15] MEDS: CITALOPRAM 20 MG TABLET PEG SCH (21:29)
[2020-11-15] MEDS: OMEGA 3 ACID ETHYL ESTERS 1 GM CAPSULE PO SCH (21:29)
[2020-11-16] MEDS: MORPHINE 4 MG/1 ML VIAL IV PRN ×2 (01:32→08:12)
[2020-11-16] MEDS: INSULIN LISPRO 100 UNIT/ML SUBCUT SCH ×4 (01:46→18:48)
[2020-11-16] MEDS: ALBUTEROL/IPRATROPIUM 3 ML NEB RESP TX SCH ×4 (02:05→19:01)
[2020-11-16] MEDS: SODIUM CHLORIDE 0.9% 1,000 ML IV SCH ×2 (03:54→08:32)
[2020-11-16 07:49] LABS: Basophils % 0.2 % (0.0-0.8); Hemoglobin 10.1 GM/DL (14.0-18.0); Immature Granulocytes Absolute 0.35 #; Lymphocytes # 0.3 10*3/uL (1.4-4.0); Lymphocytes % 1.6 % (21.2-54.2); Mean Corpuscular HGB Conc 31.6 GM/DL (32-36); Mean Corpuscular Volume 100.9 FL (87-102); Mean Platelet Volume 10.6 FL (9.6-12.0); Monocytes % 1.7 % (1.7-12.7); NRBC # 0.03 10*3/uL; Neutrophils % 94.5 % (38.7-73.9); Platelet Count 458 T/CUMM (130-400); Red Blood Count 3.17 MC/CUMM (3.8-5.5); Red Cell Distribution Width 17.5 % (9.3-17.3); White Blood Count 17.7 T/CUMM (4-12)
[2020-11-16 08:06] LABS: Calcium 10.2 MG/DL (8.5-10.1); Osmolality,Calculated 318.7 MOS/KG (273-304); Potassium 4.3 MMOL/L (3.5-5.1)
[2020-11-16 08:21] LABS: Hypochromasia 1+; Lymphocytes 2 % (20-55); Microcytosis 1+; Nucleated Red Blood Cells 1 (0-5); Platelet Estimate Adequate; Segmented Neutrophils 97 % (50-85); Total Cells Counted 100
[2020-11-16] MEDS: hydrALAZINE 25 MG TABLET PEG SCH ×3 (08:32→21:25)
[2020-11-16] MEDS: methylPREDNISolone SOD SUC 40 MG/1 ML VIAL IV SCH (08:32)
[2020-11-16] MEDS: ASPIRIN CHEW 81 MG TABLET PO SCH (08:33)
[2020-11-16] MEDS: CLOPIDOGREL 75 MG TABLET PEG SCH (08:33)
[2020-11-16] MEDS: amLODIPine 10 MG TABLET PEG SCH (08:33)
[2020-11-16] MEDS: INSULIN GLARGINE 100 UNIT/ML SUBCUT SCH (08:33)
[2020-11-16] MEDS: APIXABAN 5 MG TABLET PEG SCH ×2 (08:33→21:25)
[2020-11-16] MEDS: ATORVASTATIN 80 MG TABLET PEG SCH (08:33)
[2020-11-16] MEDS: METOPROLOL TARTRATE 100 MG TABLET PEG SCH ×2 (08:33→21:25)
[2020-11-16] MEDS ORDERED: LIDOCAINE 1% 20 ML VIAL ONE (08:48)
[2020-11-16] MEDS: SODIUM HYPOCHLORITE 0.25% IRRIG 473 ML BOTTLE TOP SCH (15:27)
[2020-11-16] MEDS: PANTOPRAZOLE 40 MG VIAL IV SCH (16:46)
[2020-11-16] MEDS: OMEGA 3 ACID ETHYL ESTERS 1 GM CAPSULE PO SCH (21:23)
[2020-11-16] MEDS: CITALOPRAM 20 MG TABLET PEG SCH (21:23)
[2020-11-17] MEDS: INSULIN LISPRO 100 UNIT/ML SUBCUT SCH ×4 (00:19→18:05)
[2020-11-17] MEDS: ALBUTEROL/IPRATROPIUM 3 ML NEB RESP TX SCH ×4 (00:29→19:40)
[2020-11-17 03:56] LABS: Basophils % 0.1 % (0.0-0.8); Hematocrit 31.7 VOL% (42.0-52.0); Hemoglobin 9.5 GM/DL (14.0-18.0); Immature Granulocytes % 0.6 %; Immature Granulocytes Absolute 0.15 #; Lymphocytes # 0.7 10*3/uL (1.4-4.0); Lymphocytes % 2.4 % (21.2-54.2); Mean Corpuscular Volume 105.7 FL (87-102); Neutrophils % 93.9 % (38.7-73.9); Platelet Count 450 T/CUMM (130-400); Red Cell Distribution Width 17.7 % (9.3-17.3); White Blood Count 26.8 T/CUMM (4-12)
[2020-11-17 04:19] LABS: Calcium 9.9 MG/DL (8.5-10.1); Osmolality,Calculated 300.3 MOS/KG (273-304); Potassium 3.3 MMOL/L (3.5-5.1)
[2020-11-17 04:24] LABS: Band Neutrophils 11 % (0-10); Lymphocytes 6 % (20-55); Nucleated Red Blood Cells 2 (0-5); Platelet Estimate Adequate; Segmented Neutrophils 82 % (50-85); Total Cells Counted 100
[2020-11-17 04:25] LABS: Hypochromasia 1+; Ovalocytes Slight
[2020-11-17] MEDS: APIXABAN 5 MG TABLET PEG SCH ×2 (09:21→21:59)
[2020-11-17] MEDS: METOPROLOL TARTRATE 100 MG TABLET PEG SCH (09:21)
[2020-11-17] MEDS: amLODIPine 10 MG TABLET PEG SCH (09:21)
[2020-11-17] MEDS: hydrALAZINE 25 MG TABLET PEG SCH (09:21)
[2020-11-17] MEDS: CLOPIDOGREL 75 MG TABLET PEG SCH (09:22)
[2020-11-17] MEDS: predniSONE 20 MG TABLET PO SCH (09:25)
[2020-11-17] MEDS: ASPIRIN CHEW 81 MG TABLET PO SCH (09:25)
[2020-11-17] MEDS: SODIUM HYPOCHLORITE 0.25% IRRIG 473 ML BOTTLE TOP SCH (09:25)
[2020-11-17] MEDS: ATORVASTATIN 80 MG TABLET PEG SCH (09:25)
[2020-11-17] MEDS: INSULIN GLARGINE 100 UNIT/ML SUBCUT SCH (09:26)
[2020-11-17] MEDS: LEVOFLOXACIN INJ 500 MG in PREMIX 1 EACH IV SCH (15:55)
[2020-11-17 16:04] LABS: ABG Base Excess -2.1 MMOL/L (-2.5-2.5); ABG HCO3 22.6 MMOL/L (20-26); ABG Oxygen Saturation 90.1 % (95-100); ABG PCO2 34.9 MM HG (35-48); ABG PO2 57.6 MM HG (80-95); ABG TCO2 20.2 MMOL/L (23-27); Allen Test Positive; Pt O2 Delivery Device BIPAP
[2020-11-17] MEDS: PANTOPRAZOLE 40 MG VIAL IV SCH (16:15)
[2020-11-17] MEDS: PIPERACILLIN/TAZOBACTAM 3.375 MG in SODIUM CHLORIDE 0.9% 100 ML IV SCH (16:18)
[2020-11-17] MEDS ORDERED: SODIUM CHLORIDE 0.9% 250 ML IV ONE (18:54)
[2020-11-17] MEDS: OMEGA 3 ACID ETHYL ESTERS 1 GM CAPSULE PO SCH (21:59)
[2020-11-18] MEDS: INSULIN LISPRO 100 UNIT/ML SUBCUT SCH ×4 (00:01→18:22)
[2020-11-18] MEDS: ALBUTEROL/IPRATROPIUM 3 ML NEB RESP TX SCH ×4 (00:23→19:48)
[2020-11-18 05:27] LABS: Hemoglobin 8.7 GM/DL (14.0-18.0); Immature Granulocytes % 1.4 %; Immature Granulocytes Absolute 0.59 #; Lymphocytes # 0.4 10*3/uL (1.4-4.0); Lymphocytes % 0.9 % (21.2-54.2); Mean Corpuscular HGB Conc 31.1 GM/DL (32-36); Mean Corpuscular Volume 101.8 FL (87-102); Mean Platelet Volume 10.7 FL (9.6-12.0); Monocytes % 1.7 % (1.7-12.7); NRBC # 0.05 10*3/uL; Platelet Count 430 T/CUMM (130-400); Red Blood Count 2.75 MC/CUMM (3.8-5.5); Red Cell Distribution Width 17.6 % (9.3-17.3)
[2020-11-18] MEDS: PIPERACILLIN/TAZOBACTAM 3.375 MG in SODIUM CHLORIDE 0.9% 100 ML IV SCH ×2 (05:37→17:26)
[2020-11-18 05:40] LABS: White Blood Count 42.1 T/CUMM (4-12)
[2020-11-18 05:57] LABS: Band Neutrophils 8 % (0-10); Hypochromasia 1+; Lymphocytes 5 % (20-55); Microcytosis 1+; Platelet Estimate Adequate; Segmented Neutrophils 86 % (50-85); Total Cells Counted 100
[2020-11-18 06:08] LABS: Albumin 2.1 G/DL (3.4-5.0); Bilirubin,Total 1.2 MG/DL (0.2-1.0); Calcium 10.3 MG/DL (8.5-10.1); Osmolality,Calculated 314.8 MOS/KG (273-304); Potassium 3.2 MMOL/L (3.5-5.1)
[2020-11-18] MEDS ORDERED: MIDAZOLAM 10 MG/2 ML VIAL ONE (06:54)
[2020-11-18] MEDS ORDERED: MIDAZOLAM 2 MG/2 ML VIAL ONE (06:56)
[2020-11-18] MEDS ORDERED: MIDAZOLAM 2 MG/2 ML VIAL IV ONE (07:00)
[2020-11-18] MEDS: ATORVASTATIN 80 MG TABLET PEG SCH (09:50)
[2020-11-18] MEDS: APIXABAN 5 MG TABLET PEG SCH ×2 (09:50→21:27)
[2020-11-18] MEDS: predniSONE 20 MG TABLET PO SCH (09:50)
[2020-11-18] MEDS: ASPIRIN CHEW 81 MG TABLET PO SCH (09:50)
[2020-11-18] MEDS: CLOPIDOGREL 75 MG TABLET PEG SCH (09:51)
[2020-11-18] MEDS: SODIUM HYPOCHLORITE 0.25% IRRIG 473 ML BOTTLE TOP SCH (09:51)
[2020-11-18] MEDS: COLLAGENASE OINT 30 GM TUBE TOP SCH (09:52)
[2020-11-18] MEDS: INSULIN GLARGINE 100 UNIT/ML SUBCUT SCH (10:04)
[2020-11-18] MEDS: VANCOMYCIN INJ 1,000 MG in SODIUM CHLORIDE 0.9% 250 ML IV ONE ×2 (10:36→14:15)
[2020-11-18] MEDS: SODIUM CHLORIDE 3% 4 ML NEB RESP TX SCH ×2 (17:05→21:08)
[2020-11-18] MEDS: PANTOPRAZOLE 40 MG VIAL IV SCH (17:25)
[2020-11-18] MEDS: OMEGA 3 ACID ETHYL ESTERS 1 GM CAPSULE PO SCH (21:28)
[2020-11-19] MEDS: INSULIN LISPRO 100 UNIT/ML SUBCUT SCH ×4 (00:13→19:27)
[2020-11-19] MEDS: ALBUTEROL/IPRATROPIUM 3 ML NEB RESP TX SCH ×4 (03:20→19:12)
[2020-11-19 04:36] LABS: ABG Base Excess 1.4 MMOL/L (-2.5-2.5); ABG HCO3 25.4 MMOL/L (20-26); ABG Oxygen Saturation 86.2 % (95-100); ABG PCO2 48.7 MM HG (35-48); ABG PO2 57.2 MM HG (80-95); ABG TCO2 24.7 MMOL/L (23-27); Allen Test Positive
[2020-11-19 04:49] LABS: Basophils # 0.1 10*3/uL (0.0-0.2); Basophils % 0.3 % (0.0-0.8); Hematocrit 24.7 VOL% (42.0-52.0); Immature Granulocytes % 1.3 %; Immature Granulocytes Absolute 0.56 #; Lymphocytes # 0.4 10*3/uL (1.4-4.0); Mean Corpuscular HGB Conc 32.4 GM/DL (32-36); Mean Corpuscular Volume 99.6 FL (87-102); Mean Platelet Volume 10.7 FL (9.6-12.0); Monocytes % 1.8 % (1.7-12.7); NRBC # 0.04 10*3/uL; Neutrophils % 95.6 % (38.7-73.9); Platelet Count 364 T/CUMM (130-400); Red Blood Count 2.48 MC/CUMM (3.8-5.5); Red Cell Distribution Width 17.9 % (9.3-17.3)
[2020-11-19 04:55] LABS: White Blood Count 42.2 T/CUMM (4-12)
[2020-11-19 05:09] LABS: Calcium 10.1 MG/DL (8.5-10.1); Osmolality,Calculated 300.4 MOS/KG (273-304); Potassium 3.8 MMOL/L (3.5-5.1)
[2020-11-19 05:10] LABS: Hypochromasia 1+; Lymphocytes 3 % (20-55); Microcytosis 1+; Platelet Estimate Adequate; Segmented Neutrophils 93 % (50-85); Total Cells Counted 100
[2020-11-19] MEDS: PIPERACILLIN/TAZOBACTAM 3.375 MG in SODIUM CHLORIDE 0.9% 100 ML IV SCH ×2 (05:16→16:08)
[2020-11-19] MEDS: SODIUM CHLORIDE 3% 4 ML NEB RESP TX SCH ×2 (08:09→19:12)
[2020-11-19] MEDS: APIXABAN 5 MG TABLET PEG SCH ×2 (09:39→21:11)
[2020-11-19] MEDS: INSULIN GLARGINE 100 UNIT/ML SUBCUT SCH (09:39)
[2020-11-19] MEDS: SODIUM HYPOCHLORITE 0.25% IRRIG 473 ML BOTTLE TOP SCH (09:39)
[2020-11-19] MEDS: ASPIRIN CHEW 81 MG TABLET PO SCH (09:39)
[2020-11-19] MEDS: ATORVASTATIN 80 MG TABLET PEG SCH (09:39)
[2020-11-19] MEDS: predniSONE 20 MG TABLET PO SCH (09:40)
[2020-11-19] MEDS: COLLAGENASE OINT 30 GM TUBE TOP SCH (09:40)
[2020-11-19] MEDS: CLOPIDOGREL 75 MG TABLET PEG SCH (09:40)
[2020-11-19] MEDS: PANTOPRAZOLE 40 MG VIAL IV SCH (16:08)
[2020-11-19] MEDS: MENTHOL/ZINC OXIDE OINT 71 GM JAR TOP SCH ×2 (16:09→21:11)
[2020-11-19] MEDS: OMEGA 3 ACID ETHYL ESTERS 1 GM CAPSULE PO SCH (21:10)
[2020-11-20] MEDS: ALBUTEROL/IPRATROPIUM 3 ML NEB RESP TX SCH ×4 (00:27→19:20)
[2020-11-20] MEDS: INSULIN LISPRO 100 UNIT/ML SUBCUT SCH ×4 (01:58→17:29)
[2020-11-20] MEDS: PIPERACILLIN/TAZOBACTAM 3.375 MG in SODIUM CHLORIDE 0.9% 100 ML IV SCH ×2 (04:23→18:40)
[2020-11-20 05:42] LABS: Basophils # 0.1 10*3/uL (0.0-0.2); Basophils % 0.2 % (0.0-0.8); Hematocrit 26.1 VOL% (42.0-52.0); Hemoglobin 8.2 GM/DL (14.0-18.0); Immature Granulocytes % 0.9 %; Immature Granulocytes Absolute 0.23 #; Lymphocytes # 0.4 10*3/uL (1.4-4.0); Lymphocytes % 1.5 % (21.2-54.2); Mean Corpuscular HGB Conc 31.4 GM/DL (32-36); Mean Corpuscular Volume 101.2 FL (87-102); Mean Platelet Volume 11.7 FL (9.6-12.0); NRBC # 0.04 10*3/uL; Neutrophils % 94.4 % (38.7-73.9); Platelet Count 348 T/CUMM (130-400); Red Blood Count 2.58 MC/CUMM (3.8-5.5); Red Cell Distribution Width 18.3 % (9.3-17.3); White Blood Count 26.8 T/CUMM (4-12)
[2020-11-20 06:06] LABS: Hypochromasia 1+; Lymphocytes 1 % (20-55); Microcytosis 1+; Platelet Estimate Adequate; Segmented Neutrophils 94 % (50-85); Total Cells Counted 100
[2020-11-20 06:21] LABS: Calcium 10.2 MG/DL (8.5-10.1); Osmolality,Calculated 303.3 MOS/KG (273-304); Potassium 4.2 MMOL/L (3.5-5.1)
[2020-11-20] MEDS ORDERED: INSULIN GLARGINE 100 UNIT/ML SUBCUT SCH ×2 (09:00)
[2020-11-20] MEDS ORDERED: predniSONE 10 MG TABLET PO SCH (09:00)
[2020-11-20] MEDS: CLOPIDOGREL 75 MG TABLET PEG SCH (09:02)
[2020-11-20] MEDS: ATORVASTATIN 80 MG TABLET PEG SCH (09:03)
[2020-11-20] MEDS: APIXABAN 5 MG TABLET PEG SCH ×2 (09:03→21:51)
[2020-11-20] MEDS: ASPIRIN CHEW 81 MG TABLET PO SCH (09:03)
[2020-11-20] MEDS: INSULIN GLARGINE 100 UNIT/ML SUBCUT SCH (09:03)
[2020-11-20] MEDS ORDERED: VANCOMYCIN INJ 500 MG in SODIUM CHLORIDE 0.9% 100 ML IV PRN (10:34)
[2020-11-20] MEDS: COLLAGENASE OINT 30 GM TUBE TOP SCH (10:47)
[2020-11-20] MEDS: SODIUM HYPOCHLORITE 0.25% IRRIG 473 ML BOTTLE TOP SCH (10:47)
[2020-11-20] MEDS: MENTHOL/ZINC OXIDE OINT 71 GM JAR TOP SCH ×2 (10:47→21:51)
[2020-11-20] MEDS: SODIUM CHLORIDE 3% 4 ML NEB RESP TX SCH ×2 (14:05→19:20)
[2020-11-20] MEDS ORDERED: VANCOMYCIN INJ 500 MG in SODIUM CHLORIDE 0.9% 100 ML IV ONE (17:00)
[2020-11-20] MEDS ORDERED: METOPROLOL TARTRATE 25 MG TABLET PO SCH (21:00)
[2020-11-20] MEDS: OMEGA 3 ACID ETHYL ESTERS 1 GM CAPSULE PO SCH (21:50)
[2020-11-21] MEDS: ALBUTEROL/IPRATROPIUM 3 ML NEB RESP TX SCH ×4 (00:55→19:00)
[2020-11-21] MEDS: INSULIN LISPRO 100 UNIT/ML SUBCUT SCH ×4 (01:15→17:48)
[2020-11-21] MEDS: PIPERACILLIN/TAZOBACTAM 3.375 MG in SODIUM CHLORIDE 0.9% 100 ML IV SCH ×2 (05:30→15:58)
[2020-11-21 06:05] LABS: Basophils % 0.2 % (0.0-0.8); Eosinophils # 0.1 10*3/uL (0.0-0.87); Eosinophils % 0.8 % (0.00-10.9); Hematocrit 26.4 VOL% (42.0-52.0); Hemoglobin 8.3 GM/DL (14.0-18.0); Immature Granulocytes % 1.6 %; Immature Granulocytes Absolute 0.25 #; Lymphocytes # 0.9 10*3/uL (1.4-4.0); Lymphocytes % 5.8 % (21.2-54.2); Mean Corpuscular HGB Conc 31.4 GM/DL (32-36); Mean Corpuscular Volume 101.1 FL (87-102); Mean Platelet Volume 11.7 FL (9.6-12.0); Monocytes % 6.8 % (1.7-12.7); NRBC # 0.06 10*3/uL; Neutrophils % 84.8 % (38.7-73.9); Platelet Count 347 T/CUMM (130-400); Red Blood Count 2.61 MC/CUMM (3.8-5.5); Red Cell Distribution Width 18.3 % (9.3-17.3); White Blood Count 15.8 T/CUMM (4-12)
[2020-11-21] MEDS: SODIUM CHLORIDE 3% 4 ML NEB RESP TX SCH ×2 (07:43→19:00)
[2020-11-21] MEDS: ASPIRIN CHEW 81 MG TABLET PO SCH (08:54)
[2020-11-21] MEDS: METOPROLOL TARTRATE 25 MG TABLET PO SCH ×2 (08:54→21:25)
[2020-11-21] MEDS: ATORVASTATIN 80 MG TABLET PEG SCH (08:54)
[2020-11-21] MEDS: CLOPIDOGREL 75 MG TABLET PEG SCH (08:54)
[2020-11-21] MEDS: APIXABAN 5 MG TABLET PEG SCH ×2 (08:55→21:25)
[2020-11-21] MEDS: INSULIN GLARGINE 100 UNIT/ML SUBCUT SCH (08:56)
[2020-11-21] MEDS: MENTHOL/ZINC OXIDE OINT 71 GM JAR TOP SCH ×2 (13:08→21:25)
[2020-11-21] MEDS: COLLAGENASE OINT 30 GM TUBE TOP SCH (13:09)
[2020-11-21] MEDS: SODIUM HYPOCHLORITE 0.25% IRRIG 473 ML BOTTLE TOP SCH (13:09)
[2020-11-21] MEDS: OMEGA 3 ACID ETHYL ESTERS 1 GM CAPSULE PO SCH (21:26)
[2020-11-22] MEDS: ALBUTEROL/IPRATROPIUM 3 ML NEB RESP TX SCH ×6 (00:16→23:51)
[2020-11-22] MEDS: INSULIN LISPRO 100 UNIT/ML SUBCUT SCH ×4 (00:54→18:46)
[2020-11-22] MEDS: PIPERACILLIN/TAZOBACTAM 3.375 MG in SODIUM CHLORIDE 0.9% 100 ML IV SCH ×2 (05:23→17:03)
[2020-11-22] MEDS: SODIUM CHLORIDE 3% 4 ML NEB RESP TX SCH ×2 (06:58→18:55)
[2020-11-22] MEDS ORDERED: ALBUTEROL/IPRATROPIUM 3 ML NEB RESP TX ONE (07:44)
[2020-11-22 07:57] LABS: Basophils % 0.1 % (0.0-0.8); Eosinophils # 0.2 10*3/uL (0.0-0.87); Eosinophils % 1.4 % (0.00-10.9); Hematocrit 28.4 VOL% (42.0-52.0); Hemoglobin 8.4 GM/DL (14.0-18.0); Immature Granulocytes % 1.4 %; Immature Granulocytes Absolute 0.21 #; Lymphocytes # 0.8 10*3/uL (1.4-4.0); Lymphocytes % 5.4 % (21.2-54.2); Mean Corpuscular HGB Conc 29.6 GM/DL (32-36); Mean Corpuscular Volume 104.4 FL (87-102); Mean Platelet Volume 10.9 FL (9.6-12.0); Monocytes % 9.1 % (1.7-12.7); NRBC # 0.04 10*3/uL; Neutrophils % 82.6 % (38.7-73.9); Platelet Count 383 T/CUMM (130-400); Red Blood Count 2.72 MC/CUMM (3.8-5.5); Red Cell Distribution Width 18.1 % (9.3-17.3); White Blood Count 15.5 T/CUMM (4-12)
[2020-11-22] MEDS: METOPROLOL TARTRATE 25 MG TABLET PO SCH (08:04)
[2020-11-22] MEDS ORDERED: FUROSEMIDE 40 MG/4 ML VIAL IV ONE (08:09)
[2020-11-22] MEDS ORDERED: FUROSEMIDE 40 MG/4 ML VIAL ONE (08:12)
[2020-11-22 08:22] LABS: Calcium 9.5 MG/DL (8.5-10.1); Osmolality,Calculated 309.1 MOS/KG (273-304); Potassium 4.8 MMOL/L (3.5-5.1)
[2020-11-22] MEDS: ATORVASTATIN 80 MG TABLET PEG SCH (09:57)
[2020-11-22] MEDS: CLOPIDOGREL 75 MG TABLET PEG SCH (09:57)
[2020-11-22] MEDS: ASPIRIN CHEW 81 MG TABLET PO SCH (09:57)
[2020-11-22] MEDS: APIXABAN 5 MG TABLET PEG SCH ×2 (09:57→21:17)
[2020-11-22] MEDS: INSULIN GLARGINE 100 UNIT/ML SUBCUT SCH (09:58)
[2020-11-22] MEDS: SODIUM HYPOCHLORITE 0.25% IRRIG 473 ML BOTTLE TOP SCH (11:45)
[2020-11-22] MEDS: COLLAGENASE OINT 30 GM TUBE TOP SCH (11:45)
[2020-11-22] MEDS: MENTHOL/ZINC OXIDE OINT 71 GM JAR TOP SCH ×2 (11:45→21:17)
[2020-11-22] MEDS ORDERED: methylPREDNISolone SOD SUC 125 MG/2 ML VIAL IV ONE (14:00)
[2020-11-22] MEDS: SCOPOLAMINE 1.5 MG PATCH TRANSDERM SCH (14:18)
[2020-11-22] MEDS: PIPERACILLIN/TAZOBACTAM 3,375 MG in SODIUM CHLORIDE 0.9% 100 ML IV SCH (16:15)
[2020-11-22] MEDS: METOPROLOL TARTRATE 50 MG TABLET PO SCH (22:18)
[2020-11-22] MEDS: OMEGA 3 ACID ETHYL ESTERS 1 GM CAPSULE PO SCH (22:19)
[2020-11-23] MEDS: INSULIN LISPRO 100 UNIT/ML SUBCUT SCH ×6 (00:31→23:51)
[2020-11-23] MEDS: ALBUTEROL/IPRATROPIUM 3 ML NEB RESP TX SCH ×6 (03:12→23:57)
[2020-11-23] MEDS: PIPERACILLIN/TAZOBACTAM 3,375 MG in SODIUM CHLORIDE 0.9% 100 ML IV SCH ×2 (04:53→20:26)
[2020-11-23 05:45] LABS: Basophils % 0.1 % (0.0-0.8); Hematocrit 26.5 VOL% (42.0-52.0); Hemoglobin 7.9 GM/DL (14.0-18.0); Immature Granulocytes % 1.4 %; Lymphocytes # 0.7 10*3/uL (1.4-4.0); Lymphocytes % 5.2 % (21.2-54.2); Mean Corpuscular HGB Conc 29.8 GM/DL (32-36); Mean Corpuscular Volume 104.7 FL (87-102); Mean Platelet Volume 11.8 FL (9.6-12.0); Monocytes % 5.7 % (1.7-12.7); NRBC # 0.03 10*3/uL; Neutrophils % 87.6 % (38.7-73.9); Platelet Count 389 T/CUMM (130-400); Red Blood Count 2.53 MC/CUMM (3.8-5.5); Red Cell Distribution Width 18.2 % (9.3-17.3); White Blood Count 14.2 T/CUMM (4-12)
[2020-11-23 06:05] LABS: Hypochromasia 2+; Lymphocytes 6 % (20-55); Microcytosis 1+; Platelet Estimate Adequate; Segmented Neutrophils 90 % (50-85); Total Cells Counted 100
[2020-11-23 06:22] LABS: Bilirubin,Total 0.4 MG/DL (0.2-1.0); Calcium 9.8 MG/DL (8.5-10.1); Osmolality,Calculated 316.3 MOS/KG (273-304); Potassium 5.7 MMOL/L (3.5-5.1); Total Protein 7.1 G/DL (6.4-8.3)
[2020-11-23 06:26] LABS: Folate 17.2 NG/ML (5.38-24.0)
[2020-11-23 06:47] LABS: Free T4 (Free Thyroxine) 0.99 NG/DL (0.76-1.46); Thyroid Stimulating Hormone 1.1 uIU/ml (0.358-3.74)
[2020-11-23] MEDS: SODIUM CHLORIDE 3% 4 ML NEB RESP TX SCH ×2 (07:30→19:30)
[2020-11-23] MEDS: METOPROLOL TARTRATE 50 MG TABLET PO SCH ×2 (09:27→22:11)
[2020-11-23] MEDS: CLOPIDOGREL 75 MG TABLET PEG SCH (09:27)
[2020-11-23] MEDS: ATORVASTATIN 80 MG TABLET PEG SCH (09:27)
[2020-11-23] MEDS: APIXABAN 5 MG TABLET PEG SCH ×2 (09:27→22:10)
[2020-11-23] MEDS: ASPIRIN CHEW 81 MG TABLET PO SCH (09:27)
[2020-11-23] MEDS: MENTHOL/ZINC OXIDE OINT 71 GM JAR TOP SCH ×2 (09:36→22:11)
[2020-11-23] MEDS: COLLAGENASE OINT 30 GM TUBE TOP SCH (09:36)
[2020-11-23] MEDS: SODIUM HYPOCHLORITE 0.25% IRRIG 473 ML BOTTLE TOP SCH (09:38)
[2020-11-23] MEDS: INSULIN GLARGINE 100 UNIT/ML SUBCUT SCH (09:45)
[2020-11-23] MEDS: VANCOMYCIN 50 MG/ML 60 ML/BOTTLE PO SCH ×3 (13:05→20:27)
[2020-11-23] MEDS ORDERED: EPINEPHrine 1 MG/10 ML SYRINGE ONE ×2 (13:27→13:28)
[2020-11-23] MEDS ORDERED: DOPamine 800 MG/250 ML PREMIX IV PRN (14:10)
[2020-11-23] MEDS ORDERED: ETOMIDATE 20 MG/10 ML VIAL IV ONE ×2 (14:45→14:48)
[2020-11-23] MEDS ORDERED: SUCCINYLCHOLINE 200 MG/10 ML VIAL IV ONE (14:45)
[2020-11-23 14:48] LABS: Basophils # 0.2 10*3/uL (0.0-0.2); Basophils % 0.5 % (0.0-0.8); Eosinophils # 0.2 10*3/uL (0.0-0.87); Eosinophils % 0.6 % (0.00-10.9); Hematocrit 27.9 VOL% (42.0-52.0); Hemoglobin 8.2 GM/DL (14.0-18.0); Immature Granulocytes % 15.3 %; Immature Granulocytes Absolute 5.23 #; Lymphocytes # 3.4 10*3/uL (1.4-4.0); Lymphocytes % 9.9 % (21.2-54.2); Mean Corpuscular HGB Conc 29.4 GM/DL (32-36); Mean Platelet Volume 11.7 FL (9.6-12.0); Monocytes % 1.8 % (1.7-12.7); NRBC # 1.14 10*3/uL; Neutrophils % 71.9 % (38.7-73.9); Platelet Count 397 T/CUMM (130-400); Red Blood Count 2.49 MC/CUMM (3.8-5.5); Red Cell Distribution Width 18.3 % (9.3-17.3); White Blood Count 34.2 T/CUMM (4-12)
[2020-11-23] MEDS ORDERED: SUCCINYLCHOLINE 200 MG/10 ML VIAL ONE (14:48)
[2020-11-23] MEDS ORDERED: NOREPINEPHRINE 4 MG/4 ML VIAL IV ONE (14:56)
[2020-11-23] MEDS ORDERED: LACTATED RINGERS 1,000 ML IV ONE (15:00)
[2020-11-23] MEDS: SODIUM CHLORIDE 0.9% 1,000 ML IV SCH ×3 (15:00→19:58)
[2020-11-23] MEDS: NOREPINEPHRINE 8 MG in SODIUM CHLORIDE 0.9% 242 ML IV PRN ×2 (15:00→19:30)
[2020-11-23 15:36] LABS: Albumin 1.9 G/DL (3.4-5.0); Bilirubin,Total 0.8 MG/DL (0.2-1.0); Calcium 10.6 MG/DL (8.5-10.1); Osmolality,Calculated 296.7 MOS/KG (273-304); Potassium 4.8 MMOL/L (3.5-5.1)
[2020-11-23 15:40] LABS: Troponin I 0.189 NG/ML (0.00-0.045)
[2020-11-23] MEDS ORDERED: PHENYLEPHRINE DRIP 40 MG/250 ML PREMIX IV PRN (16:10)
[2020-11-23] MEDS ORDERED: MIDAZOLAM 10 MG/2 ML VIAL ONE (16:14)
[2020-11-23] MEDS ORDERED: MIDAZOLAM 2 MG/2 ML VIAL IV ONE (16:15)
[2020-11-23] MEDS: MIDAZOLAM 100 MG in SODIUM CHLORIDE 0.9% 80 ML IV PRN (17:00)
[2020-11-23 18:39] LABS: Band Neutrophils 20 % (0-10); Lymphocytes 24 % (20-55); Metamyelocytes 4 %; Myelocytes 1 %; Nucleated Red Blood Cells 3 (0-5); Segmented Neutrophils 49 % (50-85); Total Cells Counted 100
[2020-11-23 18:40] LABS: Platelet Estimate Normal
[2020-11-23 19:53] VITALS: BP 43/27
[2020-11-23 21:11] LABS: ABG Base Excess 0.5 MMOL/L (-2.5-2.5); ABG HCO3 23.8 MMOL/L (20-26); ABG Oxygen Saturation 99.4 % (95-100); ABG PCO2 33.1 MM HG (35-48); ABG PH 7.475 (7.35-7.45); ABG PO2 299.5 MM HG (80-95); ABG TCO2 24.8 MMOL/L (23-27)
[2020-11-23] MEDS: OMEGA 3 ACID ETHYL ESTERS 1 GM CAPSULE PO SCH (22:11)
[2020-11-23] MEDS: NOREPINEPHRINE 16 MG in SODIUM CHLORIDE 0.9% 234 ML IV PRN (22:30)
[2020-11-24] MEDS: ALBUTEROL/IPRATROPIUM 3 ML NEB RESP TX SCH ×6 (03:45→23:10)
[2020-11-24 04:06] LABS: ABG Base Excess 3.3 MMOL/L (-2.5-2.5); ABG HCO3 27.4 MMOL/L (20-26); ABG PCO2 33.4 MM HG (35-48); ABG PH 7.505 (7.35-7.45); ABG TCO2 24.3 MMOL/L (23-27)
[2020-11-24 04:57] LABS: Basophils # 0.1 10*3/uL (0.0-0.2); Basophils % 0.3 % (0.0-0.8); Eosinophils # 0.1 10*3/uL (0.0-0.87); Eosinophils % 0.3 % (0.00-10.9); Hematocrit 27.7 VOL% (42.0-52.0); Hemoglobin 8.2 GM/DL (14.0-18.0); Immature Granulocytes % 3.2 %; Immature Granulocytes Absolute 1.02 #; Lymphocytes # 1.8 10*3/uL (1.4-4.0); Lymphocytes % 5.6 % (21.2-54.2); Mean Corpuscular HGB Conc 29.6 GM/DL (32-36); Mean Corpuscular Volume 107.4 FL (87-102); Mean Platelet Volume 11.4 FL (9.6-12.0); Monocytes % 2.5 % (1.7-12.7); NRBC # 1.93 10*3/uL; Neutrophils % 88.1 % (38.7-73.9); Platelet Count 499 T/CUMM (130-400); Red Blood Count 2.58 MC/CUMM (3.8-5.5); Red Cell Distribution Width 18.6 % (9.3-17.3); White Blood Count 31.8 T/CUMM (4-12)
[2020-11-24 05:21] LABS: Band Neutrophils 1 % (0-10); Eosinophils 1 % (0-10); Hypochromasia 1+; Lymphocytes 3 % (20-55); Nucleated Red Blood Cells 7 (0-5); Platelet Estimate Adequate; Segmented Neutrophils 94 % (50-85); Total Cells Counted 100
[2020-11-24 05:27] LABS: Albumin 1.8 G/DL (3.4-5.0); Bilirubin,Total 0.5 MG/DL (0.2-1.0); CKMB % 19.5 %; Calcium 9.5 MG/DL (8.5-10.1); Osmolality,Calculated 304.7 MOS/KG (273-304); Potassium 4.1 MMOL/L (3.5-5.1); Total Protein 6.7 G/DL (6.4-8.3)
[2020-11-24] MEDS: VANCOMYCIN 50 MG/ML 60 ML/BOTTLE PO SCH ×4 (05:27→18:29)
[2020-11-24 05:31] LABS: Troponin I 9.59 NG/ML (0.00-0.045)
[2020-11-24] MEDS: INSULIN LISPRO 100 UNIT/ML SUBCUT SCH ×3 (05:47→18:29)
[2020-11-24] MEDS: PIPERACILLIN/TAZOBACTAM 3,375 MG in SODIUM CHLORIDE 0.9% 100 ML IV SCH ×2 (05:47→18:10)
[2020-11-24] MEDS: NOREPINEPHRINE 16 MG in SODIUM CHLORIDE 0.9% 234 ML IV PRN ×2 (06:25→15:00)
[2020-11-24] MEDS: SODIUM CHLORIDE 3% 4 ML NEB RESP TX SCH ×2 (07:40→19:40)
[2020-11-24] MEDS: MIDAZOLAM 100 MG in SODIUM CHLORIDE 0.9% 80 ML IV PRN (08:35)
[2020-11-24] MEDS: APIXABAN 5 MG TABLET PEG SCH ×2 (09:12→22:00)
[2020-11-24] MEDS: ASPIRIN CHEW 81 MG TABLET PO SCH (09:12)
[2020-11-24] MEDS: INSULIN GLARGINE 100 UNIT/ML SUBCUT SCH (09:12)
[2020-11-24] MEDS: CLOPIDOGREL 75 MG TABLET PEG SCH (09:13)
[2020-11-24] MEDS: ATORVASTATIN 80 MG TABLET PEG SCH (09:13)
[2020-11-24] MEDS: METOPROLOL TARTRATE 50 MG TABLET PO SCH (09:32)
[2020-11-24] MEDS: OMEGA 3 ACID ETHYL ESTERS 1 GM CAPSULE PO SCH (22:00)
[2020-11-24] MEDS ORDERED: METOPROLOL TARTRATE 5 MG/5 ML VIAL IV ONE (23:26)
[2020-11-25] MEDS: INSULIN LISPRO 100 UNIT/ML SUBCUT SCH ×4 (00:01→17:09)
[2020-11-25] MEDS: VANCOMYCIN 50 MG/ML 60 ML/BOTTLE PO SCH ×4 (00:01→17:43)
[2020-11-25 00:40] LABS: Osmolality,Calculated 310.3 MOS/KG (273-304); Potassium 4.4 MMOL/L (3.5-5.1)
[2020-11-25] MEDS: NOREPINEPHRINE 16 MG in SODIUM CHLORIDE 0.9% 234 ML IV PRN ×3 (00:45→20:18)
[2020-11-25] MEDS: COLLAGENASE OINT 30 GM TUBE TOP SCH ×2 (01:30→10:05)
[2020-11-25] MEDS: SODIUM HYPOCHLORITE 0.25% IRRIG 473 ML BOTTLE TOP SCH ×2 (01:31→10:05)
[2020-11-25] MEDS: MENTHOL/ZINC OXIDE OINT 71 GM JAR TOP SCH ×3 (01:31→10:04)
[2020-11-25] MEDS: ALBUTEROL/IPRATROPIUM 3 ML NEB RESP TX SCH ×6 (03:39→23:34)
[2020-11-25 03:47] LABS: ABG Base Excess -0.3 MMOL/L (-2.5-2.5); ABG HCO3 24.2 MMOL/L (20-26); ABG Oxygen Saturation 99.8 % (95-100); ABG PCO2 34.1 MM HG (35-48); ABG PH 7.446 (7.35-7.45); ABG TCO2 22.1 MMOL/L (23-27); Allen Test Positive; Pt O2 Delivery Device Ventilator
[2020-11-25 04:41] LABS: Basophils # 0.1 10*3/uL (0.0-0.2); Basophils % 0.3 % (0.0-0.8); Eosinophils # 0.1 10*3/uL (0.0-0.87); Eosinophils % 0.5 % (0.00-10.9); Hematocrit 23.1 VOL% (42.0-52.0); Hemoglobin 7.1 GM/DL (14.0-18.0); Immature Granulocytes Absolute 0.85 #; Lymphocytes # 1.4 10*3/uL (1.4-4.0); Lymphocytes % 5.1 % (21.2-54.2); Mean Corpuscular HGB Conc 30.7 GM/DL (32-36); Mean Corpuscular Volume 104.5 FL (87-102); Mean Platelet Volume 11.3 FL (9.6-12.0); Monocytes % 3.4 % (1.7-12.7); NRBC # 0.71 10*3/uL; Neutrophils % 87.7 % (38.7-73.9); Platelet Count 379 T/CUMM (130-400); Red Blood Count 2.21 MC/CUMM (3.8-5.5); Red Cell Distribution Width 18.6 % (9.3-17.3)
[2020-11-25] MEDS: PIPERACILLIN/TAZOBACTAM 3,375 MG in SODIUM CHLORIDE 0.9% 100 ML IV SCH ×2 (04:44→16:43)
[2020-11-25] MEDS: MIDAZOLAM 100 MG in SODIUM CHLORIDE 0.9% 80 ML IV PRN (04:53)
[2020-11-25 05:14] LABS: Calcium 8.9 MG/DL (8.5-10.1); Osmolality,Calculated 308.4 MOS/KG (273-304); Potassium 4.4 MMOL/L (3.5-5.1)
[2020-11-25 05:59] LABS: Eosinophils 5 % (0-10); Total Cells Counted 100
[2020-11-25 06:00] LABS: Band Neutrophils 2 % (0-10); Hypochromasia 2+; Lymphocytes 6 % (20-55); Metamyelocytes 3 %; Platelet Estimate Normal; Segmented Neutrophils 78 % (50-85)
[2020-11-25 06:02] LABS: Anisocytosis 2+; Macrocytosis 2+
[2020-11-25] MEDS: SODIUM CHLORIDE 3% 4 ML NEB RESP TX SCH ×2 (07:18→19:15)
[2020-11-25] MEDS: ASPIRIN CHEW 81 MG TABLET PO SCH (10:04)
[2020-11-25] MEDS: CLOPIDOGREL 75 MG TABLET PEG SCH (10:05)
[2020-11-25] MEDS: APIXABAN 5 MG TABLET PEG SCH ×2 (10:05→21:39)
[2020-11-25] MEDS: SCOPOLAMINE 1.5 MG PATCH TRANSDERM SCH (10:06)
[2020-11-25] MEDS: INSULIN GLARGINE 100 UNIT/ML SUBCUT SCH (12:12)
[2020-11-25] MEDS: DEXTROSE 50% 25 GM/50 ML VIAL IV PRN (17:08)
[2020-11-25] MEDS: OMEGA 3 ACID ETHYL ESTERS 1 GM CAPSULE PO SCH (21:39)
[2020-11-26] MEDS: DEXTROSE 50% 25 GM/50 ML VIAL IV PRN ×2 (00:34→11:44)
[2020-11-26] MEDS: INSULIN LISPRO 100 UNIT/ML SUBCUT SCH ×3 (00:35→11:53)
[2020-11-26] MEDS: VANCOMYCIN 50 MG/ML 60 ML/BOTTLE PO SCH ×3 (00:42→11:38)
[2020-11-26] MEDS: MENTHOL/ZINC OXIDE OINT 71 GM JAR TOP SCH ×2 (00:43→09:42)
[2020-11-26] MEDS: ALBUTEROL/IPRATROPIUM 3 ML NEB RESP TX SCH ×3 (02:48→11:27)
[2020-11-26] MEDS: PIPERACILLIN/TAZOBACTAM 3,375 MG in SODIUM CHLORIDE 0.9% 100 ML IV SCH (03:48)
[2020-11-26] MEDS: MIDAZOLAM 100 MG in SODIUM CHLORIDE 0.9% 80 ML IV PRN (03:54)
[2020-11-26 04:44] LABS: ABG Base Excess 3.2 MMOL/L (-2.5-2.5); ABG HCO3 27.3 MMOL/L (20-26); ABG PCO2 36.2 MM HG (35-48); ABG PH 7.478 (7.35-7.45); ABG TCO2 25.5 MMOL/L (23-27); Allen Test Positive; Pt O2 Delivery Device Ventilator
[2020-11-26 04:46] LABS: Basophils # 0.1 10*3/uL (0.0-0.2); Basophils % 0.2 % (0.0-0.8); Eosinophils # 0.1 10*3/uL (0.0-0.87); Eosinophils % 0.5 % (0.00-10.9); Hematocrit 18.2 VOL% (42.0-52.0); Immature Granulocytes % 1.2 %; Immature Granulocytes Absolute 0.32 #; Lymphocytes # 1.2 10*3/uL (1.4-4.0); Lymphocytes % 4.7 % (21.2-54.2); Mean Corpuscular HGB Conc 31.3 GM/DL (32-36); Mean Corpuscular Volume 104.6 FL (87-102); Mean Platelet Volume 11.5 FL (9.6-12.0); NRBC # 0.47 10*3/uL; Neutrophils % 90.4 % (38.7-73.9); Platelet Count 267 T/CUMM (130-400); Red Blood Count 1.74 MC/CUMM (3.8-5.5); Red Cell Distribution Width 18.3 % (9.3-17.3)
[2020-11-26 04:53] LABS: Hemoglobin 5.7 GM/DL (14.0-18.0)
[2020-11-26 05:06] LABS: Calcium 8.8 MG/DL (8.5-10.1); Osmolality,Calculated 277.7 MOS/KG (273-304); Potassium 4.3 MMOL/L (3.5-5.1)
[2020-11-26 05:11] LABS: Band Neutrophils 1 % (0-10); Eosinophils 1 % (0-10); Hypochromasia 2+; Lymphocytes 4 % (20-55); Microcytosis 1+; Platelet Estimate Adequate; Segmented Neutrophils 93 % (50-85); Total Cells Counted 100
[2020-11-26 05:12] LABS: Ovalocytes Slight
[2020-11-26] MEDS ORDERED: SODIUM CHLORIDE 0.9% 1,000 ML IV PRN (05:14)
[2020-11-26] MEDS: SODIUM CHLORIDE 3% 4 ML NEB RESP TX SCH (06:57)
[2020-11-26] MEDS: ATORVASTATIN 80 MG TABLET PEG SCH (07:12)
[2020-11-26] MEDS: INSULIN GLARGINE 100 UNIT/ML SUBCUT SCH (09:42)
[2020-11-26] MEDS: SODIUM HYPOCHLORITE 0.25% IRRIG 473 ML BOTTLE TOP SCH (09:42)
[2020-11-26] MEDS: ASPIRIN CHEW 81 MG TABLET PO SCH (09:42)
[2020-11-26] MEDS: CLOPIDOGREL 75 MG TABLET PEG SCH (09:43)
[2020-11-26] MEDS: APIXABAN 5 MG TABLET PEG SCH (09:43)
[2020-11-26] MEDS: COLLAGENASE OINT 30 GM TUBE TOP SCH (09:43)
[2020-11-26] MEDS ORDERED: MORPHINE 4 MG/1 ML VIAL ONE (13:38)
[2020-11-26] MEDS ORDERED: MORPHINE 4 MG/1 ML VIAL IV PRN (13:41)
[2020-11-26] MEDS ORDERED: EPINEPHrine 1 MG/10 ML SYRINGE IV ONE (13:53)
[2020-11-26] MEDS ORDERED: CALCIUM CHLORIDE 1,000 MG/10 ML SYRINGE IV ONE (13:53)
[2020-11-26] MEDS ORDERED: ATROPINE 1 MG/10 ML SYRINGE IV ONE (13:53)
[2020-11-26] MEDS ORDERED: DOPamine 800 MG/250 ML PREMIX IV ONE (13:53)
[2020-11-26] MEDS ORDERED: SODIUM BICARBONATE 50 MEQ/50 ML SYRINGE IV ONE (13:53)
== END 2020-11-26 13:54 | disposition expired | DRG 853 ==
LOC: EDUNIT# → EDBD → N.ED 13:20 → N.EDINP 15:48 → N.ICU 11-12 14:31 → SUATTDRO 11-12 14:42 → N.3E 11-13 16:42 → N.ICU 11-16 19:49 → N.TELES 11-19 16:54 → N.ICU 11-23 13:41
PROVIDERS: ADMIT Internal Medicine; ATTEND Internal Medicine